=== PATIENT | male | born 1935 | race Caucasian/White ===

== ENCOUNTER 2016-10-29 11:23 | Inpatient (IN) | payer MEDICARE ==
[~2016-10-29] VITALS: Ht 180.3 cm; Wt 116.3 kg
[~2016-10-29 11:23] MED LIST: AMIO200T2 PO; AMLO5TAB4 PO; ASPI-482 PO; ASPI325T4 PO; ASPI81TA50 PO; ATOR20TA PO; BENZ100C PO; BUTA1CAP31 PO; CALC-507 PO; CALC-98 PO; CALC600T4 PO; CHOL100013 PO; CHOL10002 PO; Cefpodoxime Proxetil PO; FERR-26 PO; FERR325C PO; FINA5TAB PO; FLUO40CA2 PO; FLUO40CA9 PO; FLUT16SP2 NS; FLUT1DIS3 IH; FURO-69 PO; FURO20TA3 PO; GLUC1CAP41 PO; GLUC1CAP48 PO; INSU100C SQ; INSU100I11 SQ; INSU100I13 SQ; INSU100V8 SQ; IPRA14.7 IH; IPRA4AER IH; LISI10TA2 PO; METF10002 PO; METF500T4 PO; METO25TA2 PO; METO25TA9 PO; MULT-404 PO; MULT1TAB52 PO; NITR0.4T SL; NYST1000 SWSW; OLME1TAB5 PO; OMEP40CA2 PO; OMEP40CA5 PO; OXYC1TAB7 PO; PIOG30TA20 PO; POTA20TA12 PO; POTA99TA PO; POTA99TA10 PO; PRED10TA PO; RIVA10TA PO; RIVA20TA2 PO; SUCR1TAB29 PO; TAMS0.4C2 PO; TAMS0.4C97 PO; TIZA2CAP3 PO; TIZA2TAB PO
--- NOTE | 2016-10-29 12:57 | EKG ---
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
[2016-10-29 13:03] LABS: BASO # 0.1 x10^3/uL (0.0-0.2); BASO % 1 % (0-3); EOS % 15 % (0-3); HEMATOCRIT 30.8 % (39.0-53.0); HEMOGLOBIN 10.4 g/dL (13.0-17.5); LYMPH # 0.6 x10^3/uL (1.0-4.8); LYMPH % 8 % (24-48); MEAN CORPUSCULAR HEMOGLOBIN 31 pg (25-35); MEAN CORPUSCULAR HGB CONC 34 g/dL (31-37); MEAN CORPUSCULAR VOLUME 93 fL (79-100); MONO % 11 % (0-9); NEUT % 65 % (31-73); PLATELET COUNT 121 x10^3/uL (140-400); RED BLOOD COUNT 3.33 x10^6/uL (4.30-5.70); RED CELL DISTRIBUTION WIDTH 13.5 % (11.5-14.5); WHITE BLOOD COUNT 7.7 x10^3/uL (4.0-11.0)
[2016-10-29 13:11] LABS: CALCIUM 9.5 mg/dL (8.5-10.1); CREATININE 1.7 mg/dL (0.7-1.3); GFR 38.7; MAGNESIUM 1.9 mg/dL (1.8-2.4)
[2016-10-29 13:13] LABS: INR 1.5 (0.8-1.1); PROTHROMBIN TIME PATIENT 16.9 SEC (11.7-14.0)
--- NOTE | 2016-10-29 13:20 | PHYS DOC ---
Past Medical History Past Medical History: A-Fib, Arthritis, Asthma, Diabetes-Type II, High Cholesterol, Other Additional Past Medical Histor: HIATAL HERNIA, SLEEP APNEA, OSTEOPOROSIS, RENTOPATHY, CCL Past Surgical History: Cholecystectomy Additional Past Surgical Histo: T&A, CATARRACT REMOVAL, LASER EYE SURGERY, AORTIC VALVE REPLACEMENT Alcohol Use: Rarely Drug Use: None Adult General Chief Complaint Chief Complaint: CHEST PAIN HPI HPI Patient is a 81 year old male who presents with for evaluation of episode of lightheadedness, dyspnea, and clamminess that was followed by mid chest discomfort that radiated to his neck. He states he has been having a few of these episodes over the past month. takes his blood pressure during these episodes and it is noted to be in the 80s systolic. She states it sometimes takes an hour for the blood pressure to recover back over 90 systolic. He is supposed to get evaluated for a pacemaker by his resident care manager rn at . He denies current chest pain, but states he has mild bilateral posterior neck pain currently. This is not an acute neck pain and it is different than what he experienced at home. He denies dyspnea, cough, orthopnea, fever or chills, leg pain or swelling, abdominal pain, nausea or vomiting, headache, dizziness. Review of Systems Review of Systems Constitutional: Denies fever or chills [] Eyes: Denies change in visual acuity, redness, or eye pain [] HENT: Denies nasal congestion or sore throat [] Respiratory: Denies cough or shortness of breath [] Cardiovascular: No additional information not addressed in HPI [] GI: Denies abdominal pain, nausea, vomiting, bloody stools or diarrhea [] : Denies dysuria or hematuria [] Musculoskeletal: Denies back pain or joint pain [] Integument: Denies rash or skin lesions [] Neurologic: Denies headache, focal weakness or sensory changes [] Endocrine: Denies polyuria or polydipsia [] Allergies Allergies Allergies Coded Allergies Type Severity Reaction Last Updated Verified venom-honey bee Allergy Severe Anaphylaxis 12/11/13 Yes Penicillins Allergy Intermediate see comments 06/25/15 Yes adhesive Allergy Intermediate Rash 12/11/13 Yes Physical Exam Physical Exam Constitutional: Well developed, well nourished, no acute distress, non-toxic appearance. [] HENT: Normocephalic, atraumatic, bilateral external ears normal, oropharynx moist, no oral exudates, nose normal. [] Eyes: PERRLA, EOMI. [] Neck: Normal range of motion, no tenderness, supple. [] Cardiovascular:Heart rate regular rhythm [] Lungs & Thorax: Bilateral breath sounds clear to auscultation [] Abdomen: Bowel sounds normal, soft, no tenderness. [] Skin: Warm, dry, no erythema, no rash. [] Back: No tenderness, no CVA tenderness. [] Extremities: ROM intact, chronic darkening of skin and shallow ulcerations of bilateral legs below knees. [] Neurologic: Alert and oriented X 3, normal motor function, normal sensory function, no focal deficits noted. [] Psychologic: Affect normal, judgement normal, mood normal. [] Current Patient Data Vital Signs Vital Signs Date Time Temp Pulse Resp B/P Pulse Ox O2 Delivery O2 Flow Rate FiO2 10/29/16 13:24 60 16 144/77 99 Room Air 10/29/16 11:23 97.8 97.8 Lab Values Laboratory Tests Test 10/29/16 11:54 White Blood Count 7.7x10^3/uL (4.0-11.0) Red Blood Count 3.33x10^6/uL (4.30-5.70) L Hemoglobin 10.4g/dL (13.0-17.5) L Hematocrit 30.8% (39.0-53.0) L Mean Corpuscular Volume 93fL (79-100) Mean Corpuscular Hemoglobin 31pg (25-35) Mean Corpuscular Hemoglobin Concent 34g/dL (31-37) Red Cell Distribution Width 13.5% (11.5-14.5) Platelet Count 121x10^3/uL (140-400) L Neutrophils (%) (Auto) 65% (31-73) Lymphocytes (%) (Auto) 8% (24-48) L Monocytes (%) (Auto) 11% (0-9) H Eosinophils (%) (Auto) 15% (0-3) H Basophils (%) (Auto) 1% (0-3) Neutrophils # (Auto) 5.0x10^3uL (1.8-7.7) Lymphocytes # (Auto) 0.6x10^3/uL (1.0-4.8) L Monocytes # (Auto) 0.9x10^3/uL (0.0-1.1) Eosinophils # (Auto) 1.2x10^3/uL (0.0-0.7) H Basophils # (Auto) 0.1x10^3/uL (0.0-0.2) Prothrombin Time 16.9SEC (11.7-14.0) H Prothrombin Time INR 1.5 (0.8-1.1) H Sodium Level 144mmol/L (136-145) Potassium Level 4.0mmol/L (3.5-5.1) Chloride Level 106mmol/L (98-107) Carbon Dioxide Level 30mmol/L (21-32) Anion Gap 8 (6-14) Blood Urea Nitrogen 36mg/dL (8-26) H Creatinine 1.7mg/dL (0.7-1.3) H Estimated GFR (Cockcroft-Gault) 38.7 Glucose Level 226mg/dL (70-99) H Calcium Level 9.5mg/dL (8.5-10.1) Magnesium Level 1.9mg/dL (1.8-2.4) Troponin I Quantitative 0.117ng/mL (0.000-0.055) FL-Kgk-U-Type Natriuretic Peptide 1657pg/mL (0-449) H Thyroid Stimulating Hormone (TSH) 2.392uIU/mL (0.358-3.74) Laboratory Tests 10/29/16 11:54 Laboratory Tests 10/29/16 11:54 EKG EKG EKG as interpreted by me with sinus rhythm with interventricular block, rate 63 Radiology/Procedures Radiology/Procedures Chest xray as interpreted by me with no acute cardiopulmonary disease process Course & Med Decision Making Course & Med Decision Making Pertinent Labs and Imaging studies reviewed. (See chart for details) History concerning for presyncopal event followed by chest pain. He has mild troponin elevation in the setting of chronic kidney disease. He continues to be without chest pain. His INR is 1.5, but he is taking xarelto. Discussed case with Linda ESPINOZA, cardiology, who will see her. Discussed case with Dr. Luke, who will admit. Steven Disclaimer Dragon Disclaimer This electronic medical record was generated, in whole or in part, using a voice recognition dictation system. Departure Departure Impression: Primary Impression: Pre-syncope Additional Impressions: Chest pain Elevated troponin CKD (chronic kidney disease) stage 3, GFR 30-59 ml/min Disposition: ADMITTED INPATIENT Condition: STABLE Referrals: KIMBERLY DIAZ DO (PCP) Problem Qualifiers Additional Impressions: Chest pain Chest pain type: unspecified Qualified Code: R07.9 - Chest pain, unspecified Rene WISE MD Oct 29, 2016 13:20
--- NOTE | 2016-10-29 13:28 | RAD ---
Portable chest, 10/29/2016: History: Chest pain Comparison is made to a study from 01/21/2016. The right hemidiaphragm is mildly elevated. The heart is mildly enlarged. A vascular stent is projected over the region of the ascending aorta. The pulmonary vascularity is normal. No pulmonary infiltrates are seen. There is no evidence of pleural fluid. IMPRESSION: 1. Mild cardiomegaly. 2. No acute abnormality is detected.
[2016-10-29] MEDS ORDERED: ONDANSETRON PF 4 MG/2 ML VIAL. IV PRN ×2 (13:45→15:23)
[2016-10-29] MEDS ORDERED: NITROGLYCERIN SUBLINGUAL 0.4 MG BOTTLE OF 25. SL PRN (13:45)
[2016-10-29] MEDS ORDERED: ACETAMINOPHEN 325 MG TABLET. PO PRN (13:45)
[2016-10-29] MEDS ORDERED: hydrALAZINE 20 MG/ML VIAL. IVP PRN (15:30)
[2016-10-29 15:45] VITALS: BP 160/73
--- NOTE | 2016-10-29 15:53 | PDOC1 ---
History and Physical Date of Admission Date of Admission DATE: 10/29/16 TIME: 15:47 Identification/Chief Complaint Chief Complaint chest pain Source Source: Caregiver, Chart review, Patient History of Present Illness History of Present Illness 81 y.o male who is a known pt of Dr. Nowak, follows with outside telecom engineer, sounds like they are planning on an ICD/defib/pacer? for severe cardiomyopathy with low EF. He came here bec of non specific CP at rest, Acute on chronci SOA, no other sxs. ( was on diversion hence admitted here). CXR, nothing impressive, trops 0.117, first set, Cards consulted Pt remains stable, VS ok, PE UR except for morbid obesity with post inflammatory hyperpigmentation on both legs from cellulitis and chronic PAD. Followed at one point with a cloth sponger [place] 1[place], metformin has been dcd by his silk screen printer helper bec of this and his insulin increased Pt seen at Er appears comfortable hands me a long list of his meds Past Medical History Cardiovascular: AFIB, CAD, HTN, Hyperlipidemia, Aortic stenosis Pulmonary: Asthma, COPD, Other CENTRAL NERVOUS SYSTEM: Migraine GI: GERD Heme/Onc: Cancer Hepatobiliary: No pertinent hx Psych: No pertinent hx Musculoskeletal: Osteoarthritis Rheumatologic: No pertinent hx Renal/: No pertinent hx Endocrine: Diabetes, Osteoporosis Past Surgical History Past Surgical History: Cholecystectomy, Cataract Removal, Hernia Repair, Hysterectomy, Other Family History Family History: Diabetes, Hypertension Social History Smoke: No ALCOHOL: none Drugs: None Current Problem List Problem List Problems Medical Problems: (1) Chest pain Status: Acute (2) CKD (chronic kidney disease) stage 3, GFR 30-59 ml/min Status: Acute (3) Elevated troponin Status: Acute (4) Pre-syncope Status: Acute Problems: Current Medications Current Medications Current Medications Ondansetron HCl (Zofran) 4 mg PRN Q8HRS PRN IV NAUSEA/VOMITING; Start 10/29/16 at 13:45; Stop 10/29/16 at 15:26; Status DC Acetaminophen (Tylenol) 650 mg PRN Q4HRS PRN PO FEVER; Start 10/29/16 at 13:45 ; Stop 10/30/16 at 13:44 Nitroglycerin (Nitrostat) 0.4 mg PRN Q5MIN PRN SL CHEST PAIN; Start 10/29/16 at 13:45; Stop 10/30/16 at 13:44 Ondansetron HCl (Zofran) 4 mg PRN Q6HRS PRN IV NAUSEA/VOMITING; Start 10/29/16 at 15:23; Status UNV Amiodarone HCl (Cordarone) 200 mg BID PO ; Start 10/29/16 at 21:00; Status UNV Aspirin (Ecotrin) 81 mg DAILY PO ; Start 10/30/16 at 09:00; Status UNV Atorvastatin Calcium (Lipitor) 20 mg QHS PO ; Start 10/29/16 at 21:00; Status UNV Vitamin D (Vitamin D3) 1,000 unit BID PO ; Start 10/29/16 at 21:00; Status UNV Finasteride (Proscar) 5 mg DAILY PO ; Start 10/30/16 at 09:00; Status UNV Fluticasone Propionate (Flonase) 1 spray TID PRN NS CG; Start 10/29/16 at 15:30 ; Status UNV Furosemide (Lasix) 20 mg DAILY PO ; Start 10/30/16 at 09:00; Status UNV Lisinopril (Prinivil) 10 mg DAILY PO ; Start 10/30/16 at 09:00; Status UNV Metoprolol Succinate (Toprol Xl) 25 mg DAILY PO ; Start 10/30/16 at 09:00; Status UNV Nystatin 5 ml [id number] [id number] ; Start 10/29/16 at 17:00; Status UNV Prednisone (Prednisone) 10 mg DAILY PO ; Start 10/30/16 at 09:00; Status UNV Rivaroxaban (Xarelto) 20 mg QHS PO ; Start 10/29/16 at 21:00; Stop 10/29/16 at 21:00; Status DC Sucralfate (Carafate) 1 gm QID PO ; Start 10/29/16 at 17:00; Status UNV Tamsulosin HCl (Flomax) 0.4 mg DAILY PO ; Start 10/30/16 at 09:00; Status UNV Non-Formulary Medication 1 each BID PO ; Start 10/29/16 at 21:00; Status UNV Non-Formulary Medication 40 mg DAILY PO ; Start 10/30/16 at 09:00; Status UNV Non-Formulary Medication 17 unit HS SQ ; Start 10/29/16 at 21:00; Status UNV Non-Formulary Medication 6 unit DAILYWLUN SQ ; Start 10/30/16 at 12:00; Status UNV Non-Formulary Medication 6 unit DAILYWSUP SQ ; Start 10/29/16 at 17:00; Status UNV Non-Formulary Medication 8 unit DAILYWBKFT SQ ; Start 10/30/16 at 08:00; Status UNV Non-Formulary Medication 2 inh QID IH ; Start 10/29/16 at 17:00; Status UNV Non-Formulary Medication 4 gm BID IH ; Start 10/29/16 at 21:00; Status UNV Non-Formulary Medication 1 cap DAILY PO ; Start 10/30/16 at 09:00; Status UNV Non-Formulary Medication 2 mg HS PO ; Start 10/29/16 at 21:00; Status UNV Hydralazine HCl (Apresoline) 10 mg PRN Q4HRS PRN IVP ELEVATED BP, SEE COMMENTS ; Start 10/29/16 at 15:30; Status UNV Rivaroxaban (Xarelto) 20 mg DAILYWSUP PO ; Start 10/30/16 at 17:00; Status UNV Active Scripts Active Prednisone 10 Mg Tablet 10 Mg PO DAILY Nystatin 5 Ml Oral.susp 5 Ml SWSW [id number] [Cefpodoxime Proxetil] 200 MG Tablet 200 Mg PO BID Reported Proscar (Finasteride) 5 Mg Tablet 1 Tab PO DAILY Humalog (Insulin Lispro) 100 Unit/1 Ml Insuln.pen 6 Unit SQ DAILYWSUP Amiodarone Hcl 200 Mg Tablet 2 Tab PO BID Xarelto (Rivaroxaban) 10 Mg Tablet 20 Mg PO QHS Carafate (Sucralfate) 1 Gm Tablet 1 Tab PO QID Omeprazole 40 Mg Capsule.dr 1 Cap PO DAILY Combivent Respimat Inhal (Ipratropium/Albuterol Sulfate) 4 Gm Aer.w.adap 2 Inh IH QID Lisinopril 10 Mg Tablet 1 Tab PO DAILY Flonase (Fluticasone Propionate) 16 Gm [place].susp 16 Gm NS PRN PRN Metformin Hcl 500 Mg Tablet 500 Mg PO BID Lantus (Insulin Glargine,Hum.rec.anlog) 100 Unit/1 Ml Vial 17 Unit SQ HS Humalog (Insulin Lispro) 100 Unit/1 Ml Insuln.pen 6 Unit SQ DAILYWLUN Humalog (Insulin Lispro) 100 Unit/1 Ml Insuln.pen 8 Unit SQ DAILYWBKFT Calcium + Vitamin D Tablet (Calcium Carbonate/Vitamin D3) 1 Each Tablet 1 Each PO BID Vitamin D (Cholecalciferol (Vitamin D3)) 1,000 Unit Tablet 1,000 Unit PO BID Multivitamins (Multivitamin) 1 Each Tablet 1 Each PO DAILY Aspir 81 (Aspirin) 81 Mg Tablet.dr 81 Mg PO DAILY Combivent Respimat Inhal (Ipratropium/Albuterol Sulfate) 4 Gm Aer.w.adap 4 Gm IH BID Zanaflex (Tizanidine Hcl) 2 Mg Capsule 2 Mg PO HS Lipitor (Atorvastatin Calcium) 20 Mg Tablet 20 Mg PO QHS Flomax (Tamsulosin Hcl) 0.4 Mg Cap.er.24h 0.4 Mg PO DAILY Toprol Xl (Metoprolol Succinate) 25 Mg Tab.er.24h 25 Mg PO DAILY Prozac (Fluoxetine Hcl) 40 Mg Capsule 40 Mg PO DAILY Lasix (Furosemide) 20 Mg Tablet 20 Mg PO DAILY Allergies Allergies: Coded Allergies: venom-honey bee (Verified Allergy, Severe, Anaphylaxis, 12/11/13) Penicillins (Verified Allergy, Intermediate, see comments, 06/25/15) Rash Cefepime 06/22-06/25/15 tolerated, ID switching to cefpodoxime 06/25/15 adhesive (Verified Allergy, Intermediate, Rash, 12/11/13) ROS General: No: Appetite, Chills, Fatigue, Malaise, Night Sweats, Other PSYCHOLOGICAL ROS: No: Anxiety, Behavioral Disorder, Concentration difficultie , Decreased libido, Depression, Disorientation, Hallucinations, Hostility, Irritablity, Memory difficulties, Mood Swings, Obsessive thoughts, Other, Physical abuse, Sexual abuse, Sleep disturbances, Suicidal ideation Eyes: No Blurry vision, No Decreased vision, No Double vision, No Dry eyes, No Excessive tearing, No Eye Pain, No Itchy Eyes, No Loss of vision, No Other, No Photophobia, No Scotomata, No Uses contacts, No Uses glasses HEENT: No: Epistaxis, Heacaches, Hearing change, Nasal congestion, Nasal discharge, Oral lesions, Other, Sinus pain, Sneezing, Snoring, Sore Throat, Tinnitus, Vertigo, Visual Changes, Vocal changes ALLERGY AND IMMUNOLOGY: No: Hives, Insect Bite Sensitivity, Itchy/Watery Eyes, Nasal Congestion, Other, Post Nasal Drip, Seasonal Allergies Hematological and Lymphatic: No: Bleeding Problems, Blood Clots, Blood Transfusions, Brusing, Night Sweats, Other, Pallor, Swollen Lymph Nodes ENDOCRINE: No: Breast Changes, Galactorrhea, Hair Pattern Changes, Hot Flashes , Malaise/lethargy, Mood Swings, Other, Palpitations, Polydipsia/polyuria, Skin Changes, Temperature Intolerance, Unexpected Weight Changes Breast: No New/Changing Breast Lumps, No Nipple changes, No Nipple discharge, No Other Respiratory: YES: SOB with excertion, Shortness of breath Cardiovascular: yes Chest Pain Gastrointestinal: No Abdominal Pain, No Constipation, No Diarrhea, No Hematochezia, No Melena, No Nausea, No Other, No Vomiting Genitourinary: No , No , No , No , No , No , No , No Discharge, No Dysuria, No Flank Pain, No Frequency, No Hematuria, No Incontinence, No Other, No Pain, No Retention, No Urgency Neurological: No Behavorial Changes, No Bowel/Bladder ControlChng, No Confusion , No Dizziness, No Gait Disturbance, No Headaches, No Impaired Coord/balance, No Memory Loss, No Numbness/Tingling, No Other, No Seizures, No Speech Problems , No Tremors, No Visual Changes, No Weakness Skin: Yes Other (post inflammtaory hyperpigmentation) Physical Exam General: Alert, Oriented X3, Cooperative, No acute distress HEENT: PERRLA Lungs: Normal air movement Heart: S1S2, RRR, no thrills, no rubs Breasts: Normal, Rt breast nml w/o mass, Lt breast nml w/o mass, Nipples normal Abdomen: Normal bowel sounds, Soft, No tenderness, No hepatosplenomegaly, No masses Male Genitals Exam: normal genitalia, normal prostate Extremities: Other (post inflammatory hyperpigmentation both shins) Skin: No rashes, No breakdown, No significant lesion Neuro: Normal gait, Normal speech, Strength at 5/5 X4 ext, Normal tone, Sensation intact, Cranial nerves 3-12 NL, Reflexes 2+ Psych/Mental Status: Mental status NL, Mood NL Vitals Vitals Vital Signs Date Time Temp Pulse Resp B/P Pulse Ox O2 Delivery O2 Flow Rate FiO2 10/29/16 14:54 66 21 161/79 98 Room Air 10/29/16 11:23 97.8 97.8 Labs Labs Laboratory Tests Test 10/29/16 11:54 White Blood Count 7.7x10^3/uL (4.0-11.0) Red Blood Count 3.33x10^6/uL (4.30-5.70) Hemoglobin 10.4g/dL (13.0-17.5) Hematocrit 30.8% (39.0-53.0) Mean Corpuscular Volume 93fL (79-100) Mean Corpuscular Hemoglobin 31pg (25-35) Mean Corpuscular Hemoglobin Concent 34g/dL (31-37) Red Cell Distribution Width 13.5% (11.5-14.5) Platelet Count 121x10^3/uL (140-400) Neutrophils (%) (Auto) 65% (31-73) Lymphocytes (%) (Auto) 8% (24-48) Monocytes (%) (Auto) 11% (0-9) Eosinophils (%) (Auto) 15% (0-3) Basophils (%) (Auto) 1% (0-3) Neutrophils # (Auto) 5.0x10^3uL (1.8-7.7) Lymphocytes # (Auto) 0.6x10^3/uL (1.0-4.8) Monocytes # (Auto) 0.9x10^3/uL (0.0-1.1) Eosinophils # (Auto) 1.2x10^3/uL (0.0-0.7) Basophils # (Auto) 0.1x10^3/uL (0.0-0.2) Prothrombin Time 16.9SEC (11.7-14.0) Prothromb Time International Ratio 1.5 (0.8-1.1) Sodium Level 144mmol/L (136-145) Potassium Level 4.0mmol/L (3.5-5.1) Chloride Level 106mmol/L (98-107) Carbon Dioxide Level 30mmol/L (21-32) Anion Gap 8 (6-14) Blood Urea Nitrogen 36mg/dL (8-26) Creatinine 1.7mg/dL (0.7-1.3) Estimated GFR (Cockcroft-Gault) 38.7 Glucose Level 226mg/dL (70-99) Calcium Level 9.5mg/dL (8.5-10.1) Magnesium Level 1.9mg/dL (1.8-2.4) Troponin I Quantitative 0.117ng/mL (0.000-0.055) DB-Vnx-Q-Type Natriuretic Peptide 1657pg/mL (0-449) Laboratory Tests Test 10/29/16 11:54 White Blood Count 7.7x10^3/uL (4.0-11.0) Red Blood Count 3.33x10^6/uL (4.30-5.70) Hemoglobin 10.4g/dL (13.0-17.5) Hematocrit 30.8% (39.0-53.0) Mean Corpuscular Volume 93fL (79-100) Mean Corpuscular Hemoglobin 31pg (25-35) Mean Corpuscular Hemoglobin Concent 34g/dL (31-37) Red Cell Distribution Width 13.5% (11.5-14.5) Platelet Count 121x10^3/uL (140-400) Neutrophils (%) (Auto) 65% (31-73) Lymphocytes (%) (Auto) 8% (24-48) Monocytes (%) (Auto) 11% (0-9) Eosinophils (%) (Auto) 15% (0-3) Basophils (%) (Auto) 1% (0-3) Neutrophils # (Auto) 5.0x10^3uL (1.8-7.7) Lymphocytes # (Auto) 0.6x10^3/uL (1.0-4.8) Monocytes # (Auto) 0.9x10^3/uL (0.0-1.1) Eosinophils # (Auto) 1.2x10^3/uL (0.0-0.7) Basophils # (Auto) 0.1x10^3/uL (0.0-0.2) Prothrombin Time 16.9SEC (11.7-14.0) Prothromb Time International Ratio 1.5 (0.8-1.1) Sodium Level 144mmol/L (136-145) Potassium Level 4.0mmol/L (3.5-5.1) Chloride Level 106mmol/L (98-107) Carbon Dioxide Level 30mmol/L (21-32) Anion Gap 8 (6-14) Blood Urea Nitrogen 36mg/dL (8-26) Creatinine 1.7mg/dL (0.7-1.3) Estimated GFR (Cockcroft-Gault) 38.7 Glucose Level 226mg/dL (70-99) Calcium Level 9.5mg/dL (8.5-10.1) Magnesium Level 1.9mg/dL (1.8-2.4) Troponin I Quantitative 0.117ng/mL (0.000-0.055) UY-Plh-U-Type Natriuretic Peptide 1657pg/mL (0-449) VTE Prophylaxis Ordered VTE Prophylaxis Devices: Yes VTE Pharmacological Prophylaxi: Yes Assessment/Plan Assessment/Plan 1. Chest pain, hx severe cardiomyopathy planned for aicd? defib/ 2. Morbid Obesity 3. PAD with post inflammatory hyperpigmentation both shins 4. DM 2 on insulin 5. Asthma 6. Dyslipidemia 7. MIld PCM PLAn Trend CE GEt records from Dr Nowak Add SSI Resume home meds PT/OT Seen at ER Dw [place] BURCH MD Oct 29, 2016 15:53
--- NOTE | 2016-10-29 16:14 | PDOC2 ---
RUPAL JACKSON COLLECTION SYSTEMS FOREMAN 10/29/16 1614: CARDIAC CONSULT DATE OF CONSULT Date of Consult DATE: 10/29/16 TIME: 15:34 REASON FOR CONSULT Reason for Consult: syncope and elevated troponin REFERRING PHYSICIAN Referring Physician: Dr. Alonzo Luciano SOURCE Source: Caregiver (), Chart review, Patient HISTORY OF PRESENT ILLNESS HISTORY OF PRESENT ILLNESS 81 year old male who developed dizziness while seated about 0945 this a.m. checked BP with a wrist cuff and obtained a SBP of 85. Also developed chest pain which he initially located in the LUQ of the abdomen and then moved up in to the left mammary region without further radiation. No associated dyspnea or nausea. Pain described as elephant on the chest. denies that patient "passed out." Initial troponin was 0.117 and EKG without acute changes; ? atrial fib with IVCD; poor baseline. NT-proBNP of 1657 with Cr of 1.7. Was scheduled to see EP @ tomorrow for possible PPM implantation. reports recent echo @ with depressed LV function but does not recall EF number. Has undergone DCCV of atrial fib in the last year but unclear regarding date. Also recently had CT scan of chest done @ [facility] for oncology for "spot on lungs." Reason for Visit: syncope and elevated troponin PAST MEDICAL HISTORY Cardiovascular: AFIB (with DCCV in past year; Xarelto for stroke prevention ), HTN, Hyperlipidemia, Aortic stenosis (s/p TAVR @ in 2013), Other (? cardiomyopathy) Pulmonary: COPD, Other (GODWIN with CPAP) CENTRAL NERVOUS SYSTEM: Migraine GI: Irritable bowel disease Heme/Onc: Other (chronic lymphocytic leukemia) Hepatobiliary: No pertinent hx Psych: Depression Musculoskeletal: Osteoarthritis, Other ("toe infection") Rheumatologic: No pertinent hx Infectious disease: Other (strep in toes) ENT: No pertinent hx Renal/: Chronic renal insuff (improved after discontinuation of metformin), Benign prostatic enlarg. Endocrine: Diabetes (type II, insulin requiring) Dermatology: Other (stasis dermatitis bilateral lower extremities) PAST SURGICAL HISTORY Past Surgical History: Cholecystectomy, Cataract Removal (bilateral; no lens implants), Tonsillectomy, Other (TAVR - 2013; RLE surgery) FAMILY HISTORY Family History non-contributory SOCIAL HISTORY Smoke: Quit (1972) ALCOHOL: none Drugs: None Lives: with Family ALLERGIES ALLERGIES: Coded Allergies: venom-honey bee (Verified Allergy, Severe, Anaphylaxis, 12/11/13) Penicillins (Verified Allergy, Intermediate, see comments, 06/25/15) Rash Cefepime 06/22-06/25/15 tolerated, ID switching to cefpodoxime 06/25/15 adhesive (Verified Allergy, Intermediate, Rash, 12/11/13) ROS General: YES: Fatigue, Malaise PSYCHOLOGICAL ROS: YES: Depression Eyes: No Blurry vision, No Decreased vision, No Double vision, No Dry eyes, No Excessive tearing, No Eye Pain, No Itchy Eyes, No Loss of vision, No Other, No Photophobia, No Scotomata, No Uses contacts, No Uses glasses HEENT: No: Epistaxis, Heacaches, Hearing change, Nasal congestion, Nasal discharge, Oral lesions, Other, Sinus pain, Sneezing, Snoring, Sore Throat, Tinnitus, Vertigo, Visual Changes, Vocal changes ALLERGY AND IMMUNOLOGY: No: Hives, Insect Bite Sensitivity, Itchy/Watery Eyes, Nasal Congestion, Other, Post Nasal Drip, Seasonal Allergies Hematological and Lymphatic: No: Bleeding Problems, Blood Clots, Blood Transfusions, Brusing, Night Sweats, Other, Pallor, Swollen Lymph Nodes ENDOCRINE: YES: Malaise/lethargy Respiratory: YES: SOB with excertion, Shortness of breath Cardiovascular: yes Chest Pain, yes Edema Gastrointestinal: No Abdominal Pain, No Constipation, No Diarrhea, No Hematochezia, No Melena, No Nausea, No Other, No Vomiting Genitourinary: No Discharge, No Dysuria, No Flank Pain, No Frequency, No Hematuria, No Incontinence, No Other, No Pain, No Retention, No Urgency Musculoskeletal: Yes Joint Pain Neurological: Yes Dizziness Skin: Yes Dry Skin PHYSICAL EXAM General: Alert, Oriented X3, Cooperative, No acute distress HEENT: Atraumatic, PERRLA Lungs: Other (posterior basilar crackles) Heart: Normal S1, Normal S2, Other (1/6 systolic murmur; aortic position; tele : atrial fib) Abdomen: Normal bowel sounds, Soft, No tenderness, Other (truncal obesity) Extremities: Other (stasis changes bilaterally LE; evidence of previous venous stasis wounds - healed; can not palpate DP pulses; PT palpable) Skin: No significant lesion Neuro: Normal speech Psych/Mental Status: Mental status NL, Mood NL MUSCULOSKELETAL: Osteoarthritic changes both hands VITALS VITALS Vital Signs Date Time Temp Pulse Resp B/P Pulse Ox O2 Delivery O2 Flow Rate FiO2 10/29/16 14:54 66 21 161/79 98 Room Air 10/29/16 11:23 97.8 97.8 LABS Lab: Laboratory Tests Test 10/29/16 11:54 White Blood Count 7.7x10^3/uL (4.0-11.0) Red Blood Count 3.33x10^6/uL (4.30-5.70) Hemoglobin 10.4g/dL (13.0-17.5) Hematocrit 30.8% (39.0-53.0) Mean Corpuscular Volume 93fL (79-100) Mean Corpuscular Hemoglobin 31pg (25-35) Mean Corpuscular Hemoglobin Concent 34g/dL (31-37) Red Cell Distribution Width 13.5% (11.5-14.5) Platelet Count 121x10^3/uL (140-400) Neutrophils (%) (Auto) 65% (31-73) Lymphocytes (%) (Auto) 8% (24-48) Monocytes (%) (Auto) 11% (0-9) Eosinophils (%) (Auto) 15% (0-3) Basophils (%) (Auto) 1% (0-3) Neutrophils # (Auto) 5.0x10^3uL (1.8-7.7) Lymphocytes # (Auto) 0.6x10^3/uL (1.0-4.8) Monocytes # (Auto) 0.9x10^3/uL (0.0-1.1) Eosinophils # (Auto) 1.2x10^3/uL (0.0-0.7) Basophils # (Auto) 0.1x10^3/uL (0.0-0.2) Prothrombin Time 16.9SEC (11.7-14.0) Prothromb Time International Ratio 1.5 (0.8-1.1) Sodium Level 144mmol/L (136-145) Potassium Level 4.0mmol/L (3.5-5.1) Chloride Level 106mmol/L (98-107) Carbon Dioxide Level 30mmol/L (21-32) Anion Gap 8 (6-14) Blood Urea Nitrogen 36mg/dL (8-26) Creatinine 1.7mg/dL (0.7-1.3) Estimated GFR (Cockcroft-Gault) 38.7 Glucose Level 226mg/dL (70-99) Calcium Level 9.5mg/dL (8.5-10.1) Magnesium Level 1.9mg/dL (1.8-2.4) Troponin I Quantitative 0.117ng/mL (0.000-0.055) FL-Bsn-A-Type Natriuretic Peptide 1657pg/mL (0-449) IMAGES IMAGES CXR: Comparison is made to a study from 01/21/2016. The right hemidiaphragm is mildly elevated. The heart is mildly enlarged. A vascular stent is projected over the region of the ascending aorta. The pulmonary vascularity is normal. No pulmonary infiltrates are seen. There is no evidence of pleural fluid. IMPRESSION: 1. Mild cardiomegaly. 2. No acute abnormality is detected. EKG EKG no acute changes; possible atrial fib; IVCD ECHOCARDIOGRAM ECHOCARDIOGRAM 03/11/2015: DAJA: The left ventricle is normal size. The left ventricular systolic function is normal and the ejection fraction is within normal range. Ventricular ejection fraction was estimated at 55%. The patient is status post a TAVR. The bioprosthetic aortic valve prosthesis is well positioned and functioning normally. No vegetations were identified. Doppler and Color Flow revealed mild to moderate mitral regurgitation. Doppler and Color Flow revealed mild to moderate tricuspid regurgitation. The pulmonary valve is normal in structure and function. No vegetations were identified on this study. ASSESSMENT/PLAN ASSESSMENT/PLAN 1. elevated troponin continue serial markers will obtain echo to evaluate LVEF and assess for WMA request records from 2. ? hypotension wrist cuffs not usually accurate ? etiology of dizziness - will check orthostatic BP continue monitor 3. ? of cardiomyopathy echo done in the last 3 months @ - reportedly depressed records from repeat echo to check LVEF 4. atrial fib rate controlled with BB OAC with Xarelto ? was to have PPM implanted @ 5. aortic stenosis with previous TAVR done 2014 echo pending to evaluate 6. mild chronic systolic (presumed) CHF continue daily dosing of oral diuretic 7. DM, II per primary service 8. 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 Agree with BIOLOGY RESEARCH ASSISTANT's assessment and plan. Dizziness most probably secondary to hypotension. Check orthostatics. Troponin level slightly elevated but clinical picture not consistent with ACS. Atrial fibrillation rate controlled. Patient was apparently scheduled for permanent pacemaker implantation at [facility]. We will obtain records. Check 2- D echo to assess LV systolic function. Continue current medications including Xarelto. Thank you for your consultation. Problems: RUPAL JACKSON APRN Oct 29, 2016 16:14 MELINDA DAMIAN MD Oct 29, 2016 16:56
[2016-10-29] MEDS ORDERED: ANTI-COAG MONITOR BY PHARMACY. MC PRN (16:30)
[2016-10-29] MEDS: SUCRALFATE 1 GM TABLET. PO SCH ×2 (16:30→21:16)
--- NOTE | 2016-10-29 16:33 | ACF ---
Admission Forms Criteria CHEST PAIN Clinical Indications for Admission to Inpatient Care (Place 'X' for any and all applicable criteria): Admission is indicated for chest pain and ANY ONE of the following(1)(2)(3)(4)(5 ): [ ]I. Angina with acute coronary syndrome (Also use Myocardial Infarction or Angina guideline) [ ]II. Hemodynamic instability [ ]III. Angina needing acute intervention as indicated by ALL of the following( 11)(12): [ ]a) Unstable angina is present as indicated by angina that is ANY ONE of the following: [ ]i) New onset [ ]ii) Nocturnal [ ]iii) Prolonged at rest [ ]iv) Progressive [ ]b) Angina warrants acute intervention as indicated by ANY ONE of the following: [ ]i) Recurrent angina (e.g, not responding as previously to treatment) [ ]ii) Angina at rest or with low-level activities despite initial medical therapy [ ]iii) New or presumably new ST-segment depression on ECG [ ]iv) Signs or symptoms of heart failure (eg, dyspnea, pulmonary edema) [ ]v) New or worsening mitral regurgitation [ ]vi) Hemodynamic instability [ ]vii) Dangerous arrhythmia (eg, sustained ventricular tachycardia) [ ]viii) History of percutaneous coronary intervention within 6 months [ ]ix) History of coronary artery bypass graft surgery [ ]x) KARELY risk score of 2 or greater[A] [ ]xi) History of Diabetes(14) [ ]xii) High-risk cardiac ischemia findings on noninvasive testing (e.g, echocardiogram, treadmill testing, nuclear scan) [ ]xiii) Chronic renal insufficiency (ie, estimated GFR less than 60 mL/min/1.732m) [ ]xiv) Left ventricular ejection fraction less than 40% [X]IV. Evidence of WA (eg, cardiac biomarkers positive, ST-segment elevation on ECG) also use Myocardial Infarction Criteria Form. [ ]V. Pulmonary edema [ ]. Respiratory distress [ ]VII. Chest pain indicative of serious diagnosis other than coronary artery disease (eg, aortic dissection) [ ]VIII. Contraindications and/or Inappropriate clinical situations for Observational Care in patients with Chest Pain, when ANY ONE of the following is required: [ ]a) Patient with risk factor for pulmonary embolism, acute coronary syndrome and myocardial infarction (18) [ ]b) Patient with Pulmonary embolism require an average LOS of 4.3 days, therefore emergency department observation management is inappropriate 18,23 [ ]c) Painful condition/s in the elderly, have the highest rate of recidivism after emergency department observation management (10.8%) 20,21,22 [ ]d) Elevated cardiac biomarker requires intensive and exhaustive care (19) [ ]IX. General contraindications and/or Inappropriate clinical situations for Observational Care in patients with Chest Pain, when ANY ONE of the following is required: [ ]a) Prediction of prolongation of LOS based on ANY ONE of the following may be considered as a contraindication for observational care 2, 3, 4, 5, 6, 7, 8, 9, 10, 11 [ ]i) Age > 65 yrs. [ ]ii) Patient arriving by ambulance [ ]iii) Patient with high acuity [ ]iv) Patient requiring vital sign monitoring [ ]v) Patient on IV medication [ ]b) Systolic blood pressures 180mmHg 3,12 [ ]c) Patient with altered mental status including delirium and other alteration of consciousness, (3) [ ]d) Patient whose discharge disposition will be to a half-way home or rehabilitation home should not be managed in Emergency Department Observation Unit. CMS rule requires 3 days hospital stay before such placement. 3,13 [ ]e) Patient with failure to thrive due to broad array of etiologies 3,16,17 [ ]f) Inability to ambulate 3,14 Extended stay beyond goal length of stay may be needed for (1)(28): [ ]a) Specific condition diagnosed after evaluation (eg, pulmonary embolism, aortic dissection) [ ]b) Unstable angina [ ]c) Continued suspicion of acute coronary syndrome with inability to complete needed cardiac evaluation (eg, patient clinically unable to undergo stress testing) [ ]d) Myocardial infarction (Contents from ANGINA and CHEST PAIN clinical indications for admission to inpatient care have been integrated in this form) The original [facility] content created by [employer] has been revised. The portions of the content which have been revised are identified through the use of italic text or in bold, and [facility] has neither reviewed nor approved the modified material. All other unmodified content is copyright [employer]. Please see references footnoted in the original [facility] edition 2016 Admission Criteria Met?: Yes KIM CARLIN Oct 29, 2016 16:33
[2016-10-29] MEDS: CALCIUM CARB/VIT D3 500/200 TABLET PO SCH (17:00)
[2016-10-29] MEDS ORDERED: INSULIN LISPRO 6 UNIT SQ SCH (17:00)
[2016-10-29] MEDS ORDERED: NON FORMULARY ITEM (Ipratropium/Albuterol Sulfate (Combivent Respimat Inhal) 2 INH) IH SCH (17:00)
--- NOTE | 2016-10-29 17:08 | CARD ---
APPROVED REPORT EXAM: Two-dimensional and M-mode echocardiogram with Doppler and color Doppler. Other Information Quality : Technically Limited Technically limited study due to body habitus. INDICATION Cardiomyopathy elevated troponin level 2D DIMENSIONS Left Atrium(2D)3.9 (1.6-4.0cm)IVSd1.4 (0.7-1.1cm) Aortic Root(2D)2.9 (2.0-3.7cm)LVDd4.6 (3.9-5.9cm) LVOT Diameter2.1 (1.8-2.4cm)PWd1.5 (0.7-1.1cm) LVDs3.7 (2.5-4.0cm)FS (%) 19.3 % SV38.5 mlLVEF(%)39.9 (>50%) Aortic Valve AoV Peak Gamal.186.4cm/sAoV VTI38.4cm AO Peak GR.13.9mmHgLVOT VTI 17.68cm AO Mean GR.9mmHgAVA (VTI)1.60cm2 Mitral Valve MV E Anlrnqpz42.9cm/sMV E Peak Gr.8mmHg MV DECEL [id number] A Lehvphbw680.0cm/s MV E Mean Gr.3mmHgMV [id number] E/A Ratio0.5MV A [id number] MVA (PHT)3.93cm2 TDI Lateral E' P. V4.84cm/sMedial E' P. V3.85cm/s E/Lateral E'15.3E/Medial E'19.2 LEFT VENTRICLE The left ventricle is normal size. There is mild concentric left ventricular hypertrophy. Left ventri ace systolic function is mildly impaired. The Ejection Fraction is 45%. There is global hypokinesis o f the left ventricle with septal motion suggestive of conduction defect. Tissue Doppler imaging revea ls mild left ventricular diastolic dysfunction. RIGHT VENTRICLE The right ventricle is normal size. The right ventricular systolic function is normal. ATRIA The left atrium size is normal. The right atrium is not well visualized. The interatrial septum is in tact with no evidence for an atrial septal defect or patent foramen ovale as noted on 2-D or Doppler imaging. AORTIC VALVE TAVR appears well positioned and is functioning normally. Doppler and Color Flow revealed no signific ant aortic regurgitation. Mean gradient of 9mmHG with a peak of 14mmHG across the TAVR. MITRAL VALVE Mitral annular calcification is moderate. There is no mitral valve stenosis. Doppler and Color Flow r evealed mild mitral regurgitation. TRICUSPID VALVE The tricuspid valve is not well visualized. Doppler and Color Flow revealed no tricuspid valve regurg itation noted. Unable to estimate PA pressure. There is no tricuspid valve stenosis. PULMONIC VALVE The pulmonic valve is not well visualized. Doppler and Color Flow revealed no pulmonic valvular regur gitation. There is no pulmonic valvular stenosis. GREAT VESSELS The aortic root is normal in size. The IVC was not visualized. PERICARDIAL EFFUSION There is no evidence of significant pericardial effusion. Critical Notification Critical Value: No <Conclusion> There is global hypokinesis of the left ventricle with septal motion suggestive of conduction defect. TAVR (Medtronic Corevalve) appears well positioned and is functioning normally. Mean gradient of 9mmHG with a peak of 14mmHG across the TAVR.
[2016-10-29] MEDS: NYSTATIN 100,000 UNITS/ML 5 ML ORAL.SUSP. SWSW SCH ×2 (18:48→21:15)
[2016-10-29] MEDS ORDERED: CHOL100013 PO (19:53)
[2016-10-29] MEDS ORDERED: ESCI20TA PO (19:53)
[2016-10-29] MEDS ORDERED: CEPH500C PO (19:53)
[2016-10-29] MEDS ORDERED: LACT1CAP6 PO (19:53)
[2016-10-29] MEDS ORDERED: CODE1CAP8 PO (19:53)
[2016-10-29] MEDS ORDERED: RIVA20TA2 PO (19:53)
[2016-10-29] MEDS ORDERED: SACU1TAB PO (19:53)
[2016-10-29] MEDS ORDERED: TORS20TA2 PO (19:53)
[2016-10-29] MEDS ORDERED: SIMV10TA3 PO (19:53)
[2016-10-29 19:55] VITALS: BP 146/74
[2016-10-29] MEDS: IPRATRPIUM/ALBUTEROL 0.5/2.5MG 3 ML NEBU. NEB SCH (19:57)
[2016-10-29 20:56] VITALS: BP 166/77
[2016-10-29 20:57] VITALS: BP 143/68
[2016-10-29] MEDS ORDERED: FLUTICASONE 50MCG/NASAL SPRAY 16GM BOTTLE. NS SCH (21:00)
[2016-10-29] MEDS ORDERED: INSULIN DETEMIR 300 UNITS/3 ML INSULN.PEN. SQ SCH (21:00)
[2016-10-29] MEDS ORDERED: NON FORMULARY ITEM (Ipratropium/Albuterol Sulfate (Combivent Respimat Inhal) 4 GM) IH SCH (21:00)
[2016-10-29] MEDS ORDERED: tiZANidine 4 MG TABLET. PO SCH (21:00)
[2016-10-29] MEDS ORDERED: ATORVASTATIN CALCIUM 20 MG TABLET PO SCH (21:00)
[2016-10-29] MEDS ORDERED: RIVAROXABAN 10 MG TABLET. PO SCH (21:00)
[2016-10-29] MEDS: AMIODARONE HCL 200 MG TABLET PO SCH (21:16)
[2016-10-29] MEDS: CHOLECALCIFEROL (VITAMIN D3) 1,000 UNIT TABLET PO SCH (21:17)
[2016-10-29 23:00] VITALS: BP 145/66
[2016-10-30 03:40] VITALS: BP 137/69
[2016-10-30 05:45] LABS: CHOLESTEROL/HDL RATIO 2.8
[2016-10-30] MEDS: IPRATRPIUM/ALBUTEROL 0.5/2.5MG 3 ML NEBU. NEB SCH ×3 (07:08→15:28)
[2016-10-30 07:23] VITALS: BP 124/61
[2016-10-30] MEDS ORDERED: PANTOPRAZOLE 40 MG TABLET. PO SCH (07:30)
[2016-10-30] MEDS: CALCIUM CARB/VIT D3 500/200 TABLET PO SCH (08:00)
[2016-10-30] MEDS: INSULIN ASPART 300 UNITS/3 ML INSULN.PEN SQ SCH ×2 (08:00→08:55)
--- NOTE | 2016-10-30 08:11 | EKG ---
[facility] [address] [place] [address] Test Date: 2016-10-30 Test Time: 07:49:39 Pat Name: ANGEL JACOME Department: Room: 200 1 Gender: M Public Relations Director: DIOMEDES : 1935 Requested By: Rene WISE Order Number: [id number] Reading MD: Karlos Lee Measurements Intervals [place] Rate: 70 P: 30 VA: 290 QRS: 13 QRSD: 122 T: 26 QT: 448 QTc: 487 Interpretive Statements SINUS RHYTHM PROLONGED VA INTERVAL NONSPECIFIC ST-T WAVE CHANGES. LOW LIMB LEAD VOLTAGE ABNORMAL ECG RI6.01 Compared to ECG 01/21/2016 15:21:43 First degree AV block now present Atrial fibrillation no longer present ST (T wave) deviation no longer present Electronically Signed On 11-15-2016 9:49:36 PROGRAM THERAPIST by Karlos Lee
[2016-10-30] MEDS: CHOLECALCIFEROL (VITAMIN D3) 1,000 UNIT TABLET PO SCH (08:39)
[2016-10-30] MEDS: SUCRALFATE 1 GM TABLET. PO SCH ×2 (08:41→12:35)
[2016-10-30] MEDS ORDERED: ASPIRIN ENTERIC COATED 81 MG TABLET.DR. PO SCH (09:00)
[2016-10-30] MEDS ORDERED: FLUOXETINE HCL 20 MG CAPSULE PO SCH (09:00)
[2016-10-30] MEDS: NYSTATIN 100,000 UNITS/ML 5 ML ORAL.SUSP. SWSW SCH (09:00)
[2016-10-30] MEDS: AMIODARONE HCL 200 MG TABLET PO SCH (09:00)
[2016-10-30] MEDS ORDERED: TAMSULOSIN 0.4 MG CAP.ER.24H. PO SCH (09:00)
[2016-10-30] MEDS ORDERED: LISINOPRIL 10 MG TABLET PO SCH (09:00)
[2016-10-30] MEDS ORDERED: PREDNISONE 10 MG TABLET PO SCH (09:00)
[2016-10-30] MEDS ORDERED: FUROSEMIDE 20 MG TABLET PO SCH (09:00)
[2016-10-30] MEDS ORDERED: METOPROLOL SUCC 24HR ER 25 MG TAB.ER.24H. PO SCH (09:00)
[2016-10-30] MEDS ORDERED: FINASTERIDE 5 MG TABLET PO SCH (09:00)
--- NOTE | 2016-10-30 09:06 | PDOC ---
CARDIO Progress Notes Date and Time Date of Service 10/30/2016 Time of Evaluation 0905 Subjective Subjective: No Chest Pain, No shortness of breath, No Palpitations, No Dizziness Vitals Vitals Vital Signs Date Time Temp Pulse Resp B/P Pulse Ox O2 Delivery O2 Flow Rate FiO2 10/30/16 08:34 69 124/61 10/30/16 07:23 97.6 20 96 Room Air 97.6 Weight Weight [ ] Input and Output Intake and Output Intake and Output 10/30/16 07:00 Intake Total 572 ml Balance 572 ml Intake Oral 572 ml # Voids 2 # Bowel Movements 1 Laboratory Labs Laboratory Tests Test 10/29/16 11:54 10/29/16 17:21 10/29/16 18:25 10/29/16 21:13 White Blood Count 7.7x10^3/uL (4.0-11.0) Red Blood Count 3.33x10^6/uL (4.30-5.70) Hemoglobin 10.4g/dL (13.0-17.5) Hematocrit 30.8% (39.0-53.0) Mean Corpuscular Volume 93fL (79-100) Mean Corpuscular Hemoglobin 31pg (25-35) Mean Corpuscular Hemoglobin Concent 34g/dL (31-37) Red Cell Distribution Width 13.5% (11.5-14.5) Platelet Count 121x10^3/uL (140-400) Neutrophils (%) (Auto) 65% (31-73) Lymphocytes (%) (Auto) 8% (24-48) Monocytes (%) (Auto) 11% (0-9) Eosinophils (%) (Auto) 15% (0-3) Basophils (%) (Auto) 1% (0-3) Neutrophils # (Auto) 5.0x10^3uL (1.8-7.7) Lymphocytes # (Auto) 0.6x10^3/uL (1.0-4.8) Monocytes # (Auto) 0.9x10^3/uL (0.0-1.1) Eosinophils # (Auto) 1.2x10^3/uL (0.0-0.7) Basophils # (Auto) 0.1x10^3/uL (0.0-0.2) Prothrombin Time 16.9SEC (11.7-14.0) Prothromb Time International Ratio 1.5 (0.8-1.1) Sodium Level 144mmol/L (136-145) Potassium Level 4.0mmol/L (3.5-5.1) Chloride Level 106mmol/L (98-107) Carbon Dioxide Level 30mmol/L (21-32) Anion Gap 8 (6-14) Blood Urea Nitrogen 36mg/dL (8-26) Creatinine 1.7mg/dL (0.7-1.3) Estimated GFR (Cockcroft-Gault) 38.7 Glucose Level 226mg/dL (70-99) Calcium Level 9.5mg/dL (8.5-10.1) Magnesium Level 1.9mg/dL (1.8-2.4) Troponin I Quantitative 0.117ng/mL (0.000-0.055) 0.124ng/mL (0.000-0.055) UH-Qlu-N-Type Natriuretic Peptide 1657pg/mL (0-449) Thyroid Stimulating Hormone (TSH) 2.392uIU/mL (0.358-3.74) Glucose (Fingerstick) 109mg/dL (70-99) 179mg/dL (70-99) Test 10/30/16 00:55 Troponin I Quantitative 0.119ng/mL (0.000-0.055) Triglycerides Level 78mg/dL (0-150) Cholesterol Level 150mg/dL (0-200) LDL Cholesterol, Calculated 80mg/dL (0-100) VLDL Cholesterol, Calculated 16mg/dL (0-40) HDL Cholesterol 54mg/dL (40-60) Cholesterol/HDL Ratio 2.8 Physical Exam HEENT: Neck Supple W Full Motion Chest: Symmetric LUNGS: Other (crackes left base posteriorly; otherwise clear) Heart: S1S2, RRR, no thrills, no rubs Abdomen: Soft N/T (obese abdomen) Extremities: Other (2+ bilateral LE edema with chronic stasis changes; no open wounds) Neurology: alert, oriented Diagnostic Tests Echocardiogram: Other (LVEF 45% with global hypokinesis suggestive of conduction defect; TAVR well seated and functioning; MG = 9; PK = 14) Assessment Assessment 1. elevated troponin troponin peaked @ 0.124 no further symptoms echo with mildly depressed LVEF of 45%; global hypokinesis suggestive of conduction defect overall, no suggestive of ACS continue to await records from 2. ? hypotension no evidence of hypotension overnight, in fact, intermittently hypertensive orthostatic readings have not been completed 3. ? of cardiomyopathy mildly depressed LV function @ 45% awaiting records continue medical management 4. atrial fib rate controlled with BB OAC with Xarelto ? was to have PPM implanted @ 5. aortic stenosis with previous TAVR done 2013 echo demonstrates well seated and functioning valve MG = 9 and PG = 14 6. mild chronic systolic CHF compensated continue daily dosing of oral diuretic No cardiac dysrhythmias, BP stable; may discharge home and f/u with Dr. Nowak next week Have requested echo from 10/29/2016 done here @ [facility] be clouded over to for Dr. Nowak Continue home meds as was previously taking; have advised to be cautious with position changes & has been advised not to move pt if he is dizzy but to elevate legs Other Comments ADDENDUM @ 1450: RECORDS REVIEWED FROM 01/07/2016: LVEF 35-40% BY ECHO 02/2016: LVEF = 55% BY ECHO 04/22/2016: DCCV ATRIAL FIB TO SR 04/27/2016: REGADENOSON MPI - NON-ISCHEMIC 10/06/2016: LVEF 35% BY ECHO PENDING APPT @ TO DISCUSS ICD VS EQUIPMENT ASSOCIATE RUPAL JACKSON APRN Oct 30, 2016 09:06
[2016-10-30 09:54] LABS: HEMATOCRIT 32.3 % (39.0-53.0); HEMOGLOBIN 10.8 g/dL (13.0-17.5); RED BLOOD COUNT 3.5 x10^6/uL (4.30-5.70); RED CELL DISTRIBUTION WIDTH 13.2 % (11.5-14.5); WHITE BLOOD COUNT 6.7 x10^3/uL (4.0-11.0)
[2016-10-30 10:08] LABS: CALCIUM 9.3 mg/dL (8.5-10.1); CREATININE 1.4 mg/dL (0.7-1.3); GFR 48.4; MAGNESIUM 1.9 mg/dL (1.8-2.4); POTASSIUM 4.1 mmol/L (3.5-5.1)
[2016-10-30 10:45] VITALS: BP 127/68
[2016-10-30] MEDS ORDERED: DEXTROSE 50% 25 GM / 50ML DISP.SYRIN. IV PRN (10:45)
[2016-10-30] MEDS ORDERED: MULTIVITAMIN with MINERAL TABLET. PO SCH (11:00)
[2016-10-30] MEDS ORDERED: SACUBITRIL/VALSARTAN 24/26MG TABLET. PO SCH (11:00)
[2016-10-30] MEDS ORDERED: ESCITALOPRAM 10 MG TABLET. PO SCH (11:00)
[2016-10-30] MEDS ORDERED: INSULIN ASPART 300 UNITS/3 ML INSULN.PEN SQ SCH ×3 (12:00→16:30)
[2016-10-30] MEDS ORDERED: CEPHALEXIN 250 MG CAPSULE PO SCH (13:00)
--- NOTE | 2016-10-30 13:45 | PDOC ---
PROGRESS NOTES Chief Complaint Chief Complaint 1. Chest pain, hx severe cardiomyopathy WITH chf, likely diastolic 2. Morbid Obesity 3. PAD with post inflammatory hyperpigmentation both shins 4. DM 2 on insulin 5. Asthma 6. Dyslipidemia 7. MIld PCM 8. s/o TAVR 9. PAFIB, sinus now 10 . LYNDSEY on CKD 3, vasomotor 11. GODWIN on CPAP PLAn Troponin slightly high GEt records from Dr Nowak Add SSI, cont home insulin regimen Resume home meds PT/OT Seen at ER Dw home TOrsomide, on lasix 20mg daily now History of Present Illness History of Present Illness no chest pain, or sob now \ very concern about his meds Vitals Vitals Vital Signs Date Time Temp Pulse Resp B/P Pulse Ox O2 Delivery O2 Flow Rate FiO2 10/30/16 12:36 80 127/68 10/30/16 11:40 Room Air 10/30/16 10:45 97.9 20 95 97.9 Physical Exam General: Alert, Oriented X3, Cooperative, No acute distress Heart: Normal S1, Normal S2, Other (1/6 systolic murmur; aortic position; tele : atrial fib) Lungs: Clear Abdomen: Normal bowel sounds, Soft, No tenderness, Other (truncal obesity) Extremities: Other (stasis changes bilaterally LE; evidence of previous venous stasis wounds - healed; can not palpate DP pulses; PT palpable) Skin: No significant lesion Labs LABS Laboratory Tests Test 10/29/16 17:21 10/29/16 18:25 10/29/16 21:13 10/30/16 00:55 Glucose (Fingerstick) 109mg/dL (70-99) 179mg/dL (70-99) Troponin I Quantitative 0.124ng/mL (0.000-0.055) 0.119ng/mL (0.000-0.055) Triglycerides Level 78mg/dL (0-150) Cholesterol Level 150mg/dL (0-200) LDL Cholesterol, Calculated 80mg/dL (0-100) VLDL Cholesterol, Calculated 16mg/dL (0-40) HDL Cholesterol 54mg/dL (40-60) Cholesterol/HDL Ratio 2.8 Test 10/30/16 09:24 10/30/16 11:03 White Blood Count 6.7x10^3/uL (4.0-11.0) Red Blood Count 3.50x10^6/uL (4.30-5.70) Hemoglobin 10.8g/dL (13.0-17.5) Hematocrit 32.3% (39.0-53.0) Mean Corpuscular Volume 92fL (79-100) Mean Corpuscular Hemoglobin 31pg (25-35) Mean Corpuscular Hemoglobin Concent 34g/dL (31-37) Red Cell Distribution Width 13.2% (11.5-14.5) Platelet Count 115x10^3/uL (140-400) Sodium Level 145mmol/L (136-145) Potassium Level 4.1mmol/L (3.5-5.1) Chloride Level 107mmol/L (98-107) Carbon Dioxide Level 33mmol/L (21-32) Anion Gap 5 (6-14) Blood Urea Nitrogen 32mg/dL (8-26) Creatinine 1.4mg/dL (0.7-1.3) Estimated GFR (Cockcroft-Gault) 48.4 Glucose Level 144mg/dL (70-99) Calcium Level 9.3mg/dL (8.5-10.1) Magnesium Level 1.9mg/dL (1.8-2.4) Glucose (Fingerstick) 171mg/dL (70-99) Review of Systems Review of Systems no fever, chills, sob or chest pain Assessment and Plan Assessmemt and Plan Problems Medical Problems: (1) Chest pain Status: Acute (2) CKD (chronic kidney disease) stage 3, GFR 30-59 ml/min Status: Acute (3) Elevated troponin Status: Acute (4) Pre-syncope Status: Acute Problems: Comment Review of Relevant I have reviewed the following items earnest (where applicable) has been applied. Labs Laboratory Tests Test 10/29/16 11:54 10/29/16 17:21 10/29/16 18:25 10/29/16 21:13 White Blood Count 7.7x10^3/uL (4.0-11.0) Red Blood Count 3.33x10^6/uL (4.30-5.70) Hemoglobin 10.4g/dL (13.0-17.5) Hematocrit 30.8% (39.0-53.0) Mean Corpuscular Volume 93fL (79-100) Mean Corpuscular Hemoglobin 31pg (25-35) Mean Corpuscular Hemoglobin Concent 34g/dL (31-37) Red Cell Distribution Width 13.5% (11.5-14.5) Platelet Count 121x10^3/uL (140-400) Neutrophils (%) (Auto) 65% (31-73) Lymphocytes (%) (Auto) 8% (24-48) Monocytes (%) (Auto) 11% (0-9) Eosinophils (%) (Auto) 15% (0-3) Basophils (%) (Auto) 1% (0-3) Neutrophils # (Auto) 5.0x10^3uL (1.8-7.7) Lymphocytes # (Auto) 0.6x10^3/uL (1.0-4.8) Monocytes # (Auto) 0.9x10^3/uL (0.0-1.1) Eosinophils # (Auto) 1.2x10^3/uL (0.0-0.7) Basophils # (Auto) 0.1x10^3/uL (0.0-0.2) Prothrombin Time 16.9SEC (11.7-14.0) Prothromb Time International Ratio 1.5 (0.8-1.1) Sodium Level 144mmol/L (136-145) Potassium Level 4.0mmol/L (3.5-5.1) Chloride Level 106mmol/L (98-107) Carbon Dioxide Level 30mmol/L (21-32) Anion Gap 8 (6-14) Blood Urea Nitrogen 36mg/dL (8-26) Creatinine 1.7mg/dL (0.7-1.3) Estimated GFR (Cockcroft-Gault) 38.7 Glucose Level 226mg/dL (70-99) Calcium Level 9.5mg/dL (8.5-10.1) Magnesium Level 1.9mg/dL (1.8-2.4) Troponin I Quantitative 0.117ng/mL (0.000-0.055) 0.124ng/mL (0.000-0.055) VB-Kcw-M-Type Natriuretic Peptide 1657pg/mL (0-449) Thyroid Stimulating Hormone (TSH) 2.392uIU/mL (0.358-3.74) Glucose (Fingerstick) 109mg/dL (70-99) 179mg/dL (70-99) Test 10/30/16 00:55 10/30/16 09:24 10/30/16 11:03 Troponin I Quantitative 0.119ng/mL (0.000-0.055) Triglycerides Level 78mg/dL (0-150) Cholesterol Level 150mg/dL (0-200) LDL Cholesterol, Calculated 80mg/dL (0-100) VLDL Cholesterol, Calculated 16mg/dL (0-40) HDL Cholesterol 54mg/dL (40-60) Cholesterol/HDL Ratio 2.8 White Blood Count 6.7x10^3/uL (4.0-11.0) Red Blood Count 3.50x10^6/uL (4.30-5.70) Hemoglobin 10.8g/dL (13.0-17.5) Hematocrit 32.3% (39.0-53.0) Mean Corpuscular Volume 92fL (79-100) Mean Corpuscular Hemoglobin 31pg (25-35) Mean Corpuscular Hemoglobin Concent 34g/dL (31-37) Red Cell Distribution Width 13.2% (11.5-14.5) Platelet Count 115x10^3/uL (140-400) Sodium Level 145mmol/L (136-145) Potassium Level 4.1mmol/L (3.5-5.1) Chloride Level 107mmol/L (98-107) Carbon Dioxide Level 33mmol/L (21-32) Anion Gap 5 (6-14) Blood Urea Nitrogen 32mg/dL (8-26) Creatinine 1.4mg/dL (0.7-1.3) Estimated GFR (Cockcroft-Gault) 48.4 Glucose Level 144mg/dL (70-99) Calcium Level 9.3mg/dL (8.5-10.1) Magnesium Level 1.9mg/dL (1.8-2.4) Glucose (Fingerstick) 171mg/dL (70-99) Laboratory Tests Test 10/29/16 17:21 10/29/16 18:25 10/29/16 21:13 10/30/16 00:55 Glucose (Fingerstick) 109mg/dL (70-99) 179mg/dL (70-99) Troponin I Quantitative 0.124ng/mL (0.000-0.055) 0.119ng/mL (0.000-0.055) Triglycerides Level 78mg/dL (0-150) Cholesterol Level 150mg/dL (0-200) LDL Cholesterol, Calculated 80mg/dL (0-100) VLDL Cholesterol, Calculated 16mg/dL (0-40) HDL Cholesterol 54mg/dL (40-60) Cholesterol/HDL Ratio 2.8 Test 10/30/16 09:24 10/30/16 11:03 White Blood Count 6.7x10^3/uL (4.0-11.0) Red Blood Count 3.50x10^6/uL (4.30-5.70) Hemoglobin 10.8g/dL (13.0-17.5) Hematocrit 32.3% (39.0-53.0) Mean Corpuscular Volume 92fL (79-100) Mean Corpuscular Hemoglobin 31pg (25-35) Mean Corpuscular Hemoglobin Concent 34g/dL (31-37) Red Cell Distribution Width 13.2% (11.5-14.5) Platelet Count 115x10^3/uL (140-400) Sodium Level 145mmol/L (136-145) Potassium Level 4.1mmol/L (3.5-5.1) Chloride Level 107mmol/L (98-107) Carbon Dioxide Level 33mmol/L (21-32) Anion Gap 5 (6-14) Blood Urea Nitrogen 32mg/dL (8-26) Creatinine 1.4mg/dL (0.7-1.3) Estimated GFR (Cockcroft-Gault) 48.4 Glucose Level 144mg/dL (70-99) Calcium Level 9.3mg/dL (8.5-10.1) Magnesium Level 1.9mg/dL (1.8-2.4) Glucose (Fingerstick) 171mg/dL (70-99) Medications Current Medications Ondansetron HCl (Zofran) 4 mg PRN Q8HRS PRN IV NAUSEA/VOMITING; Start 10/29/16 at 13:45; Stop 10/29/16 at 15:26; Status DC Acetaminophen (Tylenol) 650 mg PRN Q4HRS PRN PO FEVER Last administered on 10/30 10:49; Start 10/29/16 at 13:45; Stop 10/30/16 at 13:44 Nitroglycerin (Nitrostat) 0.4 mg PRN Q5MIN PRN SL CHEST PAIN; Start 10/29/16 at 13:45; Stop 10/30/16 at 13:44 Ondansetron HCl (Zofran) 4 mg PRN Q6HRS PRN IV NAUSEA/VOMITING; Start 10/29/16 at 15:23 Amiodarone HCl (Cordarone) 200 mg BID PO Last administered on 10/29/16 21:16; Start 10/29/16 at 21:00; Stop 10/30/16 at 10:39; Status DC Aspirin (Ecotrin) 81 mg DAILY PO Last administered on 10/30/16 08:39; Start at 09:00 Atorvastatin Calcium (Lipitor) 20 mg QHS PO Last administered on 10/29/16 21: 15; Start 10/29/16 at 21:00 Vitamin D (Vitamin D3) 1,000 unit BID PO Last administered on 10/30/16 08:39; Start 10/29/16 at 21:00 Finasteride (Proscar) 5 mg DAILY PO Last administered on 10/30/16 08:40; Start 10/30/16 at 09:00 Fluticasone Propionate (Flonase) 1 spray BID NS ; Start 10/29/16 at 21:00; Stop 10/29/16 at 21:00; Status DC Furosemide (Lasix) 20 mg DAILY PO Last administered on 10/30/16 08:39; Start 10/30/16 at 09:00 Lisinopril (Prinivil) 10 mg DAILY PO Last administered on 10/30/16 08:34; Start 10/30/16 at 09:00 Metoprolol Succinate (Toprol Xl) 25 mg DAILY PO ; Start 10/30/16 at 09:00; Stop 10/30/16 at 10:39; Status DC Nystatin 5 ml [id number] [id number] Last administered on 10/29/16 21:15; Start at 17:00; Stop 10/30/16 at 10:39; Status DC Prednisone (Prednisone) 10 mg DAILY PO ; Start 10/30/16 at 09:00; Stop 10/30/16 at 10:39; Status DC Rivaroxaban (Xarelto) 20 mg QHS PO ; Start 10/29/16 at 21:00; Stop 10/29/16 at 21:00; Status DC Sucralfate (Carafate) 1 gm QIDACHS PO Last administered on 10/30/16 12:35; Start 10/29/16 at 16:30 Tamsulosin HCl (Flomax) 0.4 mg DAILY PO Last administered on 10/30/16 09:00; Start 10/30/16 at 09:00 Calcium/Vitamin D (Oscal D 500mg/ 200uts) 1 tab BIDWMEALS PO ; Start 10/29/16 at 17:00 Fluoxetine HCl (Prozac) 40 mg DAILY PO ; Start 10/30/16 at 09:00; Stop 10/30/16 at 10:39; Status DC Insulin Detemir (Levemir) 17 units QHS SQ Last administered on 10/29/16 21:26 ; Start 10/29/16 at 21:00 Insulin Aspart (Novolog) 6 units BIDACLD SQ ; Start 10/30/16 at 16:30; Stop at 16:30; Status DC Non-Formulary Medication 6 unit DAILYWSUP SQ ; Start 10/29/16 at 17:00; Stop at 17:00; Status DC Insulin Aspart (Novolog) 8 units DAILYWBKFT SQ Last administered on 10/30/16 08:00; Start 10/30/16 at 07:30; Stop 10/30/16 at 12:29; Status DC Non-Formulary Medication 2 inh QID IH ; Start 10/29/16 at 17:00; Stop 10/29/16 at 17:00; Status DC Non-Formulary Medication 4 gm BID IH ; Start 10/29/16 at 21:00; Stop 10/29/16 at 21:00; Status DC Pantoprazole Sodium (Protonix) 40 mg DAILYAC PO Last administered on 10/30/16 08:39; Start 10/30/16 at 07:30 Tizanidine HCl (Zanaflex) 2 mg QHS PO Last administered on 10/29/16 21:17; Start 10/29/16 at 21:00 Hydralazine HCl (Apresoline) 10 mg PRN Q4HRS PRN IVP ELEVATED BP, SEE COMMENTS ; Start 10/29/16 at 15:30 Rivaroxaban (Xarelto) 20 mg DAILYWSUP PO ; Start 10/30/16 at 17:00 Info (Anti-Coagulation Monitoring By Pharmacy) 1 each PRN DAILY PRN MC SEE COMMENTS Last administered on 10/30/16 10:27; Start 10/29/16 at 16:30 Albuterol/ Ipratropium (Duoneb) 3 ml RTQID NEB Last administered on 10/30/16 11:39; Start 10/29/16 at 20:00 Insulin Aspart (Novolog) 0-9 UNITS TIDWMEALS SQ Last administered on 10/30/16 12:39; Start 10/30/16 at 12:00 Dextrose 12.5 gm PRN Q15MIN PRN IV SEE COMMENTS; Start 10/30/16 at 10:45 Sacubitril/ Valsartan (Entresto 24 Mg-26 Mg) 1 tab BID PO Last administered on 10/30/16 12:36; Start 10/30/16 at 11:00 Cephalexin HCl (Keflex) 500 mg BID PO Last administered on 10/30/16 12:41; Start 10/30/16 at 13:00 Escitalopram Oxalate (Lexapro) 20 mg DAILY PO Last administered on 10/30/16 12 :36; Start 10/30/16 at 11:00 Multivitamins/ Calcium (Thera M Plus) 1 tab DAILY PO Last administered on 12:35; Start 10/30/16 at 11:00 Insulin Aspart (Novolog) 9 units DAILYWBKFT SQ ; Start 10/31/16 at 08:00 Insulin Aspart (Novolog) 7 units BIDACLD SQ ; Start 10/30/16 at 16:30 Active Scripts Active Nystatin 5 Ml Oral.susp 5 Ml SWSW [id number] [Cefpodoxime Proxetil] 200 MG Tablet 200 Mg PO BID Reported Probiotic (Lactobacillus Acidophilus) 1 Each Capsule 1 Each PO DAILY Vitamin D (Cholecalciferol (Vitamin D3)) 1,000 Unit Capsule 1 Cap PO BID Fiorinal-Cod 31-83-105-40 Cap (Codeine/Butalbital/Asa/Caffein) 1 Each Capsule 1 Each PO PRN Q4-6HRS PRN Entresto 24 mg-26 mg Tablet (Sacubitril/Valsartan) 1 Each Tablet 1 Each PO BID Simvastatin 10 Mg Tablet 1 Tab PO DAILY Xarelto (Rivaroxaban) 20 Mg Tablet 20 Mg PO DAILY Torsemide 20 Mg Tablet 10 Mg PO DAILY Cephalexin 500 Mg Capsule 1 Cap PO BID Escitalopram Oxalate 20 Mg Tablet 1 Tab PO DAILY Proscar (Finasteride) 5 Mg Tablet 1 Tab PO DAILY Xarelto (Rivaroxaban) 10 Mg Tablet 20 Mg PO QHS Lantus (Insulin Glargine,Hum.rec.anlog) 100 Unit/1 Ml Vial 17 Unit SQ HS Humalog (Insulin Lispro) 100 Unit/1 Ml Insuln.pen 8 Unit SQ DAILYWBKFT Vitamin D (Cholecalciferol (Vitamin D3)) 1,000 Unit Tablet 1,000 Unit PO BID Multivitamins (Multivitamin) 1 Each Tablet 1 Each PO DAILY Aspir 81 (Aspirin) 81 Mg Tablet.dr 81 Mg PO DAILY Combivent Respimat Inhal (Ipratropium/Albuterol Sulfate) 4 Gm Aer.w.adap 4 Gm IH BID Zanaflex (Tizanidine Hcl) 2 Mg Capsule 2 Mg PO HS Flomax (Tamsulosin Hcl) 0.4 Mg Cap.er.24h 0.4 Mg PO DAILY Vitals/I & O Vital Sign - Last 24 Hours 10/29/16 10/29/16 10/29/16 10/29/16 13:54 14:24 14:54 15:24 Pulse 62 66 66 66 Resp 24 17 B/P 168/88 116/66 161/79 140/69 Pulse Ox 97 96 98 99 O2 Delivery Room Air Room Air Room Air Room Air 10/29/16 10/29/16 10/29/16 10/29/16 15:45 19:54 19:55 20:40 Temp 97.4 97.5 97.4 97.5 Pulse 74 86 Resp 22 20 B/P 160/73 146/74 Pulse Ox 95 97 95 O2 Delivery Room Air Room Air Room Air Room Air 10/29/16 10/29/16 10/29/16 10/29/16 20:56 20:57 21:16 23:00 Pulse 90 88 86 66 Resp 20 B/P 166/77 143/68 146/74 145/66 Pulse Ox 97 O2 Delivery Room Air 10/30/16 10/30/16 10/30/16 10/30/16 02:04 03:40 03:41 07:09 Temp 97.4 97.4 Pulse 62 Resp 20 B/P 137/69 Pulse Ox 100 100 100 94 O2 Delivery BiPAP/CPAP BiPAP/CPAP BiPAP/CPAP Room Air 10/30/16 10/30/16 10/30/16 10/30/16 07:23 08:00 08:34 10:45 Temp 97.6 97.9 97.6 97.9 Pulse 69 69 80 Resp 20 20 B/P 124/61 124/61 127/68 Pulse Ox 96 95 O2 Delivery Room Air Room Air Room Air 10/30/16 10/30/16 11:40 12:36 Pulse 80 B/P 127/68 O2 Delivery Room Air Intake and Output 10/29/16 10/29/16 10/30/16 15:00 23:00 07:00 Intake Total 472 ml 100 ml Balance 472 ml 100 ml OMAR WILKS MD Oct 30, 2016 13:45
[2016-10-30 14:12] VITALS: BP 140/69
--- NOTE | 2016-10-30 14:58 | PDOC3 ---
Discharge Summary [facility] Date of Admission: Oct 29, 2016 Discharge Date: Oct 30, 2016 Admitting Diagnosis 1. Chest pain, hx severe cardiomyopathy WITH chf, likely diastolic 2. Morbid Obesity 3. PAD with post inflammatory hyperpigmentation both shins 4. DM 2 on insulin 5. Asthma 6. Dyslipidemia 7. MIld PCM 8. s/o TAVR 9. PAFIB, sinus now 10 . LYNDSEY on CKD 3, vasomotor 11. GODWIN on CPAP 12. elevated troponin could be 2/2 LYNDSEY Problems: Final Diagnosis Problems Medical Problems: (1) Chest pain Status: Acute (2) CKD (chronic kidney disease) stage 3, GFR 30-59 ml/min Status: Acute (3) Elevated troponin Status: Acute (4) Pre-syncope Status: Acute CONSULTS card Brief Hospital Course Mr. Swann is a 81 old M, with multiple commobidities, waiting to get PPM with [facility], comes for chest pain, now gone. with mild LYNDSEY, better now, and mild elevated troponin. ECHO SHOWED TVAR IS in good place. card consulted, no intervention done, ok to dc home today dc tiem 35min Patient History: Family history: Cardiovascular disease (situation) Family history: Diabetes mellitus (situation) G8 BROTHER Family history: Hypertension (situation) G8 BROTHER GI bleeding 33 FATHER Unknown Problems: Disposition home CONDITION AT DISCHARGE: Improved Diet cardiac Scheduled Aspirin (Aspir 81) 81 MG PO DAILY (Reported) Cephalexin (Cephalexin) 1 CAP PO BID (Reported) Cholecalciferol (Vitamin D3) (Vitamin D) 1,000 UNIT PO BID (Reported) Cholecalciferol (Vitamin D3) (Vitamin D) 1 CAP PO BID (Reported) Escitalopram Oxalate (Escitalopram Oxalate) 1 TAB PO DAILY (Reported) Finasteride (Proscar) 1 TAB PO DAILY (Reported) Insulin Glargine,Hum.rec.anlog (Lantus) 17 UNIT SQ HS (Reported) Insulin Lispro (Humalog) 8 UNIT SQ DAILYWBKFT (Reported) Ipratropium/Albuterol Sulfate (Combivent Respimat Inhal) 4 GM IH BID (Reported) Lactobacillus Acidophilus (Probiotic) 1 EACH PO DAILY (Reported) Multivitamin (Multivitamins) 1 EACH PO DAILY (Reported) Rivaroxaban (Xarelto) 20 MG PO QHS (Reported) Rivaroxaban (Xarelto) 20 MG PO DAILY (Reported) Sacubitril/Valsartan (Entresto 24 mg-26 mg Tablet) 1 EACH PO BID (Reported) Simvastatin (Simvastatin) 1 TAB PO DAILY (Reported) Tamsulosin Hcl (Flomax) 0.4 MG PO DAILY (Reported) Tizanidine Hcl (Zanaflex) 2 MG PO HS (Reported) Torsemide (Torsemide) 10 MG PO DAILY (Reported) Scheduled PRN Codeine/Butalbital/Asa/Caffein (Fiorinal-Cod 15-66-025-40 Cap) 1 EACH PO PRN Q4- 6HRS PRN PRN PAIN (Reported) Discontinued Medications ([Cefpodoxime Proxetil]) 200 MG PO BID Nystatin (Nystatin) 5 ML SWSW [id number] Follow Up pcp and card in 2 weeks OMAR WILKS MD Oct 30, 2016 14:58
[2016-10-30] MEDS ORDERED: RIVAROXABAN 10 MG TABLET. PO SCH (17:00)
[2016-10-31] MEDS ORDERED: INSULIN ASPART 300 UNITS/3 ML INSULN.PEN SQ SCH (08:00)
== END 2016-10-30 16:15 | disposition home or self-care (01) | DRG 683 ==
LOC: ER 11:23 → ED HOLD 13:30 → 2 NORTH 16:01
PROVIDERS: ADMIT Internal Medicine; ATTEND Internal Medicine
DX: N17.0 Acute kidney failure with tubular necrosis (principal); I13.0 Hypertensive heart and chronic kidney disease with heart failure and stage 1 through stage 4 chronic kidney disease, or unspecified chronic kidney disease; C91.10 Chronic lymphocytic leukemia of B-cell type not having achieved remission; E44.1 Mild protein-calorie malnutrition; I50.42 Chronic combined systolic (congestive) and diastolic (congestive) heart failure; I42.9 Cardiomyopathy, unspecified; E11.22 Type 2 diabetes mellitus with diabetic chronic kidney disease; E66.01 Morbid (severe) obesity due to excess calories; E78.00 Pure hypercholesterolemia, unspecified; E78.5 Hyperlipidemia, unspecified; G47.33 Obstructive sleep apnea (adult) (pediatric); I34.0 Nonrheumatic mitral (valve) insufficiency; I35.0 Nonrheumatic aortic (valve) stenosis; I48.91 Unspecified atrial fibrillation; I87.2 Venous insufficiency (chronic) (peripheral); J44.9 Chronic obstructive pulmonary disease, unspecified; J45.909 Unspecified asthma, uncomplicated; E11.51 Type 2 diabetes mellitus with diabetic peripheral angiopathy without gangrene; K21.9 Gastro-esophageal reflux disease without esophagitis; K58.9 Irritable bowel syndrome, unspecified; L81.0 Postinflammatory hyperpigmentation; I25.10 Atherosclerotic heart disease of native coronary artery without angina pectoris; M81.0 Age-related osteoporosis without current pathological fracture; N18.3 Chronic kidney disease, stage 3 (moderate); Z79.4 Long term (current) use of insulin; Z82.49 Family history of ischemic heart disease and other diseases of the circulatory system; Z88.0 Allergy status to penicillin; Z83.3 Family history of diabetes mellitus; Z95.2 Presence of prosthetic heart valve; Z87.891 Personal history of nicotine dependence; Z68.35 Body mass index [BMI] 35.0-35.9, adult; Z90.49 Acquired absence of other specified parts of digestive tract
CPT/HCPCS: 36415; 71010; 80048; 80061; 82947; 83735; 83880; 84443; 84484; 85027; 85610; 93005; 93306; 94250; 94640; 94660; 95811; J1815; J7620; 99285-25

== ENCOUNTER → 2016-12-18 | Outpatient (CLI) | payer MEDICARE ==
[~2016-12-18] MED LIST changes: +CEPH500C PO; +CODE1CAP8 PO; +ESCI20TA PO; +LACT1CAP6 PO; +SACU1TAB PO; +SIMV10TA3 PO; +TORS20TA2 PO
--- NOTE | 2016-12-18 12:53 | RAD ---
Exam: PA and lateral chest radiograph History: Congestive heart failure. Comparison: 10/29/2016. Findings: Cardiomediastinal silhouette is within normal limits for size. Bilateral lung huggins are free of focal infiltrate. No pleural effusion is seen. Aortic atherosclerosis is seen. TAVR does not appear appreciably changed. Impression: No acute cardiopulmonary process.
== END | disposition home or self-care (01) ==
LOC: RAD 12:06
PROVIDERS: ATTEND Internal Medicine Critical Care Medicine
DX: I50.9 Heart failure, unspecified (principal)
CPT/HCPCS: 71020

== ENCOUNTER → 2016-12-18 | Outpatient (CLI) | payer MEDICARE ==
[2016-12-18 12:39] LABS: CALCIUM 9.9 mg/dL (8.5-10.1); CREATININE 1.6 mg/dL (0.7-1.3); GFR 41.5; POTASSIUM 4.9 mmol/L (3.5-5.1)
== END | disposition home or self-care (01) ==
LOC: RAD 11:54
PROVIDERS: ATTEND Internal Medicine Cardiovascular Disease
DX: I10 Essential (primary) hypertension (principal); I25.10 Atherosclerotic heart disease of native coronary artery without angina pectoris; I48.0 Paroxysmal atrial fibrillation
CPT/HCPCS: 36415; 80048

== ENCOUNTER 2016-12-23 18:58 | Inpatient (IN) | payer MEDICARE ==
[~2016-12-23] VITALS: Ht 175.3 cm; Wt 118.1 kg
[2016-12-23 20:21] LABS: BASO # 0.1 x10^3/uL (0.0-0.2); BASO % 1 % (0-3); EOS % 17 % (0-3); HEMOGLOBIN 10.4 g/dL (13.0-17.5); LYMPH # 0.9 x10^3/uL (1.0-4.8); LYMPH % 11 % (24-48); MEAN CORPUSCULAR HEMOGLOBIN 31 pg (25-35); MEAN CORPUSCULAR HGB CONC 34 g/dL (31-37); MEAN CORPUSCULAR VOLUME 92 fL (79-100); MONO % 11 % (0-9); NEUT % 60 % (31-73); PLATELET COUNT 131 x10^3/uL (140-400); RED BLOOD COUNT 3.36 x10^6/uL (4.30-5.70); RED CELL DISTRIBUTION WIDTH 14.8 % (11.5-14.5); WHITE BLOOD COUNT 7.7 x10^3/uL (4.0-11.0)
[2016-12-23 20:30] LABS: INR 1.4 (0.8-1.1)
[2016-12-23 20:40] LABS: % EOS 21 % (0-5); HYPOCHROMIA SLIGHT; PLT ESTIMATE DECREASED (ADEQUATE)
[2016-12-23 20:44] LABS: CKMB MASS 0.9 ng/mL (0.0-3.6)
[2016-12-23 20:54] LABS: CALCIUM 8.8 mg/dL (8.5-10.1); CREATININE 1.4 mg/dL (0.7-1.3); GFR 48.4; POTASSIUM 4.2 mmol/L (3.5-5.1)
--- NOTE | 2016-12-23 21:12 | EKG ---
[facility] [address] [place] [address] Test Date: 2016-12-23 Test Time: 19:08:26 Pat Name: ANGEL JACOME Department: Room: Gender: M [employer]: : 1935 Requested By: DEBBIE WARE Order Number: [id number] Reading MD: Measurements Intervals [place] Rate: 63 P: -90 CT: 204 QRS: 14 QRSD: 122 T: 20 QT: 442 QTc: 456 Interpretive Statements SINUS RHYTHM LOW LIMB LEAD VOLTAGE QRS(T) CONTOUR ABNORMALITY CONSIDER ANTEROSEPTAL MYOCARDIAL DAMAGE POSSIBLY ABNORMAL ECG RI6.01 No previous ECG available for comparison
[2016-12-23] MEDS ORDERED: MORPHINE SULFATE 4 MG/ML DISP.SYRIN. IV PRN (21:45)
[2016-12-23] MEDS ORDERED: ONDANSETRON PF 4 MG/2 ML VIAL. IV PRN (21:45)
[2016-12-23] MEDS ORDERED: ACETAMINOPHEN 325 MG TABLET. PO PRN (21:45)
[2016-12-23] MEDS ORDERED: ASPIRIN CHEWABLE 81 MG TABLET. PO ONE (22:00)
--- NOTE | 2016-12-23 22:58 | ACF ---
Admission Forms Criteria MYOCARDIAL INFARCTION Clinical Indications for Admission to Inpatient Care (Place 'X' for any and all applicable criteria): Admission is indicated for 1 or more of the following (1)(2)(3)(4): [X]I. Acute AK [ ]II. Contraindications and/or Inappropriate clinical situations for Observational Care in patients with Myocardial Infarction, when ANY ONE of the following is required: [ ]a) Patient with High risk of cardiac embolism (e.g, patients with previous cardiac embolism, LVEF < 40%, age >75 and patients with prosthetic valve) 18 [ ]b) Patient with Moderate risk including DM patient, CAD and patient aged 65-75 18 [ ]c) Patient with any change in cardiac biomarker especially troponin should be managed as high risk in an inpatient setting 19 [ ]d) Physician judgement irrespective of ECG and other diagnostic findings 20 [ ]III.General contraindications and/or Inappropriate clinical situations for Observational Care in patients with Myocardial Infarction, when ANY ONE of the following is required: [ ]a) Prediction of prolongation of LOS based on ANY ONE of the following may be considered as a contraindication for observational care 2, 3, 4, 5, 6, 7, 8, 9, 10, 11 [ ]i) Age > 65 yrs. [ ]ii) Patient arriving by ambulance [ ]iii) Patient with high acuity [ ]iv) Patient requiring vital sign monitoring [ ]v) Patient on IV medication [ ]b) Systolic blood pressures greater than or equal to 180mmHg 3,12 [ ]c) Patient with altered mental status including delirium and other alteration of consciousness, (3) [ ]d) Patient whose discharge disposition will be to a long term home or rehabilitation home should not be managed in Emergency Department Observation Unit. CMS rule requires 3 days hospital stay before such placement. 3,13 [ ]e) Patient with failure to thrive due to broad array of etiologies 3 ,16,17 [ ]f) Inability to ambulate 3,14 Extended stay beyond goal length of stay may be needed for (1)(18)(20)(24)(25): [ ]a) Hemodynamic instability, persisting symptoms after intensive medical management, or recurring severe, prolonged symptoms [ ]b) Intravascular procedural complications such as acute vessel closure, stent thrombosis, stent malposition, or vessel dissection (26)(27)(28) [ ]c) Extravascular procedural complications such as retroperitoneal hematoma , pericardial effusion, or cardiac tamponade [ ]d) Entry site complications causing bleeding, hematoma or distal ischemia and requiring ongoing monitoring, surgical repair or surgical thrombectomy. Dangerous arrhythmia [ ]e) Complicated percutaneous coronary intervention (e.g., unsuccessful percutaneous coronary intervention or percutaneous coronary intervention of non- [place] vessel) [ ]f) Urgent or emergent surgery for complications of AK (e.g., ventricular rupture, valvular insufficiency) [ ]g) Surgical revascularization via coronary artery bypass graft [ ]h) Heart failure (e.g., pulmonary edema) [ ]i) Unstable pulmonary comorbidities, including COPD or pneumonia (31) [ ]j) Acute renal failure The original [employer] content created by [employer] has been revised. The portions of the content which have been revised are identified through the use of italic text or in bold, and [facility] [employer] has neither reviewed nor approved the modified material. All other unmodified content is copyright [facility] Please see references footnoted in the original [employer] edition 2016 Admission Criteria Met?: Yes KIM CARLIN Dec 23, 2016 22:58
--- NOTE | 2016-12-23 23:43 | PHYS DOC ---
Past Medical History Past Medical History: A-Fib, Arthritis, Asthma, Diabetes-Type II, High Cholesterol, Other Additional Past Medical Histor: HIATAL HERNIA, SLEEP APNEA, OSTEOPOROSIS, RENTOPATHY, CCL Past Surgical History: Cholecystectomy Additional Past Surgical Histo: T&A, CATARRACT REMOVAL, LASER EYE SURGERY, AORTIC VALVE REPLACEMENT Alcohol Use: None Drug Use: None Adult General Chief Complaint Chief Complaint: CHEST PAIN HPI HPI Patient is a 81 year old gentleman who presents here today complaining of left- sided chest pain that started roughly 4:45 PM. Patient does have a history of coronary artery disease has had stents 2 in the past. Patient is status post aortic valve replacement. Patient has a history of hypertension diabetes COPD, status post cholecystectomy, he does not smoke drink or do any drugs. She reports today he started having left-sided chest discomfort. Patient has any fevers shakes chills nausea vomiting or diarrhea. Patient reports to have some shortness of breath with the pain. Patient currently is pain-free and is not complaining of any discomfort. Patient's reports that they were NKU approximately 3 weeks ago and they were discharged home and told that he had muscle pains. Patient reports that her generally has elevated troponins however she thinks that the troponin level 0.189 is much higher than normal for him. Patient's ER workup was significant for an elevated troponin of 0.189. Patient' s EKG revealed normal sinus rhythm at a heart rate of [address]-T wave abnormalities. No evidence of ST elevation FL noted on the EKG. Patient's chest x-ray revealed normal heart size no infiltrates or effusions. Remainder the patient's labs were all within normal limits. Patient's physical exam was essentially unremarkable. He is alert awake and oriented 3. Heart was regular rate and rhythm. Lungs are clear. Abdomen was benign. His extremities revealed no clubbing cyanosis A/P #1 chest pain: Etiology is unclear discomfort however with the patient's elevated troponin patient will need to be admitted to the hospital for further observation. Patient was given aspirin here in the ED. Case was discussed with Dr. Juan Daniel Weems who agrees with the current plan. Patient be admitted to telemetry and will have cardiology evaluate the patient and the a.m. [place] care time 35 minutes reutilized and the treatment and management of this patient's elevated troponin level as well as possible non-STEMI FL. Review of Systems Review of Systems Constitutional: Denies fever or chills [] Eyes: Denies change in visual acuity, redness, or eye pain [] All other review systems are negative except as documented in the history of present illness portion Allergies Allergies Allergies Coded Allergies Type Severity Reaction Last Updated Verified venom-honey bee Allergy Severe Anaphylaxis 12/11/13 Yes Penicillins Allergy Intermediate see comments 06/25/15 Yes adhesive Allergy Intermediate Rash 12/11/13 Yes Physical Exam Physical Exam Constitutional: Well developed, well nourished, no acute distress, non-toxic appearance. [] HENT: Normocephalic, atraumatic, bilateral external ears normal, oropharynx moist, no oral exudates, nose normal. [] Eyes: PERRLA, EOMI, conjunctiva normal, no discharge. [] Neck: Normal range of motion, no tenderness, supple, no stridor. [] Cardiovascular:Heart rate regular rhythm, Lungs & Thorax: Bilateral breath sounds clear to auscultation [] Abdomen: Bowel sounds normal, soft, no tenderness, no masses, Skin: Warm, dry, no erythema, no rash. [] Back: No tenderness, no CVA tenderness. [] Extremities: No tenderness, no cyanosis, Neurologic: Alert and oriented X 3, normal motor function, normal sensory function, no focal deficits noted. [] Psychologic: Affect normal, judgement normal, mood normal. [] Current Patient Data Vital Signs Vital Signs Date Time Temp Pulse Resp B/P Pulse Ox O2 Delivery O2 Flow Rate FiO2 12/23/16 21:00 61 170/69 96 Room Air 12/23/16 19:02 98.2 18 98.2 Lab Values Laboratory Tests Test 12/23/16 20:15 White Blood Count 7.7x10^3/uL (4.0-11.0) Red Blood Count 3.36x10^6/uL (4.30-5.70) L Hemoglobin 10.4g/dL (13.0-17.5) L Hematocrit 31.0% (39.0-53.0) L Mean Corpuscular Volume 92fL (79-100) Mean Corpuscular Hemoglobin 31pg (25-35) Mean Corpuscular Hemoglobin Concent 34g/dL (31-37) Red Cell Distribution Width 14.8% (11.5-14.5) H Platelet Count 131x10^3/uL (140-400) L Neutrophils (%) (Auto) 60% (31-73) Lymphocytes (%) (Auto) 11% (24-48) L Monocytes (%) (Auto) 11% (0-9) H Eosinophils (%) (Auto) 17% (0-3) H Basophils (%) (Auto) 1% (0-3) Neutrophils # (Auto) 4.7x10^3uL (1.8-7.7) Lymphocytes # (Auto) 0.9x10^3/uL (1.0-4.8) L Monocytes # (Auto) 0.8x10^3/uL (0.0-1.1) Eosinophils # (Auto) 1.3x10^3/uL (0.0-0.7) H Basophils # (Auto) 0.1x10^3/uL (0.0-0.2) Segmented Neutrophils % 59% (35-66) Band Neutrophils % 1% (0-9) Lymphocytes % 12% (24-48) L Monocytes % 7% (0-10) Eosinophils % 21% (0-5) H Platelet Estimate Decreased (ADEQUATE) Hypochromasia Slight Prothrombin Time 16.0SEC (11.7-14.0) H Prothrombin Time INR 1.4 (0.8-1.1) H Sodium Level 143mmol/L (136-145) Potassium Level 4.2mmol/L (3.5-5.1) Chloride Level 106mmol/L (98-107) Carbon Dioxide Level 29mmol/L (21-32) Anion Gap 8 (6-14) Blood Urea Nitrogen 37mg/dL (8-26) H Creatinine 1.4mg/dL (0.7-1.3) H Estimated GFR (Cockcroft-Gault) 48.4 Glucose Level 86mg/dL (70-99) Calcium Level 8.8mg/dL (8.5-10.1) Creatine Kinase 46U/L (39-308) Creatine Kinase MB (Mass) 0.9ng/mL (0.0-3.6) Creatine Kinase MB Relative Index 2.0% (0-4) Troponin I Quantitative 0.189ng/mL (0.000-0.055) Laboratory Tests 4/12/17 20:15 Laboratory Tests 12/23/16 20:15 EKG EKG [] Radiology/Procedures Radiology/Procedures [] Course & Med Decision Making Course & Med Decision Making Pertinent Labs and Imaging studies reviewed. (See chart for details) [] Dragon Disclaimer Dragon Disclaimer This electronic medical record was generated, in whole or in part, using a voice recognition dictation system. Departure Departure Impression: Primary Impression: Chest pain Additional Impressions: Non-ST elevation FL (NSTEMI) Elevated troponin Disposition: ADMITTED INPATIENT Admitting Physician: Tejinder Santo Condition: GUARDED Referrals: KIMBERLY DIAZ DO (PCP) Problem Qualifiers ZOË CABRALES MD Dec 23, 2016 23:43
[2016-12-24 00:11] VITALS: BP 162/70
[2016-12-24 03:00] VITALS: BP 123/47
[2016-12-24 07:00] VITALS: BP 143/55
--- NOTE | 2016-12-24 08:31 | RAD ---
AP portable chest radiograph 12/23/2016 Clinical History: Chest pain since earlier today. An AP portable erect digital radiograph of the chest was obtained. Comparison study is dated 12/18/2016. The cardiac silhouette is mildly enlarged. The thoracic aorta is tortuous. Atherosclerotic calcification of the thoracic aorta is seen. A TAVR device overlies the aortic valve, unchanged. No acute pulmonary infiltrate is seen. No pleural effusion or pneumothorax is noted. The osseous structures are unchanged. Impression: No acute abnormality is seen.
--- NOTE | 2016-12-24 10:19 | PDOC2 ---
RUPAL JACKSON DIRECT MARKETING SPECIALIST 12/24/16 1019: CARDIAC CONSULT DATE OF CONSULT Date of Consult DATE: 12/24/16 TIME: 10:13 REASON FOR CONSULT Reason for Consult: chest pain REFERRING PHYSICIAN Referring Physician: Dr. Cristine Valverde SOURCE Source: Caregiver, Chart review, Patient HISTORY OF PRESENT ILLNESS HISTORY OF PRESENT ILLNESS 81 year old male admitted through the ER with left supramammary chest pain. Admitted @ in November for similar symptoms and was diagnosed with musculoskeletal CP and discharged. Developed sharp pain yesterday while seated in a chair checking CBG levels prior to eating. Not clearly exacerbated by deep inspiration and intermittent in nature. No associated symptoms, other than chronic dyspnea. No attempt at symptom relief prior to contacting EMS. Recent non-productive cough. Was evaluated here 10/2016 and was to have discussed ICD/SENIOR OPERATIONS ANALYST implantation with Dr. Nowak @ but made no decision. Malignant HTN POA with SBP > 195. Troponin level of 0.189 and 0.21 in the setting of CKD. CXR without acute findings. EKG without acute findings. Reason for Visit: chest pain PAST MEDICAL HISTORY Past Medical History Cardiovascular: AFIB (with DCCV in past year; Xarelto for stroke prevention ), HTN, Hyperlipidemia, Aortic stenosis (s/p TAVR @ in 2013), Other ( cardiomyopathy), chronic systolic heart failure Pulmonary: COPD, Other (GODWIN with CPAP) CENTRAL NERVOUS SYSTEM: Migraine GI: Irritable bowel disease, hiatal hernia Heme/Onc: Other (chronic lymphocytic leukemia) Hepatobiliary: No pertinent hx Psych: Depression Musculoskeletal: Osteoarthritis, Other ("toe infection") Rheumatologic: No pertinent hx Infectious disease: Other (strep in toes) ENT: No pertinent hx Renal/: Chronic renal insuff (improved after discontinuation of metformin), Benign prostatic enlarg. Endocrine: Diabetes (type II, insulin requiring) Dermatology: Other (stasis dermatitis bilateral lower extremities) PAST SURGICAL HISTORY Past Surgical History Cholecystectomy, Cataract Removal (bilateral; no lens implants), Tonsillectomy, Other (TAVR - 2013; RLE surgery) FAMILY HISTORY Family History: Family History Unknown SOCIAL HISTORY Social History Smoke: Quit (1972) ALCOHOL: none Drugs: None Lives: with Family CURRENT MEDICATIONS CURRENT MEDICATIONS Current Medications Medications (Trade) Dose Ordered Sig/Robert Route PRN Reason Start Time Stop Time Status Last Admin Dose Admin Aspirin (Children'S Aspirin) 324 mg 1X ONCE PO 12/23/16 22:00 12/23/16 22:01 DC 12/23/16 22:07 ALLERGIES ALLERGIES: Coded Allergies: venom-honey bee (Verified Allergy, Severe, Anaphylaxis, 12/11/13) Penicillins (Verified Allergy, Intermediate, see comments, 06/25/15) Rash Cefepime 06/22-06/25/15 tolerated, ID switching to cefpodoxime 06/25/15 adhesive (Verified Allergy, Intermediate, Rash, 12/11/13) ROS Review of System 14 point review with pertinent positives in HPI PHYSICAL EXAM General: Alert, Cooperative HEENT: Atraumatic, PERRLA Lungs: Other (diminished anteriorly) Heart: Regular rate, Normal S1, Normal S2, Other (chest pain is reproducible with minimal pressure in left supramammary region; 1-2/6 murmur LSB) Abdomen: Normal bowel sounds, Soft, Other (truncal obesity) Extremities: Other (1+ bilateral LE edema with venous stasis changes covering about 2/3 the calf bilaterally) Skin: No rashes Neuro: Normal speech Psych/Mental Status: Mental status NL, Mood NL MUSCULOSKELETAL: Osteoarthritic changes both hands VITALS VITALS Vital Signs Date Time Temp Pulse Resp B/P Pulse Ox O2 Delivery O2 Flow Rate FiO2 12/24/16 08:00 Nasal Cannula 1.0 12/24/16 07:00 97.9 61 20 143/55 97 97.9 LABS Lab: Laboratory Tests Test 12/23/16 20:15 12/23/16 22:04 12/24/16 03:43 12/24/16 08:26 White Blood Count 7.7x10^3/uL (4.0-11.0) Red Blood Count 3.36x10^6/uL (4.30-5.70) Hemoglobin 10.4g/dL (13.0-17.5) Hematocrit 31.0% (39.0-53.0) Mean Corpuscular Volume 92fL (79-100) Mean Corpuscular Hemoglobin 31pg (25-35) Mean Corpuscular Hemoglobin Concent 34g/dL (31-37) Red Cell Distribution Width 14.8% (11.5-14.5) Platelet Count 131x10^3/uL (140-400) Neutrophils (%) (Auto) 60% (31-73) Lymphocytes (%) (Auto) 11% (24-48) Monocytes (%) (Auto) 11% (0-9) Eosinophils (%) (Auto) 17% (0-3) Basophils (%) (Auto) 1% (0-3) Neutrophils # (Auto) 4.7x10^3uL (1.8-7.7) Lymphocytes # (Auto) 0.9x10^3/uL (1.0-4.8) Monocytes # (Auto) 0.8x10^3/uL (0.0-1.1) Eosinophils # (Auto) 1.3x10^3/uL (0.0-0.7) Basophils # (Auto) 0.1x10^3/uL (0.0-0.2) Segmented Neutrophils % 59% (35-66) Band Neutrophils % 1% (0-9) Lymphocytes % 12% (24-48) Monocytes % 7% (0-10) Eosinophils % 21% (0-5) Platelet Estimate Decreased (ADEQUATE) Hypochromasia Slight Prothrombin Time 16.0SEC (11.7-14.0) Prothromb Time International Ratio 1.4 (0.8-1.1) Sodium Level 143mmol/L (136-145) Potassium Level 4.2mmol/L (3.5-5.1) Chloride Level 106mmol/L (98-107) Carbon Dioxide Level 29mmol/L (21-32) Anion Gap 8 (6-14) Blood Urea Nitrogen 37mg/dL (8-26) Creatinine 1.4mg/dL (0.7-1.3) Estimated GFR (Cockcroft-Gault) 48.4 Glucose Level 86mg/dL (70-99) Calcium Level 8.8mg/dL (8.5-10.1) Creatine Kinase 46U/L (39-308) Creatine Kinase MB (Mass) 0.9ng/mL (0.0-3.6) Creatine Kinase MB Relative Index 2.0% (0-4) Troponin I Quantitative 0.189ng/mL (0.000-0.055) 0.215ng/mL (0.000-0.055) Glucose (Fingerstick) 82mg/dL (70-99) 91mg/dL (70-99) IMAGES IMAGES CXR: An AP portable erect digital radiograph of the chest was obtained. Comparison study is dated 12/18/2016. The cardiac silhouette is mildly enlarged. The thoracic aorta is tortuous. Atherosclerotic calcification of the thoracic aorta is seen. A TAVR device overlies the aortic valve, unchanged. No acute pulmonary infiltrate is seen. No pleural effusion or pneumothorax is noted. The osseous structures are unchanged. Impression: No acute abnormality is seen. ECHOCARDIOGRAM ECHOCARDIOGRAM 10/29/2016: TTE: There is global hypokinesis of the left ventricle with septal motion suggestive of conduction defect. TAVR (Medtronic Corevalve) appears well positioned and is functioning normally. Mean gradient of 9mmHG with a peak of 14mmHG across the TAVR. ASSESSMENT/PLAN ASSESSMENT/PLAN 1. left chest pain troponin to 0.215 associated with Cr of 1.4 and malignant HTN; hx of elevated troponin levels no acute changes in EKG and unchanged from 10/2016 clinical findings not consistent with AMI pain is reproducible - likely musculoskeletal hospitalized @ in mid-November with similar symptoms and similar diagnosis - discharged home from no further cardiac evaluation at this time - patient should follow up with usual child and adolescent therapist - Dr. Nowak @ 2. cardiomyopathy, presumed ischemic LVEF 35% 09/2016 @ ; 45% by echo here 10/2016 continue medical management 3. chronic systolic and diastolic HF reasonably compensated continue medical management 4. atrial fib rate controlled OAC with Xarelto for stroke prevention 5. with previous TAVR good position on echo 10/2016 recommend f/u @ 6. DM, II per primary consider discharge and follow up at with usual child and adolescent therapist, Dr. Nowak, in the next 5-7 days Problems: MELINDA DAMIAN MD 12/25/16 1300: CARDIAC CONSULT ALLERGIES ALLERGIES: Coded Allergies: venom-honey bee (Verified Allergy, Severe, Anaphylaxis, 12/11/13) Penicillins (Verified Allergy, Intermediate, see comments, 06/25/15) Rash Cefepime 06/22-06/25/15 tolerated, ID switching to cefpodoxime 06/25/15 adhesive (Verified Allergy, Intermediate, Rash, 12/11/13) ASSESSMENT/PLAN ASSESSMENT/PLAN Patient seen and examined 12/24/16. Agree with SYSTEMS OPERATOR's assessment and plan. Chest pain with atypical features, reproducible and most probably musculoskeletal. Chronic systolic heart failure well compensated. Permanent atrial fibrillation rate controlled. No further cardiac workup is indicated at this time. Follow-up with primary child and adolescent therapist. Thank you for your consultation. Problems: RUPAL JACKSON APRN Dec 24, 2016 10:19 MELINDA DAMIAN MD Dec 25, 2016 13:00
[2016-12-24 11:13] VITALS: BP 142/57
[2016-12-24] MEDS ORDERED: ASPIRIN ENTERIC COATED 81 MG TABLET.DR. PO SCH (13:00)
[2016-12-24] MEDS ORDERED: FINASTERIDE 5 MG TABLET. PO SCH (13:00)
[2016-12-24] MEDS ORDERED: CEPHALEXIN 250 MG CAPSULE. PO SCH (13:00)
[2016-12-24] MEDS ORDERED: BUTALB/APAP/CAFEIN 50/325/40MG TABLET. PO PRN (13:45)
[2016-12-24] MEDS ORDERED: ESCITALOPRAM 10 MG TABLET. PO SCH (14:00)
[2016-12-24] MEDS ORDERED: LACTOBACILLUS ACIDOPH & BULGAR 1 TABLET. PO SCH (14:00)
[2016-12-24] MEDS ORDERED: TAMSULOSIN 0.4 MG CAP.ER.24H. PO SCH (14:00)
[2016-12-24] MEDS ORDERED: MULTIVITAMIN with MINERAL TABLET. PO SCH (14:00)
[2016-12-24] MEDS ORDERED: ALBUTEROL SULFATE 2.5 MG/3 ML NEBU. NEB SCH (14:00)
[2016-12-24] MEDS ORDERED: TORSEMIDE 20 MG TABLET. PO SCH (14:00)
[2016-12-24 15:00] VITALS: BP 130/52
[2016-12-24] MEDS ORDERED: IPRATRPIUM/ALBUTEROL 0.5/2.5MG 3 ML NEBU. NEB SCH (16:00)
[2016-12-24] MEDS ORDERED: RIVAROXABAN 10 MG TABLET. PO SCH (17:00)
--- NOTE | 2016-12-24 20:23 | SSS ---
ADMIT DATE: 12/24/2016 CHIEF COMPLAINT: Chest pain. HISTORY OF PRESENT ILLNESS: The patient is an 81-year-old gentleman with hiatal hernia, sleep apnea, osteoporosis, diabetes as well as AFib who presented to the Emergency Room with a sharp stabbing chest pain. He actually had same issues not too long ago for which he had presented to , had been diagnosed with chest wall pain and discharged. He relates that pain is essentially the same now. As he does have a significant history of coronary artery disease with stents in the past as well as AFib, he was admitted for rule out. Cardiology was consulted. PAST MEDICAL HISTORY: CAD, status post stents; AFib, on Xarelto; diabetes mellitus, hypercholesterolemia, GERD, hiatal hernia, sleep apnea, osteoporosis, asthma and aortic valve replacement. FAMILY HISTORY: CAD. SOCIAL HISTORY: , living with his . No toxic habits. ALLERGIES: PENICILLIN, ADHESIVE. MEDICATIONS: MAR reconciled with home medications. REVIEW OF SYSTEMS: The patient relates the pain apparently is resolved. He has no other issues presently in rest of organ system review. PHYSICAL EXAMINATION: VITAL SIGNS: Show the blood pressure of 143/55, heart rate of 61, respiratory rate at 20. He is afebrile. GENERAL: This is a morbidly obese gentleman, alert and oriented, in no acute distress. HEENT: Shows no scleral icterus. NECK: Supple without any lymphadenopathy. LUNGS: Clear to auscultation bilaterally. HEART: Has regular rate and rhythm, metallic click from aortic valve replacement ABDOMEN: Has positive bowel sounds, soft, nontender. EXTREMITIES: Show no edema, no clubbing, no cyanosis. SKIN: Warm, soft and dry. LABORATORY DATA: CBC with a WBC of 7.7, hemoglobin 10.4, platelets of 131. Chemistries with a BUN and creatinine of 37 and 1.4. Normal electrolytes. Troponin from 0.189 to 0.215 over 18 hours. ASSESSMENT AND PLAN: The patient is an 81-year-old gentleman with multiple medical issues who presented with chest wall pain. Cardiology has seen and evaluated him. He clearly ruled out for acute coronary syndrome. He was deemed stable for discharge to home on previous home medications. DISCHARGE DATE: 12/24/2016. DISCHARGE DISPOSITION: To home. DISCHARGE CONDITION: Improved. DISCHARGE DIAGNOSIS: Chest wall pain. DISCHARGE MEDICATIONS: Resume previous home medications. DISCHARGE INSTRUCTIONS: The patient will follow up with his primary care physician as well as specialist as previously arranged. GRAHAM DONIS MD DR: TRI/nts JOB#: [id number] / [id number] KIMBERLY Sun
[2016-12-24] MEDS ORDERED: NON FORMULARY ITEM (Ipratropium/Albuterol Sulfate (Combivent Respimat Inhal) 4 GM) IH SCH (21:00)
[2016-12-24] MEDS ORDERED: CHOLECALCIFEROL (VITAMIN D3) 1,000 UNIT TABLET PO SCH (21:00)
[2016-12-24] MEDS ORDERED: SACUBITRIL/VALSARTAN 24/26MG TABLET. PO SCH (21:00)
[2016-12-24] MEDS ORDERED: SIMVASTATIN 10 MG TABLET PO SCH (21:00)
[2016-12-24] MEDS ORDERED: INSULIN DETEMIR 300 UNITS/3 ML INSULN.PEN. SQ SCH (21:00)
[2016-12-24] MEDS ORDERED: tiZANidine 4 MG TABLET. PO SCH (21:00)
[2016-12-25] MEDS ORDERED: INSULIN ASPART 300 UNITS/3 ML INSULN.PEN SQ SCH (08:00)
== END 2016-12-24 19:00 | disposition home or self-care (01) | DRG 313 ==
LOC: ER 18:58 → 2 SOUTH 21:29
PROVIDERS: ADMIT Internal Medicine; ATTEND Internal Medicine
DX: R07.89 Other chest pain (principal); I13.0 Hypertensive heart and chronic kidney disease with heart failure and stage 1 through stage 4 chronic kidney disease, or unspecified chronic kidney disease; I42.9 Cardiomyopathy, unspecified; I50.42 Chronic combined systolic (congestive) and diastolic (congestive) heart failure; E78.00 Pure hypercholesterolemia, unspecified; E78.5 Hyperlipidemia, unspecified; I25.10 Atherosclerotic heart disease of native coronary artery without angina pectoris; I48.2 Chronic atrial fibrillation; J44.9 Chronic obstructive pulmonary disease, unspecified; J45.909 Unspecified asthma, uncomplicated; K21.9 Gastro-esophageal reflux disease without esophagitis; E11.22 Type 2 diabetes mellitus with diabetic chronic kidney disease; M81.0 Age-related osteoporosis without current pathological fracture; N18.9 Chronic kidney disease, unspecified; Z79.01 Long term (current) use of anticoagulants; Z79.4 Long term (current) use of insulin; Z82.49 Family history of ischemic heart disease and other diseases of the circulatory system; Z85.6 Personal history of leukemia; Z90.49 Acquired absence of other specified parts of digestive tract; Z95.2 Presence of prosthetic heart valve; Z95.5 Presence of coronary angioplasty implant and graft; F32.9 Major depressive disorder, single episode, unspecified; G43.909 Migraine, unspecified, not intractable, without status migrainosus; M19.90 Unspecified osteoarthritis, unspecified site
CPT/HCPCS: 36415; 71010; 80048; 82550; 82553; 82947; 84484; 85007; 85027; 85610; 93005; 94640; J1815; J7620; 99285-25

== ENCOUNTER → 2017-11-10 | Outpatient (CLI) | payer MEDICARE | END | disposition home or self-care (01) | LOC: CT 13:01 | DX: J32.9 Chronic sinusitis, unspecified (principal) | CPT/HCPCS: 70486 ==

== ENCOUNTER → 2018-03-17 | Outpatient (CLI) | payer MEDICARE ==
[2018-03-17] MEDS: BARIUM SULFATE 40% (APPLE) 148 GM PWD. PO (13:17)
== END | disposition home or self-care (01) ==
LOC: RAD 12:48
DX: R05 Cough (principal); I13.0 Hypertensive heart and chronic kidney disease with heart failure and stage 1 through stage 4 chronic kidney disease, or unspecified chronic kidney disease; E11.22 Type 2 diabetes mellitus with diabetic chronic kidney disease; I50.9 Heart failure, unspecified; N18.3 Chronic kidney disease, stage 3 (moderate); K21.9 Gastro-esophageal reflux disease without esophagitis; E78.5 Hyperlipidemia, unspecified
CPT/HCPCS: 74230; 92526-GN; 92611-GN; G8996-CH-GN; G8997-CH-GN; G8998-CH-GN

== ENCOUNTER → 2018-11-01 | Outpatient (CLI) | payer MEDICARE ==
[~2018-11-01] MED LIST changes: -AMIO200T2 PO; +AMIO200T4 PO; -ASPI325T4 PO; +ASPI325T8 PO; -ESCI20TA PO; +ESCITALOPRAM OX20 MG PO; -FERR-26 PO; +FERR325T14 PO; -METF10002 PO; +METF10007 PO; +METF500T16 PO; -METF500T4 PO; +METO-239 PO; -METO25TA9 PO; -NYST1000 SWSW; +NYST100054 SWSW; +OLME1TAB25 PO; -OLME1TAB5 PO; -PIOG30TA20 PO; +PIOG30TA41 PO; -SUCR1TAB29 PO; +SUCR1TAB35 PO
[2018-11-01 13:52] LABS: BASO # 0.1 x10^3/uL (0.0-0.2); BASO % 1 % (0-3); EOS # 1.2 x10^3/uL (0.0-0.7); EOS % 15 % (0-3); HEMATOCRIT 32.7 % (39.0-53.0); HEMOGLOBIN 10.7 g/dL (13.0-17.5); LYMPH % 13 % (24-48); MEAN CORPUSCULAR HEMOGLOBIN 29 pg (25-35); MEAN CORPUSCULAR HGB CONC 33 g/dL (31-37); MEAN CORPUSCULAR VOLUME 90 fL (79-100); MONO # 0.9 x10^3/uL (0.0-1.1); MONO % 12 % (0-9); NEUT # 4.5 x10^3uL (1.8-7.7); NEUT % 59 % (31-73); PLATELET COUNT 217 x10^3/uL (140-400); RED BLOOD COUNT 3.63 x10^6/uL (4.30-5.70); RED CELL DISTRIBUTION WIDTH 16.3 % (11.5-14.5); WHITE BLOOD COUNT 7.7 x10^3/uL (4.0-11.0)
[2018-11-01 14:22] LABS: ALBUMIN 3.4 g/dL (3.4-5.0); ALBUMIN/GLOBULIN RATIO 0.9 (1.0-1.7); CALCIUM 9.7 mg/dL (8.5-10.1); CREATININE 2.4 mg/dL (0.7-1.3); GFR 25.9; POTASSIUM 5.4 mmol/L (3.5-5.1); TOTAL BILIRUBIN 0.3 mg/dL (0.2-1.0); TOTAL PROTEIN 7.3 g/dL (6.4-8.2)
[2018-11-01 17:40] LABS: % BASOS 2 % (0-3); % EOS 13 % (0-5); % LYMPHS 20 % (24-48); % MONOS 11 % (0-10); % SEGS 54 % (35-66); OVALOCYTES OCC; PLATELET CLUMP PRESENT; PLT ESTIMATE ADEQUATE (ADEQUATE); POLYCHROMASIA SLIGHT; SCHISTOCYTES OCC
== END | disposition home or self-care (01) ==
LOC: LAB 13:11
PROVIDERS: ATTEND Surgery Vascular Surgery
DX: I70.212 Atherosclerosis of native arteries of extremities with intermittent claudication, left leg (principal)
CPT/HCPCS: 36415; 80053; 85007; 85025

== ENCOUNTER → 2018-11-01 | Outpatient (CLI) | payer MEDICARE ==
[~2018-11-01] MED LIST changes: +ACET325S PO; +ASPI-630 PO; +BUDE10.2 IH; +CETI10TA16 PO; +CLOP75TA PO; +DOXY100C PO; +ESOM40CA PO; +FINA5TAB4 PO; +LACT1CAP8 PO; +LEXAPRO20 MG PO; +LINZESS145 MCG PO; +LOSA25TA54 PO; +SPIR25TA5 PO
== END | disposition home or self-care (01) ==
LOC: LAB 13:22 → UNMERGE 13:22 → MERGE 13:22
PROVIDERS: ATTEND Internal Medicine Infectious Disease
DX: M86.172 Other acute osteomyelitis, left ankle and foot (principal)
CPT/HCPCS: 36415; 85651; 86140

== ENCOUNTER 2018-11-09 06:34 | Inpatient (IN) | payer MEDICARE ==
[2018-11-09] VITALS (17 sets, daily range): BP systolic 98–136; BP diastolic 43–67
[~2018-11-09] VITALS: Ht 180.3 cm; Wt 103.1 kg
[~2018-11-09 06:34] MED LIST changes: -ACET325S PO; -ASPI-630 PO; -BUDE10.2 IH; -CETI10TA16 PO; -CLOP75TA PO; -DOXY100C PO; -ESOM40CA PO; -FINA5TAB4 PO; -LACT1CAP8 PO; -LEXAPRO20 MG PO; -LINZESS145 MCG PO; -LOSA25TA54 PO; -SPIR25TA5 PO
[2018-11-09] MEDS ORDERED: IODIXANOL 320 MG/ML 100 ML VIAL. ONE (07:16)
[2018-11-09] MEDS ORDERED: HEPARIN for ARTERIAL LINE 0 ML ONE (07:16)
[2018-11-09] MEDS ORDERED: LIDOCAINE 1% Multi-Dose 20 ML VIAL. ONE (07:16)
[2018-11-09] MEDS ORDERED: LOSA25TA54 PO (07:26)
[2018-11-09] MEDS ORDERED: METO-239 PO (07:26)
[2018-11-09] MEDS ORDERED: SPIR25TA5 PO (07:26)
[2018-11-09] MEDS ORDERED: HEPARIN for IV BOLUS 10,000 UNIT/10 ML VIAL. ONE (07:31)
[2018-11-09] MEDS ORDERED: MIDAZOLAM HCL/PF 5 MG/5 ML VIAL. ONE (07:31)
[2018-11-09] MEDS ORDERED: fentaNYL PF VIAL 100 MCG/2 ML VIAL ONE (07:31)
[2018-11-09 07:33] LABS: HEMOGLOBIN 10.5 g/dL (13.0-17.5); RED BLOOD COUNT 3.58 x10^6/uL (4.30-5.70); RED CELL DISTRIBUTION WIDTH 16.2 % (11.5-14.5); WHITE BLOOD COUNT 10.4 x10^3/uL (4.0-11.0)
[2018-11-09 07:38] LABS: CALCIUM 9.5 mg/dL (8.5-10.1); CREATININE 2.5 mg/dL (0.7-1.3); GFR 24.7; POTASSIUM 4.8 mmol/L (3.5-5.1)
[2018-11-09 07:44] LABS: PROTHROMBIN TIME PATIENT 53.2 SEC (11.7-14.0)
[2018-11-09] MEDS ORDERED: TAMSULOSIN 0.4 MG CAP.ER.24H. PO SCH ×2 (09:00→18:00)
[2018-11-09 10:15] LABS: ALBUMIN 3.6 g/dL (3.4-5.0); DIRECT BILIRUBIN 0.1 mg/dL (0.0-0.2); TOTAL BILIRUBIN 0.4 mg/dL (0.2-1.0); TOTAL PROTEIN 6.8 g/dL (6.4-8.2)
[2018-11-09] MEDS ORDERED: DEXTROSE 50% 25 GM / 50ML DISP.SYRIN. IV PRN (10:30)
[2018-11-09] MEDS ORDERED: BUTALB/APAP/CAFEIN 50/325/40MG TABLET. PO PRN (10:45)
[2018-11-09] MEDS ORDERED: CODEINE SULFATE 30 MG TABLET. PO PRN (11:00)
[2018-11-09] MEDS ORDERED: SIMVASTATIN 10 MG TABLET PO SCH ×2 (11:00→21:00)
[2018-11-09] MEDS: LACTOBACILLUS RHAMNOSUS GG 1 CAPSULE. PO SCH (12:15)
[2018-11-09] MEDS: SPIRONOLACTONE 25 MG TABLET PO SCH (12:15)
[2018-11-09] MEDS: CITALOPRAM 20 MG TABLET. PO SCH (12:15)
[2018-11-09] MEDS: MULTIVITAMIN with MINERAL TABLET. PO SCH (12:16)
[2018-11-09] MEDS: TORSEMIDE 20 MG TABLET. PO SCH (12:16)
[2018-11-09] MEDS: METOPROLOL SUCC 24HR ER 25 MG TAB.ER.24H. PO SCH (12:17)
[2018-11-09] MEDS: INSULIN LISPRO 300 UNITS/3 ML INSULN.PEN. SQ SCH ×2 (12:17→17:00)
[2018-11-09] MEDS: CHOLECALCIFEROL (VITAMIN D3) 1,000 UNIT TABLET PO SCH ×2 (12:17→20:14)
[2018-11-09 12:25] LABS: BASO % 1 % (0-3); EOS # 0.8 x10^3/uL (0.0-0.7); EOS % 10 % (0-3); HEMATOCRIT 29.1 % (39.0-53.0); HEMOGLOBIN 9.7 g/dL (13.0-17.5); LYMPH % 12 % (24-48); MEAN CORPUSCULAR HEMOGLOBIN 30 pg (25-35); MEAN CORPUSCULAR HGB CONC 33 g/dL (31-37); MEAN CORPUSCULAR VOLUME 89 fL (79-100); MONO # 1.1 x10^3/uL (0.0-1.1); MONO % 13 % (0-9); NEUT # 5.5 x10^3uL (1.8-7.7); NEUT % 65 % (31-73); PLATELET COUNT 182 x10^3/uL (140-400); RED BLOOD COUNT 3.26 x10^6/uL (4.30-5.70); RED CELL DISTRIBUTION WIDTH 15.9 % (11.5-14.5); WHITE BLOOD COUNT 8.5 x10^3/uL (4.0-11.0)
[2018-11-09 12:49] LABS: ALBUMIN/GLOBULIN RATIO 0.9 (1.0-1.7); CALCIUM 9.2 mg/dL (8.5-10.1); CREATININE 2.3 mg/dL (0.7-1.3); GFR 27.2; POTASSIUM 4.6 mmol/L (3.5-5.1); TOTAL BILIRUBIN 0.4 mg/dL (0.2-1.0); TOTAL PROTEIN 6.2 g/dL (6.4-8.2)
[2018-11-09] MEDS ORDERED: C.DIFF MED SCREEN BY RX. MC ONE (14:15)
--- NOTE | 2018-11-09 14:36 | NUR ---
The patient, ANGEL JACOME, 83 y/o, M admitted by MI BURCH MD, was given written information regarding hospital policies, unit procedures and contact persons. Valuables were checked.
--- NOTE | 2018-11-09 15:10 | HP ---
ADMIT DATE: 11/09/2018 CHIEF COMPLAINT: Sent by IR as they could not do leg runoff because of high INR of 5.9. HISTORY OF PRESENT ILLNESS: The patient is an elderly male who lives at home with the , he is a bad vasculopath with history of CAD, 2 stents, bad circulation, possibly on Xarelto and many other cardiac meds. His INR is 5.9. He is not complaining of anything. IR was uncomfortable doing the runoff, hence admitted to me to reverse the INR and then possibly do it tomorrow once the INR is less than 1.8. Again, the patient is nontoxic appearing. I have resumed home medications, of course except aspirin and Xarelto. He does complain of some foot pain when walking. He has decreased sensation and some dusky toes and foot, on the left foot and fritz, bilateral actually, but more so on the left than the right. PAST MEDICAL HISTORY: He has history of osteomyelitis, left big toe, has one more week of IV antibiotic, follows with ___, wound care clinic. PAST SURGICAL HISTORY: CAD stents x 2. ALLERGIES: None. SOCIAL HISTORY: Unsure about smoking history, but at least not currently, maybe possibly in the past. No alcohol drinking. No recreational drugs, lives at home with . No domestic violence. FAMILY HISTORY: Hypertension, possibly CAD. REVIEW OF SYSTEMS: Negative 14-point systems reviewed, otherwise negative. PHYSICAL EXAMINATION: GENERAL: Awake, alert, oriented x 3, senile skin turgor. Not in acute distress. Symmetrical chest expansion. No crackles, rhonchi, or wheezing. CARDIOVASCULAR: Normal rate and rhythm. No murmurs, rubs or gallops. ABDOMEN: Soft, nontender. GENITALIA: Appropriate for age. EXTREMITIES: Duskiness, decreased pulses on the bilateral, more so on the left than the right, no open wounds. ASSESSMENT: 1. Supratherapeutic INR on Eliquis. 2. Possible PAD, decreased arterial sonogram hence was advised the runoff, hence here ER. 3. History of coronary artery disease, 2 stents. 4. History of being on Xarelto and aspirin. 5. Hypertension, controlled. 6. History of osteomyelitis, left big toe -- would continue the antibiotic that he is supposed to take for one more week. 7. Anemia of chronic disease. 8. Fall risk. 9. Generalized weakness. 10. Geriatric elderly. 11. DNR. PLAN: 1. Start with 2 FFPs. I have resumed home meds except aspirin, Xarelto. 2. Recheck INR after 2 hours after FFP, goal INR is less than 1.8 and I have discussed with RN. 3. DNR. 4. Supportive meds. 5. High fall risk. MI BURCH MD DR: /nts JOB#: [id number] / [id number]
[2018-11-09] MEDS ORDERED: DOXY100C PO (15:18)
[2018-11-09] MEDS ORDERED: INSU100C SQ (15:19)
[2018-11-09] MEDS: IPRATRPIUM/ALBUTEROL 0.5/2.5MG 3 ML NEBU. NEB SCH ×2 (15:35→20:24)
[2018-11-09] MEDS ORDERED: PHYTONADIONE 10 MG/ML ORAL SOLUTION. PO ONE (18:00)
[2018-11-09] MEDS ORDERED: FINASTERIDE 5 MG TABLET. PO SCH (18:00)
[2018-11-09] MEDS ORDERED: NON FORMULARY ITEM (Ipratropium/Albuterol Sulfate (Combivent Respimat Inhal) 4 GM) IH SCH (21:00)
[2018-11-09] MEDS ORDERED: tiZANidine 4 MG TABLET. PO SCH (21:00)
[2018-11-09] MEDS ORDERED: INSULIN GLARGINE 300 UNITS/3 ML INSULN.PEN. SQ SCH (21:00)
[2018-11-09 23:34] LABS: PROTHROMBIN TIME PATIENT 14.4 SEC (11.7-14.0)
[2018-11-10 02:49] VITALS: BP 153/49
[2018-11-10 04:51] LABS: PROTHROMBIN TIME PATIENT 14.3 SEC (11.7-14.0)
[2018-11-10 07:00] VITALS: BP 141/63
--- NOTE | 2018-11-10 07:25 | NUR ---
Pharmacy Medication Review S: Consulted for medication review re: C.diff Risk Assessment score of 4 O: ANGEL JACOME is a 83 year old with: Previous C.diff infection: No Previous hospitalization: Within 60 days Recent antibiotics: Within 30 days Use of gastric acid suppressor: No Transfer from [place]/LTAC: No Current antibiotic regimen: None Current acid suppression regimen: None A: Patient has been identified as having risk factors for C.diff infection as noted above. P: Antibiotic Regimen recommendation made: n/a - not on antibiotics Probiotic ordered: Yes (continued from home medications) PPI changed to [id number]: n/a - not on PPI Iliana Chiu RPH, 11/10/18 0740
[2018-11-10] MEDS: IPRATRPIUM/ALBUTEROL 0.5/2.5MG 3 ML NEBU. NEB SCH ×2 (07:39→11:57)
[2018-11-10] MEDS: INSULIN LISPRO 300 UNITS/3 ML INSULN.PEN. SQ SCH ×3 (08:00→12:36)
[2018-11-10] MEDS ORDERED: INSULIN LISPRO 300 UNITS/3 ML INSULN.PEN. SQ SCH (08:00)
[2018-11-10] MEDS: CHOLECALCIFEROL (VITAMIN D3) 1,000 UNIT TABLET PO SCH ×2 (09:00→12:32)
[2018-11-10] MEDS ORDERED: FINASTERIDE 5 MG TABLET. PO SCH (09:00)
[2018-11-10] MEDS ORDERED: LOSARTAN POTASSIUM 25 MG TABLET. PO SCH (09:00)
[2018-11-10 09:33] LABS: CALCIUM 9.2 mg/dL (8.5-10.1); CREATININE 2.2 mg/dL (0.7-1.3); GFR 28.6; POTASSIUM 4.6 mmol/L (3.5-5.1)
[2018-11-10 11:00] VITALS: BP 130/58
--- NOTE | 2018-11-10 11:01 | PDOC ---
Provider Note Provider Note Pt seen and examined today He is well known to me -- he came in yesterday for outpatient angiogram for limb salvage he was found to have an INR of 5.9 despite off Xarelto he was admitted for reversal (Not safe to do angiogram and at risk for spontaneous bleeding) Today INR normal He has no new c/o Has CKD Will see if we can do Dx angiogram today If not he can go home and will perform next week. I spoke at length to him and his and sorry for the inconvenience KENIA ROLLINS MD Nov 10, 2018 11:01
[2018-11-10] MEDS: LACTOBACILLUS RHAMNOSUS GG 1 CAPSULE. PO SCH (12:30)
[2018-11-10] MEDS: SPIRONOLACTONE 25 MG TABLET PO SCH (12:31)
[2018-11-10] MEDS: METOPROLOL SUCC 24HR ER 25 MG TAB.ER.24H. PO SCH (12:31)
[2018-11-10] MEDS: TORSEMIDE 20 MG TABLET. PO SCH (12:32)
[2018-11-10] MEDS: CITALOPRAM 20 MG TABLET. PO SCH (12:32)
[2018-11-10 12:33] VITALS: BP 130/58
[2018-11-10] MEDS: MULTIVITAMIN with MINERAL TABLET. PO SCH (12:33)
[2018-11-10] MEDS ORDERED: RIVA20TA2 PO (12:45)
--- NOTE | 2018-11-10 12:53 | PDOC3 ---
Discharge Summary Visit Information Date of Admission: Nov 09, 2018 Date of Discharge: Nov 10, 2018 Admitting Diagnosis Comment: HIgh INR Final Diagnosis 1. Supratherapeutic INR on Eliquis.Corrected after FFp transfusionn 2. Possible PAD, decreased arterial sonogram hence was advised the runoff proc edure will be done next week 3. History of coronary artery disease, 2 stents. 4. History of being on Xarelto and aspirin. 5. Hypertension, controlled. 6. History of osteomyelitis, left big toe -- would continue the antibiotic that he is supposed to take for one more week. 7. Anemia of chronic disease. 8. Fall risk. 9. Generalized weakness. 10. Geriatric elderly. 11. DNR. Brief Hospital Course Allergies Allergies Coded Allergies Type Severity Reaction Last Updated Verified venom-honey bee Allergy Severe Anaphylaxis 12/11/13 Yes Penicillins Allergy Intermediate see comments 06/25/15 Yes adhesive Allergy Intermediate Rash 12/11/13 Yes Vital Signs Vital Signs Date Time Temp Pulse Resp B/P (MAP) Pulse Ox O2 Delivery O2 Flow Rate FiO2 11/10/18 12:33 64 130/58 11/10/18 11:57 98 Nasal Cannula 2.0 11/10/18 11:00 98.0 18 98.0 Lab Results Laboratory Tests Test 11/09/18 07:20 11/09/18 11:31 11/09/18 12:05 11/09/18 16:29 White Blood Count 10.4 x10^3/uL (4.0-11.0) 8.5 x10^3/uL (4.0-11.0) Red Blood Count 3.58 x10^6/uL (4.30-5.70) 3.26 x10^6/uL (4.30-5.70) Hemoglobin 10.5 g/dL (13.0-17.5) 9.7 g/dL (13.0-17.5) Hematocrit 32.0 % (39.0-53.0) 29.1 % (39.0-53.0) Mean Corpuscular Volume 90 fL (79-100) 89 fL (79-100) Mean Corpuscular Hemoglobin 29 pg (25-35) 30 pg (25-35) Mean Corpuscular Hemoglobin Concent 33 g/dL (31-37) 33 g/dL (31-37) Red Cell Distribution Width 16.2 % (11.5-14.5) 15.9 % (11.5-14.5) Platelet Count 217 x10^3/uL (140-400) 182 x10^3/uL (140-400) Prothrombin Time 53.2 SEC (11.7-14.0) Prothromb Time International Ratio 5.9 (0.8-1.1) Sodium Level 142 mmol/L (136-145) 142 mmol/L (136-145) Potassium Level 4.8 mmol/L (3.5-5.1) 4.6 mmol/L (3.5-5.1) Chloride Level 101 mmol/L (98-107) 101 mmol/L (98-107) Carbon Dioxide Level 31 mmol/L (21-32) 32 mmol/L (21-32) Anion Gap 10 (6-14) 9 (6-14) Blood Urea Nitrogen 53 mg/dL (8-26) 52 mg/dL (8-26) Creatinine 2.5 mg/dL (0.7-1.3) 2.3 mg/dL (0.7-1.3) Estimated GFR (Cockcroft-Gault) 24.7 27.2 Glucose Level 140 mg/dL (70-99) 156 mg/dL (70-99) Calcium Level 9.5 mg/dL (8.5-10.1) 9.2 mg/dL (8.5-10.1) Total Bilirubin 0.4 mg/dL (0.2-1.0) 0.4 mg/dL (0.2-1.0) Direct Bilirubin 0.1 mg/dL (0.0-0.2) Aspartate Amino Transf (AST/SGOT) 24 U/L (15-37) 24 U/L (15-37) Alanine Aminotransferase (ALT/SGPT) 18 U/L (16-63) 14 U/L (16-63) Alkaline Phosphatase 73 U/L (46-116) 67 U/L (46-116) Total Protein 6.8 g/dL (6.4-8.2) 6.2 g/dL (6.4-8.2) Albumin 3.6 g/dL (3.4-5.0) 3.0 g/dL (3.4-5.0) Glucose (Fingerstick) 171 mg/dL (70-99) 149 mg/dL (70-99) Neutrophils (%) (Auto) 65 % (31-73) Lymphocytes (%) (Auto) 12 % (24-48) Monocytes (%) (Auto) 13 % (0-9) Eosinophils (%) (Auto) 10 % (0-3) Basophils (%) (Auto) 1 % (0-3) Neutrophils # (Auto) 5.5 x10^3uL (1.8-7.7) Lymphocytes # (Auto) 1.0 x10^3/uL (1.0-4.8) Monocytes # (Auto) 1.1 x10^3/uL (0.0-1.1) Eosinophils # (Auto) 0.8 x10^3/uL (0.0-0.7) Basophils # (Auto) 0.0 x10^3/uL (0.0-0.2) BUN/Creatinine Ratio 23 (6-20) Albumin/Globulin Ratio 0.9 (1.0-1.7) Test 11/09/18 20:39 11/09/18 23:05 11/10/18 04:35 11/10/18 07:49 Glucose (Fingerstick) 178 mg/dL (70-99) 109 mg/dL (70-99) Prothrombin Time 14.4 SEC (11.7-14.0) 14.3 SEC (11.7-14.0) Prothromb Time International Ratio 1.2 (0.8-1.1) 1.1 (0.8-1.1) Sodium Level 146 mmol/L (136-145) Potassium Level 4.6 mmol/L (3.5-5.1) Chloride Level 102 mmol/L (98-107) Carbon Dioxide Level 34 mmol/L (21-32) Anion Gap 10 (6-14) Blood Urea Nitrogen 50 mg/dL (8-26) Creatinine 2.2 mg/dL (0.7-1.3) Estimated GFR (Cockcroft-Gault) 28.6 Glucose Level 101 mg/dL (70-99) Calcium Level 9.2 mg/dL (8.5-10.1) Test 11/10/18 11:58 Glucose (Fingerstick) 139 mg/dL (70-99) Laboratory Tests Test 11/09/18 16:29 11/09/18 20:39 11/09/18 23:05 11/10/18 04:35 Glucose (Fingerstick) 149 mg/dL (70-99) 178 mg/dL (70-99) Prothrombin Time 14.4 SEC (11.7-14.0) 14.3 SEC (11.7-14.0) Prothromb Time International Ratio 1.2 (0.8-1.1) 1.1 (0.8-1.1) Sodium Level 146 mmol/L (136-145) Potassium Level 4.6 mmol/L (3.5-5.1) Chloride Level 102 mmol/L (98-107) Carbon Dioxide Level 34 mmol/L (21-32) Anion Gap 10 (6-14) Blood Urea Nitrogen 50 mg/dL (8-26) Creatinine 2.2 mg/dL (0.7-1.3) Estimated GFR (Cockcroft-Gault) 28.6 Glucose Level 101 mg/dL (70-99) Calcium Level 9.2 mg/dL (8.5-10.1) Test 11/10/18 07:49 11/10/18 11:58 Glucose (Fingerstick) 109 mg/dL (70-99) 139 mg/dL (70-99) Brief Hospital Course Mr. Swann is a 83 old male who was scheduled to have a venous runoff for assessment of peripheral vascular disease was found to have an INR greater than 5 and was sent to our services noted to reverse and noted to have his runoff this morning if his INR was therapeutic. Patient INR is 1 today unfortunately there is4 residential sales consultant to perform procedure today. He was hemodynamically stable throughout his hospital stay and the procedure can take place weeks patient can be safely discharged with instructions to hold his around over the weekend. He will be seen next week by Dr. Schumacher. GENERAL: Awake, alert, oriented x 3, senile skin turgor. Not in acute distress. Symmetrical chest expansion. No crackles, rhonchi, or wheezing. CARDIOVASCULAR: Normal rate and rhythm. No murmurs, rubs or gallops. ABDOMEN: Soft, nontender. GENITALIA: Appropriate for age. EXTREMITIES: Duskiness, decreased pulses on the bilateral, more so on the left than the right, no open wounds. Discharge Information Condition at Discharge: Improved Follow Up: Weeks Disposition/Orders: D/C to Home Scheduled Aspirin (Aspir 81) 81 Mg Tablet.dr, 81 MG PO DAILY, (Reported) Entered as Reported by: KATHRYN GONZALEZ on 01/04/141317 Last Taken: Unknown Dose on 11/05/18 Last Action: HELD on 11/09/18 102 by MI BURCH Cholecalciferol (Vitamin D3) (Vitamin D) 1,000 Unit Tablet, 1,000 UNIT PO BID, ( Reported) Entered as Reported by: KATHRYN GONZALEZ on 01/04/141317 Last Taken: Unknown Dose on 11/08/18 Last Action: Continued on 11/09/181020 by MI BURCH Doxycycline Hyclate (Vibramycin) 100 Mg Capsule, 1 CAP PO BID for osteomylitis, #14 (Reported) Entered as Reported by: OLGA TAM on 11/09/181517 Last Taken: Unknown Dose on 11/09/18 Last Action: New Order on 11/09/181517 by OLGA TAM Escitalopram Oxalate (Escitalopram Oxalate) 20 Mg Tablet, 1 TAB PO DAILY, #30 Ref 5 (Reported) Entered as Reported by: RHODA WOLFE on 10/29/161952 Last Taken: Unknown Dose on 11/08/18 Last Action: Converted on 11/09/18 102 by MI BURCH Finasteride (Proscar) 5 Mg Tablet, 1 TAB PO DAILYWSUP for BPH, #90 Ref 1 ( Reported) Entered as Reported by: RONDA BRAUN on 01/22/16 0021 Last Taken: Unknown Dose on 11/08/18 Last Action: Edited on 11/09/181524 by OLGA TAM Insulin Glargine,Hum.rec.anlog (Lantus) 100 Unit/1 Ml Vial, 14 UNIT SQ HS for DM , (Reported) Entered as Reported by: KATHRYN GONZALEZ on 01/04/141317 Last Taken: 7 units on 11/08/18 Last Action: Edited on 11/09/181524 by OLGA TAM Insulin Lispro (Humalog) 100 Unit/1 Ml Insuln.pen, 8 UNIT SQ DAILYWBKFT, ( Reported) Entered as Reported by: KATHRYN GONZALEZ on 01/04/141317 Last Taken: Unknown Dose on 11/08/18 Last Action: Continued on 11/09/18 102 by MI BURCH Insulin Lispro (Humalog) 100 Unit/1 Ml Cartridge, 6 UNIT SQ BIDACLD for DM, ( Reported) Entered as Reported by: OLGA TAM on 11/09/181518 Last Action: New Order on 11/09/181518 by OLGA TAM Ipratropium/Albuterol Sulfate (Combivent Respimat Inhal) 4 Gm Aer.w.adap, 4 GM IH BID, (Reported) Entered as Reported by: KATHRYN GONZALEZ on 01/04/141317 Last Taken: Unknown Dose on 11/08/18 Last Action: Converted on 11/09/18 102 by MI BURCH Lactobacillus Acidophilus (Probiotic) 1 Each Capsule, 1 EACH PO DAILY, (Reported ) Entered as Reported by: RHODA WOLFE on 10/29/161952 Last Taken: Unknown Dose on 11/08/18 Last Action: Converted on 11/09/18 102 by MI BURCH Losartan Potassium (Losartan Potassium ) 25 Mg Tablet, 25 MG PO DAILY for HYPERTENSION, (Reported) Entered as Reported by: RICHMOND BURR on 11/09/18725 Last Taken: Unknown Dose on 11/09/18 Last Action: Continued on 11/09/18 1021 by MI BURCH Metoprolol Succinate (Metoprolol Succinate ( Xl )) 25 Mg Tab.er.24h, 1 TAB PO DAILY for heart med, #30 Ref 5 (Reported) Entered as Reported by: RICHMOND BURR on 11/09/18725 Last Taken: Unknown Dose on 11/09/18 Last Action: Continued on 11/09/18 1021 by MI BURCH Multivitamin (Multivitamins) 1 Each Tablet, 1 EACH PO DAILY, (Reported) Entered as Reported by: KATHRYN GONZALEZ on 01/04/141317 Last Taken: Unknown Dose on 11/08/18 Last Action: Converted on 11/09/18 102 by MI BURCH Rivaroxaban (Xarelto) 20 Mg Tablet, 20 MG PO DAILYWSUP for AFIB for 30 Days, #30 please hold on Wednesday and WednesdayNovember 12 and . Prescribed by: GWEN KERR MD on 11/10/18 1245 Simvastatin (Simvastatin) 10 Mg Tablet, 1 TAB PO HS for HLD, #90 Ref 3 (Reported ) Entered as Reported by: RHODA WOLFE on 10/29/161952 Last Taken: Unknown Dose on 11/08/18 Last Action: Edited on 11/09/18 152 by OLGA TAM Spironolactone (Spironolactone) 25 Mg Tablet, 1 TAB PO DAILY for diuretic, #90 Ref 1 (Reported) Entered as Reported by: RICHMOND BURR on 11/09/18 07 Last Taken: Unknown Dose on 11/09/18 Last Action: Converted on 11/09/18 1021 by MI BURCH Tamsulosin Hcl (Flomax) 0.4 Mg Cap.er.24h, 0.4 MG PO DAILYWSUP for BPH, ( Reported) Entered as Reported by: KATHRYN GONZALEZ on 01/04/14 131 Last Taken: Unknown Dose on 11/08/18 Last Action: Edited on 11/09/181524 by OLGA TAM Tizanidine Hcl (Zanaflex) 2 Mg Capsule, 2 MG PO HS, (Reported) Entered as Reported by: KATHRYN GONZALEZ on 01/04/14 1318 Last Taken: Unknown Dose on 11/08/18 Last Action: Converted on 11/09/18 1021 by MI BURCH Torsemide (Torsemide) 20 Mg Tablet, 10 MG PO DAILY, (Reported) Entered as Reported by: RHODA WOLFE on 10/29/161952 Last Taken: Unknown Dose on 11/08/18 Last Action: Converted on 11/09/18 1021 by MI BURCH Scheduled PRN Codeine/Butalbital/Asa/Caffein (Fiorinal-Cod [id number] Cap) 1 Each Capsule, 1 EACH PO PRN Q4-6HRS PRN for PAIN, (Reported) Entered as Reported by: RHODA WOLFE on 10/29/161952 Last Taken: Unknown Dose on 11/08/18 Last Action: Converted on 11/09/18 1021 by GWEN MACHADO MD Nov 10, 2018 12:53
--- NOTE | 2018-11-10 13:44 | NUR ---
SS following for discharge planning. SS reviewed pt chart. Pt is from home with spouse and currently requiring oxygen. PT/OT evaluated pt and recommended [facility] unit at discharge. SS met with pt and pt's spouse in room to discuss discharge planning and fci unit. Pt's spouse reported that pt has no skilled days left and could not return to fci unit until his days reset. Pt's spouse reported that pt will discharge to home. SS discussed home healthcare options. Pt and pt's spouse declined home healthcare. Pt's RN notified.
--- NOTE | 2018-11-10 14:27 | NUR ---
Discharge Note: ANGEL JACOME 2 [facility] Discharge instructions and discharge home medications reviewed with Patient and a copy given. All questions have been answered and understanding verbalized. The following instructions and handouts were given: PVD Discontinued IV Patient discharged to home with self care via wheelchair
== END 2018-11-10 14:29 | disposition home or self-care (01) | DRG 815 ==
LOC: CCL 06:34 → 2 SOUTH 09:26 → MERGE 09:26 → UNMERGE 09:26
PROVIDERS: ADMIT Internal Medicine; ATTEND Internal Medicine
PROC: 30233K1 Transfusion of Nonautologous Frozen Plasma into Peripheral Vein, Percutaneous Approach (ICD-10-PCS; principal; 2018-11-09)
DX: D68.69 Other thrombophilia (principal); M86.8X7 Other osteomyelitis, ankle and foot; I73.9 Peripheral vascular disease, unspecified; I25.10 Atherosclerotic heart disease of native coronary artery without angina pectoris; Z66 Do not resuscitate; I10 Essential (primary) hypertension; D63.8 Anemia in other chronic diseases classified elsewhere; Z91.81 History of falling; Z88.0 Allergy status to penicillin; Z79.01 Long term (current) use of anticoagulants; Z82.49 Family history of ischemic heart disease and other diseases of the circulatory system; Z87.891 Personal history of nicotine dependence; Z88.8 Allergy status to other drugs, medicaments and biological substances; Z91.041 Radiographic dye allergy status; I48.91 Unspecified atrial fibrillation
CPT/HCPCS: 36415; 80048; 80053; 80076; 82962; 85025; 85027; 85610; 86850; 86900; 86901; 86927; 94640; 94760; J1815; J7620; P9017

== ENCOUNTER 2018-11-14 08:40 | Outpatient (CLI) | payer MEDICARE ==
[~2018-11-14] VITALS: Ht 177.8 cm; Wt 103.0 kg
[2018-11-14] VITALS (10 sets, daily range): BP systolic 103–147; BP diastolic 52–91
[~2018-11-14 08:40] MED LIST changes: +DOXY100C PO; +LOSA25TA54 PO; +SPIR25TA5 PO
[2018-11-14 09:15] LABS: HEMATOCRIT 31.3 % (39.0-53.0); HEMOGLOBIN 10.3 g/dL (13.0-17.5); RED BLOOD COUNT 3.49 x10^6/uL (4.30-5.70); RED CELL DISTRIBUTION WIDTH 15.6 % (11.5-14.5); WHITE BLOOD COUNT 9.3 x10^3/uL (4.0-11.0)
[2018-11-14 09:28] LABS: PROTHROMBIN TIME PATIENT 14.2 SEC (11.7-14.0)
[2018-11-14 09:30] LABS: CALCIUM 9.5 mg/dL (8.5-10.1); CREATININE 2.4 mg/dL (0.7-1.3); GFR 25.9
[2018-11-14 09:32] LABS: POTASSIUM 5.3 mmol/L (3.5-5.1)
[2018-11-14] MEDS ORDERED: IODIXANOL 320 MG/ML 100 ML VIAL. ONE (10:32)
[2018-11-14] MEDS ORDERED: LIDOCAINE 1% Multi-Dose 20 ML VIAL. ONE (10:32)
[2018-11-14] MEDS ORDERED: HEPARIN for IV BOLUS 10,000 UNIT/10 ML VIAL. ONE (11:08)
[2018-11-14] MEDS ORDERED: MIDAZOLAM HCL/PF 5 MG/5 ML VIAL. ONE (11:08)
[2018-11-14] MEDS ORDERED: fentaNYL PF VIAL 100 MCG/2 ML VIAL ONE (11:08)
[2018-11-14] MEDS ORDERED: HEPARIN for IV BOLUS 10,000 UNIT/10 ML VIAL. IV ONE (11:40)
[2018-11-14] MEDS ORDERED: IODIXANOL 320 MG/ML 100 ML VIAL. IART ONE (11:45)
[2018-11-14] MEDS ORDERED: fentaNYL PF VIAL 100 MCG/2 ML VIAL IV ONE (11:45)
[2018-11-14] MEDS ORDERED: MIDAZOLAM HCL/PF 5 MG/5 ML VIAL. IV ONE (11:45)
[2018-11-14] MEDS ORDERED: LIDOCAINE 1% Multi-Dose 20 ML VIAL. INJ ONE (11:45)
--- NOTE | 2018-11-14 12:49 | PDOC4 ---
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 Post-Op Diagnosis: Same as above with tibial PAD Procedure Performed: #1 ultrasound-guided access right common femoral artery #2 radiology S and I aortogram #3 radiology S and I left lower extremity runoff #4 3rd order selective catheter placement below the diaphragm (access right common femoral catheter tip left popliteal) 6 Surgeon: Carlyle Rollins MD Anesthesia Type: Conscious sedation 30 minutes Fentanyl 75 g Versed 0.5 mg Blood Loss: 0 Specimans Obtained: None Findings: #1 abdominal aortogram obtained with CO2 shows no AAA, no significant aortic cross carotid disease, patent renal arteries #2 bilateral common and external iliac arteries widely patent #3 left common femoral profunda femoral, SFA and popliteal widely patent #4 left PETER is completely occluded and does not appear to reconstitute the foot #5 left peroneal is patent and gives flow to the ankle with collateralization out to a posterior tibial artery which reconstitutes at the medial malleolus via collateral and retrograde fills a few centimeters above with good flow to the foot. The left posterior tibial is occluded at its origin proximally Complications: None Operative Note: The patient was escorted to the [facility] and placed supine on the table. The groins were prepped and draped in usual sterile fashion and a timeout was performed. Sedation was induced under nurse and physician supervision after placement of appropriate lines and monitoring devices. Attention was directed to the right common femoral artery was fluoroscopically marked over the femoral head and examined with ultrasound. Was found to be widely patent with good flow and an image of the vessel taken and saved for the medical record. Under real-time ultrasound guidance local anesthetic was injected in the right groin and again under real-time ultrasound guidance the right common femoral artery was accessed in retrograde fashion using a micropuncture needle. Seldinger technique was used to place a earnest puncture wire into the iliac artery and exchange the needle for micropuncture sheath which backbled easily. This was used to introduce a J-wire into the abdominal aorta under fluoroscopic guidance and exchanged the micropuncture sheath for a 5 Israeli sheath was aspirated and flushed without difficulty. These were used to introduce a flush catheter into the abdominal aorta and aortogram was obtained. The catheter was pulled back to the aortic bifurcation and oblique pelvic angiograms were obtained. These were both done with carbon dioxide angiography to limit contrast exposure. I used the catheter, a Glidewire, and a J-wire to cross the bifurcation and passed the wire into the left popliteal artery without any resistance. The catheter was exchanged for a long angled glide catheter and this passed up and over the bifurcation over the wire through the SFA at the distal tip in the left popliteal artery. Less than 10 mL of her used to perform popliteal and tibial angiograms showing the above findings. Catheter was removed. The right femoral access site was closed using Angio-Seal device with good hemostasis. The patient was escorted to recovery in stable condition. There were no complications. CARLYLE ROLLINS MD Nov 14, 2018 12:49
--- NOTE | 2018-11-14 13:16 | PDOC ---
PROGRESS NOTES Subjective Subjective Pt seen in recovery s/p dx angiogram He has no c/o he denies any right groin access site pain / paresthesias / etc he denies any LE pain / paresthesias / weakness Objective Objective Vital Signs Date Time Temp Pulse Resp B/P (MAP) Pulse Ox O2 Delivery O2 Flow Rate FiO2 11/14/18 12:57 62 18 98 Nasal Cannula 3.0 11/14/18 10:35 98.4 103/52 (69) 98.4 Physical Exam Physical Exam right femoral access site is soft, non-tender, no mass, no hematoma strong signals both ankles Diagnosis DIAGNOSIS atherosclerosis of agdaagux arteries of left leg with ulcer of the left great toe (other part of foot) Plan Plan of Care no complications from the procedure No intervention today due to elevated Cr and patient discomfort He has an open ulcer and ? osteo left great toe I recommended return with anesthesia for left PT access and tibial recanalization he and his want to consider will call and check on him in 1 to 2 weeks. Comment Review of Relevant I have reviewed the following items earnest (where applicable) has been applied. Labs Laboratory Tests Test 11/14/18 09:10 White Blood Count 9.3 x10^3/uL (4.0-11.0) Red Blood Count 3.49 x10^6/uL (4.30-5.70) Hemoglobin 10.3 g/dL (13.0-17.5) Hematocrit 31.3 % (39.0-53.0) Mean Corpuscular Volume 90 fL (79-100) Mean Corpuscular Hemoglobin 30 pg (25-35) Mean Corpuscular Hemoglobin Concent 33 g/dL (31-37) Red Cell Distribution Width 15.6 % (11.5-14.5) Platelet Count 191 x10^3/uL (140-400) Prothrombin Time 14.2 SEC (11.7-14.0) Prothromb Time International Ratio 1.1 (0.8-1.1) Activated Partial Thromboplast Time 29 SEC (24-38) Sodium Level 141 mmol/L (136-145) Potassium Level 5.3 mmol/L (3.5-5.1) Chloride Level 99 mmol/L (98-107) Carbon Dioxide Level 31 mmol/L (21-32) Anion Gap 11 (6-14) Blood Urea Nitrogen 53 mg/dL (8-26) Creatinine 2.4 mg/dL (0.7-1.3) Estimated GFR (Cockcroft-Gault) 25.9 Glucose Level 179 mg/dL (70-99) Calcium Level 9.5 mg/dL (8.5-10.1) Laboratory Tests Test 11/14/18 09:10 White Blood Count 9.3 x10^3/uL (4.0-11.0) Red Blood Count 3.49 x10^6/uL (4.30-5.70) Hemoglobin 10.3 g/dL (13.0-17.5) Hematocrit 31.3 % (39.0-53.0) Mean Corpuscular Volume 90 fL (79-100) Mean Corpuscular Hemoglobin 30 pg (25-35) Mean Corpuscular Hemoglobin Concent 33 g/dL (31-37) Red Cell Distribution Width 15.6 % (11.5-14.5) Platelet Count 191 x10^3/uL (140-400) Prothrombin Time 14.2 SEC (11.7-14.0) Prothromb Time International Ratio 1.1 (0.8-1.1) Activated Partial Thromboplast Time 29 SEC (24-38) Sodium Level 141 mmol/L (136-145) Potassium Level 5.3 mmol/L (3.5-5.1) Chloride Level 99 mmol/L (98-107) Carbon Dioxide Level 31 mmol/L (21-32) Anion Gap 11 (6-14) Blood Urea Nitrogen 53 mg/dL (8-26) Creatinine 2.4 mg/dL (0.7-1.3) Estimated GFR (Cockcroft-Gault) 25.9 Glucose Level 179 mg/dL (70-99) Calcium Level 9.5 mg/dL (8.5-10.1) Medications Current Medications Iodixanol (Visipaque 320) 100 ml STK-MED ONCE .ROUTE ; Start 11/14/18 at 10:32; Stop 11/14/18 at 10:33; Status DC Lidocaine HCl (Lidocaine 1% 20ml Vial) 20 ml STK-MED ONCE .ROUTE ; Start at 10:32; Stop 11/14/18 at 10:34; Status DC Heparin Sodium/ Sodium Chloride 1,000 ml @ As Directed STK-MED ONCE .ROUTE ; Start 11/14/18 at 10:33; Stop 11/14/18 at 10:34; Status DC Midazolam HCl (Versed) 5 mg STK-MED ONCE .ROUTE ; Start 11/14/18 at 11:08; Stop 11/14/18 at 11:09; Status DC Fentanyl Citrate (Fentanyl 2ml Vial) 100 mcg STK-MED ONCE .ROUTE ; Start at 11:08; Stop 11/14/18 at 11:09; Status DC Heparin Sodium (Porcine) (Heparin Sodium) 10,000 unit STK-MED ONCE .ROUTE ; Start 11/14/18 at 11:08; Stop 11/14/18 at 11:10; Status DC Heparin Sodium/ Sodium Chloride (HEPARIN for ARTERIAL LINE FLUSH) 1,000 unit 1X ONCE IART Last administered on 11/14/18 12:01; Start 11/14/18 at 11:45; Stop 11/14/18 at 11:50; Status DC Midazolam HCl (Versed) 5 mg 1X ONCE IV Last administered on 11/14/18 12:03; Start 11/14/18 at 11:45; Stop 11/14/18 at 11:50; Status DC Fentanyl Citrate (Fentanyl 2ml Vial) 100 mcg 1X ONCE IV Last administered on 12:03; Start 11/14/18 at 11:45; Stop 11/14/18 at 11:50; Status DC Iodixanol (Visipaque 320) 100 ml 1X ONCE IART Last administered on 11/14/18 12 :02; Start 11/14/18 at 11:45; Stop 11/14/18 at 11:50; Status DC Heparin Sodium (Porcine) (Heparin Sodium) 5,000 unit 1X ONCE IV Last administered on 11/14/18 12:04; Start 11/14/18 at 11:40; Stop 11/14/18 at 11:50; Status DC Lidocaine HCl (Lidocaine 1% 20ml Vial) 20 ml 1X ONCE INJ Last administered on 11/14/18 12:02; Start 11/14/18 at 11:45; Stop 11/14/18 at 11:50; Status DC Active Scripts Active Xarelto (Rivaroxaban) 20 Mg Tablet 20 Mg PO DAILYWSUP 30 Days please hold on Wednesday and WednesdayNovember 12 and . Reported Humalog (Insulin Lispro) 100 Unit/1 Ml Cartridge 6 Unit SQ BIDACLD Vibramycin (Doxycycline Hyclate) 100 Mg Capsule 1 Cap PO BID Losartan Potassium (Losartan Potassium) 25 Mg Tablet 25 Mg PO DAILY Metoprolol Succinate ( Xl ) (Metoprolol Succinate) 25 Mg Tab.er.24h 1 Tab PO DAILY Spironolactone 25 Mg Tablet 1 Tab PO DAILY Probiotic (Lactobacillus Acidophilus) 1 Each Capsule 1 Each PO DAILY Fiorinal-Cod 17-06-824-40 Cap (Codeine/Butalbital/Asa/Caffein) 1 Each Capsule 1 Each PO PRN Q4-6HRS PRN Simvastatin 10 Mg Tablet 1 Tab PO HS Torsemide 20 Mg Tablet 10 Mg PO DAILY Escitalopram Oxalate 20 Mg Tablet 1 Tab PO DAILY Proscar (Finasteride) 5 Mg Tablet 1 Tab PO DAILYWSUP Lantus (Insulin Glargine,Hum.rec.anlog) 100 Unit/1 Ml Vial 14 Unit SQ HS Humalog (Insulin Lispro) 100 Unit/1 Ml Insuln.pen 8 Unit SQ DAILYWBKFT Vitamin D (Cholecalciferol (Vitamin D3)) 1,000 Unit Tablet 1,000 Unit PO BID Multivitamins (Multivitamin) 1 Each Tablet 1 Each PO DAILY Aspir 81 (Aspirin) 81 Mg Tablet.dr 81 Mg PO DAILY Combivent Respimat Inhal (Ipratropium/Albuterol Sulfate) 4 Gm Aer.w.adap 4 Gm IH BID Zanaflex (Tizanidine Hcl) 2 Mg Capsule 2 Mg PO HS Flomax (Tamsulosin Hcl) 0.4 Mg Cap.er.24h 0.4 Mg PO DAILYWSUP Vitals/I & O Vital Sign - Last 24 Hours 11/14/18 11/14/18 11/14/18 11/14/18 10:35 10:36 11:59 12:03 Temp 98.4 98.4 Pulse 69 64 Resp 24 18 20 B/P (MAP) 103/52 (69) Pulse Ox 97 97 97 O2 Delivery Nasal Cannula Nasal Cannula Nasal Cannula Nasal Cannula O2 Flow Rate 3.0 3.0 3.0 3.0 11/14/18 11/14/18 11/14/18 11/14/18 12:05 12:20 12:42 12:57 Pulse 59 59 59 62 Resp 18 18 18 18 Pulse Ox 99 98 98 98 O2 Delivery Nasal Cannula Nasal Cannula Nasal Cannula Nasal Cannula O2 Flow Rate 3.0 3.0 3.0 3.0 KEINA ROLLINS MD Nov 14, 2018 13:16
--- NOTE | 2018-11-14 14:58 | NUR ---
Pt right groin site soft, no bruising, track ooz noted and new dressing placed at site. Dressing c/d/i. Pt denies any pain or SOB. VSS. Bilateral Posterior Tibial and Pedal pulses dopplered. Pt and given discharge instructions. Pt taken out per wheelchair to outpatient entrance.
== END 2018-11-14 14:55 | disposition home or self-care (01) ==
LOC: UNMERGE 08:40 → CCL 08:40 → MERGE 08:40 → CCL 14:55
PROVIDERS: ATTEND Surgery Vascular Surgery
DX: I70.245 Atherosclerosis of native arteries of left leg with ulceration of other part of foot (principal); Z88.0 Allergy status to penicillin; Z91.030 Bee allergy status; Z91.048 Other nonmedicinal substance allergy status; L97.528 Non-pressure chronic ulcer of other part of left foot with other specified severity; Z79.899 Other long term (current) drug therapy; Z79.82 Long term (current) use of aspirin; Z79.01 Long term (current) use of anticoagulants
CPT/HCPCS: 36247; 36415; 75710; 76937; 80048; 85027; 85610; 85730; 99152; 99153; C1769; C1771; C1892; G0269; J1644; J2250; J3010; Q9967; C1760

== ENCOUNTER 2019-01-23 16:19 | Inpatient (IN) | payer MEDICARE ==
[~2019-01-23] VITALS: Ht 180.3 cm; Wt 102.7 kg
--- NOTE | 2019-01-23 17:58 | PHYS DOC ---
Adult General Chief Complaint Chief Complaint: FOOT INJURY PAIN HPI HPI 83-year-old male presents to ER via POV for complaints of left foot infection. Patient was sent by his accuracy expert's office for concerns of osteomyelitis. Per patient's patient had a wound on his left great toe in August which required IV antibiotics and he was in a senior living for treatment until the wounds improved. She reports patient had been doing good and then a few weeks ago he stubbed his left great toe and since has had increased redness and swelling along with worsening wound on his great toe. Patient also has 2 small scabbed wounds on his third and fourth toe on his left foot. Patient is diabetic but is uncertain what his blood sugars have been running home. (PHILLIP STEEN APRN) Review of Systems Review of Systems Constitutional: Denies fever or chills. Reports generalized fatigue Eyes: Denies change in visual acuity, redness, or eye pain [] HENT: Denies nasal congestion or sore throat [] Respiratory: Denies cough or shortness of breath [] Cardiovascular: Denies chest pain or palpitations GI: Denies abdominal pain, nausea, vomiting, bloody stools or diarrhea [] : Denies dysuria or hematuria [] Musculoskeletal: Denies back pain or joint pain. Reports left great toe redness and swelling. Reports bilateral lower leg discoloration due to PVD Integument: Reports opened wound on left great toe and 2 small scabbed wounds left third and fourth toe Neurologic: Denies headache, focal weakness or sensory changes [] Endocrine: Denies polyuria or polydipsia [] All other systems were reviewed and found to be within normal limits, except as documented in this note. (PHILLIP STEEN APRN) Current Medications Current Medications Current Medications Medications (Trade) Dose Ordered Sig/Robert Start Time Stop Time Status Last Admin Dose Admin Piperacillin Sod/ Tazobactam Sod 3.375 gm/Sodium Chloride 50 ml @ 100 mls/hr 1X ONCE 01/23/19 19:15 01/23/19 19:44 Cancel Vancomycin HCl (Vanco Per Pharmacy) 1 each 1X ONCE 01/23/19 18:00 01/23/19 18:23 DC 01/23/19 23:33 1 EACH Vancomycin HCl 2 gm/Sodium Chloride 500 ml @ 250 mls/hr 1X ONCE 01/23/19 19:00 01/23/19 20:59 DC 01/23/19 18:59 250 MLS/HR (BENJA JOHNSTON MD) Physical Exam Physical Exam Constitutional: Well developed, well nourished, no acute distress, non-toxic appearance. Fatigued appearance- required assistance with getting onto ER cart HENT: Normocephalic, atraumatic, bilateral external ears normal, oropharynx moist, no oral exudates, nose normal. [] Eyes: Pupils equal, conjunctiva normal, no discharge. [] Neck: Normal range of motion, no tenderness, supple, no stridor. [] Cardiovascular: Heart rate regular rhythm, no murmur [] Lungs & Thorax: Bilateral breath sounds clear to auscultation- resp. equal/nonlabored Abdomen: Bowel sounds normal, soft/obese, no tenderness, no masses, no pulsatile masses. [] Skin: Warm, dry, no erythema, no rash. [] Back: No tenderness, no CVA tenderness. [] Extremities: No tenderness, no cyanosis, ROM intact bilat. upper extremities 2+ radial bilat. Bilat. discoloration to anterior shins- reports chronic d/t circulation issues. Lt great toe deformity- erythema into proximal great toe/dorsal surface of foot. Opened wound distal tip of great toe- sm. amt of purulent drainage at site. Small scabs on sole surface of lt 3-4th toes. Pt denies tenderness on palp. of lt foot. 1+ bilat. dorsalis pedis. Left hallux valgus deformity. Neurologic: Alert and oriented X 3, normal motor function, normal sensory function, no focal deficits noted. [] Psychologic: Affect normal, judgement normal, mood normal. [] (REFFITT,PHILLIP Slater APRN) Current Patient Data Vital Signs Vital Signs Date Time Temp Pulse Resp B/P (MAP) Pulse Ox O2 Delivery O2 Flow Rate FiO2 01/23/19 18:30 62 130/56 (80) 99 01/23/19 18:00 20 01/23/19 17:25 98.3 Room Air 98.3 (BENJA JOHNSTON MD) Lab Values Laboratory Tests Test 01/23/19 18:40 White Blood Count 7.6 x10^3/uL (4.0-11.0) Red Blood Count 2.97 x10^6/uL (4.30-5.70) L Hemoglobin 9.2 g/dL (13.0-17.5) L Hematocrit 27.5 % (39.0-53.0) L Mean Corpuscular Volume 93 fL (79-100) Mean Corpuscular Hemoglobin 31 pg (25-35) Mean Corpuscular Hemoglobin Concent 33 g/dL (31-37) Red Cell Distribution Width 15.3 % (11.5-14.5) H Platelet Count 225 x10^3/uL (140-400) Neutrophils (%) (Auto) 72 % (31-73) Lymphocytes (%) (Auto) 10 % (24-48) L Monocytes (%) (Auto) 10 % (0-9) H Eosinophils (%) (Auto) 8 % (0-3) H Basophils (%) (Auto) 1 % (0-3) Neutrophils # (Auto) 5.5 x10^3uL (1.8-7.7) Lymphocytes # (Auto) 0.8 x10^3/uL (1.0-4.8) L Monocytes # (Auto) 0.8 x10^3/uL (0.0-1.1) Eosinophils # (Auto) 0.6 x10^3/uL (0.0-0.7) Basophils # (Auto) 0.0 x10^3/uL (0.0-0.2) Sodium Level 139 mmol/L (136-145) Potassium Level 5.0 mmol/L (3.5-5.1) Chloride Level 100 mmol/L (98-107) Carbon Dioxide Level 28 mmol/L (21-32) Anion Gap 11 (6-14) Blood Urea Nitrogen 61 mg/dL (8-26) H Creatinine 2.4 mg/dL (0.7-1.3) H Estimated GFR (Cockcroft-Gault) 25.9 BUN/Creatinine Ratio 25 (6-20) H Glucose Level 146 mg/dL (70-99) H Lactic Acid Level 1.3 mmol/L (0.4-2.0) Calcium Level 9.8 mg/dL (8.5-10.1) Total Bilirubin 0.4 mg/dL (0.2-1.0) Aspartate Amino Transferase (AST) 20 U/L (15-37) Alanine Aminotransferase (ALT) 22 U/L (16-63) Alkaline Phosphatase 79 U/L (46-116) Total Protein 6.9 g/dL (6.4-8.2) Albumin 3.2 g/dL (3.4-5.0) L Albumin/Globulin Ratio 0.9 (1.0-1.7) L Laboratory Tests 01/23/19 18:40 Laboratory Tests 01/23/19 18:40 Microbiology 01/23/19 Blood Culture - Final, Complete NO GROWTH AFTER 5 DAYS (BENJA JOHNSTON MD) Lab Values Laboratory Tests Test 01/23/19 18:40 White Blood Count 7.6 x10^3/uL (4.0-11.0) Red Blood Count 2.97 x10^6/uL (4.30-5.70) L Hemoglobin 9.2 g/dL (13.0-17.5) L Hematocrit 27.5 % (39.0-53.0) L Mean Corpuscular Volume 93 fL (79-100) Mean Corpuscular Hemoglobin 31 pg (25-35) Mean Corpuscular Hemoglobin Concent 33 g/dL (31-37) Red Cell Distribution Width 15.3 % (11.5-14.5) H Platelet Count 225 x10^3/uL (140-400) Neutrophils (%) (Auto) 72 % (31-73) Lymphocytes (%) (Auto) 10 % (24-48) L Monocytes (%) (Auto) 10 % (0-9) H Eosinophils (%) (Auto) 8 % (0-3) H Basophils (%) (Auto) 1 % (0-3) Neutrophils # (Auto) 5.5 x10^3uL (1.8-7.7) Lymphocytes # (Auto) 0.8 x10^3/uL (1.0-4.8) L Monocytes # (Auto) 0.8 x10^3/uL (0.0-1.1) Eosinophils # (Auto) 0.6 x10^3/uL (0.0-0.7) Basophils # (Auto) 0.0 x10^3/uL (0.0-0.2) Sodium Level 139 mmol/L (136-145) Potassium Level 5.0 mmol/L (3.5-5.1) Chloride Level 100 mmol/L (98-107) Carbon Dioxide Level 28 mmol/L (21-32) Anion Gap 11 (6-14) Blood Urea Nitrogen 61 mg/dL (8-26) H Creatinine 2.4 mg/dL (0.7-1.3) H Estimated GFR (Cockcroft-Gault) 25.9 BUN/Creatinine Ratio 25 (6-20) H Glucose Level 146 mg/dL (70-99) H Lactic Acid Level 1.3 mmol/L (0.4-2.0) Calcium Level 9.8 mg/dL (8.5-10.1) Total Bilirubin 0.4 mg/dL (0.2-1.0) Aspartate Amino Transferase (AST) 20 U/L (15-37) Alanine Aminotransferase (ALT) 22 U/L (16-63) Alkaline Phosphatase 79 U/L (46-116) Total Protein 6.9 g/dL (6.4-8.2) Albumin 3.2 g/dL (3.4-5.0) L Albumin/Globulin Ratio 0.9 (1.0-1.7) L Laboratory Tests 01/23/19 18:40 Laboratory Tests 01/23/19 18:40 (PHILLIP STEEN APRN) EKG EKG [] (PHILLIP STEEN APRN) Radiology/Procedures Radiology/Procedures PROCEDURE: FOOT LEFT 3V Three-view left foot radiographs 01/23/2019 CLINICAL HISTORY: Left first toe infection. AP, lateral and oblique digital radiographs of the left foot were obtained. There is diffuse osteopenia of the visualized bony structures. Moderate hallux valgus deformity is seen. Mild to moderate degenerative changes are seen throughout the interphalangeal joints of the left foot. Mild to moderate degenerative changes are seen involving the first MTP joint. No fracture or dislocation is seen. There is no radiographic evidence of osteomyelitis. Moderate enthesophyte formation is seen involving the plantar aspect of the posterior left calcaneus. Atherosclerotic calcification of the left anterior tibial/dorsalis pedis artery is seen. IMPRESSION: Degenerative changes are seen involving the left foot as discussed above. No acute osseous abnormality is seen. Electronically signed by: Marquez Winchester MD (01/23/2019 11:06 PM) [facility] DICTATED and SIGNED BY: MARQUEZ WINCHESTER MD DATE: 01/23/19 2306 (PHILLIP STEEN APRN) Course & Med Decision Making Course & Med Decision Making Pertinent Labs and Imaging studies reviewed. (See chart for details) Patient was sent to the ER by his accuracy expert for concerns of osteomyelitis and left foot due to erythema, open wound, and increased swelling at patient's left great toe. Patient denied any pain on arrival. Labs were obtained. X-ray was obtained of left foot no obvious findings for osteomyelitis on report. Patient was nontoxic in appearance was fatigued and required assistance on repositioning and ambulation. Discussed test results with patient and his as well as plans for admission for IV antibiotics and further care. Both are agreeable with admission plan as discussed. 1820: Spoke with Dr. Smalls, hospitalist and discussed pt's case and admit plan. Patient will be admitted to [facility] for further monitoring. Will consult orthopedics and wound nurse with admit orders. Pt had blood cultures obtained while in the ER was started on IV vancomycin. (PHILLIP STEEN APRN) Course & Med Decision Making Staff Physician Addendum: I was working in the ER during the course of this patient's visit. I was available for consultation as needed, but I was not directly involved in the care of this patient. (BENJA JOHNSTON MD) Dragon Disclaimer Dragon Disclaimer This electronic medical record was generated, in whole or in part, using a voice recognition dictation system. (PHILLIP STEEN APRN) Departure Departure Impression: Primary Impression: Left foot infection Disposition: ADMITTED INPATIENT Admitting Physician: Other (Dr. Smalls) (PHILLIP STEEN APRN) Condition: STABLE Referrals: UNKNOWN PCP NAME (PCP) PHILLIP STEEN APRN January 23, 2019 17:58 BENJA JOHNSTON MD January 30, 2019 06:46
[2019-01-23] MEDS ORDERED: VANCOMYCIN PER PHARMACY MC ONE (18:00)
[2019-01-23 18:51] LABS: BASO % 1 % (0-3); EOS # 0.6 x10^3/uL (0.0-0.7); EOS % 8 % (0-3); HEMATOCRIT 27.5 % (39.0-53.0); HEMOGLOBIN 9.2 g/dL (13.0-17.5); LYMPH # 0.8 x10^3/uL (1.0-4.8); LYMPH % 10 % (24-48); MEAN CORPUSCULAR HEMOGLOBIN 31 pg (25-35); MEAN CORPUSCULAR HGB CONC 33 g/dL (31-37); MEAN CORPUSCULAR VOLUME 93 fL (79-100); MONO # 0.8 x10^3/uL (0.0-1.1); MONO % 10 % (0-9); NEUT # 5.5 x10^3uL (1.8-7.7); NEUT % 72 % (31-73); PLATELET COUNT 225 x10^3/uL (140-400); RED BLOOD COUNT 2.97 x10^6/uL (4.30-5.70); RED CELL DISTRIBUTION WIDTH 15.3 % (11.5-14.5); WHITE BLOOD COUNT 7.6 x10^3/uL (4.0-11.0)
[2019-01-23 19:00] LABS: CALCIUM 9.8 mg/dL (8.5-10.1); CREATININE 2.4 mg/dL (0.7-1.3); GFR 25.9
[2019-01-23] MEDS ORDERED: VANCOMYCIN 2 GM in IV NORMAL SALINE 500ML BAG 500 ML IV ONE (19:00)
[2019-01-23 19:06] LABS: ALBUMIN 3.2 g/dL (3.4-5.0); ALBUMIN/GLOBULIN RATIO 0.9 (1.0-1.7); TOTAL BILIRUBIN 0.4 mg/dL (0.2-1.0); TOTAL PROTEIN 6.9 g/dL (6.4-8.2)
[2019-01-23] MEDS ORDERED: PIPERACILLIN/TAZOBACTAM 3.375 GM in IV NORMAL SALINE 50ML 50 ML IV ONE (19:15)
[2019-01-23 20:25] VITALS: BP 139/59
--- NOTE | 2019-01-23 20:28 | NUR ---
The patient, ANGEL JACOME, 83 y/o, M admitted by KARLA CERRATO MD arrived on unit at 2027 by bed from ED. at bedside. Pt. is pleasant, VSS with 3L NC on pt. Pt. does not complain of pain. Any valuables were taken by . was able to provide all information about pt. Call light within reach, bed low with bed alarm on. Will continue to monitor.
[2019-01-23] MEDS ORDERED: fentaNYL PF VIAL 100 MCG/2 ML VIAL IV PRN (20:30)
[2019-01-23] MEDS ORDERED: ACETAMINOPHEN 325 MG TABLET. PO PRN (20:30)
[2019-01-23] MEDS ORDERED: ONDANSETRON PF 4 MG/2 ML VIAL. IV PRN (20:30)
[2019-01-23 21:17] LABS: BILIRUBIN,URINE NEGATIVE (NEG); CLARITY,URINE CLEAR; COLOR,URINE YELLOW; NITRITE,URINE NEGATIVE (NEG); PROTEIN,URINE NEGATIVE (NEG-TRACE); UROBILINOGEN,URINE 0.2 mg/dL (0.2 mg/dL)
[2019-01-23 21:22] LABS: BACTERIA,URINE 0 /HPF (0-FEW); HYALINE CASTS, URINE MODERATE /HPF; RBC,URINE 0 /HPF (0-2); SQUAMOUS EPITHELIAL CELL,UR FEW /LPF; WBC,URINE 0 /HPF (0-4)
[2019-01-23 23:00] VITALS: BP 130/60
--- NOTE | 2019-01-23 23:08 | RAD ---
Three-view left foot radiographs 01/23/2019 CLINICAL HISTORY: Left first toe infection. AP, lateral and oblique digital radiographs of the left foot were obtained. There is diffuse osteopenia of the visualized bony structures. Moderate hallux valgus deformity is seen. Mild to moderate degenerative changes are seen throughout the interphalangeal joints of the left foot. Mild to moderate degenerative changes are seen involving the first MTP joint. No fracture or dislocation is seen. There is no radiographic evidence of osteomyelitis. Moderate enthesophyte formation is seen involving the plantar aspect of the posterior left calcaneus. Atherosclerotic calcification of the left anterior tibial/dorsalis pedis artery is seen. IMPRESSION: Degenerative changes are seen involving the left foot as discussed above. No acute osseous abnormality is seen. Electronically signed by: Marquez Winchester MD (01/23/2019 11:06 PM) [facility]
[2019-01-24 03:00] VITALS: BP 117/54
[2019-01-24] MEDS ORDERED: BUTA1CAP31 PO (04:24)
[2019-01-24] MEDS ORDERED: CHOL10002 PO (04:24)
[2019-01-24] MEDS ORDERED: CETI10TA16 PO (04:24)
[2019-01-24] MEDS ORDERED: SPIR25TA5 PO (04:24)
[2019-01-24] MEDS ORDERED: METO-239 PO (04:24)
[2019-01-24] MEDS ORDERED: INSU100I13 SQ (04:24)
[2019-01-24] MEDS ORDERED: LINZESS145 MCG PO (04:24)
[2019-01-24] MEDS ORDERED: ASPI-630 PO (04:24)
[2019-01-24] MEDS ORDERED: INSU100I11 SQ (04:24)
[2019-01-24] MEDS ORDERED: FINA5TAB4 PO (04:24)
[2019-01-24] MEDS ORDERED: SIMV10TA3 PO (04:24)
[2019-01-24] MEDS ORDERED: ESOM40CA PO (04:24)
[2019-01-24] MEDS ORDERED: LEXAPRO20 MG PO (04:24)
[2019-01-24] MEDS ORDERED: LACT1CAP8 PO (04:24)
[2019-01-24] MEDS ORDERED: BUDE10.2 IH (04:24)
[2019-01-24] MEDS ORDERED: RIVA20TA2 PO (04:24)
[2019-01-24] MEDS ORDERED: ACET325S PO (04:24)
[2019-01-24] MEDS ORDERED: TAMS0.4C97 PO (04:24)
[2019-01-24] MEDS ORDERED: IPRA4AER IH (04:24)
[2019-01-24 05:24] LABS: BASO % 1 % (0-3); EOS % 14 % (0-3); HEMATOCRIT 26.6 % (39.0-53.0); HEMOGLOBIN 8.8 g/dL (13.0-17.5); LYMPH # 0.6 x10^3/uL (1.0-4.8); LYMPH % 8 % (24-48); MEAN CORPUSCULAR HEMOGLOBIN 31 pg (25-35); MEAN CORPUSCULAR HGB CONC 33 g/dL (31-37); MEAN CORPUSCULAR VOLUME 93 fL (79-100); MONO # 0.9 x10^3/uL (0.0-1.1); MONO % 12 % (0-9); NEUT # 4.8 x10^3uL (1.8-7.7); NEUT % 66 % (31-73); PLATELET COUNT 212 x10^3/uL (140-400); RED BLOOD COUNT 2.88 x10^6/uL (4.30-5.70); RED CELL DISTRIBUTION WIDTH 15.1 % (11.5-14.5); WHITE BLOOD COUNT 7.3 x10^3/uL (4.0-11.0)
[2019-01-24 05:37] LABS: CALCIUM 9.9 mg/dL (8.5-10.1); GFR 31.9; POTASSIUM 4.8 mmol/L (3.5-5.1)
[2019-01-24 07:00] VITALS: BP 103/46
--- NOTE | 2019-01-24 08:20 | PDOC1 ---
History and Physical Date of Admission Date of Admission DATE: 01/24/19 TIME: 08:20 Identification/Chief Complaint Chief Complaint Left foot pain Source Source: Caregiver, Chart review, Patient History of Present Illness History of Present Illness Mr Price is an 83yo M w/ PMHx CLL, PAD, DM2, chronic systolic CHF, peripheral neuropathy, AFIB (with DCCV prior, on NOAC), HTN, Hyperlipidemia, Aortic stenosis (s/p TAVR @ [facility] in 2013), Other (cardiomyopathy), COPD, GODWIN with CPAP, migraines, Depression, Chronic renal insufficiency, Benign prostatic hyperplasia, chronic stasis dermatitis bilateral lower extremities who presents from his precast [facility]older for concerns of osteomyelitis of left great toe. Seen in [place] in August on 6 weeks IV antibiotics in SNF, then home where his has been caring for him. She reports patient had been doing good and then a few weeks ago he stubbed his left great toe and since has had increased redness and swelling along with worsening wound on his great toe. Patient also has 2 small scabbed wounds on his third and fourth toe on his left foot. He was seen previously by vascular surgery by Dr. Schumacher for arterial insufficiency, was planning further treatment outpatient for LLE PAD. In ED was given empiric vancomycin and admitted for further care Past Medical History Cardiovascular: AFIB, CAD, CHF, HTN, Aortic stenosis Pulmonary: COPD GI: No pertinent hx Heme/Onc: Cancer (Chronic lymphocytic leukemia) Hepatobiliary: No pertinent hx Psych: No pertinent hx Rheumatologic: No pertinent hx Infectious disease: No pertinent hx ENT: No pertinent hx Renal/: Chronic renal insuff Endocrine: Diabetes Dermatology: Rash Past Surgical History Past Surgical History: Other (TAVR) Family History Family History: Hypertension Social History Smoke: No ALCOHOL: none Drugs: None Current Problem List Problem List Problems Medical Problems: (1) Left foot infection Status: Acute (2) Wound cellulitis Status: Acute Current Medications Current Medications Current Medications Vancomycin HCl (Vanco Per Pharmacy) 1 each 1X ONCE MC Last administered on 01/23/19at 23:33; Start 01/23/19 at 18:00; Stop 01/23/19 at 18:23; Status DC Vancomycin HCl 2 gm/Sodium Chloride 500 ml @ 250 mls/hr 1X ONCE IV Last administered on 01/23/19at 18:59; Start 01/23/19 at 19:00; Stop 01/23/19 at 20:59; Status DC Piperacillin Sod/ Tazobactam Sod 3.375 gm/Sodium Chloride 50 ml @ 100 mls/hr 1X ONCE IV ; Start 01/23/19 at 19:15; Stop 01/23/19 at 19:44; Status Cancel Ondansetron HCl (Zofran) 4 mg PRN Q8HRS PRN IV NAUSEA/VOMITING; Start 01/23/19 at 20:30; Stop 01/24/19 at 20:29 Fentanyl Citrate (Fentanyl 2ml Vial) 25 mcg PRN Q2HR PRN IV PAIN; Start 01/23/19 at 20:30; Stop 01/24/19 at 20:29 Acetaminophen (Tylenol) 650 mg PRN Q4HRS PRN PO FEVER; Start 01/23/19 at 20:30; Stop 01/24/19 at 20:29 Active Scripts Active Reported Fiorinal 50-325-40 Mg Capsule (Butalbital/Aspirin/Caffeine) 1 Each Capsule 1 Each PO Q4HRS Combivent Respimat Inhal (Ipratropium/Albuterol Sulfate) 4 Gm Aer.w.adap 2 Inh IH QID Metoprolol Succinate ( Xl ) (Metoprolol Succinate) 25 Mg Tab.er.24h 0.5 Tab PO DAILY Cetirizine Hcl 10 Mg Tablet 1 Tab PO HS Aspirin 81 Mg Tab.chew 1 Tab PO DAILY Linzess (Linaclotide) 145 Mcg Capsule 145 Mcg PO DAILY07 Acetaminophen 325 Mg/10.15 Ml Solution 325 Mg PO Q4HRS Lantus Solostar (Insulin Glargine,Hum.rec.anlog) 100 Unit/1 Ml Insuln.pen 14 Unit SQ QHS Humalog (Insulin Lispro) 100 Unit/1 Ml Insuln.pen 5 Unit SQ AT LUNCH/DINNER Symbicort 160-4.5 Mcg Inhaler (Budesonide/Formoterol Fumarate) 10.2 Gm Hfa.aer. ad 2 Puff IH BID Flomax (Tamsulosin Hcl) 0.4 Mg Cap.er.24h 1 Cap PO DAILY Spironolactone 25 Mg Tablet 0.5 Tab PO DAILY Simvastatin 10 Mg Tablet 1 Tab PO QHS Xarelto (Rivaroxaban) 20 Mg Tablet 20 Mg PO DAILY Nexium Capsule (Esomeprazole Magnesium) 40 Mg Capsule.dr 1 Cap PO DAILY Finasteride 5 Mg Tablet 1 Tab PO DAILY Lexapro (Escitalopram Oxalate) 20 Mg Tablet 1 Tab PO DAILY Vitamin D (Cholecalciferol (Vitamin D3)) 1,000 Unit Tablet 1,000 Unit PO DAILY Probiotic (Lactobacillus Combo No.11) 1 Each Cap.sprink 1 Each PO DAILY Allergies Allergies: Coded Allergies: venom-honey bee (Verified Allergy, Severe, Anaphylaxis, 01/24/19) Penicillins (Verified Allergy, Intermediate, RASH, 01/24/19) adhesive (Verified Allergy, Intermediate, Rash, 01/24/19) ROS General: YES: Fatigue, Malaise; No: Chills, Night Sweats, Appetite, Other PSYCHOLOGICAL ROS: YES: Anxiety; No: Behavioral Disorder, Concentration difficultie, Decreased libido, Depression, Disorientation, Hallucinations, Hostility, Irritablity, Memory difficulties, Mood Swings, Obsessive thoughts, Physical abuse, Sexual abuse, Sleep disturbances, Suicidal ideation, Other Eyes: No Blurry vision, No Decreased vision, No Double vision, No Dry eyes, No Excessive tearing, No Eye Pain, No Itchy Eyes, No Loss of vision, No Photophobia, No Scotomata, No Uses contacts, No Uses glasses, No Other HEENT: No: Heacaches, Visual Changes, Hearing change, Nasal congestion, Nasal discharge, Oral lesions, Sinus pain, Sore Throat, Epistaxis, Sneezing, Snoring, Tinnitus, Vertigo, Vocal changes, Other ALLERGY AND IMMUNOLOGY: No: Hives, Insect Bite Sensitivity, Itchy/Watery Eyes, Nasal Congestion, Post Nasal Drip, Seasonal Allergies, Other Hematological and Lymphatic: No: Bleeding Problems, Blood Clots, Blood Transfusions, Brusing, Night Sweats, Pallor, Swollen Lymph Nodes, Other ENDOCRINE: No: Breast Changes, Galactorrhea, Hair Pattern Changes, Hot Flashes, Malaise/lethargy, Mood Swings, Palpitations, Polydipsia/polyuria, Skin Changes, Temperature Intolerance, Unexpected Weight Changes, Other Breast: No New/Changing Breast Lumps, No Nipple changes, No Nipple discharge, No Other Respiratory: YES: Shortness of breath, SOB with excertion; No: Cough, Hemoptysis, Orthopnea, Pleuritic Pain, Sputum Changes, Stridor, Tachypnea, Wheezing, Other Cardiovascular: yes Orthopnea; No Chest Pain, No Palpitations, No Paroxysmal Noc. Dyspnea, No Edema, No Lt Headedness, No Other Gastrointestinal: No Nausea, No Vomiting, No Abdominal Pain, No Diarrhea, No Constipation, No Melena, No Hematochezia, No Other Genitourinary: No Dysuria, No Frequency, No Incontinence, No Hematuria, No Retention, No Discharge, No Urgency, No Pain, No Flank Pain, No Other, No , No , No , No , No , No , No Musculoskeletal: Yes Gait Disturbance; No Joint Pain, No Joint Stiffness, No Joint Swelling, No Muscle Pain, No Muscular Weakness, No Pain In:, No Swelling In:, No Other Neurological: No Behavorial Changes, No Bowel/Bladder ControlChng, No Confusion, No Dizziness, No Gait Disturbance, No Headaches, No Impaired Coord/balance, No Memory Loss, No Numbness/Tingling, No Seizures, No Speech Problems, No Tremors, No Visual Changes, No Weakness, No Other Skin: Yes Dry Skin, Yes Skin Lesion Changes; No Eczema, No Hair Changes, No Lumps, No Mole Changes, No Mottling, No Nail Changes, No Pruritus, No Rash, No Other, No Acne Physical Exam General: Alert, Oriented X3, Cooperative, No acute distress HEENT: Atraumatic, PERRLA, EOMI, Mucous membr. moist/pink Lungs: Other (Scattered wheezes bilaterally) Heart: S1S2, RRR, murmurs (ABDIAS 2/6) Abdomen: Normal bowel sounds, Soft, No tenderness, No hepatosplenomegaly, No masses Extremities: Other (venous stasis dermatitis) Skin: Other (Great toe red with 2 ulcer on tip and DIP, and 3rd and 4th toe ulcers) Neuro: Normal gait, Normal speech, Strength at 5/5 X4 ext, Normal tone, Cranial nerves 3-12 NL, Reflexes 2+ Psych/Mental Status: Mental status NL, Mood NL Vitals Vitals Vital Signs Date Time Temp Pulse Resp B/P (MAP) Pulse Ox O2 Delivery O2 Flow Rate FiO2 01/24/19 03:00 98.6 71 117/54 (75) 99 Nasal Cannula 2.0 98.6 01/23/19 23:00 18 Labs Labs Laboratory Tests Test 01/23/19 18:40 01/23/19 20:38 01/23/19 21:00 01/24/19 05:00 White Blood Count 7.6 x10^3/uL (4.0-11.0) 7.3 x10^3/uL (4.0-11.0) Red Blood Count 2.97 x10^6/uL (4.30-5.70) 2.88 x10^6/uL (4.30-5.70) Hemoglobin 9.2 g/dL (13.0-17.5) 8.8 g/dL (13.0-17.5) Hematocrit 27.5 % (39.0-53.0) 26.6 % (39.0-53.0) Mean Corpuscular Volume 93 fL (79-100) 93 fL (79-100) Mean Corpuscular Hemoglobin 31 pg (25-35) 31 pg (25-35) Mean Corpuscular Hemoglobin Concent 33 g/dL (31-37) 33 g/dL (31-37) Red Cell Distribution Width 15.3 % (11.5-14.5) 15.1 % (11.5-14.5) Platelet Count 225 x10^3/uL (140-400) 212 x10^3/uL (140-400) Neutrophils (%) (Auto) 72 % (31-73) 66 % (31-73) Lymphocytes (%) (Auto) 10 % (24-48) 8 % (24-48) Monocytes (%) (Auto) 10 % (0-9) 12 % (0-9) Eosinophils (%) (Auto) 8 % (0-3) 14 % (0-3) Basophils (%) (Auto) 1 % (0-3) 1 % (0-3) Neutrophils # (Auto) 5.5 x10^3uL (1.8-7.7) 4.8 x10^3uL (1.8-7.7) Lymphocytes # (Auto) 0.8 x10^3/uL (1.0-4.8) 0.6 x10^3/uL (1.0-4.8) Monocytes # (Auto) 0.8 x10^3/uL (0.0-1.1) 0.9 x10^3/uL (0.0-1.1) Eosinophils # (Auto) 0.6 x10^3/uL (0.0-0.7) 1.0 x10^3/uL (0.0-0.7) Basophils # (Auto) 0.0 x10^3/uL (0.0-0.2) 0.0 x10^3/uL (0.0-0.2) Sodium Level 139 mmol/L (136-145) 142 mmol/L (136-145) Potassium Level 5.0 mmol/L (3.5-5.1) 4.8 mmol/L (3.5-5.1) Chloride Level 100 mmol/L (98-107) 104 mmol/L (98-107) Carbon Dioxide Level 28 mmol/L (21-32) 29 mmol/L (21-32) Anion Gap 11 (6-14) 9 (6-14) Blood Urea Nitrogen 61 mg/dL (8-26) 55 mg/dL (8-26) Creatinine 2.4 mg/dL (0.7-1.3) 2.0 mg/dL (0.7-1.3) Estimated GFR (Cockcroft-Gault) 25.9 31.9 BUN/Creatinine Ratio 25 (6-20) Glucose Level 146 mg/dL (70-99) 138 mg/dL (70-99) Lactic Acid Level 1.3 mmol/L (0.4-2.0) Calcium Level 9.8 mg/dL (8.5-10.1) 9.9 mg/dL (8.5-10.1) Total Bilirubin 0.4 mg/dL (0.2-1.0) Aspartate Amino Transf (AST/SGOT) 20 U/L (15-37) Alanine Aminotransferase (ALT/SGPT) 22 U/L (16-63) Alkaline Phosphatase 79 U/L (46-116) Total Protein 6.9 g/dL (6.4-8.2) Albumin 3.2 g/dL (3.4-5.0) Albumin/Globulin Ratio 0.9 (1.0-1.7) Glucose (Fingerstick) 144 mg/dL (70-99) Urine Collection Type Unknown Urine Color Yellow Urine Clarity Clear Urine pH 5.0 Urine Specific [place] 1.015 Urine Protein Negative mg/dL (NEG-TRACE) Urine Glucose (UA) Negative mg/dL (NEG) Urine Ketones (Stick) Negative mg/dL (NEG) Urine Blood Negative (NEG) Urine Nitrite Negative (NEG) Urine Bilirubin Negative (NEG) Urine Urobilinogen Dipstick 0.2 mg/dL (0.2 mg/dL) Urine Leukocyte Esterase Negative (NEG) Urine RBC 0 /HPF (0-2) Urine WBC 0 /HPF (0-4) Urine Squamous Epithelial Cells Few /LPF Urine Bacteria 0 /HPF (0-FEW) Urine Hyaline Casts Moderate /HPF Urine Mucus Mod /LPF Test 01/24/19 07:35 Glucose (Fingerstick) 123 mg/dL (70-99) Laboratory Tests Test 01/23/19 18:40 01/23/19 20:38 01/23/19 21:00 01/24/19 05:00 White Blood Count 7.6 x10^3/uL (4.0-11.0) 7.3 x10^3/uL (4.0-11.0) Red Blood Count 2.97 x10^6/uL (4.30-5.70) 2.88 x10^6/uL (4.30-5.70) Hemoglobin 9.2 g/dL (13.0-17.5) 8.8 g/dL (13.0-17.5) Hematocrit 27.5 % (39.0-53.0) 26.6 % (39.0-53.0) Mean Corpuscular Volume 93 fL (79-100) 93 fL (79-100) Mean Corpuscular Hemoglobin 31 pg (25-35) 31 pg (25-35) Mean Corpuscular Hemoglobin Concent 33 g/dL (31-37) 33 g/dL (31-37) Red Cell Distribution Width 15.3 % (11.5-14.5) 15.1 % (11.5-14.5) Platelet Count 225 x10^3/uL (140-400) 212 x10^3/uL (140-400) Neutrophils (%) (Auto) 72 % (31-73) 66 % (31-73) Lymphocytes (%) (Auto) 10 % (24-48) 8 % (24-48) Monocytes (%) (Auto) 10 % (0-9) 12 % (0-9) Eosinophils (%) (Auto) 8 % (0-3) 14 % (0-3) Basophils (%) (Auto) 1 % (0-3) 1 % (0-3) Neutrophils # (Auto) 5.5 x10^3uL (1.8-7.7) 4.8 x10^3uL (1.8-7.7) Lymphocytes # (Auto) 0.8 x10^3/uL (1.0-4.8) 0.6 x10^3/uL (1.0-4.8) Monocytes # (Auto) 0.8 x10^3/uL (0.0-1.1) 0.9 x10^3/uL (0.0-1.1) Eosinophils # (Auto) 0.6 x10^3/uL (0.0-0.7) 1.0 x10^3/uL (0.0-0.7) Basophils # (Auto) 0.0 x10^3/uL (0.0-0.2) 0.0 x10^3/uL (0.0-0.2) Sodium Level 139 mmol/L (136-145) 142 mmol/L (136-145) Potassium Level 5.0 mmol/L (3.5-5.1) 4.8 mmol/L (3.5-5.1) Chloride Level 100 mmol/L (98-107) 104 mmol/L (98-107) Carbon Dioxide Level 28 mmol/L (21-32) 29 mmol/L (21-32) Anion Gap 11 (6-14) 9 (6-14) Blood Urea Nitrogen 61 mg/dL (8-26) 55 mg/dL (8-26) Creatinine 2.4 mg/dL (0.7-1.3) 2.0 mg/dL (0.7-1.3) Estimated GFR (Cockcroft-Gault) 25.9 31.9 BUN/Creatinine Ratio 25 (6-20) Glucose Level 146 mg/dL (70-99) 138 mg/dL (70-99) Lactic Acid Level 1.3 mmol/L (0.4-2.0) Calcium Level 9.8 mg/dL (8.5-10.1) 9.9 mg/dL (8.5-10.1) Total Bilirubin 0.4 mg/dL (0.2-1.0) Aspartate Amino Transf (AST/SGOT) 20 U/L (15-37) Alanine Aminotransferase (ALT/SGPT) 22 U/L (16-63) Alkaline Phosphatase 79 U/L (46-116) Total Protein 6.9 g/dL (6.4-8.2) Albumin 3.2 g/dL (3.4-5.0) Albumin/Globulin Ratio 0.9 (1.0-1.7) Glucose (Fingerstick) 144 mg/dL (70-99) Urine Collection Type Unknown Urine Color Yellow Urine Clarity Clear Urine pH 5.0 Urine Specific [place] 1.015 Urine Protein Negative mg/dL (NEG-TRACE) Urine Glucose (UA) Negative mg/dL (NEG) Urine Ketones (Stick) Negative mg/dL (NEG) Urine Blood Negative (NEG) Urine Nitrite Negative (NEG) Urine Bilirubin Negative (NEG) Urine Urobilinogen Dipstick 0.2 mg/dL (0.2 mg/dL) Urine Leukocyte Esterase Negative (NEG) Urine RBC 0 /HPF (0-2) Urine WBC 0 /HPF (0-4) Urine Squamous Epithelial Cells Few /LPF Urine Bacteria 0 /HPF (0-FEW) Urine Hyaline Casts Moderate /HPF Urine Mucus Mod /LPF Test 01/24/19 07:35 Glucose (Fingerstick) 123 mg/dL (70-99) Images Images Left foot XR - AP, lateral and oblique digital radiographs of the left foot were obtained. There is diffuse osteopenia of the visualized bony structures. Moderate hallux valgus deformity is seen. Mild to moderate degenerative changes are seen throughout the interphalangeal joints of the left foot. Mild to moderate degenerative changes are seen involving the first MTP joint. No fracture or dislocation is seen. There is no radiographic evidence of osteomyelitis. Moderate enthesophyte formation is seen involving the plantar aspect of the posterior left calcaneus. Atherosclerotic calcification of the left anterior tibial/dorsalis pedis artery is seen. VTE Prophylaxis Ordered VTE Prophylaxis Devices: No VTE Pharmacological Prophylaxi: Yes Assessment/Plan Assessment/Plan A/P: Left great toe cellulitis - will consult ID, given vancomycin, however has CKD Multiple toe ulcers - likely vascular, will ask Dr. Schumacher to consult PAD LLE - Dr. Schumacher noted he may undergo angiography under general anesthesia. decreased arterial sonogram hence was advised the runoff procedure Coronary artery disease, 2 stents prior - cont meds Afib - s/p DCCV on NOAC, changed from eliquis to xarelto recently Hypertension, controlled. History of osteomyelitis, left big toe - Xray does not confirm currently, however, not the best modality CLL - no meds for this Anemia of chronic disease - likely from CLL DM2 - basal bolus plus regimen in house Chronic systolic CHF - stable currently on meds Peripheral neuropathy - 2/2 DM, will monitor Aortic stenosis (s/p TAVR @ [facility] in 2013) COPD - will treat with nebs. Sees Dr. Ramírez outpatient GODWIN with CPAP - cont in house Migraines - prn tylenol Depression - cont meds Chronic renal insufficiency - will consult nephrology, likely he will need contrast dye in the next few days Benign prostatic hyperplasia - cont meds Chronic stasis dermatitis - bilateral, stable FEN - ADA diet PPX - Heparin DNR/DNI Inpatient for left great toe cellulitis in a complicated patient, likely at least 2 midnights inpatient KARLA CERRATO MD January 24, 2019 08:20
--- NOTE | 2019-01-24 10:25 | PDOC2 ---
CONSULT Date of Consult Date of Consult DATE: 01/24/19 TIME: 10:22 Reason for Consult Reason for Consult: left foot infection History of Present Illness Reason for Visit: 83-year-old male presented toER via POV for complaints of left foot infection. 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 Per patient's patient had a wound on his left great toe in August which required IV antibiotics and he was in a longterm for treatment until the wounds improved. She reports patient had been doing good and then a few weeks ago he stubbed his left great toe and since has had increased redness and swelling along with worsening wound on his great toe. Patient also has 2 small scabbed wounds on his third and fourth toe on his left foot. Patient is diabetic but is uncertain what his blood sugars have been running home. He was seen previously by vascular surgery by Dr. Schumacher, and was also seen recently by Dr. Eldridge. He has arterial insufficiency. Also based on the discussion with him he has diabetic neuropathy and poor sensation in the toes. He has had IV antibiotics and couple of months ago for similar toe infection possible osteomyelitis but has not had any vascular intervention Past Medical History Endocrine: Diabetes Current Problem List Problem List Problems Medical Problems: (1) Left foot infection Status: Acute (2) Wound cellulitis Status: Acute Current Medications Current Medications Current Medications Vancomycin HCl (Vanco Per Pharmacy) 1 each 1X ONCE MC Last administered on 01/23/19at 23:33; Start 01/23/19 at 18:00; Stop 01/23/19 at 18:23; Status DC Vancomycin HCl 2 gm/Sodium Chloride 500 ml @ 250 mls/hr 1X ONCE IV Last administered on 01/23/19at 18:59; Start 01/23/19 at 19:00; Stop 01/23/19 at 20:59; Status DC Piperacillin Sod/ Tazobactam Sod 3.375 gm/Sodium Chloride 50 ml @ 100 mls/hr 1X ONCE IV ; Start 01/23/19 at 19:15; Stop 01/23/19 at 19:44; Status Cancel Ondansetron HCl (Zofran) 4 mg PRN Q8HRS PRN IV NAUSEA/VOMITING; Start 01/23/19 at 20:30; Stop 01/24/19 at 20:29 Fentanyl Citrate (Fentanyl 2ml Vial) 25 mcg PRN Q2HR PRN IV PAIN Last administered on 01/24/19at 09:15; Start 01/23/19 at 20:30; Stop 01/24/19 at 20:29 Acetaminophen (Tylenol) 650 mg PRN Q4HRS PRN PO FEVER; Start 01/23/19 at 20:30; Stop 01/24/19 at 20:29 Active Scripts Active Xarelto (Rivaroxaban) 20 Mg Tablet 20 Mg PO DAILYWSUP 30 Days please hold on Wednesday and WednesdayNovember 12 and . Reported Fiorinal 50-325-40 Mg Capsule (Butalbital/Aspirin/Caffeine) 1 Each Capsule 1 Each PO Q4HRS Combivent Respimat Inhal (Ipratropium/Albuterol Sulfate) 4 Gm Aer.w.adap 2 Inh IH QID Metoprolol Succinate ( Xl ) (Metoprolol Succinate) 25 Mg Tab.er.24h 0.5 Tab PO DAILY Cetirizine Hcl 10 Mg Tablet 1 Tab PO HS Aspirin 81 Mg Tab.chew 1 Tab PO DAILY Linzess (Linaclotide) 145 Mcg Capsule 145 Mcg PO DAILY07 Acetaminophen 325 Mg/10.15 Ml Solution 325 Mg PO Q4HRS Lantus Solostar (Insulin Glargine,Hum.rec.anlog) 100 Unit/1 Ml Insuln.pen 14 Unit SQ QHS Humalog (Insulin Lispro) 100 Unit/1 Ml Insuln.pen 5 Unit SQ AT LUNCH/DINNER Symbicort 160-4.5 Mcg Inhaler (Budesonide/Formoterol Fumarate) 10.2 Gm Hfa.aer.ad 2 Puff IH BID Flomax (Tamsulosin Hcl) 0.4 Mg Cap.er.24h 1 Cap PO DAILY Spironolactone 25 Mg Tablet 0.5 Tab PO DAILY Simvastatin 10 Mg Tablet 1 Tab PO QHS Xarelto (Rivaroxaban) 20 Mg Tablet 20 Mg PO DAILY Nexium Capsule (Esomeprazole Magnesium) 40 Mg Capsule.dr 1 Cap PO DAILY Finasteride 5 Mg Tablet 1 Tab PO DAILY Lexapro (Escitalopram Oxalate) 20 Mg Tablet 1 Tab PO DAILY Vitamin D (Cholecalciferol (Vitamin D3)) 1,000 Unit Tablet 1,000 Unit PO DAILY Probiotic (Lactobacillus Combo No.11) 1 Each Cap.sprink 1 Each PO DAILY Humalog (Insulin Lispro) 100 Unit/1 Ml Cartridge 6 Unit SQ BIDACLD Vibramycin (Doxycycline Hyclate) 100 Mg Capsule 1 Cap PO BID Losartan Potassium (Losartan Potassium) 25 Mg Tablet 25 Mg PO DAILY Metoprolol Succinate ( Xl ) (Metoprolol Succinate) 25 Mg Tab.er.24h 1 Tab PO DAILY Spironolactone 25 Mg Tablet 1 Tab PO DAILY Probiotic (Lactobacillus Acidophilus) 1 Each Capsule 1 Each PO DAILY Fiorinal-Cod 20-52-286-40 Cap (Codeine/Butalbital/Asa/Caffein) 1 Each Capsule 1 Each PO PRN Q4-6HRS PRN Simvastatin 10 Mg Tablet 1 Tab PO HS Torsemide 20 Mg Tablet 10 Mg PO DAILY Escitalopram Oxalate 20 Mg Tablet 1 Tab PO DAILY Proscar (Finasteride) 5 Mg Tablet 1 Tab PO DAILYWSUP Lantus (Insulin Glargine,Hum.rec.anlog) 100 Unit/1 Ml Vial 14 Unit SQ HS Humalog (Insulin Lispro) 100 Unit/1 Ml Insuln.pen 8 Unit SQ DAILYWBKFT Vitamin D (Cholecalciferol (Vitamin D3)) 1,000 Unit Tablet 1,000 Unit PO BID Multivitamins (Multivitamin) 1 Each Tablet 1 Each PO DAILY Aspir 81 (Aspirin) 81 Mg Tablet.dr 81 Mg PO DAILY Combivent Respimat Inhal (Ipratropium/Albuterol Sulfate) 4 Gm Aer.w.adap 4 Gm IH BID Zanaflex (Tizanidine Hcl) 2 Mg Capsule 2 Mg PO HS Flomax (Tamsulosin Hcl) 0.4 Mg Cap.er.24h 0.4 Mg PO DAILYWSUP Allergies Allergies: Coded Allergies: venom-honey bee (Verified Allergy, Severe, Anaphylaxis, 01/24/19) Penicillins (Verified Allergy, Intermediate, RASH, 01/24/19) adhesive (Verified Allergy, Intermediate, Rash, 01/24/19) Physical Exam General: Alert, Cooperative, Other (hard of hearing) Extremities: Other (the left foot shows a toe abnormalities consistent with osteoarthritis and a possible bunion deformity. There is eschar and possible ischemic ulcer at the tip of the great toe, mild discoloration of the second toe, and ischemic-type discoloration of the tip of the fourth toe. Both of these areas of ischemia are less than 1 cm in diameter and appears superficial without any deep bone exposed and without active drainage. He has poor sensation, and no palpable pulse) Skin: Other (lesions left first and fourth toe as above. Mild discoloration second toe distal left) Neuro: Normal speech Psych/Mental Status: Mood NL Vitals VITALS Vital Signs Date Time Temp Pulse Resp B/P (MAP) Pulse Ox O2 Delivery O2 Flow Rate FiO2 01/24/19 09:45 16 Nasal Cannula 3.0 01/24/19 07:00 98.6 68 103/46 (65) 96 98.6 Labs Labs Laboratory Tests Test 01/23/19 18:40 01/23/19 20:38 01/23/19 21:00 01/24/19 05:00 White Blood Count 7.6 x10^3/uL (4.0-11.0) 7.3 x10^3/uL (4.0-11.0) Red Blood Count 2.97 x10^6/uL (4.30-5.70) 2.88 x10^6/uL (4.30-5.70) Hemoglobin 9.2 g/dL (13.0-17.5) 8.8 g/dL (13.0-17.5) Hematocrit 27.5 % (39.0-53.0) 26.6 % (39.0-53.0) Mean Corpuscular Volume 93 fL (79-100) 93 fL (79-100) Mean Corpuscular Hemoglobin 31 pg (25-35) 31 pg (25-35) Mean Corpuscular Hemoglobin Concent 33 g/dL (31-37) 33 g/dL (31-37) Red Cell Distribution Width 15.3 % (11.5-14.5) 15.1 % (11.5-14.5) Platelet Count 225 x10^3/uL (140-400) 212 x10^3/uL (140-400) Neutrophils (%) (Auto) 72 % (31-73) 66 % (31-73) Lymphocytes (%) (Auto) 10 % (24-48) 8 % (24-48) Monocytes (%) (Auto) 10 % (0-9) 12 % (0-9) Eosinophils (%) (Auto) 8 % (0-3) 14 % (0-3) Basophils (%) (Auto) 1 % (0-3) 1 % (0-3) Neutrophils # (Auto) 5.5 x10^3uL (1.8-7.7) 4.8 x10^3uL (1.8-7.7) Lymphocytes # (Auto) 0.8 x10^3/uL (1.0-4.8) 0.6 x10^3/uL (1.0-4.8) Monocytes # (Auto) 0.8 x10^3/uL (0.0-1.1) 0.9 x10^3/uL (0.0-1.1) Eosinophils # (Auto) 0.6 x10^3/uL (0.0-0.7) 1.0 x10^3/uL (0.0-0.7) Basophils # (Auto) 0.0 x10^3/uL (0.0-0.2) 0.0 x10^3/uL (0.0-0.2) Sodium Level 139 mmol/L (136-145) 142 mmol/L (136-145) Potassium Level 5.0 mmol/L (3.5-5.1) 4.8 mmol/L (3.5-5.1) Chloride Level 100 mmol/L (98-107) 104 mmol/L (98-107) Carbon Dioxide Level 28 mmol/L (21-32) 29 mmol/L (21-32) Anion Gap 11 (6-14) 9 (6-14) Blood Urea Nitrogen 61 mg/dL (8-26) 55 mg/dL (8-26) Creatinine 2.4 mg/dL (0.7-1.3) 2.0 mg/dL (0.7-1.3) Estimated GFR (Cockcroft-Gault) 25.9 31.9 BUN/Creatinine Ratio 25 (6-20) Glucose Level 146 mg/dL (70-99) 138 mg/dL (70-99) Lactic Acid Level 1.3 mmol/L (0.4-2.0) Calcium Level 9.8 mg/dL (8.5-10.1) 9.9 mg/dL (8.5-10.1) Total Bilirubin 0.4 mg/dL (0.2-1.0) Aspartate Amino Transf (AST/SGOT) 20 U/L (15-37) Alanine Aminotransferase (ALT/SGPT) 22 U/L (16-63) Alkaline Phosphatase 79 U/L (46-116) Total Protein 6.9 g/dL (6.4-8.2) Albumin 3.2 g/dL (3.4-5.0) Albumin/Globulin Ratio 0.9 (1.0-1.7) Glucose (Fingerstick) 144 mg/dL (70-99) Urine Collection Type Unknown Urine Color Yellow Urine Clarity Clear Urine pH 5.0 Urine Specific [place] 1.015 Urine Protein Negative mg/dL (NEG-TRACE) Urine Glucose (UA) Negative mg/dL (NEG) Urine Ketones (Stick) Negative mg/dL (NEG) Urine Blood Negative (NEG) Urine Nitrite Negative (NEG) Urine Bilirubin Negative (NEG) Urine Urobilinogen Dipstick 0.2 mg/dL (0.2 mg/dL) Urine Leukocyte Esterase Negative (NEG) Urine RBC 0 /HPF (0-2) Urine WBC 0 /HPF (0-4) Urine Squamous Epithelial Cells Few /LPF Urine Bacteria 0 /HPF (0-FEW) Urine Hyaline Casts Moderate /HPF Urine Mucus Mod /LPF Test 01/24/19 07:35 Glucose (Fingerstick) 123 mg/dL (70-99) Laboratory Tests Test 01/23/19 18:40 01/23/19 20:38 01/23/19 21:00 01/24/19 05:00 White Blood Count 7.6 x10^3/uL (4.0-11.0) 7.3 x10^3/uL (4.0-11.0) Red Blood Count 2.97 x10^6/uL (4.30-5.70) 2.88 x10^6/uL (4.30-5.70) Hemoglobin 9.2 g/dL (13.0-17.5) 8.8 g/dL (13.0-17.5) Hematocrit 27.5 % (39.0-53.0) 26.6 % (39.0-53.0) Mean Corpuscular Volume 93 fL (79-100) 93 fL (79-100) Mean Corpuscular Hemoglobin 31 pg (25-35) 31 pg (25-35) Mean Corpuscular Hemoglobin Concent 33 g/dL (31-37) 33 g/dL (31-37) Red Cell Distribution Width 15.3 % (11.5-14.5) 15.1 % (11.5-14.5) Platelet Count 225 x10^3/uL (140-400) 212 x10^3/uL (140-400) Neutrophils (%) (Auto) 72 % (31-73) 66 % (31-73) Lymphocytes (%) (Auto) 10 % (24-48) 8 % (24-48) Monocytes (%) (Auto) 10 % (0-9) 12 % (0-9) Eosinophils (%) (Auto) 8 % (0-3) 14 % (0-3) Basophils (%) (Auto) 1 % (0-3) 1 % (0-3) Neutrophils # (Auto) 5.5 x10^3uL (1.8-7.7) 4.8 x10^3uL (1.8-7.7) Lymphocytes # (Auto) 0.8 x10^3/uL (1.0-4.8) 0.6 x10^3/uL (1.0-4.8) Monocytes # (Auto) 0.8 x10^3/uL (0.0-1.1) 0.9 x10^3/uL (0.0-1.1) Eosinophils # (Auto) 0.6 x10^3/uL (0.0-0.7) 1.0 x10^3/uL (0.0-0.7) Basophils # (Auto) 0.0 x10^3/uL (0.0-0.2) 0.0 x10^3/uL (0.0-0.2) Sodium Level 139 mmol/L (136-145) 142 mmol/L (136-145) Potassium Level 5.0 mmol/L (3.5-5.1) 4.8 mmol/L (3.5-5.1) Chloride Level 100 mmol/L (98-107) 104 mmol/L (98-107) Carbon Dioxide Level 28 mmol/L (21-32) 29 mmol/L (21-32) Anion Gap 11 (6-14) 9 (6-14) Blood Urea Nitrogen 61 mg/dL (8-26) 55 mg/dL (8-26) Creatinine 2.4 mg/dL (0.7-1.3) 2.0 mg/dL (0.7-1.3) Estimated GFR (Cockcroft-Gault) 25.9 31.9 BUN/Creatinine Ratio 25 (6-20) Glucose Level 146 mg/dL (70-99) 138 mg/dL (70-99) Lactic Acid Level 1.3 mmol/L (0.4-2.0) Calcium Level 9.8 mg/dL (8.5-10.1) 9.9 mg/dL (8.5-10.1) Total Bilirubin 0.4 mg/dL (0.2-1.0) Aspartate Amino Transf (AST/SGOT) 20 U/L (15-37) Alanine Aminotransferase (ALT/SGPT) 22 U/L (16-63) Alkaline Phosphatase 79 U/L (46-116) Total Protein 6.9 g/dL (6.4-8.2) Albumin 3.2 g/dL (3.4-5.0) Albumin/Globulin Ratio 0.9 (1.0-1.7) Glucose (Fingerstick) 144 mg/dL (70-99) Urine Collection Type Unknown Urine Color Yellow Urine Clarity Clear Urine pH 5.0 Urine Specific [place] 1.015 Urine Protein Negative mg/dL (NEG-TRACE) Urine Glucose (UA) Negative mg/dL (NEG) Urine Ketones (Stick) Negative mg/dL (NEG) Urine Blood Negative (NEG) Urine Nitrite Negative (NEG) Urine Bilirubin Negative (NEG) Urine Urobilinogen Dipstick 0.2 mg/dL (0.2 mg/dL) Urine Leukocyte Esterase Negative (NEG) Urine RBC 0 /HPF (0-2) Urine WBC 0 /HPF (0-4) Urine Squamous Epithelial Cells Few /LPF Urine Bacteria 0 /HPF (0-FEW) Urine Hyaline Casts Moderate /HPF Urine Mucus Mod /LPF Test 01/24/19 07:35 Glucose (Fingerstick) 123 mg/dL (70-99) Images Images Report reviewed, images independently reviewed. [facility] [address] [place] [address] IMAGING REPORT Signed PATIENT: ANGEL JACOME ACCOUNT: [id number] : 1935 LOCATION: [address] [place] [address] AGE: 83 SEX: M EXAM STATUS: ADM IN ORD. PHYSICIAN: PHILLIP STEEN APRN REASON: infection lt great toe- r/o osteomyelitis PROCEDURE: FOOT LEFT 3V Three-view left foot radiographs 01/23/2019 CLINICAL HISTORY: Left first toe infection. AP, lateral and oblique digital radiographs of the left foot were obtained. There is diffuse osteopenia of the visualized bony structures. Moderate hallux valgus deformity is seen. Mild to moderate degenerative changes are seen throughout the interphalangeal joints of the left foot. Mild to moderate degenerative changes are seen involving the first MTP joint. No fracture or dislocation is seen. There is no radiographic evidence of osteomyelitis. Moderate enthesophyte formation is seen involving the plantar aspect of the posterior left calcaneus. Atherosclerotic calcification of the left anterior tibial/dorsalis pedis artery is seen. IMPRESSION: Degenerative changes are seen involving the left foot as discussed above. No acute osseous abnormality is seen. 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 No obvious osteomyelitis. Agree with a vascular workup. If he has a correctable vascular lesion which gets treatment, he could probably heal these without amputation or major debridement. Will follow, but I am not planning any intervention currently. NILAM VELASQUEZ MD January 24, 2019 10:25
[2019-01-24 11:00] VITALS: BP 106/43
[2019-01-24] MEDS: MULTIVITAMIN with MINERAL TABLET. PO SCH (11:04)
[2019-01-24] MEDS ORDERED: DEXTROSE 50% 25 GM / 50ML DISP.SYRIN. IV PRN (13:30)
--- NOTE | 2019-01-24 13:32 | NUR ---
SW following for discharge planning. Discussed with RN, pt is from home with family, RN awaiting plan of care, probable IV abx. SW will continue to follow for any discharge planning needs.
--- NOTE | 2019-01-24 14:18 | PDOC ---
Provider Note Provider Note Vascular Surgery Consult - dictated 83 year old male with left leg severe peripheral artery disease by angiogram and non healing ulcer on the left 1st and 4th toes. The left 1st toe has cellulitis and possible osteomyelitis. Need to obtain imaging tests results or reimage regarding possible osteomyelitis. Will consult ID. Plan an angiogram with left leg tibial intervention on with Dr. Graham under general anesthesia. Will consult nephrology for chronic renal insufficiency. Hold anticoagulation for angio. FERNANDO RENNER MD January 24, 2019 14:18
[2019-01-24] MEDS ORDERED: VANCOMYCIN PER PHARMACY MC PRN (14:30)
[2019-01-24] MEDS: LINEZOLID 600 MG TABLET PO SCH ×2 (14:54→22:53)
[2019-01-24] MEDS: TAMSULOSIN 0.4 MG CAP.ER.24H. PO SCH (14:54)
[2019-01-24] MEDS: CITALOPRAM 20 MG TABLET. PO SCH (14:54)
[2019-01-24] MEDS: PANTOPRAZOLE 40 MG TABLET.DR. PO SCH (14:54)
[2019-01-24] MEDS: FINASTERIDE 5 MG TABLET. PO SCH (14:54)
[2019-01-24] MEDS: SPIRONOLACTONE 25 MG TABLET PO SCH (14:54)
[2019-01-24] MEDS: CHOLECALCIFEROL (VITAMIN D3) 1,000 UNIT TABLET PO SCH (14:54)
[2019-01-24] MEDS: METOPROLOL SUCC 24HR ER 25 MG TAB.ER.24H. PO SCH (14:55)
[2019-01-24] MEDS: ASPIRIN CHEWABLE 81 MG TABLET. PO SCH (14:56)
[2019-01-24 15:00] VITALS: BP 126/45
--- NOTE | 2019-01-24 15:45 | NUR ---
Wound Care: Wound care consult for L great toe, 2nd toe and 4th toe DFUs. See wound intervention. All wounds cleansed with wound wash and painted with Betadine. Pt has reddened but not open on groin area, wound care recommends nystatin powder, per he has used that in the past. FIORELLA Canales informed of POC. at bedside. Pt helped repositioned in bed. Side rails up x2, call light within reach. Wound care to follow up 01/31.
[2019-01-24] MEDS: IPRATRPIUM/ALBUTEROL 0.5/2.5MG 3 ML NEBU. NEB SCH ×2 (15:57→20:08)
[2019-01-24] MEDS: CEFEPIME HCL IV Push 2 GM VIAL. IVP SCH ×2 (16:28→22:53)
[2019-01-24] MEDS: INSULIN LISPRO 300 UNITS/3 ML INSULN.PEN. SQ SCH ×2 (16:39→16:40)
[2019-01-24] MEDS ORDERED: NON FORMULARY ITEM (Ipratropium/Albuterol Sulfate (Combivent Respimat Inhal) 2 INH) IH SCH (17:00)
[2019-01-24 19:00] VITALS: BP 110/45
[2019-01-24] MEDS: BUDESONIDE 0.5 MG/2 ML NEBU. NEB SCH (20:08)
[2019-01-24] MEDS: NYSTATIN TOPICAL POWDER 15GM BOTTLE. TP SCH (21:00)
[2019-01-24] MEDS ORDERED: NON FORMULARY ITEM (Budesonide/Formoterol Fumarate (Symbicort 160-4.5 Mcg Inhaler) 2 PUFF) IH SCH (21:00)
[2019-01-24] MEDS: CETIRIZINE HCL 10 MG TABLET. PO SCH (21:28)
[2019-01-24] MEDS: SIMVASTATIN 10 MG TABLET PO SCH (21:29)
[2019-01-24] MEDS: INSULIN GLARGINE 300 UNITS/3 ML INSULN.PEN. SQ SCH (21:42)
[2019-01-24 23:00] VITALS: BP 106/38
--- NOTE | 2019-01-25 00:58 | CONS ---
DATE OF CONSULTATION: 01/24/2019 CHIEF COMPLAINT: Peripheral arterial disease and left foot infection. HISTORY OF PRESENT ILLNESS: The patient is an 83-year-old male with a long history of peripheral arterial disease, who has a chronic ulcer on his left first toe and left fourth toe. He reports and his family reports that he has been treated with wound care and antibiotics for several months for this problem. He reports that testing in the past had showed osteomyelitis within his left first toe. However, we have not found report showing that at this point. He was admitted at [facility] for some time with antibiotics for this problem. He has a known history of left leg peripheral arterial disease. Dr. Schumacher attempted to perform an angiogram of his left leg with intervention. The angiogram showed extensive tibial disease, but the patient would not lie still for intervention. Therefore, he was being rescheduled with anesthesia. He has not yet had the tibial intervention. He has been admitted to the hospital because of worsening infection in his left first toe and started on IV antibiotics. He does take chronic anticoagulation with Xarelto for a heart valve, which is a pig valve. He did not take his Xarelto yesterday or today. He reports no tissue breakdown in his right foot. He reports no significant pain in his feet. REVIEW OF SYSTEMS: A 10-point review of systems was performed, which was otherwise negative besides what is mentioned in history of present illness. PAST MEDICAL HISTORY: Includes: 1. Peripheral arterial disease. 2. 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 3. Chronic renal insufficiency. 4. Chronic wounds on his left foot. 5. Hypertension. 6. Diabetes mellitus. 7. Hyperlipidemia. 8. Gastroesophageal reflux disease. PAST SURGICAL HISTORY: Includes: 1. Heart valve replacement. 2. Angiogram of the left lower extremity. 3. Coronary artery bypass graft. ALLERGIES: INCLUDE PENICILLIN, ADHESIVE AND HONEY BEES. MEDICATIONS: Please see his full MAR. SOCIAL HISTORY: The patient has a history of tobacco abuse, but does not currently smoke and does not drink alcohol. FAMILY HISTORY: Significant for hypertension and coronary artery disease. PHYSICAL EXAMINATION: GENERAL: The patient is awake and alert, currently in no apparent distress. He is afebrile. VITAL SIGNS: Stable. He is 97% on 3 liters nasal cannula. NECK: Supple with no carotid bruits. HEART: Regular rate and rhythm, he does have a heart valve with murmur. LUNGS: Clear to auscultation bilaterally. ABDOMEN: Obese, but is soft, nondistended and nontender. EXTREMITIES: His left lower extremity has a palpable femoral pulse, there are no palpable pedal pulses in the left foot. He has brownish hyperpigmentation of the skin throughout the calf and ankle from chronic stasis changes. His left foot has an ulcer on the dorsal aspect of the first toe with erythema and mild swelling of the first toe. The fourth toe has a dry ulcer on the tip of the toe with no erythema. There is no swelling of the foot and there is no tissue breakdown in the foot itself. His right lower extremity is warm. There is no tissue breakdown in his right foot. He has a palpable right femoral pulse. He does not have palpable pedal pulses in his right foot. He has brownish hyperpigmentation of the skin throughout the calf and ankle consistent with chronic stasis changes. NEUROLOGIC: He is awake and alert, oriented x 3, moving all extremities with normal strength, normal speech, no gross neurologic deficits. IMPRESSION: 1. Left lower extremity peripheral arterial disease with nonhealing ulcer on the left first toe and fourth toe. 2. Diabetes mellitus. 3. Chronic renal insufficiency. PLAN: The patient has known peripheral arterial disease in the left lower extremity, mainly severe occlusive tibial disease. He had a recent angiogram with Dr. Schumacher; however, intervention could not be performed because the patient would not lie still on the table. He will need an angiogram with left leg tibial intervention by Dr. Schumacher under general anesthesia. This will be scheduled while he is here in the hospital. We will consult Infectious Disease to evaluate the foot. It is unclear whether he truly has osteomyelitis in the first toe or not. He may need further imaging studies to confirm this. If he does have osteomyelitis and is not improving with antibiotics, he may need a first toe amputation. He also has a sizable ulcer on the fourth toe, but it is dry with no signs of significant infection. We will consult Infectious Disease. We will also consult Nephrology for his known history of chronic renal insufficiency. His creatinine is at baseline and intervention will be performed with low volume of contrast and CO2. FERNANDO RENNER MD DR: LILY/ferny JOB#: [id number] / [id number]
[2019-01-25 03:00] VITALS: BP 122/47
[2019-01-25 07:00] VITALS: BP 117/45
[2019-01-25] MEDS: NON FORMULARY ITEM (Linaclotide (Linzess) 145 MCG) PO SCH (07:00)
[2019-01-25] MEDS: PANTOPRAZOLE 40 MG TABLET.DR. PO SCH (07:06)
[2019-01-25 07:50] LABS: BASO # 0.1 x10^3/uL (0.0-0.2); BASO % 1 % (0-3); EOS # 0.8 x10^3/uL (0.0-0.7); EOS % 14 % (0-3); HEMATOCRIT 24.7 % (39.0-53.0); HEMOGLOBIN 8.1 g/dL (13.0-17.5); LYMPH # 0.5 x10^3/uL (1.0-4.8); LYMPH % 9 % (24-48); MEAN CORPUSCULAR HEMOGLOBIN 31 pg (25-35); MEAN CORPUSCULAR HGB CONC 33 g/dL (31-37); MEAN CORPUSCULAR VOLUME 93 fL (79-100); MONO # 0.7 x10^3/uL (0.0-1.1); MONO % 12 % (0-9); NEUT # 3.8 x10^3uL (1.8-7.7); NEUT % 64 % (31-73); PLATELET COUNT 217 x10^3/uL (140-400); RED BLOOD COUNT 2.66 x10^6/uL (4.30-5.70); RED CELL DISTRIBUTION WIDTH 14.5 % (11.5-14.5); WHITE BLOOD COUNT 5.9 x10^3/uL (4.0-11.0)
[2019-01-25] MEDS: BUDESONIDE 0.5 MG/2 ML NEBU. NEB SCH ×2 (07:55→19:49)
[2019-01-25] MEDS: IPRATRPIUM/ALBUTEROL 0.5/2.5MG 3 ML NEBU. NEB SCH ×4 (07:55→19:49)
[2019-01-25 07:58] LABS: PROTHROMBIN TIME PATIENT 14.7 SEC (11.7-14.0)
[2019-01-25] MEDS: INSULIN LISPRO 300 UNITS/3 ML INSULN.PEN. SQ SCH ×6 (08:00→16:53)
[2019-01-25 08:19] LABS: CALCIUM 9.7 mg/dL (8.5-10.1); CREATININE 2.1 mg/dL (0.7-1.3); GFR 30.2; POTASSIUM 4.6 mmol/L (3.5-5.1)
[2019-01-25] MEDS: FINASTERIDE 5 MG TABLET. PO SCH (08:32)
[2019-01-25] MEDS: NYSTATIN TOPICAL POWDER 15GM BOTTLE. TP SCH ×2 (08:32→21:32)
[2019-01-25] MEDS: CEFEPIME HCL IV Push 2 GM VIAL. IVP SCH ×2 (08:32→21:31)
[2019-01-25] MEDS: ASPIRIN CHEWABLE 81 MG TABLET. PO SCH (08:32)
[2019-01-25] MEDS: METOPROLOL SUCC 24HR ER 25 MG TAB.ER.24H. PO SCH (08:33)
[2019-01-25] MEDS: CHOLECALCIFEROL (VITAMIN D3) 1,000 UNIT TABLET PO SCH (08:34)
[2019-01-25] MEDS: CITALOPRAM 20 MG TABLET. PO SCH (08:34)
[2019-01-25] MEDS: TAMSULOSIN 0.4 MG CAP.ER.24H. PO SCH (08:35)
[2019-01-25] MEDS: LINEZOLID 600 MG TABLET PO SCH ×2 (08:35→21:30)
[2019-01-25] MEDS: SPIRONOLACTONE 25 MG TABLET PO SCH (08:35)
[2019-01-25] MEDS: MULTIVITAMIN with MINERAL TABLET. PO SCH (08:35)
--- NOTE | 2019-01-25 08:43 | PDOC ---
PROGRESS NOTES Chief Complaint Chief Complaint A/P: Left great toe cellulitis - will consult ID, given vancomycin, however has CKD Multiple toe ulcers - likely vascular, will ask Dr. Schumacher to consult PAD LLE - Dr. Schumacher noted he may undergo angiography under general anesthesia. decreased arterial sonogram hence was advised the runoff procedure Coronary artery disease, 2 stents prior - cont meds Afib - s/p DCCV on NOAC, changed from eliquis to xarelto recently Hypertension, controlled. History of osteomyelitis, left big toe - Xray does not confirm currently, however, not the best modality CLL - no meds for this Anemia of chronic disease - likely from CLL DM2 - basal bolus plus regimen in house Chronic systolic CHF - stable currently on meds Peripheral neuropathy - 2/2 DM, will monitor Aortic stenosis (s/p TAVR @ [facility] in 2013) COPD - will treat with nebs. Sees Dr. Ramírez outpatient [facility] with CPAP - cont in house Migraines - prn tylenol Depression - cont meds LYNDSEY on CKD - likely vasomotor from his infection, improved over the past 24 hours - will consult nephrology, likely he will need contrast dye in the next few days Benign prostatic hyperplasia - cont meds Chronic stasis dermatitis - bilateral, stable FEN - ADA diet PPX - Heparin DNR/DNI Inpatient for left great toe cellulitis in a complicated patient, likely at least 2 midnights inpatient History of Present Illness History of Present Illness Mr Price is an 83yo M w/ PMHx CLL, PAD, DM2, chronic systolic CHF, peripheral neuropathy, AFIB (with DCCV prior, on NOAC), HTN, Hyperlipidemia, Aortic stenosis (s/p TAVR @ [facility] in 2013), Other (cardiomyopathy), COPD, [facility] with CPAP, migraines, Depression, Chronic renal insufficiency, Benign prostatic hyperplasia, chronic stasis dermatitis bilateral lower extremities who presents from his lace stri[facility] for concerns of osteomyelitis of left great toe. Seen in [place] in August on 6 weeks IV antibiotics in SNF, then home where his has been caring for him. She reports patient had been doing good and then a few weeks ago he stubbed his left great toe and since has had increased redness and swelling along with worsening wound on his great toe. Patient also has 2 small scabbed wounds on his third and fourth toe on his left foot. He was seen previously by vascular surgery by Dr. Schumacher for arterial insufficiency, was planning further treatment outpatient for LLE PAD. In ED was given empiric vancomycin and admitted for further care He is feeling slightly improved since last night. Good UOP. Pain in foot Vitals Vitals Vital Signs Date Time Temp Pulse Resp B/P (MAP) Pulse Ox O2 Delivery O2 Flow Rate FiO2 01/25/19 08:33 62 117/45 01/25/19 07:55 99 Nasal Cannula 3.0 01/25/19 07:00 98.0 18 98.0 Physical Exam General: Alert, Oriented X3, Cooperative, No acute distress Heart: Regular rate, Normal S1, Normal S2 Lungs: Wheezing Abdomen: Normal bowel sounds, Soft, No tenderness, No hepatosplenomegaly, No masses Extremities: Other (venous stasis dermatitis) Skin: Other (Great toe red with 2 ulcer on tip and DIP, and 3rd and 4th toe ulcers) Labs LABS Laboratory Tests Test 01/24/19 11:19 01/24/19 16:32 01/24/19 20:29 01/25/19 07:10 Glucose (Fingerstick) 202 mg/dL (70-99) 181 mg/dL (70-99) 156 mg/dL (70-99) White Blood Count 5.9 x10^3/uL (4.0-11.0) Red Blood Count 2.66 x10^6/uL (4.30-5.70) Hemoglobin 8.1 g/dL (13.0-17.5) Hematocrit 24.7 % (39.0-53.0) Mean Corpuscular Volume 93 fL (79-100) Mean Corpuscular Hemoglobin 31 pg (25-35) Mean Corpuscular Hemoglobin Concent 33 g/dL (31-37) Red Cell Distribution Width 14.5 % (11.5-14.5) Platelet Count 217 x10^3/uL (140-400) Neutrophils (%) (Auto) 64 % (31-73) Lymphocytes (%) (Auto) 9 % (24-48) Monocytes (%) (Auto) 12 % (0-9) Eosinophils (%) (Auto) 14 % (0-3) Basophils (%) (Auto) 1 % (0-3) Neutrophils # (Auto) 3.8 x10^3uL (1.8-7.7) Lymphocytes # (Auto) 0.5 x10^3/uL (1.0-4.8) Monocytes # (Auto) 0.7 x10^3/uL (0.0-1.1) Eosinophils # (Auto) 0.8 x10^3/uL (0.0-0.7) Basophils # (Auto) 0.1 x10^3/uL (0.0-0.2) Prothrombin Time 14.7 SEC (11.7-14.0) Prothromb Time International Ratio 1.2 (0.8-1.1) Sodium Level 142 mmol/L (136-145) Potassium Level 4.6 mmol/L (3.5-5.1) Chloride Level 105 mmol/L (98-107) Carbon Dioxide Level 29 mmol/L (21-32) Anion Gap 8 (6-14) Blood Urea Nitrogen 54 mg/dL (8-26) Creatinine 2.1 mg/dL (0.7-1.3) Estimated GFR (Cockcroft-Gault) 30.2 Glucose Level 136 mg/dL (70-99) Calcium Level 9.7 mg/dL (8.5-10.1) Test 01/25/19 07:32 Glucose (Fingerstick) 120 mg/dL (70-99) Assessment and Plan Assessmemt and Plan Problems Medical Problems: (1) Left foot infection Status: Acute (2) Wound cellulitis Status: Acute Comment Review of Relevant I have reviewed the following items earnest (where applicable) has been applied. Labs Laboratory Tests Test 01/23/19 18:40 01/23/19 20:38 01/23/19 21:00 01/24/19 05:00 White Blood Count 7.6 x10^3/uL (4.0-11.0) 7.3 x10^3/uL (4.0-11.0) Red Blood Count 2.97 x10^6/uL (4.30-5.70) 2.88 x10^6/uL (4.30-5.70) Hemoglobin 9.2 g/dL (13.0-17.5) 8.8 g/dL (13.0-17.5) Hematocrit 27.5 % (39.0-53.0) 26.6 % (39.0-53.0) Mean Corpuscular Volume 93 fL (79-100) 93 fL (79-100) Mean Corpuscular Hemoglobin 31 pg (25-35) 31 pg (25-35) Mean Corpuscular Hemoglobin Concent 33 g/dL (31-37) 33 g/dL (31-37) Red Cell Distribution Width 15.3 % (11.5-14.5) 15.1 % (11.5-14.5) Platelet Count 225 x10^3/uL (140-400) 212 x10^3/uL (140-400) Neutrophils (%) (Auto) 72 % (31-73) 66 % (31-73) Lymphocytes (%) (Auto) 10 % (24-48) 8 % (24-48) Monocytes (%) (Auto) 10 % (0-9) 12 % (0-9) Eosinophils (%) (Auto) 8 % (0-3) 14 % (0-3) Basophils (%) (Auto) 1 % (0-3) 1 % (0-3) Neutrophils # (Auto) 5.5 x10^3uL (1.8-7.7) 4.8 x10^3uL (1.8-7.7) Lymphocytes # (Auto) 0.8 x10^3/uL (1.0-4.8) 0.6 x10^3/uL (1.0-4.8) Monocytes # (Auto) 0.8 x10^3/uL (0.0-1.1) 0.9 x10^3/uL (0.0-1.1) Eosinophils # (Auto) 0.6 x10^3/uL (0.0-0.7) 1.0 x10^3/uL (0.0-0.7) Basophils # (Auto) 0.0 x10^3/uL (0.0-0.2) 0.0 x10^3/uL (0.0-0.2) Sodium Level 139 mmol/L (136-145) 142 mmol/L (136-145) Potassium Level 5.0 mmol/L (3.5-5.1) 4.8 mmol/L (3.5-5.1) Chloride Level 100 mmol/L (98-107) 104 mmol/L (98-107) Carbon Dioxide Level 28 mmol/L (21-32) 29 mmol/L (21-32) Anion Gap 11 (6-14) 9 (6-14) Blood Urea Nitrogen 61 mg/dL (8-26) 55 mg/dL (8-26) Creatinine 2.4 mg/dL (0.7-1.3) 2.0 mg/dL (0.7-1.3) Estimated GFR (Cockcroft-Gault) 25.9 31.9 BUN/Creatinine Ratio 25 (6-20) Glucose Level 146 mg/dL (70-99) 138 mg/dL (70-99) Lactic Acid Level 1.3 mmol/L (0.4-2.0) Calcium Level 9.8 mg/dL (8.5-10.1) 9.9 mg/dL (8.5-10.1) Total Bilirubin 0.4 mg/dL (0.2-1.0) Aspartate Amino Transf (AST/SGOT) 20 U/L (15-37) Alanine Aminotransferase (ALT/SGPT) 22 U/L (16-63) Alkaline Phosphatase 79 U/L (46-116) Total Protein 6.9 g/dL (6.4-8.2) Albumin 3.2 g/dL (3.4-5.0) Albumin/Globulin Ratio 0.9 (1.0-1.7) Glucose (Fingerstick) 144 mg/dL (70-99) Urine Collection Type Unknown Urine Color Yellow Urine Clarity Clear Urine pH 5.0 Urine Specific [place] 1.015 Urine Protein Negative mg/dL (NEG-TRACE) Urine Glucose (UA) Negative mg/dL (NEG) Urine Ketones (Stick) Negative mg/dL (NEG) Urine Blood Negative (NEG) Urine Nitrite Negative (NEG) Urine Bilirubin Negative (NEG) Urine Urobilinogen Dipstick 0.2 mg/dL (0.2 mg/dL) Urine Leukocyte Esterase Negative (NEG) Urine RBC 0 /HPF (0-2) Urine WBC 0 /HPF (0-4) Urine Squamous Epithelial Cells Few /LPF Urine Bacteria 0 /HPF (0-FEW) Urine Hyaline Casts Moderate /HPF Urine Mucus Mod /LPF Test 01/24/19 07:35 01/24/19 11:19 01/24/19 16:32 01/24/19 20:29 Glucose (Fingerstick) 123 mg/dL (70-99) 202 mg/dL (70-99) 181 mg/dL (70-99) 156 mg/dL (70-99) Test 01/25/19 07:10 01/25/19 07:32 White Blood Count 5.9 x10^3/uL (4.0-11.0) Red Blood Count 2.66 x10^6/uL (4.30-5.70) Hemoglobin 8.1 g/dL (13.0-17.5) Hematocrit 24.7 % (39.0-53.0) Mean Corpuscular Volume 93 fL (79-100) Mean Corpuscular Hemoglobin 31 pg (25-35) Mean Corpuscular Hemoglobin Concent 33 g/dL (31-37) Red Cell Distribution Width 14.5 % (11.5-14.5) Platelet Count 217 x10^3/uL (140-400) Neutrophils (%) (Auto) 64 % (31-73) Lymphocytes (%) (Auto) 9 % (24-48) Monocytes (%) (Auto) 12 % (0-9) Eosinophils (%) (Auto) 14 % (0-3) Basophils (%) (Auto) 1 % (0-3) Neutrophils # (Auto) 3.8 x10^3uL (1.8-7.7) Lymphocytes # (Auto) 0.5 x10^3/uL (1.0-4.8) Monocytes # (Auto) 0.7 x10^3/uL (0.0-1.1) Eosinophils # (Auto) 0.8 x10^3/uL (0.0-0.7) Basophils # (Auto) 0.1 x10^3/uL (0.0-0.2) Prothrombin Time 14.7 SEC (11.7-14.0) Prothromb Time International Ratio 1.2 (0.8-1.1) Sodium Level 142 mmol/L (136-145) Potassium Level 4.6 mmol/L (3.5-5.1) Chloride Level 105 mmol/L (98-107) Carbon Dioxide Level 29 mmol/L (21-32) Anion Gap 8 (6-14) Blood Urea Nitrogen 54 mg/dL (8-26) Creatinine 2.1 mg/dL (0.7-1.3) Estimated GFR (Cockcroft-Gault) 30.2 Glucose Level 136 mg/dL (70-99) Calcium Level 9.7 mg/dL (8.5-10.1) Glucose (Fingerstick) 120 mg/dL (70-99) Laboratory Tests Test 01/24/19 11:19 01/24/19 16:32 01/24/19 20:29 01/25/19 07:10 Glucose (Fingerstick) 202 mg/dL (70-99) 181 mg/dL (70-99) 156 mg/dL (70-99) White Blood Count 5.9 x10^3/uL (4.0-11.0) Red Blood Count 2.66 x10^6/uL (4.30-5.70) Hemoglobin 8.1 g/dL (13.0-17.5) Hematocrit 24.7 % (39.0-53.0) Mean Corpuscular Volume 93 fL (79-100) Mean Corpuscular Hemoglobin 31 pg (25-35) Mean Corpuscular Hemoglobin Concent 33 g/dL (31-37) Red Cell Distribution Width 14.5 % (11.5-14.5) Platelet Count 217 x10^3/uL (140-400) Neutrophils (%) (Auto) 64 % (31-73) Lymphocytes (%) (Auto) 9 % (24-48) Monocytes (%) (Auto) 12 % (0-9) Eosinophils (%) (Auto) 14 % (0-3) Basophils (%) (Auto) 1 % (0-3) Neutrophils # (Auto) 3.8 x10^3uL (1.8-7.7) Lymphocytes # (Auto) 0.5 x10^3/uL (1.0-4.8) Monocytes # (Auto) 0.7 x10^3/uL (0.0-1.1) Eosinophils # (Auto) 0.8 x10^3/uL (0.0-0.7) Basophils # (Auto) 0.1 x10^3/uL (0.0-0.2) Prothrombin Time 14.7 SEC (11.7-14.0) Prothromb Time International Ratio 1.2 (0.8-1.1) Sodium Level 142 mmol/L (136-145) Potassium Level 4.6 mmol/L (3.5-5.1) Chloride Level 105 mmol/L (98-107) Carbon Dioxide Level 29 mmol/L (21-32) Anion Gap 8 (6-14) Blood Urea Nitrogen 54 mg/dL (8-26) Creatinine 2.1 mg/dL (0.7-1.3) Estimated GFR (Cockcroft-Gault) 30.2 Glucose Level 136 mg/dL (70-99) Calcium Level 9.7 mg/dL (8.5-10.1) Test 01/25/19 07:32 Glucose (Fingerstick) 120 mg/dL (70-99) Microbiology 01/23/19 Blood Culture - Preliminary, Resulted NO GROWTH AFTER 1 DAY Medications Current Medications Vancomycin HCl (Vanco Per Pharmacy) 1 each 1X ONCE MC Last administered on 01/23/19at 23:33; Start 01/23/19 at 18:00; Stop 01/23/19 at 18:23; Status DC Vancomycin HCl 2 gm/Sodium Chloride 500 ml @ 250 mls/hr 1X ONCE IV Last administered on 01/23/19at 18:59; Start 01/23/19 at 19:00; Stop 01/23/19 at 20:59; Status DC Piperacillin Sod/ Tazobactam Sod 3.375 gm/Sodium Chloride 50 ml @ 100 mls/hr 1X ONCE IV ; Start 01/23/19 at 19:15; Stop 01/23/19 at 19:44; Status Cancel Ondansetron HCl (Zofran) 4 mg PRN Q8HRS PRN IV NAUSEA/VOMITING; Start 01/23/19 at 20:30; Stop 01/24/19 at 20:29; Status DC Fentanyl Citrate (Fentanyl 2ml Vial) 25 mcg PRN Q2HR PRN IV PAIN Last admi nistered on 01/24/19at 09:15; Start 01/23/19 at 20:30; Stop 01/24/19 at 20:29; Status DC Acetaminophen (Tylenol) 650 mg PRN Q4HRS PRN PO FEVER; Start 01/23/19 at 20:30; Stop 01/24/19 at 20:29; Status DC Multivitamins (Thera M Plus) 1 tab DAILY PO Last administered on 01/25/19at 08:35; Start 01/24/19 at 11:00 Aspirin (Children'S Aspirin) 81 mg DAILY PO Last administered on 01/25/19 08:32; Start 01/24/19 at 14:30 Cetirizine HCl (ZyrTEC) 10 mg HS PO Last administered on 01/24/19 21:28; Start 01/24/19 at 21:00 Vitamin D (Vitamin D3) 1,000 unit DAILY PO Last administered on 01/25/19 08:34; Start 01/24/19 at 14:30 Finasteride (Proscar) 5 mg DAILY PO Last administered on 01/25/19 08:32; Start 01/24/19 at 14:30 Insulin Glargine (Lantus) 14 units QHS SQ Last administered on 01/24/19 21:42; Start 01/24/19 at 21:00 Insulin Human Lispro (HumaLOG) 5 units TIDWMEALS SQ Last administered on 01/24/19 16:39; Start 01/24/19 at 17:00 Metoprolol Succinate (Toprol Xl) 12.5 mg DAILY PO Last administered on 01/25/19 08:33; Start 01/24/19 at 14:30 Simvastatin (Zocor) 10 mg QHS PO Last administered on 01/24/19 21:29; Start 01/24/19 at 21:00 Tamsulosin HCl (Flomax) 0.4 mg DAILY PO Last administered on 01/25/19 08:35; Start 01/24/19 at 14:30 Non-Formulary Medication (Budesonide/ Formoterol Fumarate (Symbicort 160-4.5 Mcg Inhaler)) 2 puff BID IH ; Start 01/24/19 at 21:00; Status UNV Citalopram Hydrobromide (CeleXA) 40 mg DAILY PO Last administered on 01/25/19 08:34; Start 01/24/19 at 14:30 Pantoprazole Sodium (Protonix) 40 mg DAILYAC PO Last administered on 01/25/19 07:06; Start 01/24/19 at 14:30 Non-Formulary Medication (Ipratropium/ Albuterol Sulfate (Combivent Respimat Inhal)) 2 inh QID IH ; Start 01/24/19 at 17:00; Status UNV Non-Formulary Medication (Linaclotide (Linzess)) 145 mcg DAILY07 PO ; Start 01/25/19 at 07:00; Status UNV Non-Formulary Medication (Rivaroxaban (Xarelto)) 20 mg DAILY PO ; Start 01/25/19 at 09:00; Stop 01/25/19 at 09:00; Status DC Spironolactone (Aldactone) 12.5 mg DAILY PO Last administered on 01/25/19at 08:35; Start 01/24/19 at 14:30 Insulin Human Lispro (HumaLOG) 0-5 UNITS TIDWMEALS SQ Last administered on at 16:40; Start 01/24/19 at 17:00 Dextrose (Dextrose 50%-Water Syringe) 12.5 gm PRN Q15MIN PRN IV SEE COMMENTS; Start 01/24/19 at 13:30 Budesonide (Pulmicort) 0.5 mg RTBID NEB Last administered on 01/25/19at 07:55; Start 01/24/19 at 20:00 Albuterol/ Ipratropium (Duoneb) 3 ml RTQID NEB Last administered on 01/25/19at 07:55; Start 01/24/19 at 16:00 Vancomycin HCl (Vanco Per Pharmacy) 1 each PRN DAILY PRN MC SEE COMMENTS; Start 01/24/19 at 14:30; Stop 01/24/19 at 14:47; Status DC Linezolid (Zyvox) 600 mg Q12HR PO Last administered on 01/25/19 08:35; Start 01/24/19 at 15:00 Cefepime HCl (Maxipime) 2 gm Q12HR IVP Last administered on 01/25/19 08:32; Start 01/24/19 at 15:00 Metronidazole 100 ml @ 100 mls/hr Q8HRS IV Last administered on 01/25/19 05: 58; Start 01/24/19 at 15:00 Nystatin (Nystop) 1 nawaf BID TP Last administered on 01/25/19at 08:32; Start 01/24/19 at 21:00 Active Scripts Active Xarelto (Rivaroxaban) 20 Mg Tablet 20 Mg PO DAILYWSUP 30 Days please hold on Wednesday and WednesdayNovember 12 and . Reported Fiorinal 50-325-40 Mg Capsule (Butalbital/Aspirin/Caffeine) 1 Each Capsule 1 Each PO Q4HRS Combivent Respimat Inhal (Ipratropium/Albuterol Sulfate) 4 Gm Aer.w.adap 2 Inh IH QID Metoprolol Succinate ( Xl ) (Metoprolol Succinate) 25 Mg Tab.er.24h 0.5 Tab PO DAILY Cetirizine Hcl 10 Mg Tablet 1 Tab PO HS Aspirin 81 Mg Tab.chew 1 Tab PO DAILY Linzess (Linaclotide) 145 Mcg Capsule 145 Mcg PO DAILY07 Acetaminophen 325 Mg/10.15 Ml Solution 325 Mg PO Q4HRS Lantus Solostar (Insulin Glargine,Hum.rec.anlog) 100 Unit/1 Ml Insuln.pen 14 Unit SQ QHS Humalog (Insulin Lispro) 100 Unit/1 Ml Insuln.pen 5 Unit SQ AT LUNCH/DINNER Symbicort 160-4.5 Mcg Inhaler (Budesonide/Formoterol Fumarate) 10.2 Gm Hfa.ae r.ad 2 Puff IH BID Flomax (Tamsulosin Hcl) 0.4 Mg Cap.er.24h 1 Cap PO DAILY Spironolactone 25 Mg Tablet 0.5 Tab PO DAILY Simvastatin 10 Mg Tablet 1 Tab PO QHS Xarelto (Rivaroxaban) 20 Mg Tablet 20 Mg PO DAILY Nexium Capsule (Esomeprazole Magnesium) 40 Mg Capsule.dr 1 Cap PO DAILY Finasteride 5 Mg Tablet 1 Tab PO DAILY Lexapro (Escitalopram Oxalate) 20 Mg Tablet 1 Tab PO DAILY Vitamin D (Cholecalciferol (Vitamin D3)) 1,000 Unit Tablet 1,000 Unit PO DAILY Probiotic (Lactobacillus Combo No.11) 1 Each Cap.sprink 1 Each PO DAILY Humalog (Insulin Lispro) 100 Unit/1 Ml Cartridge 6 Unit SQ BIDACLD Vibramycin (Doxycycline Hyclate) 100 Mg Capsule 1 Cap PO BID Losartan Potassium (Losartan Potassium) 25 Mg Tablet 25 Mg PO DAILY Metoprolol Succinate ( Xl ) (Metoprolol Succinate) 25 Mg Tab.er.24h 1 Tab PO DAILY Spironolactone 25 Mg Tablet 1 Tab PO DAILY Probiotic (Lactobacillus Acidophilus) 1 Each Capsule 1 Each PO DAILY Fiorinal-Cod [id number] Cap (Codeine/Butalbital/Asa/Caffein) 1 Each Capsule 1 Each PO PRN Q4-6HRS PRN Simvastatin 10 Mg Tablet 1 Tab PO HS Torsemide 20 Mg Tablet 10 Mg PO DAILY Escitalopram Oxalate 20 Mg Tablet 1 Tab PO DAILY Proscar (Finasteride) 5 Mg Tablet 1 Tab PO DAILYWSUP Lantus (Insulin Glargine,Hum.rec.anlog) 100 Unit/1 Ml Vial 14 Unit SQ HS Humalog (Insulin Lispro) 100 Unit/1 Ml Insuln.pen 8 Unit SQ DAILYWBKFT Vitamin D (Cholecalciferol (Vitamin D3)) 1,000 Unit Tablet 1,000 Unit PO BID Multivitamins (Multivitamin) 1 Each Tablet 1 Each PO DAILY Aspir 81 (Aspirin) 81 Mg Tablet.dr 81 Mg PO DAILY Combivent Respimat Inhal (Ipratropium/Albuterol Sulfate) 4 Gm Aer.w.adap 4 Gm IH BID Zanaflex (Tizanidine Hcl) 2 Mg Capsule 2 Mg PO HS Flomax (Tamsulosin Hcl) 0.4 Mg Cap.er.24h 0.4 Mg PO DAILYWSUP Vitals/I & O Vital Sign - Last 24 Hours 01/24/19 01/24/19 01/24/19 01/24/19 09:15 09:45 11:00 14:55 Temp 97.7 97.7 Pulse 71 71 Resp 16 16 17 B/P (MAP) 106/43 (64) 106/43 Pulse Ox 97 O2 Delivery Nasal Cannula Nasal Cannula Nasal Cannula O2 Flow Rate 3.0 3.0 3.0 01/24/19 01/24/19 01/24/19 01/24/19 15:00 15:57 19:00 20:00 Temp 98.7 97.7 98.7 97.7 Pulse 67 67 Resp 17 16 B/P (MAP) 126/45 (72) 110/45 (66) Pulse Ox 99 96 98 O2 Delivery Nasal Cannula Nasal Cannula Nasal Cannula Nasal Cannula O2 Flow Rate 3.0 3.0 3.0 3.0 01/24/19 01/24/19 01/24/19 01/25/19 20:10 21:26 23:00 03:00 Temp 97.9 98.4 97.9 98.4 Pulse 72 67 Resp 18 18 B/P (MAP) 106/38 (60) 122/47 (72) Pulse Ox 98 96 98 97 O2 Delivery Nasal Cannula BiPAP/CPAP Nasal Cannula Nasal Cannula O2 Flow Rate 3.0 3.0 3.0 01/25/19 01/25/19 01/25/19 07:00 07:55 08:33 Temp 98.0 98.0 Pulse 62 62 Resp 18 B/P (MAP) 117/45 (69) 117/45 Pulse Ox 98 99 O2 Delivery Nasal Cannula Nasal Cannula O2 Flow Rate 3.0 3.0 Intake and Output 01/24/19 01/24/19 01/25/19 14:59 22:59 06:59 Intake Total 420 ml 300 ml Output Total 1500 ml Balance 420 ml 300 ml -1500 ml KARLA CERRATO MD January 25, 2019 08:43
[2019-01-25] MEDS ORDERED: NON FORMULARY ITEM (Rivaroxaban (Xarelto) 20 MG) PO SCH (09:00)
--- NOTE | 2019-01-25 10:03 | NUR ---
SW following for discharge planning. Discussed with RN, pt is from home with . Pt having an angiogram tomorrow (01/26/19). SW will continue to follow for any discharge planning needs.
--- NOTE | 2019-01-25 10:27 | PDOC2 ---
CONSULT Date of Consult Date of Consult DATE: 01/25/19 TIME: 10:13 Reason for Consult Reason for Consult: Elevated Cr, will need angio Identification/Chief Complaint Chief Complaint Currently denies any complaints Source Source: Chart review History of Present Illness Reason for Visit: Pt is a 83yo CM w/ PMHx CLL, PAD, DM2, chronic systolic CHF, peripheral neuropathy, AFIB (with DCCV prior, on NOAC), HTN,, Aortic stenosis (s/p TAVR @ [facility] in 2013), Other (cardiomyopathy), COPD, GODWIN with CPAP, migraines, , Chronic renal insufficiency, Benign prostatic hyperplasia, chronic stasis dermatitis bilateral lower extremities who 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 Seen in [place] in August on 6 weeks IV antibiotics in SNF, then home where his has been caring for him. She reports patient had been doing good and then a few weeks ago he stubbed his left great toe and since has had increased redness and swelling along with worsening wound on his great toe. Patient also has 2 small scabbed wounds on his third and fourth toe on his left foot. He was seen previously by vascular surgery by Dr. Schumacher for arterial insufficiency, was planning further treatment outpatient for LLE PAD. In ED was given empiric vancomycin and admitted for further care Denies any N/V. No urinary complaints, reports Good UOP. States he is not aware of any Kidney problems and has not seen nephrology as OP . Denies NSAID use Past Medical History Cardiovascular: AFIB, CAD, CHF, HTN, Aortic stenosis Pulmonary: COPD GI: No pertinent hx Heme/Onc: Cancer (Chronic lymphocytic leukemia) Hepatobiliary: No pertinent hx Psych: No pertinent hx Rheumatologic: No pertinent hx Infectious disease: No pertinent hx ENT: No pertinent hx Renal/: Chronic renal insuff Endocrine: Diabetes Dermatology: Rash Past Surgical History Past Surgical History: Other (TAVR) Family History Family History: Hypertension Social History No ALCOHOL: none Drugs: None Current Problem List Problem List Problems Medical Problems: (1) Left foot infection Status: Acute (2) Wound cellulitis Status: Acute Current Medications Current Medications Current Medications Vancomycin HCl (Vanco Per Pharmacy) 1 each 1X ONCE MC Last administered on 01/23/19at 23:33; Start 01/23/19 at 18:00; Stop 01/23/19 at 18:23; Status DC Vancomycin HCl 2 gm/Sodium Chloride 500 ml @ 250 mls/hr 1X ONCE IV Last administered on 01/23/19 18:59; Start 01/23/19 at 19:00; Stop 01/23/19 at 20:59; Status DC Piperacillin Sod/ Tazobactam Sod 3.375 gm/Sodium Chloride 50 ml @ 100 mls/hr 1X ONCE IV ; Start 01/23/19 at 19:15; Stop 01/23/19 at 19:44; Status Cancel Ondansetron HCl (Zofran) 4 mg PRN Q8HRS PRN IV NAUSEA/VOMITING; Start 01/23/19 at 20:30; Stop 01/24/19 at 20:29; Status DC Fentanyl Citrate (Fentanyl 2ml Vial) 25 mcg PRN Q2HR PRN IV PAIN Last administered on 01/24/19 09:15; Start 01/23/19 at 20:30; Stop 01/24/19 at 20:2 9; Status DC Acetaminophen (Tylenol) 650 mg PRN Q4HRS PRN PO FEVER; Start 01/23/19 at 20:30; Stop 01/24/19 at 20:29; Status DC Multivitamins (Thera M Plus) 1 tab DAILY PO Last administered on 01/25/19 08:35; Start 01/24/19 at 11:00 Aspirin (Children'S Aspirin) 81 mg DAILY PO Last administered on 01/25/19 08:32; Start 01/24/19 at 14:30 Cetirizine HCl (ZyrTEC) 10 mg HS PO Last administered on 01/24/19 21:28; Start 01/24/19 at 21:00 Vitamin D (Vitamin D3) 1,000 unit DAILY PO Last administered on 01/25/19 08:34; Start 01/24/19 at 14:30 Finasteride (Proscar) 5 mg DAILY PO Last administered on 01/25/19 08:32; Start 01/24/19 at 14:30 Insulin Glargine (Lantus) 14 units QHS SQ Last administered on 01/24/19 21:42; Start 01/24/19 at 21:00 Insulin Human Lispro (HumaLOG) 5 units TIDWMEALS SQ Last administered on 01/25/19 08:43; Start 01/24/19 at 17:00 Metoprolol Succinate (Toprol Xl) 12.5 mg DAILY PO Last administered on 01/25/19 08:33; Start 01/24/19 at 14:30 Simvastatin (Zocor) 10 mg QHS PO Last administered on 01/24/19at 21:29; Start 01/24/19 at 21:00 Tamsulosin HCl (Flomax) 0.4 mg DAILY PO Last administered on 01/25/19at 08:35; Start 01/24/19 at 14:30 Non-Formulary Medication (Budesonide/ Formoterol Fumarate (Symbicort 160-4.5 Mcg Inhaler)) 2 puff BID IH ; Start 01/24/19 at 21:00; Status UNV Citalopram Hydrobromide (CeleXA) 40 mg DAILY PO Last administered on 01/25/19at 08:34; Start 01/24/19 at 14:30 Pantoprazole Sodium (Protonix) 40 mg DAILYAC PO Last administered on 01/25/19at 07:06; Start 01/24/19 at 14:30 Non-Formulary Medication (Ipratropium/ Albuterol Sulfate (Combivent Respimat Inhal)) 2 inh QID IH ; Start 01/24/19 at 17:00; Status UNV Non-Formulary Medication (Linaclotide (Linzess)) 145 mcg DAILY07 PO ; Start 01/25/19 at 07:00; Status UNV Non-Formulary Medication (Rivaroxaban (Xarelto)) 20 mg DAILY PO ; Start 01/25/19 at 09:00; Stop 01/25/19 at 09:00; Status DC Spironolactone (Aldactone) 12.5 mg DAILY PO Last administered on 01/25/19at 08:35; Start 01/24/19 at 14:30 Insulin Human Lispro (HumaLOG) 0-5 UNITS TIDWMEALS SQ Last administered on 01/24/19at 16:40; Start 01/24/19 at 17:00 Dextrose (Dextrose 50%-Water Syringe) 12.5 gm PRN Q15MIN PRN IV SEE COMMENTS; Start 01/24/19 at 13:30 Budesonide (Pulmicort) 0.5 mg RTBID NEB Last administered on 5/15/19at 07:55; Start 01/24/19 at 20:00 Albuterol/ Ipratropium (Duoneb) 3 ml RTQID NEB Last administered on 01/25/19at 07:55; Start 01/24/19 at 16:00 Vancomycin HCl (Vanco Per Pharmacy) 1 each PRN DAILY PRN MC SEE COMMENTS; Start 01/24/19 at 14:30; Stop 01/24/19 at 14:47; Status DC Linezolid (Zyvox) 600 mg Q12HR PO Last administered on 01/25/19at 08:35; Start 01/24/19 at 15:00 Cefepime HCl (Maxipime) 2 gm Q12HR IVP Last administered on 01/25/19 08:32; Start 01/24/19 at 15:00 Metronidazole 100 ml @ 100 mls/hr Q8HRS IV Last administered on 01/25/19 05:58; Start 01/24/19 at 15:00 Nystatin (Nystop) 1 nawaf BID TP Last administered on 01/25/19at 08:32; Start 01/24/19 at 21:00 Active Scripts Active Xarelto (Rivaroxaban) 20 Mg Tablet 20 Mg PO DAILYWSUP 30 Days please hold on Wednesday and WednesdayNovember 12 and . Reported Fiorinal 50-325-40 Mg Capsule (Butalbital/Aspirin/Caffeine) 1 Each Capsule 1 Each PO Q4HRS Combivent Respimat Inhal (Ipratropium/Albuterol Sulfate) 4 Gm Aer.w.adap 2 Inh IH QID Metoprolol Succinate ( Xl ) (Metoprolol Succinate) 25 Mg Tab.er.24h 0.5 Tab PO D AILY Cetirizine Hcl 10 Mg Tablet 1 Tab PO HS Aspirin 81 Mg Tab.chew 1 Tab PO DAILY Linzess (Linaclotide) 145 Mcg Capsule 145 Mcg PO DAILY07 Acetaminophen 325 Mg/10.15 Ml Solution 325 Mg PO Q4HRS Lantus Solostar (Insulin Glargine,Hum.rec.anlog) 100 Unit/1 Ml Insuln.pen 14 Unit SQ QHS Humalog (Insulin Lispro) 100 Unit/1 Ml Insuln.pen 5 Unit SQ AT LUNCH/DINNER Symbicort 160-4.5 Mcg Inhaler (Budesonide/Formoterol Fumarate) 10.2 Gm Hfa.aer.ad 2 Puff IH BID Flomax (Tamsulosin Hcl) 0.4 Mg Cap.er.24h 1 Cap PO DAILY Spironolactone 25 Mg Tablet 0.5 Tab PO DAILY Simvastatin 10 Mg Tablet 1 Tab PO QHS Xarelto (Rivaroxaban) 20 Mg Tablet 20 Mg PO DAILY Nexium Capsule (Esomeprazole Magnesium) 40 Mg Capsule.dr 1 Cap PO DAILY Finasteride 5 Mg Tablet 1 Tab PO DAILY Lexapro (Escitalopram Oxalate) 20 Mg Tablet 1 Tab PO DAILY Vitamin D (Cholecalciferol (Vitamin D3)) 1,000 Unit Tablet 1,000 Unit PO DAILY Probiotic (Lactobacillus Combo No.11) 1 Each Cap.sprink 1 Each PO DAILY Humalog (Insulin Lispro) 100 Unit/1 Ml Cartridge 6 Unit SQ BIDACLD Vibramycin (Doxycycline Hyclate) 100 Mg Capsule 1 Cap PO BID Losartan Potassium (Losartan Potassium) 25 Mg Tablet 25 Mg PO DAILY Metoprolol Succinate ( Xl ) (Metoprolol Succinate) 25 Mg Tab.er.24h 1 Tab PO DAILY Spironolactone 25 Mg Tablet 1 Tab PO DAILY Probiotic (Lactobacillus Acidophilus) 1 Each Capsule 1 Each PO DAILY Fiorinal-Cod 58-57-080-40 Cap (Codeine/Butalbital/Asa/Caffein) 1 Each Capsule 1 Each PO PRN Q4-6HRS PRN Simvastatin 10 Mg Tablet 1 Tab PO HS Torsemide 20 Mg Tablet 10 Mg PO DAILY Escitalopram Oxalate 20 Mg Tablet 1 Tab PO DAILY Proscar (Finasteride) 5 Mg Tablet 1 Tab PO DAILYWSUP Lantus (Insulin Glargine,Hum.rec.anlog) 100 Unit/1 Ml Vial 14 Unit SQ HS Humalog (Insulin Lispro) 100 Unit/1 Ml Insuln.pen 8 Unit SQ DAILYWBKFT Vitamin D (Cholecalciferol (Vitamin D3)) 1,000 Unit Tablet 1,000 Unit PO BID Multivitamins (Multivitamin) 1 Each Tablet 1 Each PO DAILY Aspir 81 (Aspirin) 81 Mg Tablet.dr 81 Mg PO DAILY Combivent Respimat Inhal (Ipratropium/Albuterol Sulfate) 4 Gm Aer.w.adap 4 Gm IH BID Zanaflex (Tizanidine Hcl) 2 Mg Capsule 2 Mg PO HS Flomax (Tamsulosin Hcl) 0.4 Mg Cap.er.24h 0.4 Mg PO DAILYWSUP Allergies Allergies: Coded Allergies: venom-honey bee (Verified Allergy, Severe, Anaphylaxis, 01/24/19) Penicillins (Verified Allergy, Intermediate, RASH, 01/24/19) adhesive (Verified Allergy, Intermediate, Rash, 01/24/19) ROS Review of System As per HPI Physical Exam Physical Exam General: No acute distress HEENT: Atraumatic, PERRLA, EOMI, Mucous membr. moist/pink Neck Supple Lungs: CTA, Non labored Heart: S1S2, RRR, ABDIAS 2/6 Abdomen: Normal bowel sounds, Soft, No tenderness Extremities: venous stasis dermatitis Skin: Great toe red with 2 ulcer on tip and DIP, and 3rd and 4th toe ulcers Neuro: Alert, Oriented X3,grossly normal : No [place] Psych/Mental Status: Mental status NL, Mood NL Vital Signs Vital Signs Date Time Temp Pulse Resp B/P (MAP) Pulse Ox O2 Delivery O2 Flow Rate FiO2 01/25/19 08:33 62 117/45 01/25/19 08:00 Nasal Cannula 3.0 01/25/19 07:55 99 01/25/19 07:00 98.0 18 98.0 Assessment & Plan LYNDSEY- Cr peaked to 2.4, down to 2.1 UA unremarkable Monitor strict I/O CKD stage 3- Baseline Creat was 1.4-1.7 in 2018 Since Oct 2018- Creat 2.2 as per [facility] records Left lower extremity peripheral arterial disease with nonhealing ulcer on the left first toe and fourth toe-severe occlusive tibial disease. Vascular planning angiogram with left leg tibial intervention with low volume of contrast and CO2 I V hydration with NS 1ml/kg /hr 12 hrs pre and continue for 12 hrs post procedure, if stable cardiac status Hold Aldactone ,Increased risk of SHELBIE Diabetes mellitus Hypertension, controlled. CLL - no meds for this Anemia of chronic disease - likely from CLL Chronic systolic CHF - stable currently on meds Aortic stenosis (s/p TAVR @ [facility] in 2013) COPD - will treat with nebs. Sees Dr. Ramírez outpatient GODWIN with CPAP - cont in house Benign prostatic hyperplasia - cont meds Discussed Renal Function, Risk of SHELBIE with patient Discussed with RN Labs Labs Laboratory Tests Test 01/23/19 18:40 01/23/19 20:38 01/23/19 21:00 01/24/19 05:00 White Blood Count 7.6 x10^3/uL (4.0-11.0) 7.3 x10^3/uL (4.0-11.0) Red Blood Count 2.97 x10^6/uL (4.30-5.70) 2.88 x10^6/uL (4.30-5.70) Hemoglobin 9.2 g/dL (13.0-17.5) 8.8 g/dL (13.0-17.5) Hematocrit 27.5 % (39.0-53.0) 26.6 % (39.0-53.0) Mean Corpuscular Volume 93 fL (79-100) 93 fL (79-100) Mean Corpuscular Hemoglobin 31 pg (25-35) 31 pg (25-35) Mean Corpuscular Hemoglobin Concent 33 g/dL (31-37) 33 g/dL (31-37) Red Cell Distribution Width 15.3 % (11.5-14.5) 15.1 % (11.5-14.5) Platelet Count 225 x10^3/uL (140-400) 212 x10^3/uL (140-400) Neutrophils (%) (Auto) 72 % (31-73) 66 % (31-73) Lymphocytes (%) (Auto) 10 % (24-48) 8 % (24-48) Monocytes (%) (Auto) 10 % (0-9) 12 % (0-9) Eosinophils (%) (Auto) 8 % (0-3) 14 % (0-3) Basophils (%) (Auto) 1 % (0-3) 1 % (0-3) Neutrophils # (Auto) 5.5 x10^3uL (1.8-7.7) 4.8 x10^3uL (1.8-7.7) Lymphocytes # (Auto) 0.8 x10^3/uL (1.0-4.8) 0.6 x10^3/uL (1.0-4.8) Monocytes # (Auto) 0.8 x10^3/uL (0.0-1.1) 0.9 x10^3/uL (0.0-1.1) Eosinophils # (Auto) 0.6 x10^3/uL (0.0-0.7) 1.0 x10^3/uL (0.0-0.7) Basophils # (Auto) 0.0 x10^3/uL (0.0-0.2) 0.0 x10^3/uL (0.0-0.2) Sodium Level 139 mmol/L (136-145) 142 mmol/L (136-145) Potassium Level 5.0 mmol/L (3.5-5.1) 4.8 mmol/L (3.5-5.1) Chloride Level 100 mmol/L (98-107) 104 mmol/L (98-107) Carbon Dioxide Level 28 mmol/L (21-32) 29 mmol/L (21-32) Anion Gap 11 (6-14) 9 (6-14) Blood Urea Nitrogen 61 mg/dL (8-26) 55 mg/dL (8-26) Creatinine 2.4 mg/dL (0.7-1.3) 2.0 mg/dL (0.7-1.3) Estimated GFR (Cockcroft-Gault) 25.9 31.9 BUN/Creatinine Ratio 25 (6-20) Glucose Level 146 mg/dL (70-99) 138 mg/dL (70-99) Lactic Acid Level 1.3 mmol/L (0.4-2.0) Calcium Level 9.8 mg/dL (8.5-10.1) 9.9 mg/dL (8.5-10.1) Total Bilirubin 0.4 mg/dL (0.2-1.0) Aspartate Amino Transf (AST/SGOT) 20 U/L (15-37) Alanine Aminotransferase (ALT/SGPT) 22 U/L (16-63) Alkaline Phosphatase 79 U/L (46-116) Total Protein 6.9 g/dL (6.4-8.2) Albumin 3.2 g/dL (3.4-5.0) Albumin/Globulin Ratio 0.9 (1.0-1.7) Glucose (Fingerstick) 144 mg/dL (70-99) Urine Collection Type Unknown Urine Color Yellow Urine Clarity Clear Urine pH 5.0 Urine Specific [place] 1.015 Urine Protein Negative mg/dL (NEG-TRACE) Urine Glucose (UA) Negative mg/dL (NEG) Urine Ketones (Stick) Negative mg/dL (NEG) Urine Blood Negative (NEG) Urine Nitrite Negative (NEG) Urine Bilirubin Negative (NEG) Urine Urobilinogen Dipstick 0.2 mg/dL (0.2 mg/dL) Urine Leukocyte Esterase Negative (NEG) Urine RBC 0 /HPF (0-2) Urine WBC 0 /HPF (0-4) Urine Squamous Epithelial Cells Few /LPF Urine Bacteria 0 /HPF (0-FEW) Urine Hyaline Casts Moderate /HPF Urine Mucus Mod /LPF Test 01/24/19 07:35 01/24/19 11:19 01/24/19 16:32 01/24/19 20:29 Glucose (Fingerstick) 123 mg/dL (70-99) 202 mg/dL (70-99) 181 mg/dL (70-99) 156 mg/dL (70-99) Test 01/25/19 07:10 01/25/19 07:32 White Blood Count 5.9 x10^3/uL (4.0-11.0) Red Blood Count 2.66 x10^6/uL (4.30-5.70) Hemoglobin 8.1 g/dL (13.0-17.5) Hematocrit 24.7 % (39.0-53.0) Mean Corpuscular Volume 93 fL (79-100) Mean Corpuscular Hemoglobin 31 pg (25-35) Mean Corpuscular Hemoglobin Concent 33 g/dL (31-37) Red Cell Distribution Width 14.5 % (11.5-14.5) Platelet Count 217 x10^3/uL (140-400) Neutrophils (%) (Auto) 64 % (31-73) Lymphocytes (%) (Auto) 9 % (24-48) Monocytes (%) (Auto) 12 % (0-9) Eosinophils (%) (Auto) 14 % (0-3) Basophils (%) (Auto) 1 % (0-3) Neutrophils # (Auto) 3.8 x10^3uL (1.8-7.7) Lymphocytes # (Auto) 0.5 x10^3/uL (1.0-4.8) Monocytes # (Auto) 0.7 x10^3/uL (0.0-1.1) Eosinophils # (Auto) 0.8 x10^3/uL (0.0-0.7) Basophils # (Auto) 0.1 x10^3/uL (0.0-0.2) Prothrombin Time 14.7 SEC (11.7-14.0) Prothromb Time International Ratio 1.2 (0.8-1.1) Sodium Level 142 mmol/L (136-145) Potassium Level 4.6 mmol/L (3.5-5.1) Chloride Level 105 mmol/L (98-107) Carbon Dioxide Level 29 mmol/L (21-32) Anion Gap 8 (6-14) Blood Urea Nitrogen 54 mg/dL (8-26) Creatinine 2.1 mg/dL (0.7-1.3) Estimated GFR (Cockcroft-Gault) 30.2 Glucose Level 136 mg/dL (70-99) Calcium Level 9.7 mg/dL (8.5-10.1) Glucose (Fingerstick) 120 mg/dL (70-99) Laboratory Tests Test 01/24/19 11:19 01/24/19 16:32 01/24/19 20:29 01/25/19 07:10 Glucose (Fingerstick) 202 mg/dL (70-99) 181 mg/dL (70-99) 156 mg/dL (70-99) White Blood Count 5.9 x10^3/uL (4.0-11.0) Red Blood Count 2.66 x10^6/uL (4.30-5.70) Hemoglobin 8.1 g/dL (13.0-17.5) Hematocrit 24.7 % (39.0-53.0) Mean Corpuscular Volume 93 fL (79-100) Mean Corpuscular Hemoglobin 31 pg (25-35) Mean Corpuscular Hemoglobin Concent 33 g/dL (31-37) Red Cell Distribution Width 14.5 % (11.5-14.5) Platelet Count 217 x10^3/uL (140-400) Neutrophils (%) (Auto) 64 % (31-73) Lymphocytes (%) (Auto) 9 % (24-48) Monocytes (%) (Auto) 12 % (0-9) Eosinophils (%) (Auto) 14 % (0-3) Basophils (%) (Auto) 1 % (0-3) Neutrophils # (Auto) 3.8 x10^3uL (1.8-7.7) Lymphocytes # (Auto) 0.5 x10^3/uL (1.0-4.8) Monocytes # (Auto) 0.7 x10^3/uL (0.0-1.1) Eosinophils # (Auto) 0.8 x10^3/uL (0.0-0.7) Basophils # (Auto) 0.1 x10^3/uL (0.0-0.2) Prothrombin Time 14.7 SEC (11.7-14.0) Prothromb Time International Ratio 1.2 (0.8-1.1) Sodium Level 142 mmol/L (136-145) Potassium Level 4.6 mmol/L (3.5-5.1) Chloride Level 105 mmol/L (98-107) Carbon Dioxide Level 29 mmol/L (21-32) Anion Gap 8 (6-14) Blood Urea Nitrogen 54 mg/dL (8-26) Creatinine 2.1 mg/dL (0.7-1.3) Estimated GFR (Cockcroft-Gault) 30.2 Glucose Level 136 mg/dL (70-99) Calcium Level 9.7 mg/dL (8.5-10.1) Test 01/25/19 07:32 Glucose (Fingerstick) 120 mg/dL (70-99) Review All relevant outside records, renal labs, imaging studies, telemetry/EKG's were reviewed. ELLA DOLAN MD January 25, 2019 10:27
[2019-01-25 11:00] VITALS: BP 102/49
--- NOTE | 2019-01-25 11:04 | PDOC ---
PROGRESS NOTES Subjective Subjective Patient seen and examined in room. No complaints. Objective Objective Vital Signs Date Time Temp Pulse Resp B/P (MAP) Pulse Ox O2 Delivery O2 Flow Rate FiO2 01/25/19 08:33 62 117/45 01/25/19 08:00 Nasal Cannula 3.0 01/25/19 07:55 99 01/25/19 07:00 98.0 18 98.0 Intake and Output 01/25/19 07:00 Intake Total 720 ml Output Total 1500 ml Balance -780 ml Intake Oral 720 ml Output Urine Total 1500 ml # Voids 8 Physical Exam Physical Exam Awake and alert VSS, afebrile HRR Non-labored respirations, O2 per NC Left first toe with toe tip ulcer Assessment Assessment Problems Medical Problems: (1) Left foot infection Status: Acute (2) Wound cellulitis Status: Acute Plan Plan of Care Assessment: 1. Left lower extremity peripheral arterial disease with nonhealing ulcer on the left first toe and fourth toe. 2. Diabetes mellitus. 3. Chronic renal insufficiency. PLAN: The patient has known peripheral arterial disease in the left lower extremity, mainly severe occlusive tibial disease. He had a recent angiogram with Dr. Schumacher; however, intervention could not be performed because the patient would not lie still on the table. Angiogram with left leg tibial intervention by Dr. Schumacher under general anesthesia.Tomorrow 10:30 ID has been consulted, history osteomyelitis Nephrology consulted, they recommend IV hydration, discussed with RN Continue local wound care Comment Review of Relevant I have reviewed the following items earnest (where applicable) has been applied. Labs Laboratory Tests Test 01/23/19 18:40 01/23/19 20:38 01/23/19 21:00 01/24/19 05:00 White Blood Count 7.6 x10^3/uL (4.0-11.0) 7.3 x10^3/uL (4.0-11.0) Red Blood Count 2.97 x10^6/uL (4.30-5.70) 2.88 x10^6/uL (4.30-5.70) Hemoglobin 9.2 g/dL (13.0-17.5) 8.8 g/dL (13.0-17.5) Hematocrit 27.5 % (39.0-53.0) 26.6 % (39.0-53.0) Mean Corpuscular Volume 93 fL (79-100) 93 fL (79-100) Mean Corpuscular Hemoglobin 31 pg (25-35) 31 pg (25-35) Mean Corpuscular Hemoglobin Concent 33 g/dL (31-37) 33 g/dL (31-37) Red Cell Distribution Width 15.3 % (11.5-14.5) 15.1 % (11.5-14.5) Platelet Count 225 x10^3/uL (140-400) 212 x10^3/uL (140-400) Neutrophils (%) (Auto) 72 % (31-73) 66 % (31-73) Lymphocytes (%) (Auto) 10 % (24-48) 8 % (24-48) Monocytes (%) (Auto) 10 % (0-9) 12 % (0-9) Eosinophils (%) (Auto) 8 % (0-3) 14 % (0-3) Basophils (%) (Auto) 1 % (0-3) 1 % (0-3) Neutrophils # (Auto) 5.5 x10^3uL (1.8-7.7) 4.8 x10^3uL (1.8-7.7) Lymphocytes # (Auto) 0.8 x10^3/uL (1.0-4.8) 0.6 x10^3/uL (1.0-4.8) Monocytes # (Auto) 0.8 x10^3/uL (0.0-1.1) 0.9 x10^3/uL (0.0-1.1) Eosinophils # (Auto) 0.6 x10^3/uL (0.0-0.7) 1.0 x10^3/uL (0.0-0.7) Basophils # (Auto) 0.0 x10^3/uL (0.0-0.2) 0.0 x10^3/uL (0.0-0.2) Sodium Level 139 mmol/L (136-145) 142 mmol/L (136-145) Potassium Level 5.0 mmol/L (3.5-5.1) 4.8 mmol/L (3.5-5.1) Chloride Level 100 mmol/L (98-107) 104 mmol/L (98-107) Carbon Dioxide Level 28 mmol/L (21-32) 29 mmol/L (21-32) Anion Gap 11 (6-14) 9 (6-14) Blood Urea Nitrogen 61 mg/dL (8-26) 55 mg/dL (8-26) Creatinine 2.4 mg/dL (0.7-1.3) 2.0 mg/dL (0.7-1.3) Estimated GFR (Cockcroft-Gault) 25.9 31.9 BUN/Creatinine Ratio 25 (6-20) Glucose Level 146 mg/dL (70-99) 138 mg/dL (70-99) Lactic Acid Level 1.3 mmol/L (0.4-2.0) Calcium Level 9.8 mg/dL (8.5-10.1) 9.9 mg/dL (8.5-10.1) Total Bilirubin 0.4 mg/dL (0.2-1.0) Aspartate Amino Transf (AST/SGOT) 20 U/L (15-37) Alanine Aminotransferase (ALT/SGPT) 22 U/L (16-63) Alkaline Phosphatase 79 U/L (46-116) Total Protein 6.9 g/dL (6.4-8.2) Albumin 3.2 g/dL (3.4-5.0) Albumin/Globulin Ratio 0.9 (1.0-1.7) Glucose (Fingerstick) 144 mg/dL (70-99) Urine Collection Type Unknown Urine Color Yellow Urine Clarity Clear Urine pH 5.0 Urine Specific Formoso 1.015 Urine Protein Negative mg/dL (NEG-TRACE) Urine Glucose (UA) Negative mg/dL (NEG) Urine Ketones (Stick) Negative mg/dL (NEG) Urine Blood Negative (NEG) Urine Nitrite Negative (NEG) Urine Bilirubin Negative (NEG) Urine Urobilinogen Dipstick 0.2 mg/dL (0.2 mg/dL) Urine Leukocyte Esterase Negative (NEG) Urine RBC 0 /HPF (0-2) Urine WBC 0 /HPF (0-4) Urine Squamous Epithelial Cells Few /LPF Urine Bacteria 0 /HPF (0-FEW) Urine Hyaline Casts Moderate /HPF Urine Mucus Mod /LPF Test 01/24/19 07:35 01/24/19 11:19 01/24/19 16:32 01/24/19 20:29 Glucose (Fingerstick) 123 mg/dL (70-99) 202 mg/dL (70-99) 181 mg/dL (70-99) 156 mg/dL (70-99) Test 01/25/19 07:10 01/25/19 07:32 White Blood Count 5.9 x10^3/uL (4.0-11.0) Red Blood Count 2.66 x10^6/uL (4.30-5.70) Hemoglobin 8.1 g/dL (13.0-17.5) Hematocrit 24.7 % (39.0-53.0) Mean Corpuscular Volume 93 fL (79-100) Mean Corpuscular Hemoglobin 31 pg (25-35) Mean Corpuscular Hemoglobin Concent 33 g/dL (31-37) Red Cell Distribution Width 14.5 % (11.5-14.5) Platelet Count 217 x10^3/uL (140-400) Neutrophils (%) (Auto) 64 % (31-73) Lymphocytes (%) (Auto) 9 % (24-48) Monocytes (%) (Auto) 12 % (0-9) Eosinophils (%) (Auto) 14 % (0-3) Basophils (%) (Auto) 1 % (0-3) Neutrophils # (Auto) 3.8 x10^3uL (1.8-7.7) Lymphocytes # (Auto) 0.5 x10^3/uL (1.0-4.8) Monocytes # (Auto) 0.7 x10^3/uL (0.0-1.1) Eosinophils # (Auto) 0.8 x10^3/uL (0.0-0.7) Basophils # (Auto) 0.1 x10^3/uL (0.0-0.2) Prothrombin Time 14.7 SEC (11.7-14.0) Prothromb Time International Ratio 1.2 (0.8-1.1) Sodium Level 142 mmol/L (136-145) Potassium Level 4.6 mmol/L (3.5-5.1) Chloride Level 105 mmol/L (98-107) Carbon Dioxide Level 29 mmol/L (21-32) Anion Gap 8 (6-14) Blood Urea Nitrogen 54 mg/dL (8-26) Creatinine 2.1 mg/dL (0.7-1.3) Estimated GFR (Cockcroft-Gault) 30.2 Glucose Level 136 mg/dL (70-99) Calcium Level 9.7 mg/dL (8.5-10.1) Glucose (Fingerstick) 120 mg/dL (70-99) Laboratory Tests Test 01/24/19 11:19 01/24/19 16:32 01/24/19 20:29 01/25/19 07:10 Glucose (Fingerstick) 202 mg/dL (70-99) 181 mg/dL (70-99) 156 mg/dL (70-99) White Blood Count 5.9 x10^3/uL (4.0-11.0) Red Blood Count 2.66 x10^6/uL (4.30-5.70) Hemoglobin 8.1 g/dL (13.0-17.5) Hematocrit 24.7 % (39.0-53.0) Mean Corpuscular Volume 93 fL (79-100) Mean Corpuscular Hemoglobin 31 pg (25-35) Mean Corpuscular Hemoglobin Concent 33 g/dL (31-37) Red Cell Distribution Width 14.5 % (11.5-14.5) Platelet Count 217 x10^3/uL (140-400) Neutrophils (%) (Auto) 64 % (31-73) Lymphocytes (%) (Auto) 9 % (24-48) Monocytes (%) (Auto) 12 % (0-9) Eosinophils (%) (Auto) 14 % (0-3) Basophils (%) (Auto) 1 % (0-3) Neutrophils # (Auto) 3.8 x10^3uL (1.8-7.7) Lymphocytes # (Auto) 0.5 x10^3/uL (1.0-4.8) Monocytes # (Auto) 0.7 x10^3/uL (0.0-1.1) Eosinophils # (Auto) 0.8 x10^3/uL (0.0-0.7) Basophils # (Auto) 0.1 x10^3/uL (0.0-0.2) Prothrombin Time 14.7 SEC (11.7-14.0) Prothromb Time International Ratio 1.2 (0.8-1.1) Sodium Level 142 mmol/L (136-145) Potassium Level 4.6 mmol/L (3.5-5.1) Chloride Level 105 mmol/L (98-107) Carbon Dioxide Level 29 mmol/L (21-32) Anion Gap 8 (6-14) Blood Urea Nitrogen 54 mg/dL (8-26) Creatinine 2.1 mg/dL (0.7-1.3) Estimated GFR (Cockcroft-Gault) 30.2 Glucose Level 136 mg/dL (70-99) Calcium Level 9.7 mg/dL (8.5-10.1) Test 01/25/19 07:32 Glucose (Fingerstick) 120 mg/dL (70-99) Microbiology 01/23/19 Blood Culture - Preliminary, Resulted NO GROWTH AFTER 1 DAY Medications Current Medications Vancomycin HCl (Vanco Per Pharmacy) 1 each 1X ONCE MC Last administered on 01/23/19at 23:33; Start 01/23/19 at 18:00; Stop 01/23/19 at 18:23; Status DC Vancomycin HCl 2 gm/Sodium Chloride 500 ml @ 250 mls/hr 1X ONCE IV Last administered on 01/23/19at 18:59; Start 01/23/19 at 19:00; Stop 01/23/19 at 20:59; Status DC Piperacillin Sod/ Tazobactam Sod 3.375 gm/Sodium Chloride 50 ml @ 100 mls/hr 1X ONCE IV ; Start 01/23/19 at 19:15; Stop 01/23/19 at 19:44; Status Cancel Ondansetron HCl (Zofran) 4 mg PRN Q8HRS PRN IV NAUSEA/VOMITING; Start 01/23/19 at 20:30; Stop 01/24/19 at 20:29; Status DC Fentanyl Citrate (Fentanyl 2ml Vial) 25 mcg PRN Q2HR PRN IV PAIN Last administered on 01/24/19at 09:15; Start 01/23/19 at 20:30; Stop 01/24/19 at 20:29; Status DC Acetaminophen (Tylenol) 650 mg PRN Q4HRS PRN PO FEVER; Start 01/23/19 at 20:30; Stop 01/24/19 at 20:29; Status DC Multivitamins (Thera M Plus) 1 tab DAILY PO Last administered on 01/25/19at 08:35; Start 01/24/19 at 11:00 Aspirin (Children'S Aspirin) 81 mg DAILY PO Last administered on 01/25/19 08:32; Start 01/24/19 at 14:30 Cetirizine HCl (ZyrTEC) 10 mg HS PO Last administered on 01/24/19 21:28; Start 01/24/19 at 21:00 Vitamin D (Vitamin D3) 1,000 unit DAILY PO Last administered on 01/25/19 08:34; Start 01/24/19 at 14:30 Finasteride (Proscar) 5 mg DAILY PO Last administered on 01/25/19 08:32; Start 01/24/19 at 14:30 Insulin Glargine (Lantus) 14 units QHS SQ Last administered on 01/24/19 21:42; Start 01/24/19 at 21:00 Insulin Human Lispro (HumaLOG) 5 units TIDWMEALS SQ Last administered on 01/25/19 08:43; Start 01/24/19 at 17:00 Metoprolol Succinate (Toprol Xl) 12.5 mg DAILY PO Last administered on 01/25/19 08:33; Start 01/24/19 at 14:30 Simvastatin (Zocor) 10 mg QHS PO Last administered on 01/24/19 21:29; Start 01/24/19 at 21:00 Tamsulosin HCl (Flomax) 0.4 mg DAILY PO Last administered on 01/25/19 08:35; Start 01/24/19 at 14:30 Non-Formulary Medication (Budesonide/ Formoterol Fumarate (Symbicort 160-4.5 Mcg Inhaler)) 2 puff BID IH ; Start 01/24/19 at 21:00; Status UNV Citalopram Hydrobromide (CeleXA) 40 mg DAILY PO Last administered on 01/25/19 08:34; Start 01/24/19 at 14:30 Pantoprazole Sodium (Protonix) 40 mg DAILYAC PO Last administered on 01/25/19 07:06; Start 01/24/19 at 14:30 Non-Formulary Medication (Ipratropium/ Albuterol Sulfate (Combivent Respimat Inhal)) 2 inh QID IH ; Start 01/24/19 at 17:00; Status UNV Non-Formulary Medication (Linaclotide (Linzess)) 145 mcg DAILY07 PO ; Start 01/25/19 at 07:00; Status UNV Non-Formulary Medication (Rivaroxaban (Xarelto)) 20 mg DAILY PO ; Start 01/25/19 at 09:00; Stop 01/25/19 at 09:00; Status DC Spironolactone (Aldactone) 12.5 mg DAILY PO Last administered on 01/25/19at 08:35; Start 01/24/19 at 14:30 Insulin Human Lispro (HumaLOG) 0-5 UNITS TIDWMEALS SQ Last administered on 01/24/19at 16:40; Start 01/24/19 at 17:00 Dextrose (Dextrose 50%-Water Syringe) 12.5 gm PRN Q15MIN PRN IV SEE COMMENTS; Start 01/24/19 at 13:30 Budesonide (Pulmicort) 0.5 mg RTBID NEB Last administered on 01/25/19at 07:55; Start 01/24/19 at 20:00 Albuterol/ Ipratropium (Duoneb) 3 ml RTQID NEB Last administered on 01/25/19at 07:55; Start 01/24/19 at 16:00 Vancomycin HCl (Vanco Per Pharmacy) 1 each PRN DAILY PRN MC SEE COMMENTS; Start 01/24/19 at 14:30; Stop 01/24/19 at 14:47; Status DC Linezolid (Zyvox) 600 mg Q12HR PO Last administered on 01/25/19at 08:35; Start 01/24/19 at 15:00 Cefepime HCl (Maxipime) 2 gm Q12HR IVP Last administered on 01/25/19 08:32; Start 01/24/19 at 15:00 Metronidazole 100 ml @ 100 mls/hr Q8HRS IV Last administered on 01/25/19 05:58; Start 01/24/19 at 15:00 Nystatin (Nystop) 1 nawaf BID TP Last administered on 01/25/19 08:32; Start 01/24/19 at 21:00 Active Scripts Active Xarelto (Rivaroxaban) 20 Mg Tablet 20 Mg PO DAILYWSUP 30 Days please hold on Wednesday and WednesdayNovember 12 and . Reported Fiorinal 50-325-40 Mg Capsule (Butalbital/Aspirin/Caffeine) 1 Each Capsule 1 Each PO Q4HRS Combivent Respimat Inhal (Ipratropium/Albuterol Sulfate) 4 Gm Aer.w.adap 2 Inh IH QID Metoprolol Succinate ( Xl ) (Metoprolol Succinate) 25 Mg Tab.er.24h 0.5 Tab PO DAILY Cetirizine Hcl 10 Mg Tablet 1 Tab PO HS Aspirin 81 Mg Tab.chew 1 Tab PO DAILY Linzess (Linaclotide) 145 Mcg Capsule 145 Mcg PO DAILY07 Acetaminophen 325 Mg/10.15 Ml Solution 325 Mg PO Q4HRS Lantus Solostar (Insulin Glargine,Hum.rec.anlog) 100 Unit/1 Ml Insuln.pen 14 Unit SQ QHS Humalog (Insulin Lispro) 100 Unit/1 Ml Insuln.pen 5 Unit SQ AT LUNCH/DINNER Symbicort 160-4.5 Mcg Inhaler (Budesonide/Formoterol Fumarate) 10.2 Gm Hfa.aer.ad 2 Puff IH BID Flomax (Tamsulosin Hcl) 0.4 Mg Cap.er.24h 1 Cap PO DAILY Spironolactone 25 Mg Tablet 0.5 Tab PO DAILY Simvastatin 10 Mg Tablet 1 Tab PO QHS Xarelto (Rivaroxaban) 20 Mg Tablet 20 Mg PO DAILY Nexium Capsule (Esomeprazole Magnesium) 40 Mg Capsule.dr 1 Cap PO DAILY Finasteride 5 Mg Tablet 1 Tab PO DAILY Lexapro (Escitalopram Oxalate) 20 Mg Tablet 1 Tab PO DAILY Vitamin D (Cholecalciferol (Vitamin D3)) 1,000 Unit Tablet 1,000 Unit PO DAILY Probiotic (Lactobacillus Combo No.11) 1 Each Cap.sprink 1 Each PO DAILY Humalog (Insulin Lispro) 100 Unit/1 Ml Cartridge 6 Unit SQ BIDACLD Vibramycin (Doxycycline Hyclate) 100 Mg Capsule 1 Cap PO BID Losartan Potassium (Losartan Potassium) 25 Mg Tablet 25 Mg PO DAILY Metoprolol Succinate ( Xl ) (Metoprolol Succinate) 25 Mg Tab.er.24h 1 Tab PO DAILY Spironolactone 25 Mg Tablet 1 Tab PO DAILY Probiotic (Lactobacillus Acidophilus) 1 Each Capsule 1 Each PO DAILY Fiorinal-Cod 53-98-429-40 Cap (Codeine/Butalbital/Asa/Caffein) 1 Each Capsule 1 Each PO PRN Q4-6HRS PRN Simvastatin 10 Mg Tablet 1 Tab PO HS Torsemide 20 Mg Tablet 10 Mg PO DAILY Escitalopram Oxalate 20 Mg Tablet 1 Tab PO DAILY Proscar (Finasteride) 5 Mg Tablet 1 Tab PO DAILYWSUP Lantus (Insulin Glargine,Hum.rec.anlog) 100 Unit/1 Ml Vial 14 Unit SQ HS Humalog (Insulin Lispro) 100 Unit/1 Ml Insuln.pen 8 Unit SQ DAILYWBKFT Vitamin D (Cholecalciferol (Vitamin D3)) 1,000 Unit Tablet 1,000 Unit PO BID Multivitamins (Multivitamin) 1 Each Tablet 1 Each PO DAILY Aspir 81 (Aspirin) 81 Mg Tablet.dr 81 Mg PO DAILY Combivent Respimat Inhal (Ipratropium/Albuterol Sulfate) 4 Gm Aer.w.adap 4 Gm IH BID Zanaflex (Tizanidine Hcl) 2 Mg Capsule 2 Mg PO HS Flomax (Tamsulosin Hcl) 0.4 Mg Cap.er.24h 0.4 Mg PO DAILYWSUP Vitals/I & O Vital Sign - Last 24 Hours 01/24/19 01/24/19 01/24/19 01/24/19 11:00 14:55 15:00 15:57 Temp 97.7 98.7 97.7 98.7 Pulse 71 71 67 Resp 17 17 B/P (MAP) 106/43 (64) 106/43 126/45 (72) Pulse Ox 97 99 96 O2 Delivery Nasal Cannula Nasal Cannula Nasal Cannula O2 Flow Rate 3.0 3.0 3.0 01/24/19 01/24/19 01/24/19 01/24/19 19:00 20:00 20:10 21:26 Temp 97.7 97.7 Pulse 67 Resp 16 B/P (MAP) 110/45 (66) Pulse Ox 98 98 96 O2 Delivery Nasal Cannula Nasal Cannula Nasal Cannula BiPAP/CPAP O2 Flow Rate 3.0 3.0 3.0 01/24/19 01/25/19 01/25/19 01/25/19 23:00 03:00 07:00 07:55 Temp 97.9 98.4 98.0 97.9 98.4 98.0 Pulse 72 67 62 Resp 18 18 18 B/P (MAP) 106/38 (60) 122/47 (72) 117/45 (69) Pulse Ox 98 97 98 99 O2 Delivery Nasal Cannula Nasal Cannula Nasal Cannula Nasal Cannula O2 Flow Rate 3.0 3.0 3.0 3.0 01/25/19 01/25/19 08:00 08:33 Pulse 62 B/P (MAP) 117/45 O2 Delivery Nasal Cannula O2 Flow Rate 3.0 Intake and Output 01/24/19 01/24/19 01/25/19 15:00 23:00 07:00 Intake Total 420 ml 300 ml Output Total 1500 ml Balance 420 ml 300 ml -1500 ml ALEKSANDAR PEREZ APRN January 25, 2019 11:04
--- NOTE | 2019-01-25 12:33 | PDOC ---
Infectious Disease Note Vital Sign Vital Signs Vital Signs Date Time Temp Pulse Resp B/P (MAP) Pulse Ox O2 Delivery O2 Flow Rate FiO2 01/25/19 08:33 62 117/45 01/25/19 08:00 Nasal Cannula 3.0 01/25/19 07:55 99 01/25/19 07:00 98.0 18 98.0 Labs Lab Laboratory Tests Test 01/24/19 16:32 01/24/19 20:29 01/25/19 07:10 01/25/19 07:32 Glucose (Fingerstick) 181 mg/dL (70-99) 156 mg/dL (70-99) 120 mg/dL (70-99) White Blood Count 5.9 x10^3/uL (4.0-11.0) Red Blood Count 2.66 x10^6/uL (4.30-5.70) Hemoglobin 8.1 g/dL (13.0-17.5) Hematocrit 24.7 % (39.0-53.0) Mean Corpuscular Volume 93 fL (79-100) Mean Corpuscular Hemoglobin 31 pg (25-35) Mean Corpuscular Hemoglobin Concent 33 g/dL (31-37) Red Cell Distribution Width 14.5 % (11.5-14.5) Platelet Count 217 x10^3/uL (140-400) Neutrophils (%) (Auto) 64 % (31-73) Lymphocytes (%) (Auto) 9 % (24-48) Monocytes (%) (Auto) 12 % (0-9) Eosinophils (%) (Auto) 14 % (0-3) Basophils (%) (Auto) 1 % (0-3) Neutrophils # (Auto) 3.8 x10^3uL (1.8-7.7) Lymphocytes # (Auto) 0.5 x10^3/uL (1.0-4.8) Monocytes # (Auto) 0.7 x10^3/uL (0.0-1.1) Eosinophils # (Auto) 0.8 x10^3/uL (0.0-0.7) Basophils # (Auto) 0.1 x10^3/uL (0.0-0.2) Prothrombin Time 14.7 SEC (11.7-14.0) Prothromb Time International Ratio 1.2 (0.8-1.1) Sodium Level 142 mmol/L (136-145) Potassium Level 4.6 mmol/L (3.5-5.1) Chloride Level 105 mmol/L (98-107) Carbon Dioxide Level 29 mmol/L (21-32) Anion Gap 8 (6-14) Blood Urea Nitrogen 54 mg/dL (8-26) Creatinine 2.1 mg/dL (0.7-1.3) Estimated GFR (Cockcroft-Gault) 30.2 Glucose Level 136 mg/dL (70-99) Calcium Level 9.7 mg/dL (8.5-10.1) Test 01/25/19 11:13 Glucose (Fingerstick) 188 mg/dL (70-99) Micro IMPRESSION: Degenerative changes are seen involving the left foot as discussed above. No acute osseous abnormality is seen. Microbiology 01/23/19 Blood Culture - Preliminary, Resulted NO GROWTH AFTER 1 DAY Objective Assessment L Great toe ? Osteomyelitis - treated with 6 weeks from [facility] of IV and finished in Oct L great toe wound with purulence PCN allergy - tolerated Cephalosporins PAD LYNDSEY L 4 th toe dry ulcer Eosinophilia Plan Plan of Care Given LYNDSEY added Zyvox With PCN allergy - Cefepime and Flagyl will cult wound pus F/u labs Await Aortogram D/w Dr. Eldridge 01/24 and d/w Dr. Hoyos D/w nursing. D/w Thank you # [id number] TRACY MACHUCA MD January 25, 2019 12:33
[2019-01-25 15:00] VITALS: BP 128/53
[2019-01-25 19:00] VITALS: BP 136/49
[2019-01-25] MEDS: CETIRIZINE HCL 10 MG TABLET. PO SCH (21:30)
[2019-01-25] MEDS: SIMVASTATIN 10 MG TABLET PO SCH (21:30)
[2019-01-25] MEDS: LACTOBACILLUS RHAMNOSUS GG 1 CAPSULE. PO SCH (21:30)
[2019-01-25] MEDS: INSULIN GLARGINE 300 UNITS/3 ML INSULN.PEN. SQ SCH (21:42)
[2019-01-25] MEDS: IV NORMAL SALINE 1000ML BAG 1,000 ML IV SCH (22:13)
[2019-01-25 23:00] VITALS: BP 131/40
[2019-01-26 03:00] VITALS: BP 128/41
--- NOTE | 2019-01-26 03:41 | CONS ---
DATE OF CONSULTATION: 01/25/2019 LOCATION: The patient is in room 338. REQUESTING PHYSICIAN: Douglas Smalls M.D. REASON FOR CONSULTATION: Osteomyelitis. HISTORY OF PRESENT ILLNESS: The patient is an 83-year-old gentleman with history of MSSA sepsis, has been on chronic Keflex and recently states he was treated at [facility] for osteomyelitis of his left great toe and was [place] [facility] where he received 6 weeks of IV antibiotics, which he feels one of which was vancomycin but he could not remember the other one, which was twice a day. He finished this in early October. He followed up last week with the director of food and beverage services noticed that his left toe was red and he was referred over to [facility]. He underwent x-ray, did not show any acute osteomyelitis. He has been evaluated by Vascular and is to undergo an aortogram evaluation. I was consulted yesterday given his acute renal failure on top of chronic kidney disease. I recommended Zyvox, cefepime and metronidazole. He does have a history of PENICILLIN allergy. I did initially order vancomycin but this was discontinued prior to administration as I reviewed his renal failure. He has not been on any recent antibiotics since being discharged home. Denies any fevers or chills or sweats. No nausea, vomiting or shortness of air and currently, he is eating lunch. PAST MEDICAL HISTORY: Positive for atrial fibrillation, hypertension, hyperlipidemia, aortic stenosis, COPD, migraines, irritable bowel disease, previous osteomyelitis, diabetes, stasis dermatitis, methicillin-sensitive Staph aureus bacteremia, aortic stenosis, congestive heart failure, peripheral vascular disease, asthma and chronic anticoagulation. PAST SURGICAL HISTORY: Positive for cholecystectomy, tonsillectomy, adenoidectomy, cataract surgery and a TAVR in 2012. REVIEW OF SYSTEMS: Otherwise negative. ALLERGIES: Include PENICILLIN. He has never had any AMOXICILLIN but tolerates. CEPHALOSPORINS, ADHESIVE and HONEYBEES are listed. SOCIAL HISTORY: He is . No current tobacco or alcohol. FAMILY HISTORY: Positive for hypertension or coronary artery disease. CURRENT MEDICATIONS: Include metronidazole, cefepime, linezolid, insulin, lactobacillus, metoprolol, Proscar, Zocor, Aldactone and Flomax. Other meds are available and reviewed in the chart. PHYSICAL EXAMINATION: VITAL SIGNS: He is afebrile, temperature 98, pulse 62, respirations 18 and blood pressure 117/45 on 3 liters nasal cannula. CONSTITUTIONAL: He is a pleasant gentleman. He is cooperative. He is in no acute distress. He is sitting upright in bed. He is eating. HEENT: His pupils are equal and reactive. Oral cavity, pharynx is clear. NECK: Without JVD. LUNGS: Decreased in the bases. HEART: S1 and S2 with a 1-2/6 murmur. ABDOMEN: Obese, soft and nontender. No guarding or rebound. EXTREMITIES: Without clubbing. He has chronic venous stasis changes. He has a deformed toe. His left great toe has an ulcer on it. There is some purulent material that can be expressed from it. He has got a dry ulcer on the tip of his fourth toe. No signs of gross infection. NEUROLOGICAL: He is alert, answers questions appropriately and moves all extremities. Affect is appropriate. LABORATORY DATA: White count of 5.9, hemoglobin 8.1, platelets of 217, neutrophils 64, 9 lymphs and eosinophils of 14. Creatinine today of 2.1 and was 2.4 at presentation with normal liver function study tests. Glucose of 136. Urine not consistent with a urinary tract infection. Blood cultures x 2 are negative from the . RADIOLOGICAL DATA: X-ray without osteomyelitis. IMPRESSION: 1. Left great toe, questionable osteomyelitis treated with 6 weeks of IV antibiotics for more finished in October. 2. Left great toe wound with purulence. 3. Penicillin allergy, tolerates cephalosporins. 4. Peripheral arterial disease. 5. Acute kidney injury. 6. Left fourth toe ulcer. 7. Eosinophilia. RECOMMENDATIONS: For now, given his acute kidney injury, avoiding vancomycin, added Zyvox. As he is expected to undergo additional contrast studies. Given his penicillin allergy, added cefepime as well as metronidazole. Given his foot wound, we will obtain culture of the wound pus to follow up on labs. Await aortogram. This was discussed with Dr. Eldridge on 24 of January. D[address] with Dr. Smalls today. Discussed with nursing. Discussed with . Thank you for allowing me to participate in the patient's care. Should you have any questions, please do not hesitate to contact me. TRACY MACHUCA MD DR: [email or web address]/ferny JOB#: [id number] / [id number]
[2019-01-26 07:00] VITALS: BP 134/49
[2019-01-26] MEDS: PANTOPRAZOLE 40 MG TABLET.DR. PO SCH (07:00)
[2019-01-26] MEDS ORDERED: MORPHINE SULFATE 2 MG/ML VIAL. IV PRN (07:00)
[2019-01-26] MEDS ORDERED: ONDANSETRON PF 4 MG/2 ML VIAL. IV PRN (07:00)
[2019-01-26] MEDS ORDERED: HYDROmorphone 2 MG/ML VIAL IV PRN (07:00)
[2019-01-26] MEDS ORDERED: IV RINGERS,LACTATED 1000ML 1,000 ML IV SCH (07:00)
[2019-01-26] MEDS ORDERED: PROCHLORPERAZINE 10 MG/2 ML VIAL. IV PRN (07:00)
[2019-01-26] MEDS ORDERED: fentaNYL PF VIAL 100 MCG/2 ML VIAL IV PRN ×4 (07:00→14:30)
[2019-01-26] MEDS: NON FORMULARY ITEM (Linaclotide (Linzess) 145 MCG) PO SCH (07:00)
[2019-01-26] MEDS ORDERED: LIDOCAINE 1% PF 2 ML VIAL. ID PRN (07:00)
[2019-01-26] MEDS: ASPIRIN CHEWABLE 81 MG TABLET. PO SCH (07:20)
[2019-01-26] MEDS: CITALOPRAM 20 MG TABLET. PO SCH (07:20)
[2019-01-26] MEDS: MULTIVITAMIN with MINERAL TABLET. PO SCH (07:21)
[2019-01-26] MEDS: LACTOBACILLUS RHAMNOSUS GG 1 CAPSULE. PO SCH ×2 (07:21→21:41)
[2019-01-26] MEDS: CHOLECALCIFEROL (VITAMIN D3) 1,000 UNIT TABLET PO SCH (07:21)
[2019-01-26] MEDS: FINASTERIDE 5 MG TABLET. PO SCH (07:21)
[2019-01-26] MEDS: TAMSULOSIN 0.4 MG CAP.ER.24H. PO SCH (07:21)
[2019-01-26] MEDS: SPIRONOLACTONE 25 MG TABLET PO SCH (07:22)
[2019-01-26] MEDS: IPRATRPIUM/ALBUTEROL 0.5/2.5MG 3 ML NEBU. NEB SCH ×4 (07:26→20:48)
[2019-01-26] MEDS: BUDESONIDE 0.5 MG/2 ML NEBU. NEB SCH ×2 (07:27→20:50)
[2019-01-26] MEDS: INSULIN LISPRO 300 UNITS/3 ML INSULN.PEN. SQ SCH ×6 (08:00→17:05)
[2019-01-26] MEDS: IV NORMAL SALINE 1000ML BAG 1,000 ML IV SCH (08:46)
[2019-01-26] MEDS: METOPROLOL SUCC 24HR ER 25 MG TAB.ER.24H. PO SCH (08:49)
[2019-01-26] MEDS: CEFEPIME HCL IV Push 2 GM VIAL. IVP SCH ×2 (08:55→21:43)
[2019-01-26] MEDS: NYSTATIN TOPICAL POWDER 15GM BOTTLE. TP SCH ×2 (09:00→21:42)
--- NOTE | 2019-01-26 09:18 | PDOC ---
PROGRESS NOTES Chief Complaint Chief Complaint A/P: Left great toe cellulitis - will consult ID, given vancomycin, however has CKD Multiple toe ulcers - likely vascular, will ask Dr. Schumacher to consult PAD LLE - Dr. Schumacher noted he may undergo angiography under general anesthesia. decreased arterial sonogram hence was advised the runoff procedure Coronary artery disease, 2 stents prior - cont meds Afib - s/p DCCV on NOAC, changed from eliquis to xarelto recently Hypertension, controlled. History of osteomyelitis, left big toe - Xray does not confirm currently, however, not the best modality CLL - no meds for this Anemia of chronic disease - likely from CLL DM2 - basal bolus plus regimen in house Chronic systolic CHF - stable currently on meds Peripheral neuropathy - 2/2 DM, will monitor Aortic stenosis (s/p TAVR @ [facility] in 2013) COPD - will treat with nebs. Sees Dr. Ramírez outpatient [facility] with CPAP - cont in house Migraines - prn tylenol Depression - cont meds LYNDSEY on CKD - likely vasomotor from his infection, improved over the past 24 hours - will consult nephrology, likely he will need contrast dye in the next few days Benign prostatic hyperplasia - cont meds Chronic stasis dermatitis - bilateral, stable FEN - ADA diet PPX - Heparin DNR/DNI Inpatient for left great toe cellulitis in a complicated patient, likely at least 2 midnights inpatient History of Present Illness History of Present Illness Mr Price is an 83yo M w/ PMHx CLL, PAD, DM2, chronic systolic CHF, peripheral neuropathy, AFIB (with DCCV prior, on NOAC), HTN, Hyperlipidemia, Aortic stenosis (s/p TAVR @ [facility] in 2013), Other (cardiomyopathy), COPD, [facility] with CPAP, migraines, Depression, Chronic renal insufficiency, Benign prostatic hyperplasia, chronic stasis dermatitis bilateral lower extremities who presents from his stable hand for concerns of osteomyelitis of left great toe. Seen in [place] in August on 6 weeks IV antibiotics in SNF, then home where his has been caring for him. She reports patient had been doing good and then a few weeks ago he stubbed his left great toe and since has had increased redness and swelling along with worsening wound on his great toe. Patient also has 2 small scabbed wounds on his third and fourth toe on his left foot. He was seen previously by vascular surgery by Dr. Schumacher for arterial insufficiency, was planning further treatment outpatient for LLE PAD. In ED was given empiric vancomycin and admitted for further care He is feeling slightly improved since last night. Good UOP. Pain in foot. Cr down to 1.7 today. plan to go for LLE arterial runoff study with vascular surgery today. Vitals Vitals Vital Signs Date Time Temp Pulse Resp B/P (MAP) Pulse Ox O2 Delivery O2 Flow Rate FiO2 01/26/19 08:49 67 134/49 01/26/19 07:33 96 Nasal Cannula 3.0 01/26/19 07:00 98.0 18 98.0 Physical Exam General: Alert, Oriented X3, Cooperative, No acute distress Heart: Regular rate, Normal S1, Normal S2 Lungs: Wheezing Abdomen: Normal bowel sounds, Soft, No tenderness, No hepatosplenomegaly, No masses Extremities: Other (venous stasis dermatitis) Skin: Other (Great toe red with 2 ulcer on tip and DIP, and 3rd and 4th toe ulcers) Labs LABS Laboratory Tests Test 01/25/19 11:13 01/25/19 20:10 01/26/19 07:54 Glucose (Fingerstick) 188 mg/dL (70-99) 132 mg/dL (70-99) 134 mg/dL (70-99) Assessment and Plan Assessmemt and Plan Problems Medical Problems: (1) Left foot infection Status: Acute (2) Wound cellulitis Status: Acute Comment Review of Relevant I have reviewed the following items earnest (where applicable) has been applied. Labs Laboratory Tests Test 01/24/19 11:19 01/24/19 16:32 01/24/19 20:29 01/25/19 07:10 Glucose (Fingerstick) 202 mg/dL (70-99) 181 mg/dL (70-99) 156 mg/dL (70-99) White Blood Count 5.9 x10^3/uL (4.0-11.0) Red Blood Count 2.66 x10^6/uL (4.30-5.70) Hemoglobin 8.1 g/dL (13.0-17.5) Hematocrit 24.7 % (39.0-53.0) Mean Corpuscular Volume 93 fL (79-100) Mean Corpuscular Hemoglobin 31 pg (25-35) Mean Corpuscular Hemoglobin Concent 33 g/dL (31-37) Red Cell Distribution Width 14.5 % (11.5-14.5) Platelet Count 217 x10^3/uL (140-400) Neutrophils (%) (Auto) 64 % (31-73) Lymphocytes (%) (Auto) 9 % (24-48) Monocytes (%) (Auto) 12 % (0-9) Eosinophils (%) (Auto) 14 % (0-3) Basophils (%) (Auto) 1 % (0-3) Neutrophils # (Auto) 3.8 x10^3uL (1.8-7.7) Lymphocytes # (Auto) 0.5 x10^3/uL (1.0-4.8) Monocytes # (Auto) 0.7 x10^3/uL (0.0-1.1) Eosinophils # (Auto) 0.8 x10^3/uL (0.0-0.7) Basophils # (Auto) 0.1 x10^3/uL (0.0-0.2) Prothrombin Time 14.7 SEC (11.7-14.0) Prothromb Time International Ratio 1.2 (0.8-1.1) Sodium Level 142 mmol/L (136-145) Potassium Level 4.6 mmol/L (3.5-5.1) Chloride Level 105 mmol/L (98-107) Carbon Dioxide Level 29 mmol/L (21-32) Anion Gap 8 (6-14) Blood Urea Nitrogen 54 mg/dL (8-26) Creatinine 2.1 mg/dL (0.7-1.3) Estimated GFR (Cockcroft-Gault) 30.2 Glucose Level 136 mg/dL (70-99) Calcium Level 9.7 mg/dL (8.5-10.1) Test 01/25/19 07:32 01/25/19 11:13 01/25/19 20:10 01/26/19 07:54 Glucose (Fingerstick) 120 mg/dL (70-99) 188 mg/dL (70-99) 132 mg/dL (70-99) 134 mg/dL (70-99) Laboratory Tests Test 01/25/19 11:13 01/25/19 20:10 01/26/19 07:54 Glucose (Fingerstick) 188 mg/dL (70-99) 132 mg/dL (70-99) 134 mg/dL (70-99) Microbiology 01/23/19 Blood Culture - Preliminary, Resulted NO GROWTH AFTER 2 DAYS Medications Current Medications Vancomycin HCl (Vanco Per Pharmacy) 1 each 1X ONCE MC Last administered on 01/23/19at 23:33; Start 01/23/19 at 18:00; Stop 01/23/19 at 18:23; Status DC Vancomycin HCl 2 gm/Sodium Chloride 500 ml @ 250 mls/hr 1X ONCE IV Last administered on 01/23/19at 18:59; Start 01/23/19 at 19:00; Stop 01/23/19 at 20:59; Status DC Piperacillin Sod/ Tazobactam Sod 3.375 gm/Sodium Chloride 50 ml @ 100 mls/hr 1X ONCE IV ; Start 01/23/19 at 19:15; Stop 01/23/19 at 19:44; Status Cancel Ondansetron HCl (Zofran) 4 mg PRN Q8HRS PRN IV NAUSEA/VOMITING; Start 01/23/19 at 20:30; Stop 01/24/19 at 20:29; Status DC Fentanyl Citrate (Fentanyl 2ml Vial) 25 mcg PRN Q2HR PRN IV PAIN Last administered on 01/24/19at 09:15; Start 01/23/19 at 20:30; Stop 01/24/19 at 20:29; Status DC Acetaminophen (Tylenol) 650 mg PRN Q4HRS PRN PO FEVER; Start 01/23/19 at 20:30; Stop 01/24/19 at 20:29; Status DC Multivitamins (Thera M Plus) 1 tab DAILY PO Last administered on 01/25/19at 08:35; Start 01/24/19 at 11:00 Aspirin (Children'S Aspirin) 81 mg DAILY PO Last administered on 01/25/19at 08:32; Start 01/24/19 at 14:30 Cetirizine HCl (ZyrTEC) 10 mg HS PO Last administered on 01/25/19at 21:30; Start 01/24/19 at 21:00 Vitamin D (Vitamin D3) 1,000 unit DAILY PO Last administered on 01/25/19at 08:34; Start 01/24/19 at 14:30 Finasteride (Proscar) 5 mg DAILY PO Last administered on 01/25/19 08:32; Start 01/24/19 at 14:30 Insulin Glargine (Lantus) 14 units QHS SQ Last administered on 01/25/19 21:42; Start 01/24/19 at 21:00 Insulin Human Lispro (HumaLOG) 5 units TIDWMEALS SQ Last administered on 01/26/19 08:55; Start 01/24/19 at 17:00 Metoprolol Succinate (Toprol Xl) 12.5 mg DAILY PO Last administered on 01/26/19 08:49; Start 01/24/19 at 14:30 Simvastatin (Zocor) 10 mg QHS PO Last administered on 01/25/19 21:30; Start 01/24/19 at 21:00 Tamsulosin HCl (Flomax) 0.4 mg DAILY PO Last administered on 01/25/19 08:35; Start 01/24/19 at 14:30 Non-Formulary Medication (Budesonide/ Formoterol Fumarate (Symbicort 160-4.5 Mcg Inhaler)) 2 puff BID IH ; Start 01/24/19 at 21:00; Status UNV Citalopram Hydrobromide (CeleXA) 40 mg DAILY PO Last administered on 01/25/19 08:34; Start 01/24/19 at 14:30 Pantoprazole Sodium (Protonix) 40 mg DAILYAC PO Last administered on 01/25/19 07:06; Start 01/24/19 at 14:30 Non-Formulary Medication (Ipratropium/ Albuterol Sulfate (Combivent Respimat Inhal)) 2 inh QID IH ; Start 01/24/19 at 17:00; Status UNV Non-Formulary Medication (Linaclotide (Linzess)) 145 mcg DAILY07 PO ; Start 01/25/19 at 07:00; Stop 01/26/19 at 07:38; Status DC Non-Formulary Medication (Rivaroxaban (Xarelto)) 20 mg DAILY PO ; Start 01/25/19 at 09:00; Stop 01/25/19 at 09:00; Status DC Spironolactone (Aldactone) 12.5 mg DAILY PO Last administered on 01/25/19 08:35; Start 01/24/19 at 14:30 Insulin Human Lispro (HumaLOG) 0-5 UNITS TIDWMEALS SQ Last administered on 01/25/19at 16:53; Start 01/24/19 at 17:00 Dextrose (Dextrose 50%-Water Syringe) 12.5 gm PRN Q15MIN PRN IV SEE COMMENTS; Start 01/24/19 at 13:30 Budesonide (Pulmicort) 0.5 mg RTBID NEB Last administered on 01/26/19at 07:27; Start 01/24/19 at 20:00 Albuterol/ Ipratropium (Duoneb) 3 ml RTQID NEB Last administered on 01/26/19at 07:26; Start 01/24/19 at 16:00 Vancomycin HCl (Vanco Per Pharmacy) 1 each PRN DAILY PRN MC SEE COMMENTS; Start 01/24/19 at 14:30; Stop 01/24/19 at 14:47; Status DC Linezolid (Zyvox) 600 mg Q12HR PO Last administered on 01/25/19at 21:30; Start 01/24/19 at 15:00 Cefepime HCl (Maxipime) 2 gm Q12HR IVP Last administered on 01/26/19at 08:55; Start 01/24/19 at 15:00 Metronidazole 100 ml @ 100 mls/hr Q8HRS IV Last administered on 01/26/19at 06:00; Start 01/24/19 at 15:00 Nystatin (Nystop) 1 nawaf BID TP Last administered on 01/26/19at 09:00; Start 01/24/19 at 21:00 Lactobacillus Rhamnosus (Culturelle) 1 cap BID PO Last administered on 01/25/19at 21:30; Start 01/25/19 at 21:00 Sodium Chloride 1,000 ml @ 100 mls/hr Q10H IV Last administered on 01/26/19at 08:46; Start 01/25/19 at 22:30 Sodium Chloride 1,000 ml @ 100 mls/hr Q10H IV ; Start 01/26/19 at 11:30 Ondansetron HCl (Zofran) 4 mg PRN Q6HRS PRN IV NAUSEA/VOMITING; Start 01/26/19 at 07:00; Stop 01/27/19 at 06:59 Fentanyl Citrate (Fentanyl 2ml Vial) 25 mcg PRN Q5MIN PRN IV MILD PAIN 1-3; Start 01/26/19 at 07:00; Stop 01/27/19 at 06:59 Fentanyl Citrate (Fentanyl 2ml Vial) 50 mcg PRN Q5MIN PRN IV MODERATE TO SEVERE PAIN; Start 01/26/19 at 07:00; Stop 01/27/19 at 06:59 Morphine Sulfate (Morphine Sulfate) 1 mg PRN Q10MIN PRN IV SEVERE PAIN 7-10; Start 01/26/19 at 07:00; Stop 01/27/19 at 06:59 Ringer's Solution 1,000 ml @ 30 mls/hr Q24H IV ; Start 01/26/19 at 07:00; Stop 01/26/19 at 18:59 Lidocaine HCl (Xylocaine-Mpf 1% 2ml Vial) 2 ml PRN 1X PRN ID PRIOR TO IV START; Start 01/26/19 at 07:00; Stop 01/27/19 at 06:59 Hydromorphone HCl (Dilaudid) 0.5 mg PRN Q10MIN PRN IV SEV PAIN, Second choice; Start 01/26/19 at 07:00; Stop 01/27/19 at 06:59 Prochlorperazine Edisylate (Compazine) 5 mg PACU PRN PRN IV NAUSEA, MRX1; Start 01/26/19 at 07:00; Stop 01/27/19 at 06:59 Active Scripts Active Xarelto (Rivaroxaban) 20 Mg Tablet 20 Mg PO DAILYWSUP 30 Days please hold on Wednesday and WednesdayNovember 12 and . Reported Fiorinal 50-325-40 Mg Capsule (Butalbital/Aspirin/Caffeine) 1 Each Capsule 1 Each PO Q4HRS Combivent Respimat Inhal (Ipratropium/Albuterol Sulfate) 4 Gm Aer.w.adap 2 Inh IH QID Metoprolol Succinate ( Xl ) (Metoprolol Succinate) 25 Mg Tab.er.24h 0.5 Tab PO DAILY Cetirizine Hcl 10 Mg Tablet 1 Tab PO HS Aspirin 81 Mg Tab.chew 1 Tab PO DAILY Linzess (Linaclotide) 145 Mcg Capsule 145 Mcg PO DAILY07 Acetaminophen 325 Mg/10.15 Ml Solution 325 Mg PO Q4HRS Lantus Solostar (Insulin Glargine,Hum.rec.anlog) 100 Unit/1 Ml Insuln.pen 14 Unit SQ QHS Humalog (Insulin Lispro) 100 Unit/1 Ml Insuln.pen 5 Unit SQ AT LUNCH/DINNER Symbicort 160-4.5 Mcg Inhaler (Budesonide/Formoterol Fumarate) 10.2 Gm Hfa.aer.ad 2 Puff IH BID Flomax (Tamsulosin Hcl) 0.4 Mg Cap.er.24h 1 Cap PO DAILY Spironolactone 25 Mg Tablet 0.5 Tab PO DAILY Simvastatin 10 Mg Tablet 1 Tab PO QHS Xarelto (Rivaroxaban) 20 Mg Tablet 20 Mg PO DAILY Nexium Capsule (Esomeprazole Magnesium) 40 Mg Capsule.dr 1 Cap PO DAILY Finasteride 5 Mg Tablet 1 Tab PO DAILY Lexapro (Escitalopram Oxalate) 20 Mg Tablet 1 Tab PO DAILY Vitamin D (Cholecalciferol (Vitamin D3)) 1,000 Unit Tablet 1,000 Unit PO DAILY Probiotic (Lactobacillus Combo No.11) 1 Each Cap.sprink 1 Each PO DAILY Humalog (Insulin Lispro) 100 Unit/1 Ml Cartridge 6 Unit SQ BIDACLD Vibramycin (Doxycycline Hyclate) 100 Mg Capsule 1 Cap PO BID Losartan Potassium (Losartan Potassium) 25 Mg Tablet 25 Mg PO DAILY Metoprolol Succinate ( Xl ) (Metoprolol Succinate) 25 Mg Tab.er.24h 1 Tab PO DAILY Spironolactone 25 Mg Tablet 1 Tab PO DAILY Probiotic (Lactobacillus Acidophilus) 1 Each Capsule 1 Each PO DAILY Fiorinal-Cod [id number] Cap (Codeine/Butalbital/Asa/Caffein) 1 Each Capsule 1 Each PO PRN Q4-6HRS PRN Simvastatin 10 Mg Tablet 1 Tab PO HS Torsemide 20 Mg Tablet 10 Mg PO DAILY Escitalopram Oxalate 20 Mg Tablet 1 Tab PO DAILY Proscar (Finasteride) 5 Mg Tablet 1 Tab PO DAILYWSUP Lantus (Insulin Glargine,Hum.rec.anlog) 100 Unit/1 Ml Vial 14 Unit SQ HS Humalog (Insulin Lispro) 100 Unit/1 Ml Insuln.pen 8 Unit SQ DAILYWBKFT Vitamin D (Cholecalciferol (Vitamin D3)) 1,000 Unit Tablet 1,000 Unit PO BID Multivitamins (Multivitamin) 1 Each Tablet 1 Each PO DAILY Aspir 81 (Aspirin) 81 Mg Tablet.dr 81 Mg PO DAILY Combivent Respimat Inhal (Ipratropium/Albuterol Sulfate) 4 Gm Aer.w.adap 4 Gm IH BID Zanaflex (Tizanidine Hcl) 2 Mg Capsule 2 Mg PO HS Flomax (Tamsulosin Hcl) 0.4 Mg Cap.er.24h 0.4 Mg PO DAILYWSUP Vitals/I & O Vital Sign - Last 24 Hours 01/25/19 01/25/19 01/25/19 01/25/19 11:00 12:30 15:00 15:52 Temp 97.9 98.3 97.9 98.3 Pulse 82 80 Resp 18 18 B/P (MAP) 102/49 (66) 128/53 (78) Pulse Ox 98 99 O2 Delivery Nasal Cannula Nasal Cannula Nasal Cannula Nasal Cannula O2 Flow Rate 3.0 3.0 3.0 3.0 01/25/19 01/25/19 01/25/19 01/25/19 19:00 19:50 19:50 20:00 Temp 97.9 97.9 Pulse 78 Resp 18 B/P (MAP) 136/49 (78) Pulse Ox 100 98 98 O2 Delivery Nasal Cannula Nasal Cannula Nasal Cannula Nasal Cannula O2 Flow Rate 3.0 3.0 3.0 3.0 01/25/19 01/26/19 01/26/19 01/26/19 23:00 03:00 07:00 07:32 Temp 97.7 98.9 98.0 97.7 98.9 98.0 Pulse 81 77 67 Resp 16 18 18 B/P (MAP) 131/40 (70) 128/41 (70) 134/49 (77) Pulse Ox 97 94 96 96 O2 Delivery Nasal Cannula Nasal Cannula Nasal Cannula Nasal Cannula O2 Flow Rate 3.0 3.0 3.0 3.0 01/26/19 01/26/19 07:33 08:49 Pulse 67 B/P (MAP) 134/49 Pulse Ox 96 O2 Delivery Nasal Cannula O2 Flow Rate 3.0 Intake and Output 01/25/19 01/25/19 01/26/19 15:00 23:00 07:00 Intake Total 520 ml 150 ml 150 ml Output Total 900 ml 600 ml Balance 520 ml -750 ml -450 ml KARLA CERRATO MD January 26, 2019 09:18
[2019-01-26 09:32] LABS: BASO % 1 % (0-3); EOS # 0.9 x10^3/uL (0.0-0.7); EOS % 11 % (0-3); HEMATOCRIT 26.3 % (39.0-53.0); HEMOGLOBIN 8.7 g/dL (13.0-17.5); LYMPH % 12 % (24-48); MEAN CORPUSCULAR HEMOGLOBIN 31 pg (25-35); MEAN CORPUSCULAR HGB CONC 33 g/dL (31-37); MEAN CORPUSCULAR VOLUME 93 fL (79-100); MONO # 0.8 x10^3/uL (0.0-1.1); MONO % 9 % (0-9); NEUT # 5.9 x10^3uL (1.8-7.7); NEUT % 68 % (31-73); PLATELET COUNT 224 x10^3/uL (140-400); RED BLOOD COUNT 2.84 x10^6/uL (4.30-5.70); RED CELL DISTRIBUTION WIDTH 15.1 % (11.5-14.5); WHITE BLOOD COUNT 8.6 x10^3/uL (4.0-11.0)
[2019-01-26 09:35] LABS: CALCIUM 10.3 mg/dL (8.5-10.1); CREATININE 1.7 mg/dL (0.7-1.3); GFR 38.5
[2019-01-26] MEDS: LINEZOLID 600 MG TABLET PO SCH ×2 (09:54→21:41)
[2019-01-26 11:00] VITALS: BP 120/52
--- NOTE | 2019-01-26 11:23 | PDOC ---
Infectious Disease Note Subjective Subjective Doing ok. Disappointed procedure has been cancelled No F/C/S/N/V/d/SOA/Rash ROS ROS o/w neg Vital Sign Vital Signs Vital Signs Date Time Temp Pulse Resp B/P (MAP) Pulse Ox O2 Delivery O2 Flow Rate FiO2 01/26/19 11:00 98.4 86 18 120/52 (74) 93 Nasal Cannula 3.0 98.4 Physical Exam PHYSICAL EXAM CONSTITUTIONAL: He is a pleasant gentleman. He is cooperative. He is in no acute distress. He is sitting upright in bed. HEENT: His pupils are equal and reactive. Oral cavity, pharynx is clear. NECK: Without JVD. LUNGS: Decreased in the bases. HEART: S1 and S2 with a 1-2/6 murmur. ABDOMEN: Obese, soft and nontender. No guarding or rebound. EXTREMITIES: Without clubbing. He has chronic venous stasis changes. Wound is dressed NEUROLOGICAL: He is alert, answers questions appropriately and moves all extremities. Affect is appropriate Labs Lab Laboratory Tests Test 01/25/19 20:10 01/26/19 07:54 01/26/19 08:02 Glucose (Fingerstick) 132 mg/dL (70-99) 134 mg/dL (70-99) White Blood Count 8.6 x10^3/uL (4.0-11.0) Red Blood Count 2.84 x10^6/uL (4.30-5.70) Hemoglobin 8.7 g/dL (13.0-17.5) Hematocrit 26.3 % (39.0-53.0) Mean Corpuscular Volume 93 fL (79-100) Mean Corpuscular Hemoglobin 31 pg (25-35) Mean Corpuscular Hemoglobin Concent 33 g/dL (31-37) Red Cell Distribution Width 15.1 % (11.5-14.5) Platelet Count 224 x10^3/uL (140-400) Neutrophils (%) (Auto) 68 % (31-73) Lymphocytes (%) (Auto) 12 % (24-48) Monocytes (%) (Auto) 9 % (0-9) Eosinophils (%) (Auto) 11 % (0-3) Basophils (%) (Auto) 1 % (0-3) Neutrophils # (Auto) 5.9 x10^3uL (1.8-7.7) Lymphocytes # (Auto) 1.0 x10^3/uL (1.0-4.8) Monocytes # (Auto) 0.8 x10^3/uL (0.0-1.1) Eosinophils # (Auto) 0.9 x10^3/uL (0.0-0.7) Basophils # (Auto) 0.0 x10^3/uL (0.0-0.2) Sodium Level 142 mmol/L (136-145) Potassium Level 5.0 mmol/L (3.5-5.1) Chloride Level 106 mmol/L (98-107) Carbon Dioxide Level 26 mmol/L (21-32) Anion Gap 10 (6-14) Blood Urea Nitrogen 58 mg/dL (8-26) Creatinine 1.7 mg/dL (0.7-1.3) Estimated GFR (Cockcroft-Gault) 38.5 Glucose Level 143 mg/dL (70-99) Calcium Level 10.3 mg/dL (8.5-10.1) Micro IMPRESSION: Degenerative changes are seen involving the left foot as discussed above. No acute osseous abnormality is seen. Microbiology 01/23/19 Blood Culture - Preliminary, Resulted NO GROWTH AFTER 1 DAY Objective Assessment L Great toe ? Osteomyelitis - treated with 6 weeks from [facility] of IV and finished in Oct L great toe wound with purulence PCN allergy - tolerated Cephalosporins PAD LYNDSEY L 4 th toe dry ulcer Eosinophilia Plan Plan of Care Given LYNDSEY added Zyvox Cont Cefepime and Flagyl will f/u cult wound pus from 01/25 F/u labs Await Aortogram D/w nursing. D/w TRACY MACHUCA MD January 26, 2019 11:23
[2019-01-26] MEDS ORDERED: IV NORMAL SALINE 1000ML BAG 1,000 ML IV SCH ×2 (11:30→19:30)
--- NOTE | 2019-01-26 12:00 | NUR ---
SW following for discharge planning. Discussed with RN, pt's angiogram today has been postponed. Pt on PO zyvox. SW will continue to follow for any discharge planning needs.
--- NOTE | 2019-01-26 14:25 | PDOC ---
SUBJECTIVE ROS Stable, No concerns voiced by Pt or OBJECTIVE Vital Signs Vital Signs Date Time Temp Pulse Resp B/P (MAP) Pulse Ox O2 Delivery O2 Flow Rate FiO2 01/26/19 11:39 Nasal Cannula 3.0 01/26/19 11:00 98.4 86 18 120/52 (74) 93 98.4 I & 0 Intake and Output 01/26/19 07:00 Intake Total 820 ml Output Total 1500 ml Balance -680 ml Intake Oral 820 ml Output Urine Total 1500 ml # Voids 6 # Bowel Movements 1 PHYSICAL EXAM Physical Exam General: No acute distress HEENT: Atraumatic, PERRLA, EOMI, Mucous membr. moist/pink Neck Supple Lungs: CTA, Non labored Heart: S1S2, RRR, ABDIAS 2/6 Abdomen: Normal bowel sounds, Soft, No tenderness Extremities: venous stasis dermatitis Skin: Great toe red with 2 ulcer on tip and DIP, and 3rd and 4th toe ulcers Neuro: Alert, Oriented X3,grossly normal : No Gama Psych/Mental Status: Mental status NL, Mood NL DIAGNOSIS/ASSESSMENT Assessment & Plan LYNDSEY- Cr peaked to 2.4, down to 1.7 UA unremarkable Monitor strict I/O CKD stage 3- Baseline Creat was 1.4-1.7 in 2018 Since Oct 2018- Creat 2.2 as per [facility] records Left lower extremity peripheral arterial disease with nonhealing ulcer on the left first toe and fourth toe-severe occlusive tibial disease. Vascular planning angiogram with left leg tibial intervention with low volume of contrast and CO2 I V hydration with NS 1ml/kg /hr 12 hrs pre and continue for 12 hrs post procedure, if stable cardiac status Hold Aldactone ,Increased risk of SHELBIE Diabetes mellitus Hypertension, controlled. CLL - no meds for this Anemia of chronic disease - likely from CLL Chronic systolic CHF - stable currently on meds Aortic stenosis (s/p TAVR @ [facility] in 2013) COPD - will treat with nebs. Sees Dr. Ramírez outpatient [facility] with CPAP - cont in house Benign prostatic hyperplasia - cont meds Discussed Renal Function, Risk of SHELBIE with patient Discussed with RN COMMENT/RELEVANT DATA Meds Current Medications Medications (Trade) Dose Ordered Sig/Robert Start Time Stop Time Status Last Admin Dose Admin Acetaminophen (Tylenol) 650 mg PRN Q4HRS PRN 01/23/19 20:30 01/24/19 20:29 DC Albuterol/ Ipratropium (Duoneb) 3 ml RTQID 01/24/19 16:00 01/26/19 11:36 3 ML Aspirin (Children'S Aspirin) 81 mg DAILY 01/24/19 14:30 01/25/19 08:32 81 MG Budesonide (Pulmicort) 0.5 mg RTBID 01/24/19 20:00 01/26/19 07:27 0.5 MG Cefepime HCl (Maxipime) 2 gm Q12HR 01/24/19 15:00 01/26/19 08:55 2 GM Cetirizine HCl (ZyrTEC) 10 mg HS 01/24/19 21:00 01/25/19 21:30 10 MG Citalopram Hydrobromide (CeleXA) 40 mg DAILY 01/24/19 14:30 01/25/19 08:34 40 MG Dextrose (Dextrose 50%-Water Syringe) 12.5 gm PRN Q15MIN PRN 01/24/19 13:30 Fentanyl Citrate (Fentanyl 2ml Vial) 50 mcg PRN Q5MIN PRN 01/26/19 07:00 01/27/19 06:59 Finasteride (Proscar) 5 mg DAILY 01/24/19 14:30 01/25/19 08:32 5 MG Hydromorphone HCl (Dilaudid) 0.5 mg PRN Q10MIN PRN 01/26/19 07:00 01/27/19 06:59 Insulin Glargine (Lantus) 14 units QHS 01/24/19 21:00 01/25/19 21:42 14 UNITS Insulin Human Lispro (HumaLOG) 0-5 UNITS TIDWMEALS 01/24/19 17:00 01/26/19 12:41 2 UNITS Lactobacillus Rhamnosus (Culturelle) 1 cap BID 01/25/19 21:00 01/25/19 21:30 1 CAP Lidocaine HCl (Xylocaine-Mpf 1% 2ml Vial) 2 ml PRN 1X PRN 01/26/19 07:00 01/27/19 06:59 Linezolid (Zyvox) 600 mg Q12HR 01/24/19 15:00 01/26/19 09:54 600 MG Metoprolol Succinate (Toprol Xl) 12.5 mg DAILY 01/24/19 14:30 01/26/19 08:49 12.5 MG Metronidazole 100 ml @ 100 mls/hr Q8HRS 01/24/19 15:00 01/26/19 14:05 100 MLS/HR Morphine Sulfate (Morphine Sulfate) 1 mg PRN Q10MIN PRN 01/26/19 07:00 01/27/19 06:59 Multivitamins (Thera M Plus) 1 tab DAILY 01/24/19 11:00 01/25/19 08:35 1 TAB Non-Formulary Medication (Budesonide/ Formoterol Fumarate (Symbicort 160-4.5 Mcg Inhaler)) 2 puff BID 01/24/19 21:00 UNV Non-Formulary Medication (Ipratropium/ Albuterol Sulfate (Combivent Respimat Inhal)) 2 inh QID 01/24/19 17:00 UNV Non-Formulary Medication (Linaclotide (Linzess)) 145 mcg DAILY07 01/25/19 07:00 01/26/19 07:38 DC Non-Formulary Medication (Rivaroxaban (Xarelto)) 20 mg DAILY 01/25/19 09:00 01/25/19 09:00 DC Nystatin (Nystop) 1 nawaf BID 01/24/19 21:00 01/26/19 09:00 1 NAWAF Ondansetron HCl (Zofran) 4 mg PRN Q6HRS PRN 01/26/19 07:00 01/27/19 06:59 Pantoprazole Sodium (Protonix) 40 mg DAILYAC 01/24/19 14:30 01/25/19 07:06 40 MG Piperacillin Sod/ Tazobactam Sod 3.375 gm/Sodium Chloride 50 ml @ 100 mls/hr 1X ONCE 01/23/19 19:15 01/23/19 19:44 Cancel Prochlorperazine Edisylate (Compazine) 5 mg PACU PRN PRN 01/26/19 07:00 01/27/19 06:59 Ringer's Solution 1,000 ml @ 30 mls/hr Q24H 01/26/19 07:00 01/26/19 18:59 Simvastatin (Zocor) 10 mg QHS 01/24/19 21:00 01/25/19 21:30 10 MG Sodium Chloride 1,000 ml @ 100 mls/hr Q10H 01/26/19 11:30 01/26/19 11:54 DC Spironolactone (Aldactone) 12.5 mg DAILY 01/24/19 14:30 01/25/19 08:35 12.5 MG Tamsulosin HCl (Flomax) 0.4 mg DAILY 01/24/19 14:30 01/25/19 08:35 0.4 MG Vancomycin HCl (Vanco Per Pharmacy) 1 each PRN DAILY PRN 01/24/19 14:30 01/24/19 14:47 DC Vancomycin HCl 2 gm/Sodium Chloride 500 ml @ 250 mls/hr 1X ONCE 01/23/19 19:00 01/23/19 20:59 DC 01/23/19 18:59 250 MLS/HR Vitamin D (Vitamin D3) 1,000 unit DAILY 01/24/19 14:30 01/25/19 08:34 1,000 UNIT Lab Laboratory Tests Test 01/25/19 20:10 01/26/19 07:54 01/26/19 08:02 01/26/19 11:53 Glucose (Fingerstick) 132 mg/dL (70-99) 134 mg/dL (70-99) 157 mg/dL (70-99) White Blood Count 8.6 x10^3/uL (4.0-11.0) Red Blood Count 2.84 x10^6/uL (4.30-5.70) Hemoglobin 8.7 g/dL (13.0-17.5) Hematocrit 26.3 % (39.0-53.0) Mean Corpuscular Volume 93 fL (79-100) Mean Corpuscular Hemoglobin 31 pg (25-35) Mean Corpuscular Hemoglobin Concent 33 g/dL (31-37) Red Cell Distribution Width 15.1 % (11.5-14.5) Platelet Count 224 x10^3/uL (140-400) Neutrophils (%) (Auto) 68 % (31-73) Lymphocytes (%) (Auto) 12 % (24-48) Monocytes (%) (Auto) 9 % (0-9) Eosinophils (%) (Auto) 11 % (0-3) Basophils (%) (Auto) 1 % (0-3) Neutrophils # (Auto) 5.9 x10^3uL (1.8-7.7) Lymphocytes # (Auto) 1.0 x10^3/uL (1.0-4.8) Monocytes # (Auto) 0.8 x10^3/uL (0.0-1.1) Eosinophils # (Auto) 0.9 x10^3/uL (0.0-0.7) Basophils # (Auto) 0.0 x10^3/uL (0.0-0.2) Sodium Level 142 mmol/L (136-145) Potassium Level 5.0 mmol/L (3.5-5.1) Chloride Level 106 mmol/L (98-107) Carbon Dioxide Level 26 mmol/L (21-32) Anion Gap 10 (6-14) Blood Urea Nitrogen 58 mg/dL (8-26) Creatinine 1.7 mg/dL (0.7-1.3) Estimated GFR (Cockcroft-Gault) 38.5 Glucose Level 143 mg/dL (70-99) Calcium Level 10.3 mg/dL (8.5-10.1) Results All relevant outside records, renal labs, imaging studies, telemetry/EKG's were reviewed. ELLA DOLAN MD January 26, 2019 14:25
[2019-01-26 15:00] VITALS: BP 124/43
--- NOTE | 2019-01-26 15:37 | PDOC ---
Provider Note Provider Note Vascular S: Patient seen and examined in room. No complaints. O: Awake and alert Left first toe unchanged, small dry ulcer toe tip, erythema and swelling in leg. Scaly skin with discoloration in fritz and calf. Assessment: 1. Left lower extremity peripheral arterial disease with nonhealing ulcer on the left first toe and fourth toe. 2. Diabetes mellitus. 3. Chronic renal insufficiency. PLAN: The patient has known peripheral arterial disease in the left lower extremity, mainly severe occlusive tibial disease. He had a recent angiogram with Dr. Schumacher; however, intervention could not be performed because the patient would not lie still on the table. Angiogram with left leg tibial intervention by Dr. Schumacher postponed to 01/27/2019 at 7:30 ID has been consulted, history osteomyelitis Nephrology consulted, they recommend IV hydration, discussed with RN Continue local wound care ALEKSANDAR PEREZ APRN January 26, 2019 15:37
[2019-01-26 19:25] VITALS: BP 115/48
[2019-01-26] MEDS: CETIRIZINE HCL 10 MG TABLET. PO SCH (21:41)
[2019-01-26] MEDS: SIMVASTATIN 10 MG TABLET PO SCH (21:42)
[2019-01-26] MEDS: INSULIN GLARGINE 300 UNITS/3 ML INSULN.PEN. SQ SCH (21:52)
[2019-01-26 23:28] VITALS: BP 118/52
[2019-01-27] VITALS (12 sets, daily range): BP systolic 102–165; BP diastolic 41–68
[2019-01-27] MEDS ORDERED: PROPOFOL 100 ML IV ONE (06:19)
[2019-01-27] MEDS ORDERED: IODIXANOL 320 MG/ML 100 ML VIAL. ONE ×2 (06:46→06:51)
[2019-01-27] MEDS ORDERED: HEPARIN for ARTERIAL LINE 0 ML ONE (06:46)
[2019-01-27] MEDS ORDERED: LIDOCAINE 1% Multi-Dose 20 ML VIAL. ONE ×2 (06:46→06:51)
[2019-01-27] MEDS ORDERED: HEPARIN for ARTERIAL LINE 1,500 ML ONE (06:51)
[2019-01-27] MEDS ORDERED: PHENYLEPHRINE in 0.9% NACL PF 1 MG/10 ML SYRINGE. IV ONE (07:00)
[2019-01-27] MEDS ORDERED: IV RINGERS,LACTATED 1000ML 1,000 ML IV SCH (07:00)
[2019-01-27] MEDS ORDERED: MORPHINE SULFATE 2 MG/ML VIAL. IV PRN (07:00)
[2019-01-27] MEDS ORDERED: ePHEDrine PF IN SALINE 50 MG/10 ML SYRINGE. IV ONE (07:00)
[2019-01-27] MEDS ORDERED: HYDROmorphone 2 MG/ML VIAL IV PRN (07:00)
[2019-01-27] MEDS ORDERED: PROCHLORPERAZINE 10 MG/2 ML VIAL. IV PRN (07:00)
[2019-01-27] MEDS ORDERED: PROPOFOL 10 MG/ML (20ML) VIAL. IV ONE (07:00)
[2019-01-27] MEDS: IPRATRPIUM/ALBUTEROL 0.5/2.5MG 3 ML NEBU. NEB SCH ×4 (07:11→19:32)
[2019-01-27] MEDS: BUDESONIDE 0.5 MG/2 ML NEBU. NEB SCH ×2 (07:11→19:32)
[2019-01-27] MEDS ORDERED: KETAMINE HCL IN NACL, ISO-OSM 50 MG/5 ML SYRINGE ONE ×2 (07:18→09:29)
[2019-01-27] MEDS ORDERED: MIDAZOLAM HCL/PF 2 MG/2 ML VIAL. ONE (07:18)
[2019-01-27] MEDS ORDERED: PROPOFOL 20 ML IV ONE ×2 (07:20→09:29)
[2019-01-27] MEDS: INSULIN LISPRO 300 UNITS/3 ML INSULN.PEN. SQ SCH ×6 (08:00→17:23)
[2019-01-27] MEDS ORDERED: fentaNYL PF VIAL 100 MCG/2 ML VIAL ONE (08:00)
[2019-01-27] MEDS ORDERED: HEPARIN for IV BOLUS 10,000 UNIT/10 ML VIAL. ONE ×2 (08:07→08:23)
[2019-01-27] MEDS ORDERED: VERAPAMIL 5 MG/2 ML VIAL. ONE (08:23)
[2019-01-27] MEDS ORDERED: NITROGLYCERIN 200 MCG/2 ML SYRINGE FOR CATH/VASC LAB. ONE (08:23)
--- NOTE | 2019-01-27 08:28 | PDOC ---
PROGRESS NOTES Chief Complaint Chief Complaint A/P: Left great toe cellulitis - will consult ID, given vancomycin, however has CKD Multiple toe ulcers - likely vascular, Dr. Schumacher to consult PAD LLE - Dr. Schumacher noted he may undergo angiography under general anesthesia. decreased arterial sonogram hence was advised the runoff procedure today Coronary artery disease, 2 stents prior - cont meds Afib - s/p DCCV on NOAC, changed from eliquis to xarelto recently Hypertension, controlled. History of osteomyelitis, left big toe - Xray does not confirm currently, however, not the best modality CLL - no meds for this Anemia of chronic disease - likely from CLL DM2 - basal bolus plus regimen in house Chronic systolic CHF - stable currently on meds Peripheral neuropathy - 2/2 DM, will monitor Aortic stenosis (s/p TAVR @ [facility] in 2013) COPD - will treat with nebs. Sees Dr. Ramírez outpatient [facility] with CPAP - cont in house Migraines - prn tylenol Depression - cont meds LYNDSEY on CKD - likely vasomotor from his infection, improved over the past 24 hours - will consult nephrology, likely he will need contrast dye in the next few days Benign prostatic hyperplasia - cont meds Chronic stasis dermatitis - bilateral, stable FEN - ADA diet PPX - Heparin DNR/DNI Inpatient for left great toe cellulitis in a complicated patient, likely at least 2 midnights inpatient History of Present Illness History of Present Illness Mr Price is an 83yo M w/ PMHx CLL, PAD, DM2, chronic systolic CHF, peripheral neuropathy, AFIB (with DCCV prior, on NOAC), HTN, Hyperlipidemia, Aortic stenosis (s/p TAVR @ [facility] in 2013), Other (cardiomyopathy), COPD, [facility]WIN with CPAP, migraines, Depression, Chronic renal insufficiency, Benign prostatic hyperplasia, chronic stasis dermatitis bilateral lower extremities who presents from his survival specialist for concerns of osteomyelitis of left great toe. Seen in [place] in August on 6 weeks IV antibiotics in SNF, then home where his has been caring for him. She reports patient had been doing good and then a few weeks ago he stubbed his left great toe and since has had increased redness and swelling along with worsening wound on his great toe. Patient also has 2 small scabbed wounds on his third and fourth toe on his left foot. He was seen previously by vascular surgery by Dr. Schumacher for arterial insufficiency, was planning further treatment outpatient for LLE PAD. In ED was given empiric vancomycin and admitted for further care. Seen by vascular surgery, ID, and nephrology. He is feeling slightly improved since last night. Good UOP. Pain in foot. Cr down to 1.7 yesterday, did have plan to go for LLE arterial runoff study with vascular surgery today which was delayed. Wound much less red today. Vitals Vitals Vital Signs Date Time Temp Pulse Resp B/P (MAP) Pulse Ox O2 Delivery O2 Flow Rate FiO2 01/27/19 07:11 99 Nasal Cannula 3.0 01/27/19 07:00 01/27/19 03:15 97.8 69 20 97.8 Physical Exam Physical Exam CONSTITUTIONAL: He is a pleasant gentleman. He is cooperative. He is in no acute distress. He is sitting upright in bed. HEENT: His pupils are equal and reactive. Oral cavity, pharynx is clear. NECK: Without JVD. LUNGS: Decreased in the bases. HEART: S1 and S2 with a 1-2/6 murmur. ABDOMEN: Obese, soft and nontender. No guarding or rebound. EXTREMITIES: Without clubbing. He has chronic venous stasis changes. Wound is dressed NEUROLOGICAL: He is alert, answers questions appropriately and moves all extremities. Affect is appropriate General: Alert, Oriented X3, Cooperative, No acute distress Heart: Regular rate, Normal S1, Normal S2 Lungs: Wheezing Abdomen: Normal bowel sounds, Soft, No tenderness, No hepatosplenomegaly, No masses Extremities: Other (venous stasis dermatitis) Skin: Other (Great toe red with 2 ulcer on tip and DIP, and 3rd and 4th toe ulcers) Labs LABS Laboratory Tests Test 01/26/19 11:53 01/26/19 16:44 01/26/19 21:26 01/27/19 07:16 Glucose (Fingerstick) 157 mg/dL (70-99) 97 mg/dL (70-99) 125 mg/dL (70-99) 100 mg/dL (70-99) Assessment and Plan Assessmemt and Plan Problems Medical Problems: (1) Left foot infection Status: Acute (2) Wound cellulitis Status: Acute Comment Review of Relevant I have reviewed the following items earnest (where applicable) has been applied. Labs Laboratory Tests Test 01/25/19 11:13 01/25/19 16:39 01/25/19 20:10 01/26/19 07:54 Glucose (Fingerstick) 188 mg/dL (70-99) 167 mg/dL (70-99) 132 mg/dL (70-99) 134 mg/dL (70-99) Test 01/26/19 08:02 01/26/19 11:53 01/26/19 16:44 01/26/19 21:26 White Blood Count 8.6 x10^3/uL (4.0-11.0) Red Blood Count 2.84 x10^6/uL (4.30-5.70) Hemoglobin 8.7 g/dL (13.0-17.5) Hematocrit 26.3 % (39.0-53.0) Mean Corpuscular Volume 93 fL (79-100) Mean Corpuscular Hemoglobin 31 pg (25-35) Mean Corpuscular Hemoglobin Concent 33 g/dL (31-37) Red Cell Distribution Width 15.1 % (11.5-14.5) Platelet Count 224 x10^3/uL (140-400) Neutrophils (%) (Auto) 68 % (31-73) Lymphocytes (%) (Auto) 12 % (24-48) Monocytes (%) (Auto) 9 % (0-9) Eosinophils (%) (Auto) 11 % (0-3) Basophils (%) (Auto) 1 % (0-3) Neutrophils # (Auto) 5.9 x10^3uL (1.8-7.7) Lymphocytes # (Auto) 1.0 x10^3/uL (1.0-4.8) Monocytes # (Auto) 0.8 x10^3/uL (0.0-1.1) Eosinophils # (Auto) 0.9 x10^3/uL (0.0-0.7) Basophils # (Auto) 0.0 x10^3/uL (0.0-0.2) Sodium Level 142 mmol/L (136-145) Potassium Level 5.0 mmol/L (3.5-5.1) Chloride Level 106 mmol/L (98-107) Carbon Dioxide Level 26 mmol/L (21-32) Anion Gap 10 (6-14) Blood Urea Nitrogen 58 mg/dL (8-26) Creatinine 1.7 mg/dL (0.7-1.3) Estimated GFR (Cockcroft-Gault) 38.5 Glucose Level 143 mg/dL (70-99) Calcium Level 10.3 mg/dL (8.5-10.1) Glucose (Fingerstick) 157 mg/dL (70-99) 97 mg/dL (70-99) 125 mg/dL (70-99) Test 01/27/19 07:16 Glucose (Fingerstick) 100 mg/dL (70-99) Laboratory Tests Test 01/26/19 11:53 01/26/19 16:44 01/26/19 21:26 01/27/19 07:16 Glucose (Fingerstick) 157 mg/dL (70-99) 97 mg/dL (70-99) 125 mg/dL (70-99) 100 mg/dL (70-99) Microbiology 01/23/19 Blood Culture - Preliminary, Resulted NO GROWTH AFTER 3 DAYS 01/25/19 Anaerobic/Aerobic Culture, Resulted Pending 01/25/19 Anaerobic Culture Result 1 (NEIL), Resulted Pending 01/25/19 Aerobic Culture, Resulted Pending 01/25/19 Aerobic Culture Result 1 (NEIL), Resulted Pending 01/25/19 Gram Stain - Final, Resulted 01/25/19 Gram Stain Result 1 (NEIL) - Final, Resulted 01/25/19 Gram Stain Result 2 (NEIL) - Final, Resulted Medications Current Medications Vancomycin HCl (Vanco Per Pharmacy) 1 each 1X ONCE MC Last administered on 01/23/19at 23:33; Start 01/23/19 at 18:00; Stop 01/23/19 at 18:23; Status DC Vancomycin HCl 2 gm/Sodium Chloride 500 ml @ 250 mls/hr 1X ONCE IV Last administered on 01/23/19at 18:59; Start 01/23/19 at 19:00; Stop 01/23/19 at 20:59; Status DC Piperacillin Sod/ Tazobactam Sod 3.375 gm/Sodium Chloride 50 ml @ 100 mls/hr 1X ONCE IV ; Start 01/23/19 at 19:15; Stop 01/23/19 at 19:44; Status Cancel Ondansetron HCl (Zofran) 4 mg PRN Q8HRS PRN IV NAUSEA/VOMITING; Start 01/23/19 at 20:30; Stop 01/24/19 at 20:29; Status DC Fentanyl Citrate (Fentanyl 2ml Vial) 25 mcg PRN Q2HR PRN IV PAIN Last administered on 01/24/19 09:15; Start 01/23/19 at 20:30; Stop 01/24/19 at 20:29; Status DC Acetaminophen (Tylenol) 650 mg PRN Q4HRS PRN PO FEVER; Start 01/23/19 at 20:30; Stop 01/24/19 at 20:29; Status DC Multivitamins (Thera M Plus) 1 tab DAILY PO Last administered on 01/25/19 08:35; Start 01/24/19 at 11:00 Aspirin (Children'S Aspirin) 81 mg DAILY PO Last administered on 01/25/19 08:32; Start 01/24/19 at 14:30 Cetirizine HCl (ZyrTEC) 10 mg HS PO Last administered on 01/26/19 21:41; Start 01/24/19 at 21:00 Vitamin D (Vitamin D3) 1,000 unit DAILY PO Last administered on 01/25/19 08:34; Start 01/24/19 at 14:30 Finasteride (Proscar) 5 mg DAILY PO Last administered on 01/25/19 08:32; S tart 01/24/19 at 14:30 Insulin Glargine (Lantus) 14 units QHS SQ Last administered on 01/26/19 21:52; Start 01/24/19 at 21:00 Insulin Human Lispro (HumaLOG) 5 units TIDWMEALS SQ Last administered on 01/26/19 17:05; Start 01/24/19 at 17:00 Metoprolol Succinate (Toprol Xl) 12.5 mg DAILY PO Last administered on 01/26/19 08:49; Start 01/24/19 at 14:30 Simvastatin (Zocor) 10 mg QHS PO Last administered on 01/26/19 21:42; Start 01/24/19 at 21:00 Tamsulosin HCl (Flomax) 0.4 mg DAILY PO Last administered on 01/25/19 08:35; Start 01/24/19 at 14:30 Non-Formulary Medication (Budesonide/ Formoterol Fumarate (Symbicort 160-4.5 Mcg Inhaler)) 2 puff BID IH ; Start 01/24/19 at 21:00; Status UNV Citalopram Hydrobromide (CeleXA) 40 mg DAILY PO Last administered on 01/25/19at 08:34; Start 01/24/19 at 14:30 Pantoprazole Sodium (Protonix) 40 mg DAILYAC PO Last administered on 01/25/19at 07:06; Start 01/24/19 at 14:30 Non-Formulary Medication (Ipratropium/ Albuterol Sulfate (Combivent Respimat Inhal)) 2 inh QID IH ; Start 01/24/19 at 17:00; Status UNV Non-Formulary Medication (Linaclotide (Linzess)) 145 mcg DAILY07 PO ; Start 01/25/19 at 07:00; Stop 01/26/19 at 07:38; Status DC Non-Formulary Medication (Rivaroxaban (Xarelto)) 20 mg DAILY PO ; Start 01/25/19 at 09:00; Stop 01/25/19 at 09:00; Status DC Spironolactone (Aldactone) 12.5 mg DAILY PO Last administered on 01/25/19at 08:35; Start 01/24/19 at 14:30 Insulin Human Lispro (HumaLOG) 0-5 UNITS TIDWMEALS SQ Last administered on 01/26/19at 12:41; Start 01/24/19 at 17:00 Dextrose (Dextrose 50%-Water Syringe) 12.5 gm PRN Q15MIN PRN IV SEE COMMENTS; Start 01/24/19 at 13:30 Budesonide (Pulmicort) 0.5 mg RTBID NEB Last administered on 01/27/19at 07:11; Start 01/24/19 at 20:00 Albuterol/ Ipratropium (Duoneb) 3 ml RTQID NEB Last administered on 01/27/19at 07:11; Start 01/24/19 at 16:00 Vancomycin HCl (Vanco Per Pharmacy) 1 each PRN DAILY PRN MC SEE COMMENTS; Start 01/24/19 at 14:30; Stop 01/24/19 at 14:47; Status DC Linezolid (Zyvox) 600 mg Q12HR PO Last administered on 01/26/19at 21:41; Start 01/24/19 at 15:00 Cefepime HCl (Maxipime) 2 gm Q12HR IVP Last administered on 01/26/19at 21:43; Start 01/24/19 at 15:00 Metronidazole 100 ml @ 100 mls/hr Q8HRS IV Last administered on 01/27/19at 05:48; Start 01/24/19 at 15:00 Nystatin (Nystop) 1 nawaf BID TP Last administered on 01/26/19at 21:42; Start 01/24/19 at 21:00 Lactobacillus Rhamnosus (Culturelle) 1 cap BID PO Last administered on 01/26/19at 21:41; Start 01/25/19 at 21:00 Sodium Chloride 1,000 ml @ 100 mls/hr Q10H IV Last administered on 01/26/19at 08:46; Start 01/25/19 at 22:30; Stop 01/26/19 at 15:41; Status DC Sodium Chloride 1,000 ml @ 100 mls/hr Q10H IV ; Start 01/26/19 at 11:30; Stop 01/26/19 at 11:54; Status DC Ondansetron HCl (Zofran) 4 mg PRN Q6HRS PRN IV NAUSEA/VOMITING; Start 01/26/19 at 07:00; Stop 01/26/19 at 14:29; Status DC Fentanyl Citrate (Fentanyl 2ml Vial) 25 mcg PRN Q5MIN PRN IV MILD PAIN 1-3; Start 01/26/19 at 07:00; Stop 01/26/19 at 14:25; Status DC Fentanyl Citrate (Fentanyl 2ml Vial) 50 mcg PRN Q5MIN PRN IV MODERATE TO SEVERE PAIN; Start 01/26/19 at 07:00; Stop 01/26/19 at 14:26; Status DC Morphine Sulfate (Morphine Sulfate) 1 mg PRN Q10MIN PRN IV SEVERE PAIN 7-10; Start 01/26/19 at 07:00; Stop 01/26/19 at 14:29; Status DC Ringer's Solution 1,000 ml @ 30 mls/hr Q24H IV ; Start 01/26/19 at 07:00; Stop 01/26/19 at 14:27; Status DC Lidocaine HCl (Xylocaine-Mpf 1% 2ml Vial) 2 ml PRN 1X PRN ID PRIOR TO IV START; Start 01/26/19 at 07:00; Stop 01/27/19 at 06:59; Status Cancel Hydromorphone HCl (Dilaudid) 0.5 mg PRN Q10MIN PRN IV SEV PAIN, Second choice; Start 01/26/19 at 07:00; Stop 01/27/19 at 06:59; Status Cancel Prochlorperazine Edisylate (Compazine) 5 mg PACU PRN PRN IV NAUSEA, MRX1; Start 01/26/19 at 07:00; Stop 01/27/19 at 06:59; Status Cancel Morphine Sulfate (Morphine Sulfate) 1 mg PRN Q10MIN PRN IV SEVERE PAIN 7-10; Start 01/27/19 at 07:00; Stop 01/28/19 at 06:59 Ringer's Solution 1,000 ml @ 30 mls/hr Q24H IV ; Start 01/27/19 at 07:00; Stop 01/27/19 at 18:59 Hydromorphone HCl (Dilaudid) 0.5 mg PRN Q10MIN PRN IV SEV PAIN, Second choice; Start 01/27/19 at 07:00; Stop 01/27/19 at 21:00 Prochlorperazine Edisylate (Compazine) 5 mg PACU PRN PRN IV NAUSEA, MRX1; Start 01/27/19 at 07:00; Stop 01/27/19 at 21:00 Fentanyl Citrate (Fentanyl 2ml Vial) 25 mcg PRN Q5MIN PRN IV MILD PAIN 1-3; Start 01/26/19 at 14:30; Stop 01/26/19 at 14:30; Status DC Fentanyl Citrate (Fentanyl 2ml Vial) 50 mcg PRN Q5MIN PRN IV MODERATE TO SEVERE PAIN; Start 01/26/19 at 14:30; Stop 01/26/19 at 14:30; Status DC Sodium Chloride 1,000 ml @ 100 mls/hr Q10H IV Last administered on 01/26/19at 21:43; Start 01/26/19 at 19:30; Stop 01/27/19 at 05:29; Status DC Sodium Chloride 1,000 ml @ 100 mls/hr Q10H IV ; Start 01/27/19 at 07:30 Iodixanol (Visipaque 320) 100 ml STK-MED ONCE .ROUTE ; Start 01/27/19 at 06:46; Stop 01/27/19 at 06:47; Status DC Lidocaine HCl (Lidocaine 1% 20ml Vial) 20 ml STK-MED ONCE .ROUTE ; Start 01/27/19 at 06:46; Stop 01/27/19 at 06:47; Status DC Heparin Sodium/ Sodium Chloride 0 ml @ As Directed STK-MED ONCE .ROUTE ; Start 01/27/19 at 06:46; Stop 01/27/19 at 06:47; Status DC Iodixanol (Visipaque 320) 100 ml STK-MED ONCE .ROUTE ; Start 01/27/19 at 06:51; Stop 01/27/19 at 06:52; Status DC Lidocaine HCl (Lidocaine 1% 20ml Vial) 20 ml STK-MED ONCE .ROUTE ; Start 01/27/19 at 06:51; Stop 01/27/19 at 06:52; Status DC Heparin Sodium/ Sodium Chloride 1,500 ml @ As Directed STK-MED ONCE .ROUTE ; Start 01/27/19 at 06:51; Stop 01/27/19 at 06:52; Status DC Midazolam HCl (Versed) 2 mg STK-MED ONCE .ROUTE ; Start 01/27/19 at 07:18; Stop 01/27/19 at 07:19; Status DC Ketamine HCl (Ketamine) 50 mg STK-MED ONCE .ROUTE ; Start 01/27/19 at 07:18; Stop 01/27/19 at 07:19; Status DC Propofol 100 ml @ As Directed STK-MED ONCE IV ; Start 01/27/19 at 06:19; Stop 01/27/19 at 07:19; Status DC Propofol 20 ml @ As Directed STK-MED ONCE IV ; Start 01/27/19 at 07:20; Stop 01/27/19 at 07:21; Status DC Fentanyl Citrate (Fentanyl 2ml Vial) 100 mcg STK-MED ONCE .ROUTE ; Start 01/27/19 at 08:00; Stop 01/27/19 at 08:02; Status DC Heparin Sodium (Porcine) (Heparin Sodium) 10,000 unit STK-MED ONCE .ROUTE ; Start 01/27/19 at 08:07; Stop 01/27/19 at 08:08; Status DC Heparin Sodium/ Sodium Chloride 500 ml @ As Directed STK-MED ONCE .ROUTE ; Start 01/27/19 at 08:15; Stop 01/27/19 at 08:16; Status DC Verapamil HCl (Verapamil) 5 mg STK-MED ONCE .ROUTE ; Start 01/27/19 at 08:23; Stop 01/27/19 at 08:24; Status DC Nitroglycerin (Nitroglycerin) 200 mcg STK-MED ONCE .ROUTE ; Start 01/27/19 at 08:23; Stop 01/27/19 at 08:24; Status DC Heparin Sodium (Porcine) (Heparin Sodium) 10,000 unit STK-MED ONCE .ROUTE ; Start 01/27/19 at 08:23; Stop 01/27/19 at 08:24; Status DC Active Scripts Active Xarelto (Rivaroxaban) 20 Mg Tablet 20 Mg PO DAILYWSUP 30 Days please hold on Wednesday and WednesdayNovember 12 and . Reported Fiorinal 50-325-40 Mg Capsule (Butalbital/Aspirin/Caffeine) 1 Each Capsule 1 Each PO Q4HRS Combivent Respimat Inhal (Ipratropium/Albuterol Sulfate) 4 Gm Aer.w.adap 2 Inh IH QID Metoprolol Succinate ( Xl ) (Metoprolol Succinate) 25 Mg Tab.er.24h 0.5 Tab PO DAILY Cetirizine Hcl 10 Mg Tablet 1 Tab PO HS Aspirin 81 Mg Tab.chew 1 Tab PO DAILY Linzess (Linaclotide) 145 Mcg Capsule 145 Mcg PO DAILY07 Acetaminophen 325 Mg/10.15 Ml Solution 325 Mg PO Q4HRS Lantus Solostar (Insulin Glargine,Hum.rec.anlog) 100 Unit/1 Ml Insuln.pen 14 Unit SQ QHS Humalog (Insulin Lispro) 100 Unit/1 Ml Insuln.pen 5 Unit SQ AT LUNCH/DINNER Symbicort 160-4.5 Mcg Inhaler (Budesonide/Formoterol Fumarate) 10.2 Gm Hfa. aer.ad 2 Puff IH BID Flomax (Tamsulosin Hcl) 0.4 Mg Cap.er.24h 1 Cap PO DAILY Spironolactone 25 Mg Tablet 0.5 Tab PO DAILY Simvastatin 10 Mg Tablet 1 Tab PO QHS Xarelto (Rivaroxaban) 20 Mg Tablet 20 Mg PO DAILY Nexium Capsule (Esomeprazole Magnesium) 40 Mg Capsule.dr 1 Cap PO DAILY Finasteride 5 Mg Tablet 1 Tab PO DAILY Lexapro (Escitalopram Oxalate) 20 Mg Tablet 1 Tab PO DAILY Vitamin D (Cholecalciferol (Vitamin D3)) 1,000 Unit Tablet 1,000 Unit PO DAILY Probiotic (Lactobacillus Combo No.11) 1 Each Cap.sprink 1 Each PO DAILY Humalog (Insulin Lispro) 100 Unit/1 Ml Cartridge 6 Unit SQ BIDACLD Vibramycin (Doxycycline Hyclate) 100 Mg Capsule 1 Cap PO BID Losartan Potassium (Losartan Potassium) 25 Mg Tablet 25 Mg PO DAILY Metoprolol Succinate ( Xl ) (Metoprolol Succinate) 25 Mg Tab.er.24h 1 Tab PO DAILY Spironolactone 25 Mg Tablet 1 Tab PO DAILY Probiotic (Lactobacillus Acidophilus) 1 Each Capsule 1 Each PO DAILY Fiorinal-Cod 84-21-782-40 Cap (Codeine/Butalbital/Asa/Caffein) 1 Each Capsule 1 Each PO PRN Q4-6HRS PRN Simvastatin 10 Mg Tablet 1 Tab PO HS Torsemide 20 Mg Tablet 10 Mg PO DAILY Escitalopram Oxalate 20 Mg Tablet 1 Tab PO DAILY Proscar (Finasteride) 5 Mg Tablet 1 Tab PO DAILYWSUP Lantus (Insulin Glargine,Hum.rec.anlog) 100 Unit/1 Ml Vial 14 Unit SQ HS Humalog (Insulin Lispro) 100 Unit/1 Ml Insuln.pen 8 Unit SQ DAILYWBKFT Vitamin D (Cholecalciferol (Vitamin D3)) 1,000 Unit Tablet 1,000 Unit PO BID Multivitamins (Multivitamin) 1 Each Tablet 1 Each PO DAILY Aspir 81 (Aspirin) 81 Mg Tablet.dr 81 Mg PO DAILY Combivent Respimat Inhal (Ipratropium/Albuterol Sulfate) 4 Gm Aer.w.adap 4 Gm IH BID Zanaflex (Tizanidine Hcl) 2 Mg Capsule 2 Mg PO HS Flomax (Tamsulosin Hcl) 0.4 Mg Cap.er.24h 0.4 Mg PO DAILYWSUP Vitals/I & O Vital Sign - Last 24 Hours 01/26/19 01/26/19 01/26/19 01/26/19 08:49 11:00 11:39 15:00 Temp 98.4 98.4 98.4 98.4 Pulse 67 86 76 Resp 18 18 B/P (MAP) 134/49 120/52 (74) 124/43 (70) Pulse Ox 93 98 O2 Delivery Nasal Cannula Nasal Cannula Nasal Cannula O2 Flow Rate 3.0 3.0 3.0 01/26/19 01/26/19 01/26/19 01/26/19 15:34 19:25 20:00 20:50 Temp 97.1 97.1 Pulse 81 Resp 18 B/P (MAP) 115/48 (70) Pulse Ox 97 O2 Delivery Nasal Cannula Room Air Nasal Cannula Nasal Cannula O2 Flow Rate 3.0 3.0 3.0 01/26/19 01/27/19 01/27/19 01/27/19 23:28 03:15 07:00 07:11 Temp 98.1 97.8 98.1 97.8 Pulse 80 69 Resp 18 20 B/P (MAP) 118/52 (74) 139/57 (84) Pulse Ox 98 99 100 99 O2 Delivery BiPAP/CPAP Room Air Breathing Treatment Nasal Cannula O2 Flow Rate 5.0 3.0 Intake and Output 01/26/19 01/26/19 01/27/19 15:00 23:00 07:00 Intake Total 240 ml Output Total 550 ml 595 ml 400 ml Balance -550 ml -595 ml -160 ml KARLA CERRATO MD January 27, 2019 08:28
[2019-01-27] MEDS ORDERED: CLOPIDOGREL BISULFATE 75 MG TABLET PO ONE ×2 (09:45→10:00)
[2019-01-27] MEDS ORDERED: LIDOCAINE 1% Multi-Dose 20 ML VIAL. INJ ONE (09:45)
[2019-01-27] MEDS ORDERED: HEPARIN for IV BOLUS 10,000 UNIT/10 ML VIAL. IART ONE (09:45)
[2019-01-27] MEDS ORDERED: IODIXANOL 320 MG/ML 100 ML VIAL. IART ONE (09:45)
[2019-01-27] MEDS ORDERED: VERAPAMIL 5 MG/2 ML VIAL. IART ONE (09:45)
[2019-01-27] MEDS ORDERED: NITROGLYCERIN 200 MCG/2 ML SYRINGE FOR CATH/VASC LAB. IART ONE (09:45)
--- NOTE | 2019-01-27 10:08 | PDOC4 ---
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 with ulceration of the toes (other part of foot) Post-Op Diagnosis: Same as above Procedure Performed: #1 ultrasound-guided access right common femoral artery #2 ultrasound-guided access left posterior tibial artery #3 angioplasty left posterior tibial artery Surgeon: Carlyle Rollins MD Anesthesia Type: General -- patient with restless leg unable to lie still with conscious sedation Blood Loss: 10 mL Specimans Obtained: None Findings: #1 the PETER was occluded long segment shortly after it's origin and very calcifiedattempted across this from above was unable #2 the posterior tibial artery was flush occluded at its originI was able to cross this from pedal access and then treated from above #3 after balloon angioplasty of the tibial peroneal trunk and posterior tibial artery there is in-line flow to the foot with large medial and lateral tarsal branches giving good flow to the toes Complications: None Operative Note: The patient was escorted to the [facility] and placed supine on the table. A timeout was performed and anesthesia was induced by REAM CUTTER. The groins were prepped and draped in usual sterile fashion as was the left foot. Attention was directed to the right groin where the right common femoral artery was fluoroscopically marked over the femoral head and examined with ultrasound. The vessels found to be widely patent with good flow and an image of the vessels taken and saved for the medical record. Under real-time ultrasound guidance local anesthetic was injected in the right groin and the right common femoral artery was accessed in retrograde fashion using a micropuncture needle. This was used to place a micropuncture wire into the iliac artery under fluoroscopic guidance and this was used to exchange the needle for a micropuncture sheath which backbled easily. This was used to introduce a Hayden wire the abdominal aorta and exchange the micropuncture sheath for a 5 [place]ian sheath which was aspirated and flushed without difficulty. This was used to introduce an Omni Flush catheter into the abdominal aorta and this and the Hayden wire were used to hook the artery bifurcation and the Hayden wire was passed to the left SFA under fluoroscopic guidance. The catheter was advanced to the left SFA over the wire and then used to exchange for a long supra core wire passed to the left popliteal artery under fluoroscopic guidance. Patient was given intravenous heparin and the catheter was removed and the wire was used to exchange the 5 [place]ian short sheath for a 6 [place]ian 90 cm Terumo destination sheath passed up and over the bifurcation with the distal tip in the left popliteal artery. I used an angled Navicross catheter to select anterior tibial artery and try to cross this long segment PETER occlusion with V 18 wire but it was highly calcified and I was unable to make significant progress past the mid calf. Attention was directed to the left posterior tibial artery at the ankle. This was examined with ultrasound and found to be widely patent with a good lumen. An image of the vessels taken and saved for the medical record and local anesthetic was injected in the left ankle. Under real-time ultrasound guidance the left posterior tibial artery was accessed in retrograde fashion using a micropuncture needle and I used this to pass a wire into the posterior tibial artery under flu oroscopic guidance. I used this to exchange the needle for a 4 [place]ian Terumo slender sheath which was passed retrograde and the posterior tibial artery. This was aspirated and flushed without difficulty. I used this to introduce a 0.018 command wire and a Navicross catheter retrograde of the posterior tibial artery. I was able to cross most this and the subintimal plane and then attempted to reenter the TP trunk under guidance with angiography from above. I was unable to do so but with the wire in this sub intimal space I was able to guide a catheter from above and passed the wire parallel antegrade now the right knee where the origin was. With these 2 wires overlapping I advanced the Navicross catheter from above and the mid posterior tibial artery and placed into Navicross catheter tips near each other. I pulled both wires back and was able to pass the command wire from below into the lumen of the Navicross catheter from above and used this to body floss the patient from right groin to left ankle. Once this was done the catheters were both removed and I used the wire to deliver a 3 x 200 and a 3.5 x 150 angioplasty balloon in treated the TP trunk and the entire occluded segment of the posterior tibial artery. Retrograde angiogram from the pedal sheath showed excellent luminal gain with minimal residual stenosis. A 2.5 mm balloon was advanced over the wire to the tip of the pedal access sheath and the wire was totally removed. A 0.014 command wire was passed across the access site into the foot and then the 2.5 mm balloon was used to treat the case access site from the inside with a 5 minute inflation. Completion angiogram from above then showed excellent flow to the foot without any further extravasation and no stenosis at the access site. There was a palpable pulse at the left posterior tibial artery at the ankle. The small wires and catheters were removed and the sheath was pulled back over the Hayden wire. This was used to deliver and then deploy a 6 [place]ian Angio-Seal device at the right groin with excellent hemostasis. Patient was examined found to have no access site complication no hematoma the right groin and a palpable pulse at the left ankle with good hemostasis at the access site here. She was loaded with 300 mg of Plavix and will continue on this. This concludes dictation CARLYLE ROLLINS MD January 27, 2019 10:08
--- NOTE | 2019-01-27 10:13 | PDOC ---
SUBJECTIVE ROS s/p angioplasty left posterior tibial artery this am Back from procedure, stable OBJECTIVE Vital Signs Vital Signs Date Time Temp Pulse Resp B/P (MAP) Pulse Ox O2 Delivery O2 Flow Rate FiO2 01/27/19 09:42 65 01/27/19 07:11 99 Nasal Cannula 3.0 01/27/19 07:00 01/27/19 03:15 97.8 20 97.8 I & 0 Intake and Output 01/27/19 07:00 Intake Total 240 ml Output Total 1545 ml Balance -1305 ml Intake Oral 240 ml Output Urine Total 1545 ml # Voids 6 # Bowel Movements 1 PHYSICAL EXAM Physical Exam General: No acute distress HEENT: Atraumatic, PERRLA, EOMI, Mucous membr. moist/pink Neck Supple Lungs: CTA, Non labored Heart: S1S2, RRR, ABDIAS 2/6 Abdomen: Normal bowel sounds, Soft, No tenderness Extremities: venous stasis dermatitis Skin: Great toe red with 2 ulcer on tip and DIP, and 3rd and 4th toe ulcers Neuro: Alert, Oriented X3,grossly normal : No [place] Psych/Mental Status: Mental status NL, Mood NL DIAGNOSIS/ASSESSMENT Assessment & Plan LYNDSEY- Cr peaked to 2.4, down to 1.7 Post procedure 1.8, Monitor for SHELBIE UA unremarkable strict I/O , Monitor CKD stage 3- Baseline Creat was 1.4-1.7 in 2018 Since Oct 2018- Creat 2.2 as per [facility] records Left lower extremity peripheral arterial disease with nonhealing ulcer on the left first toe and fourth toe-severe occlusive tibial disease. S/p angioplasty left posterior tibial artery THIS AM I V hydration with NS 1ml/kg /hr 12 hrs continue for 12 hrs post procedure, if stable cardiac status Discussed Renal Function, Risk of SHELBIE with patient and Diabetes mellitus Hypertension, controlled. CLL - no meds for this Anemia of chronic disease - likely from CLL Chronic systolic CHF - stable currently on meds Aortic stenosis (s/p TAVR @ [facility] in 2013) COPD - will treat with nebs. Sees Dr. Ramírez outpatient [facility] with CPAP - cont in house Benign prostatic hyperplasia - cont meds COMMENT/RELEVANT DATA Meds Current Medications Medications (Trade) Dose Ordered Sig/Robert Start Time Stop Time Status Last Admin Dose Admin Acetaminophen (Tylenol) 650 mg PRN Q4HRS PRN 5/13/19 20:30 01/24/19 20:29 DC Albuterol/ Ipratropium (Duoneb) 3 ml RTQID 01/24/19 16:00 01/27/19 07:11 3 ML Aspirin (Children'S Aspirin) 81 mg DAILY 01/24/19 14:30 01/25/19 08:32 81 MG Budesonide (Pulmicort) 0.5 mg RTBID 01/24/19 20:00 01/27/19 07:11 0.5 MG Cefepime HCl (Maxipime) 2 gm Q12HR 01/24/19 15:00 01/26/19 21:43 2 GM Cetirizine HCl (ZyrTEC) 10 mg HS 01/24/19 21:00 01/26/19 21:41 10 MG Citalopram Hydrobromide (CeleXA) 40 mg DAILY 01/24/19 14:30 01/25/19 08:34 40 MG Clopidogrel Bisulfate (Plavix) 300 mg 1X ONCE 01/27/19 10:00 01/27/19 10:01 UNV Dextrose (Dextrose 50%-Water Syringe) 12.5 gm PRN Q15MIN PRN 01/24/19 13:30 Fentanyl Citrate (Fentanyl 2ml Vial) 100 mcg STK-MED ONCE 01/27/19 08:00 01/27/19 08:02 DC Finasteride (Proscar) 5 mg DAILY 01/24/19 14:30 01/25/19 08:32 5 MG Heparin Sodium (Porcine) (Heparin Sodium) 2,500 unit 1X ONCE 01/27/19 09:45 01/27/19 09:46 DC 01/27/19 09:41 2,500 UNIT Heparin Sodium/ Sodium Chloride (HEPARIN for ARTERIAL LINE FLUSH) 1,000 unit 1X ONCE 01/27/19 09:45 01/27/19 09:46 DC 01/27/19 09:44 1,000 UNIT Hydromorphone HCl (Dilaudid) 0.5 mg PRN Q10MIN PRN 01/27/19 07:00 01/27/19 21:00 Insulin Glargine (Lantus) 14 units QHS 01/24/19 21:00 01/26/19 21:52 14 UNITS Insulin Human Lispro (HumaLOG) 0-5 UNITS TIDWMEALS 01/24/19 17:00 01/26/19 12:41 2 UNITS Iodixanol (Visipaque 320) 61 ml 1X ONCE 01/27/19 09:45 01/27/19 09:46 DC 01/27/19 09:40 61 ML Ketamine HCl (Ketamine) 50 mg STK-MED ONCE 01/27/19 09:29 01/27/19 09:30 DC Lactobacillus Rhamnosus (Culturelle) 1 cap BID 01/25/19 21:00 01/26/19 21:41 1 CAP Lidocaine HCl (Lidocaine 1% 20ml Vial) 20 ml 1X ONCE 01/27/19 09:45 01/27/19 09:46 DC 01/27/19 09:41 20 ML Lidocaine HCl (Xylocaine-Mpf 1% 2ml Vial) 2 ml PRN 1X PRN 01/26/19 07:00 01/27/19 06:59 Cancel Linezolid (Zyvox) 600 mg Q12HR 01/24/19 15:00 01/26/19 21:41 600 MG Metoprolol Succinate (Toprol Xl) 12.5 mg DAILY 01/24/19 14:30 01/26/19 08:49 12.5 MG Metronidazole 100 ml @ 100 mls/hr Q8HRS 01/24/19 15:00 01/27/19 05:48 100 MLS/HR Midazolam HCl (Versed) 2 mg STK-MED ONCE 01/27/19 07:18 01/27/19 07:19 DC Morphine Sulfate (Morphine Sulfate) 1 mg PRN Q10MIN PRN 01/27/19 07:00 01/28/19 06:59 Multivitamins (Thera M Plus) 1 tab DAILY 01/24/19 11:00 01/25/19 08:35 1 TAB Nitroglycerin (Nitroglycerin) 200 mcg 1X ONCE 01/27/19 09:45 01/27/19 09:46 DC 01/27/19 09:41 200 MCG Non-Formulary Medication (Budesonide/ Formoterol Fumarate (Symbicort 160-4.5 Mcg Inhaler)) 2 puff BID 01/24/19 21:00 UNV Non-Formulary Medication (Ipratropium/ Albuterol Sulfate (Combivent Respimat Inhal)) 2 inh QID 01/24/19 17:00 UNV Non-Formulary Medication (Linaclotide (Linzess)) 145 mcg DAILY07 01/25/19 07:00 01/26/19 07:38 DC Non-Formulary Medication (Rivaroxaban (Xarelto)) 20 mg DAILY 01/25/19 09:00 01/25/19 09:00 DC Nystatin (Nystop) 1 nawaf BID 01/24/19 21:00 01/26/19 21:42 1 NAWAF Ondansetron HCl (Zofran) 4 mg PRN Q6HRS PRN 01/26/19 07:00 01/26/19 14:29 DC Pantoprazole Sodium (Protonix) 40 mg DAILYAC 01/24/19 14:30 01/25/19 07:06 40 MG Piperacillin Sod/ Tazobactam Sod 3.375 gm/Sodium Chloride 50 ml @ 100 mls/hr 1X ONCE 01/23/19 19:15 01/23/19 19:44 Cancel Prochlorperazine Edisylate (Compazine) 5 mg PACU PRN PRN 01/27/19 07:00 01/27/19 21:00 Propofol 20 ml @ As Directed STK-MED ONCE 01/27/19 09:29 01/27/19 09:30 DC Ringer's Solution 1,000 ml @ 30 mls/hr Q24H 01/27/19 07:00 01/27/19 18:59 Simvastatin (Zocor) 10 mg QHS 01/24/19 21:00 01/26/19 21:42 10 MG Sodium Chloride 1,000 ml @ 100 mls/hr Q10H 01/27/19 07:30 Spironolactone (Aldactone) 12.5 mg DAILY 01/24/19 14:30 01/25/19 08:35 12.5 MG Tamsulosin HCl (Flomax) 0.4 mg DAILY 01/24/19 14:30 01/25/19 08:35 0.4 MG Vancomycin HCl (Vanco Per Pharmacy) 1 each PRN DAILY PRN 01/24/19 14:30 01/24/19 14:47 DC Vancomycin HCl 2 gm/Sodium Chloride 500 ml @ 250 mls/hr 1X ONCE 01/23/19 19:00 5/13/19 20:59 DC 01/23/19 18:59 250 MLS/HR Verapamil HCl (Verapamil) 2.5 mg 1X ONCE 01/27/19 09:45 01/27/19 09:46 DC 01/27/19 09:42 2.5 MG Vitamin D (Vitamin D3) 1,000 unit DAILY 01/24/19 14:30 01/25/19 08:34 1,000 UNIT Lab Laboratory Tests Test 01/26/19 11:53 01/26/19 16:44 01/26/19 21:26 01/27/19 07:16 Glucose (Fingerstick) 157 mg/dL (70-99) 97 mg/dL (70-99) 125 mg/dL (70-99) 100 mg/dL (70-99) Results All relevant outside records, renal labs, imaging studies, telemetry/EKG's were reviewed. ELLA DOLAN MD January 27, 2019 10:13
--- NOTE | 2019-01-27 11:17 | PDOC ---
Infectious Disease Note Subjective Subjective Doing ok post procedure. Hungry No F/C/S/N/V/d/SOA/Rash Vital Sign Vital Signs Vital Signs Date Time Temp Pulse Resp B/P (MAP) Pulse Ox O2 Delivery O2 Flow Rate FiO2 01/27/19 10:49 96.8 73 20 145/48 98 Nasal Cannula 3 96.8 Physical Exam PHYSICAL EXAM CONSTITUTIONAL: He is a pleasant gentleman. He is cooperative. He is in no acute distress. He is sitting upright in bed. on breathing treatment HEENT: His pupils are equal and reactive. Oral cavity, pharynx is clear. NECK: Without JVD. LUNGS: Decreased in the bases. HEART: S1 and S2 with a 1-2/6 murmur. ABDOMEN: Obese, soft and nontender. No guarding or rebound. EXTREMITIES: Without clubbing. He has chronic venous stasis changes. Wound is dressed NEUROLOGICAL: He is alert, answers questions appropriately and moves all extremities. Affect is appropriate Labs Lab Laboratory Tests Test 01/26/19 11:53 01/26/19 16:44 01/26/19 21:26 01/27/19 07:16 Glucose (Fingerstick) 157 mg/dL (70-99) 97 mg/dL (70-99) 125 mg/dL (70-99) 100 mg/dL (70-99) Micro IMPRESSION: Degenerative changes are seen involving the left foot as discussed above. No acute osseous abnormality is seen. Microbiology 01/23/19 Blood Culture - Preliminary, Resulted NO GROWTH AFTER 1 DAY Objective Assessment L Great toe ? Osteomyelitis - treated with 6 weeks from [facility] of IV and finished in Oct L great toe wound with purulence GPC PCN allergy - tolerated Cephalosporins PAD s/p angioplasty 01/27 L post tibial artery LYNDSEY - better L 4 th toe dry ulcer Eosinophilia Plan Plan of Care Given LYNDSEY added Zyvox Cont Cefepime and Flagyl will f/u cult wound pus from 01/25 F/u labs in am D/w nursing. D/w TRACY MACHUCA MD January 27, 2019 11:17
[2019-01-27 11:24] LABS: ALBUMIN 2.7 g/dL (3.4-5.0); CALCIUM 9.7 mg/dL (8.5-10.1); CREATININE 1.8 mg/dL (0.7-1.3); PHOSPHORUS 3.7 mg/dL (2.6-4.7); POTASSIUM 4.6 mmol/L (3.5-5.1)
[2019-01-27] MEDS: PANTOPRAZOLE 40 MG TABLET.DR. PO SCH (11:44)
[2019-01-27] MEDS: CEFEPIME HCL IV Push 2 GM VIAL. IVP SCH ×2 (11:45→20:47)
[2019-01-27] MEDS: LINEZOLID 600 MG TABLET PO SCH ×2 (11:56→20:46)
[2019-01-27] MEDS: CHOLECALCIFEROL (VITAMIN D3) 1,000 UNIT TABLET PO SCH (11:56)
[2019-01-27] MEDS: CITALOPRAM 20 MG TABLET. PO SCH (11:56)
[2019-01-27] MEDS: TAMSULOSIN 0.4 MG CAP.ER.24H. PO SCH (11:57)
[2019-01-27] MEDS: SPIRONOLACTONE 25 MG TABLET PO SCH (11:57)
[2019-01-27] MEDS: FINASTERIDE 5 MG TABLET. PO SCH (11:57)
[2019-01-27] MEDS: LACTOBACILLUS RHAMNOSUS GG 1 CAPSULE. PO SCH ×2 (11:57→20:46)
[2019-01-27] MEDS: METOPROLOL SUCC 24HR ER 25 MG TAB.ER.24H. PO SCH (11:57)
[2019-01-27] MEDS: ASPIRIN CHEWABLE 81 MG TABLET. PO SCH (11:57)
[2019-01-27] MEDS: MULTIVITAMIN with MINERAL TABLET. PO SCH (11:58)
[2019-01-27] MEDS: NYSTATIN TOPICAL POWDER 15GM BOTTLE. TP SCH ×2 (11:58→20:50)
[2019-01-27] MEDS: IV NORMAL SALINE 1000ML BAG 1,000 ML IV SCH ×2 (12:09→17:18)
--- NOTE | 2019-01-27 13:52 | NUR ---
SW following. Discussed with RN, pt had procedure this morning. SW awaiting PT/OT recommendations for discharge planning. SW will continue to follow.
[2019-01-27] MEDS: ACETAMINOPHEN 325 MG TABLET. PO PRN (17:14)
[2019-01-27] MEDS: CETIRIZINE HCL 10 MG TABLET. PO SCH (20:46)
[2019-01-27] MEDS: SIMVASTATIN 10 MG TABLET PO SCH (20:46)
[2019-01-27] MEDS: INSULIN GLARGINE 300 UNITS/3 ML INSULN.PEN. SQ SCH (20:49)
[2019-01-28 03:00] VITALS: BP 139/44
[2019-01-28] MEDS: IV NORMAL SALINE 1000ML BAG 1,000 ML IV SCH (03:30)
[2019-01-28] MEDS: ACETAMINOPHEN 325 MG TABLET. PO PRN ×2 (06:31→16:09)
[2019-01-28] MEDS: PANTOPRAZOLE 40 MG TABLET.DR. PO SCH (06:31)
[2019-01-28 06:43] LABS: BASO % 0 % (0-3); EOS # 1.1 x10^3/uL (0.0-0.7); EOS % 15 % (0-3); HEMATOCRIT 22.8 % (39.0-53.0); HEMOGLOBIN 7.6 g/dL (13.0-17.5); LYMPH # 0.4 x10^3/uL (1.0-4.8); LYMPH % 5 % (24-48); MEAN CORPUSCULAR HEMOGLOBIN 31 pg (25-35); MEAN CORPUSCULAR HGB CONC 33 g/dL (31-37); MEAN CORPUSCULAR VOLUME 94 fL (79-100); MONO # 0.7 x10^3/uL (0.0-1.1); MONO % 9 % (0-9); NEUT # 5.4 x10^3uL (1.8-7.7); NEUT % 71 % (31-73); PLATELET COUNT 206 x10^3/uL (140-400); RED BLOOD COUNT 2.44 x10^6/uL (4.30-5.70); RED CELL DISTRIBUTION WIDTH 15.7 % (11.5-14.5); WHITE BLOOD COUNT 7.6 x10^3/uL (4.0-11.0)
[2019-01-28 06:52] LABS: ALBUMIN 2.5 g/dL (3.4-5.0); CREATININE 1.6 mg/dL (0.7-1.3); GFR 41.3; POTASSIUM 4.6 mmol/L (3.5-5.1)
[2019-01-28 07:00] VITALS: BP 147/61
[2019-01-28] MEDS: IPRATRPIUM/ALBUTEROL 0.5/2.5MG 3 ML NEBU. NEB SCH ×4 (07:26→19:51)
[2019-01-28] MEDS: BUDESONIDE 0.5 MG/2 ML NEBU. NEB SCH ×2 (07:26→19:51)
[2019-01-28] MEDS: INSULIN LISPRO 300 UNITS/3 ML INSULN.PEN. SQ SCH ×6 (08:00→17:00)
--- NOTE | 2019-01-28 08:29 | PDOC ---
PROGRESS NOTES Chief Complaint Chief Complaint A/P: Left great toe cellulitis - will consult ID, given vancomycin, however has CKD Multiple toe ulcers - likely vascular, Dr. Schumacher to consult PAD LLE - Dr. Schumacher noted he may undergo angiography under general anesthesia. decreased arterial sonogram hence was advised the runoff procedure today Coronary artery disease, 2 stents prior - cont meds Afib - s/p DCCV on NOAC, changed from eliquis to xarelto recently Hypertension, controlled. History of osteomyelitis, left big toe - Xray does not confirm currently, however, not the best modality CLL - no meds for this Anemia of chronic disease - likely from CLL DM2 - basal bolus plus regimen in house Chronic systolic CHF - stable currently on meds Peripheral neuropathy - 2/2 DM, will monitor Aortic stenosis (s/p TAVR @ [facility] in 2013) COPD - will treat with nebs. Sees Dr. Ramírez outpatient [facility] with CPAP - cont in house Migraines - prn tylenol Depression - cont meds LYNDSEY on CKD - likely vasomotor from his infection, improved over the past 24 hours - will consult nephrology, likely he will need contrast dye in the next few days Benign prostatic hyperplasia - cont meds Chronic stasis dermatitis - bilateral, stable FEN - ADA diet PPX - Heparin DNR/DNI Inpatient for left great toe cellulitis in a complicated patient, likely at least 2 midnights inpatient History of Present Illness History of Present Illness Mr Price is an 83yo M w/ PMHx CLL, PAD, DM2, chronic systolic CHF, peripheral neuropathy, AFIB (with DCCV prior, on NOAC), HTN, Hyperlipidemia, Aortic stenosis (s/p TAVR @ [facility] in 2013), Other (cardiomyopathy), COPD, [facility] with CPAP, migraines, Depression, Chronic renal insufficiency, Benign prostatic hyperplasia, chronic stasis dermatitis bilateral lower extremities who presents from his [employer] [facility] for concerns of osteomyelitis of left great toe. Seen in [place] in August on 6 weeks IV antibiotics in SNF, then home where his has been caring for him. She reports patient had been doing good and then a few weeks ago he stubbed his left great toe and since has had increased redness and swelling along with worsening wound on his great toe. Patient also has 2 small scabbed wounds on his third and fourth toe on his left foot. He was seen previously by vascular surgery by Dr. Schumacher for arterial insufficiency, was planning further treatment outpatient for LLE PAD. In ED was given empiric vancomycin and admitted for further care. Seen by vascular surgery, ID, and nephrology. 01/27: LLE arterial runoff study - balloon angioplasty of the tibial peroneal trunk and posterior tibial artery there is in-line flow to the foot with large medial and lateral tarsal branches giving good flow to the toes He is feeling slightly improved since last night. Good UOP. Pain in foot. Cr down to 1.5, did have Hb drop to < 8. Wound much less red today. Wound culture shows GPC, looks like staph Plan: Type and screen Stop NSS, has hyperchloremia today Likely needs a transfusion tomorrow. With CLL history would likely need leukoreduced Vitals Vitals Vital Signs Date Time Temp Pulse Resp B/P (MAP) Pulse Ox O2 Delivery O2 Flow Rate FiO2 01/28/19 07:26 97 Nasal Cannula 3.0 01/28/19 03:00 98.1 74 18 139/44 (75) 98.1 Physical Exam Physical Exam CONSTITUTIONAL: He is a pleasant gentleman. He is cooperative. He is in no acute distress. He is sitting upright in bed. on breathing treatment HEENT: His pupils are equal and reactive. Oral cavity, pharynx is clear. NECK: Without JVD. LUNGS: Decreased in the bases. HEART: S1 and S2 with a 1-2/6 murmur. ABDOMEN: Obese, soft and nontender. No guarding or rebound. EXTREMITIES: Without clubbing. He has chronic venous stasis changes. Wound is dressed NEUROLOGICAL: He is alert, answers questions appropriately and moves all extremities. Affect is appropriate General: Alert, Oriented X3, Cooperative, No acute distress Heart: Regular rate, Normal S1, Normal S2 Lungs: Wheezing Abdomen: Normal bowel sounds, Soft, No tenderness, No hepatosplenomegaly, No masses Extremities: Other (venous stasis dermatitis) Skin: Other (Great toe red with 2 ulcer on tip and DIP, and 3rd and 4th toe ulcers) Labs LABS Laboratory Tests Test 01/27/19 10:41 01/27/19 11:12 01/27/19 16:28 01/28/19 06:00 Sodium Level 144 mmol/L (136-145) 145 mmol/L (136-145) Potassium Level 4.6 mmol/L (3.5-5.1) 4.6 mmol/L (3.5-5.1) Chloride Level 109 mmol/L (98-107) 112 mmol/L (98-107) Carbon Dioxide Level 25 mmol/L (21-32) 22 mmol/L (21-32) Anion Gap 10 (6-14) 11 (6-14) Blood Urea Nitrogen 56 mg/dL (8-26) 55 mg/dL (8-26) Creatinine 1.8 mg/dL (0.7-1.3) 1.6 mg/dL (0.7-1.3) Estimated GFR (Cockcroft-Gault) 36.0 41.3 Glucose Level 145 mg/dL (70-99) 106 mg/dL (70-99) Calcium Level 9.7 mg/dL (8.5-10.1) 10.0 mg/dL (8.5-10.1) Phosphorus Level 3.7 mg/dL (2.6-4.7) 3.0 mg/dL (2.6-4.7) Albumin 2.7 g/dL (3.4-5.0) 2.5 g/dL (3.4-5.0) Glucose (Fingerstick) 140 mg/dL (70-99) 151 mg/dL (70-99) White Blood Count 7.6 x10^3/uL (4.0-11.0) Red Blood Count 2.44 x10^6/uL (4.30-5.70) Hemoglobin 7.6 g/dL (13.0-17.5) Hematocrit 22.8 % (39.0-53.0) Mean Corpuscular Volume 94 fL (79-100) Mean Corpuscular Hemoglobin 31 pg (25-35) Mean Corpuscular Hemoglobin Concent 33 g/dL (31-37) Red Cell Distribution Width 15.7 % (11.5-14.5) Platelet Count 206 x10^3/uL (140-400) Neutrophils (%) (Auto) 71 % (31-73) Lymphocytes (%) (Auto) 5 % (24-48) Monocytes (%) (Auto) 9 % (0-9) Eosinophils (%) (Auto) 15 % (0-3) Basophils (%) (Auto) 0 % (0-3) Neutrophils # (Auto) 5.4 x10^3uL (1.8-7.7) Lymphocytes # (Auto) 0.4 x10^3/uL (1.0-4.8) Monocytes # (Auto) 0.7 x10^3/uL (0.0-1.1) Eosinophils # (Auto) 1.1 x10^3/uL (0.0-0.7) Basophils # (Auto) 0.0 x10^3/uL (0.0-0.2) Assessment and Plan Assessmemt and Plan Problems Medical Problems: (1) Left foot infection Status: Acute (2) Wound cellulitis Status: Acute Comment Review of Relevant I have reviewed the following items earnest (where applicable) has been applied. Labs Laboratory Tests Test 01/26/19 11:53 01/26/19 16:44 01/26/19 21:26 01/27/19 07:16 Glucose (Fingerstick) 157 mg/dL (70-99) 97 mg/dL (70-99) 125 mg/dL (70-99) 100 mg/dL (70-99) Test 01/27/19 10:41 01/27/19 11:12 01/27/19 16:28 01/28/19 06:00 Sodium Level 144 mmol/L (136-145) 145 mmol/L (136-145) Potassium Level 4.6 mmol/L (3.5-5.1) 4.6 mmol/L (3.5-5.1) Chloride Level 109 mmol/L (98-107) 112 mmol/L (98-107) Carbon Dioxide Level 25 mmol/L (21-32) 22 mmol/L (21-32) Anion Gap 10 (6-14) 11 (6-14) Blood Urea Nitrogen 56 mg/dL (8-26) 55 mg/dL (8-26) Creatinine 1.8 mg/dL (0.7-1.3) 1.6 mg/dL (0.7-1.3) Estimated GFR (Cockcroft-Gault) 36.0 41.3 Glucose Level 145 mg/dL (70-99) 106 mg/dL (70-99) Calcium Level 9.7 mg/dL (8.5-10.1) 10.0 mg/dL (8.5-10.1) Phosphorus Level 3.7 mg/dL (2.6-4.7) 3.0 mg/dL (2.6-4.7) Albumin 2.7 g/dL (3.4-5.0) 2.5 g/dL (3.4-5.0) Glucose (Fingerstick) 140 mg/dL (70-99) 151 mg/dL (70-99) White Blood Count 7.6 x10^3/uL (4.0-11.0) Red Blood Count 2.44 x10^6/uL (4.30-5.70) Hemoglobin 7.6 g/dL (13.0-17.5) Hematocrit 22.8 % (39.0-53.0) Mean Corpuscular Volume 94 fL (79-100) Mean Corpuscular Hemoglobin 31 pg (25-35) Mean Corpuscular Hemoglobin Concent 33 g/dL (31-37) Red Cell Distribution Width 15.7 % (11.5-14.5) Platelet Count 206 x10^3/uL (140-400) Neutrophils (%) (Auto) 71 % (31-73) Lymphocytes (%) (Auto) 5 % (24-48) Monocytes (%) (Auto) 9 % (0-9) Eosinophils (%) (Auto) 15 % (0-3) Basophils (%) (Auto) 0 % (0-3) Neutrophils # (Auto) 5.4 x10^3uL (1.8-7.7) Lymphocytes # (Auto) 0.4 x10^3/uL (1.0-4.8) Monocytes # (Auto) 0.7 x10^3/uL (0.0-1.1) Eosinophils # (Auto) 1.1 x10^3/uL (0.0-0.7) Basophils # (Auto) 0.0 x10^3/uL (0.0-0.2) Laboratory Tests Test 01/27/19 10:41 01/27/19 11:12 01/27/19 16:28 01/28/19 06:00 Sodium Level 144 mmol/L (136-145) 145 mmol/L (136-145) Potassium Level 4.6 mmol/L (3.5-5.1) 4.6 mmol/L (3.5-5.1) Chloride Level 109 mmol/L (98-107) 112 mmol/L (98-107) Carbon Dioxide Level 25 mmol/L (21-32) 22 mmol/L (21-32) Anion Gap 10 (6-14) 11 (6-14) Blood Urea Nitrogen 56 mg/dL (8-26) 55 mg/dL (8-26) Creatinine 1.8 mg/dL (0.7-1.3) 1.6 mg/dL (0.7-1.3) Estimated GFR (Cockcroft-Gault) 36.0 41.3 Glucose Level 145 mg/dL (70-99) 106 mg/dL (70-99) Calcium Level 9.7 mg/dL (8.5-10.1) 10.0 mg/dL (8.5-10.1) Phosphorus Level 3.7 mg/dL (2.6-4.7) 3.0 mg/dL (2.6-4.7) Albumin 2.7 g/dL (3.4-5.0) 2.5 g/dL (3.4-5.0) Glucose (Fingerstick) 140 mg/dL (70-99) 151 mg/dL (70-99) White Blood Count 7.6 x10^3/uL (4.0-11.0) Red Blood Count 2.44 x10^6/uL (4.30-5.70) Hemoglobin 7.6 g/dL (13.0-17.5) Hematocrit 22.8 % (39.0-53.0) Mean Corpuscular Volume 94 fL (79-100) Mean Corpuscular Hemoglobin 31 pg (25-35) Mean Corpuscular Hemoglobin Concent 33 g/dL (31-37) Red Cell Distribution Width 15.7 % (11.5-14.5) Platelet Count 206 x10^3/uL (140-400) Neutrophils (%) (Auto) 71 % (31-73) Lymphocytes (%) (Auto) 5 % (24-48) Monocytes (%) (Auto) 9 % (0-9) Eosinophils (%) (Auto) 15 % (0-3) Basophils (%) (Auto) 0 % (0-3) Neutrophils # (Auto) 5.4 x10^3uL (1.8-7.7) Lymphocytes # (Auto) 0.4 x10^3/uL (1.0-4.8) Monocytes # (Auto) 0.7 x10^3/uL (0.0-1.1) Eosinophils # (Auto) 1.1 x10^3/uL (0.0-0.7) Basophils # (Auto) 0.0 x10^3/uL (0.0-0.2) Microbiology 01/23/19 Blood Culture - Preliminary, Resulted NO GROWTH AFTER 4 DAYS 01/25/19 Anaerobic/Aerobic Culture, Resulted Pending 01/25/19 Anaerobic Culture Result 1 (NEIL), Resulted Pending 01/25/19 Aerobic Culture - Preliminary, Resulted 01/25/19 Aerobic Culture Result 1 (NEIL) - Preliminary, Resulted 01/25/19 Gram Stain - Final, Resulted 01/25/19 Gram Stain Result 1 (NEIL) - Final, Resulted 01/25/19 Gram Stain Result 2 (NEIL) - Final, Resulted Medications Current Medications Vancomycin HCl (Vanco Per Pharmacy) 1 each 1X ONCE MC Last administered on 01/23/19at 23:33; Start 01/23/19 at 18:00; Stop 01/23/19 at 18:23; Status DC Vancomycin HCl 2 gm/Sodium Chloride 500 ml @ 250 mls/hr 1X ONCE IV Last administered on 01/23/19at 18:59; Start 01/23/19 at 19:00; Stop 01/23/19 at 20:59; Status DC Piperacillin Sod/ Tazobactam Sod 3.375 gm/Sodium Chloride 50 ml @ 100 mls/hr 1X ONCE IV ; Start 01/23/19 at 19:15; Stop 01/23/19 at 19:44; Status Cancel Ondansetron HCl (Zofran) 4 mg PRN Q8HRS PRN IV NAUSEA/VOMITING; Start 01/23/19 at 20:30; Stop 01/24/19 at 20:29; Status DC Fentanyl Citrate (Fentanyl 2ml Vial) 25 mcg PRN Q2HR PRN IV PAIN Last administered on 01/24/19at 09:15; Start 01/23/19 at 20:30; Stop 01/24/19 at 20:29; Status DC Acetaminophen (Tylenol) 650 mg PRN Q4HRS PRN PO FEVER; Start 01/23/19 at 20:30; Stop 01/24/19 at 20:29; Status DC Multivitamins (Thera M Plus) 1 tab DAILY PO Last administered on 01/27/19 11:58; Start 01/24/19 at 11:00 Aspirin (Children'S Aspirin) 81 mg DAILY PO Last administered on 01/27/19 11:57; Start 01/24/19 at 14:30 Cetirizine HCl (ZyrTEC) 10 mg HS PO Last administered on 01/27/19 20:46; Start 01/24/19 at 21:00 Vitamin D (Vitamin D3) 1,000 unit DAILY PO Last administered on 01/27/19 11:56; Start 01/24/19 at 14:30 Finasteride (Proscar) 5 mg DAILY PO Last administered on 01/27/19 11:57; Start 01/24/19 at 14:30 Insulin Glargine (Lantus) 14 units QHS SQ Last administered on 01/27/19 20:49; Start 01/24/19 at 21:00 Insulin Human Lispro (HumaLOG) 5 units TIDWMEALS SQ Last administered on 01/27/19 17:23; Start 01/24/19 at 17:00 Metoprolol Succinate (Toprol Xl) 12.5 mg DAILY PO Last administered on 01/27/19 11:57; Start 01/24/19 at 14:30 Simvastatin (Zocor) 10 mg QHS PO Last administered on 01/27/19 20:46; Start 01/24/19 at 21:00 Tamsulosin HCl (Flomax) 0.4 mg DAILY PO Last administered on 01/27/19 11:57; Start 01/24/19 at 14:30 Non-Formulary Medication (Budesonide/ Formoterol Fumarate (Symbicort 160-4.5 Mcg Inhaler)) 2 puff BID IH ; Start 01/24/19 at 21:00; Status UNV Citalopram Hydrobromide (CeleXA) 40 mg DAILY PO Last administered on 01/27/19 11:56; Start 01/24/19 at 14:30 Pantoprazole Sodium (Protonix) 40 mg DAILYAC PO Last administered on 5/18/19at 06:31; Start 01/24/19 at 14:30 Non-Formulary Medication (Ipratropium/ Albuterol Sulfate (Combivent Respimat Inhal)) 2 inh QID IH ; Start 01/24/19 at 17:00; Status UNV Non-Formulary Medication (Linaclotide (Linzess)) 145 mcg DAILY07 PO ; Start 01/25/19 at 07:00; Stop 01/26/19 at 07:38; Status DC Non-Formulary Medication (Rivaroxaban (Xarelto)) 20 mg DAILY PO ; Start 01/25/19 at 09:00; Stop 01/25/19 at 09:00; Status DC Spironolactone (Aldactone) 12.5 mg DAILY PO Last administered on 01/27/19at 11:57; Start 01/24/19 at 14:30 Insulin Human Lispro (HumaLOG) 0-5 UNITS TIDWMEALS SQ Last administered on 01/26/19at 12:41; Start 01/24/19 at 17:00 Dextrose (Dextrose 50%-Water Syringe) 12.5 gm PRN Q15MIN PRN IV SEE COMMENTS; Start 01/24/19 at 13:30 Budesonide (Pulmicort) 0.5 mg RTBID NEB Last administered on 01/28/19 07:26; Start 01/24/19 at 20:00 Albuterol/ Ipratropium (Duoneb) 3 ml RTQID NEB Last administered on 01/28/19at 07:26; Start 01/24/19 at 16:00 Vancomycin HCl (Vanco Per Pharmacy) 1 each PRN DAILY PRN MC SEE COMMENTS; Start 01/24/19 at 14:30; Stop 01/24/19 at 14:47; Status DC Linezolid (Zyvox) 600 mg Q12HR PO Last administered on 01/27/19at 20:46; Start 01/24/19 at 15:00 Cefepime HCl (Maxipime) 2 gm Q12HR IVP Last administered on 01/27/19at 20:47; Start 01/24/19 at 15:00 Metronidazole 100 ml @ 100 mls/hr Q8HRS IV Last administered on 01/28/19at 06:09; Start 01/24/19 at 15:00 Nystatin (Nystop) 1 nawaf BID TP Last administered on 01/27/19at 20:50; Start 01/24/19 at 21:00 Lactobacillus Rhamnosus (Culturelle) 1 cap BID PO Last administered on 01/27/19at 20:46; Start 01/25/19 at 21:00 Sodium Chloride 1,000 ml @ 100 mls/hr Q10H IV Last administered on 01/26/19at 08:46; Start 01/25/19 at 22:30; Stop 01/26/19 at 15:41; Status DC Sodium Chloride 1,000 ml @ 100 mls/hr Q10H IV ; Start 01/26/19 at 11:30; Stop 01/26/19 at 11:54; Status DC Ondansetron HCl (Zofran) 4 mg PRN Q6HRS PRN IV NAUSEA/VOMITING; Start 01/26/19 at 07:00; Stop 01/26/19 at 14:29; Status DC Fentanyl Citrate (Fentanyl 2ml Vial) 25 mcg PRN Q5MIN PRN IV MILD PAIN 1-3; Start 01/26/19 at 07:00; Stop 01/26/19 at 14:25; Status DC Fentanyl Citrate (Fentanyl 2ml Vial) 50 mcg PRN Q5MIN PRN IV MODERATE TO SEVERE PAIN; Start 01/26/19 at 07:00; Stop 01/26/19 at 14:26; Status DC Morphine Sulfate (Morphine Sulfate) 1 mg PRN Q10MIN PRN IV SEVERE PAIN 7-10; Start 01/26/19 at 07:00; Stop 01/26/19 at 14:29; Status DC Ringer's Solution 1,000 ml @ 30 mls/hr Q24H IV ; Start 01/26/19 at 07:00; Stop 01/26/19 at 14:27; Status DC Lidocaine HCl (Xylocaine-Mpf 1% 2ml Vial) 2 ml PRN 1X PRN ID PRIOR TO IV START; Start 01/26/19 at 07:00; Stop 01/27/19 at 06:59; Status Cancel Hydromorphone HCl (Dilaudid) 0.5 mg PRN Q10MIN PRN IV SEV PAIN, Second choice; Start 01/26/19 at 07:00; Stop 01/27/19 at 06:59; Status Cancel Prochlorperazine Edisylate (Compazine) 5 mg PACU PRN PRN IV NAUSEA, MRX1; Start 01/26/19 at 07:00; Stop 01/27/19 at 06:59; Status Cancel Morphine Sulfate (Morphine Sulfate) 1 mg PRN Q10MIN PRN IV SEVERE PAIN 7-10; Start 01/27/19 at 07:00; Stop 01/28/19 at 06:59; Status DC Ringer's Solution 1,000 ml @ 30 mls/hr Q24H IV ; Start 01/27/19 at 07:00; Stop 01/27/19 at 18:59; Status DC Hydromorphone HCl (Dilaudid) 0.5 mg PRN Q10MIN PRN IV SEV PAIN, Second choice; Start 01/27/19 at 07:00; Stop 01/27/19 at 21:00; Status DC Prochlorperazine Edisylate (Compazine) 5 mg PACU PRN PRN IV NAUSEA, MRX1; Start 01/27/19 at 07:00; Stop 01/27/19 at 21:00; Status DC Fentanyl Citrate (Fentanyl 2ml Vial) 25 mcg PRN Q5MIN PRN IV MILD PAIN 1-3; Start 01/26/19 at 14:30; Stop 01/26/19 at 14:30; Status DC Fentanyl Citrate (Fentanyl 2ml Vial) 50 mcg PRN Q5MIN PRN IV MODERATE TO SEVERE PAIN; Start 01/26/19 at 14:30; Stop 01/26/19 at 14:30; Status DC Sodium Chloride 1,000 ml @ 100 mls/hr Q10H IV Last administered on 01/26/19at 21:43; Start 01/26/19 at 19:30; Stop 01/27/19 at 05:29; Status DC Sodium Chloride 1,000 ml @ 100 mls/hr Q10H IV Last administered on 01/27/19at 17:18; Start 01/27/19 at 07:30 Iodixanol (Visipaque 320) 100 ml STK-MED ONCE .ROUTE ; Start 01/27/19 at 06:46; Stop 01/27/19 at 06:47; Status DC Lidocaine HCl (Lidocaine 1% 20ml Vial) 20 ml STK-MED ONCE .ROUTE ; Start 01/27/19 at 06:46; Stop 01/27/19 at 06:47; Status DC Heparin Sodium/ Sodium Chloride 0 ml @ As Directed STK-MED ONCE .ROUTE ; Start 01/27/19 at 06:46; Stop 01/27/19 at 06:47; Status DC Iodixanol (Visipaque 320) 100 ml STK-MED ONCE .ROUTE ; Start 01/27/19 at 06:51; Stop 01/27/19 at 06:52; Status DC Lidocaine HCl (Lidocaine 1% 20ml Vial) 20 ml STK-MED ONCE .ROUTE ; Start 01/27/19 at 06:51; Stop 01/27/19 at 06:52; Status DC Heparin Sodium/ Sodium Chloride 1,500 ml @ As Directed STK-MED ONCE .ROUTE ; Start 01/27/19 at 06:51; Stop 01/27/19 at 06:52; Status DC Midazolam HCl (Versed) 2 mg STK-MED ONCE .ROUTE ; Start 01/27/19 at 07:18; Stop 01/27/19 at 07:19; Status DC Ketamine HCl (Ketamine) 50 mg STK-MED ONCE .ROUTE ; Start 01/27/19 at 07:18; Stop 01/27/19 at 07:19; Status DC Propofol 100 ml @ As Directed STK-MED ONCE IV ; Start 01/27/19 at 06:19; Stop 01/27/19 at 07:19; Status DC Propofol 20 ml @ As Directed STK-MED ONCE IV ; Start 01/27/19 at 07:20; Stop 01/27/19 at 07:21; Status DC Fentanyl Citrate (Fentanyl 2ml Vial) 100 mcg STK-MED ONCE .ROUTE ; Start 01/27/19 at 08:00; Stop 01/27/19 at 08:02; Status DC Heparin Sodium (Porcine) (Heparin Sodium) 10,000 unit STK-MED ONCE .ROUTE ; Start 01/27/19 at 08:07; Stop 01/27/19 at 08:08; Status DC Heparin Sodium/ Sodium Chloride 500 ml @ As Directed STK-MED ONCE .ROUTE ; Start 01/27/19 at 08:15; Stop 01/27/19 at 08:16; Status DC Verapamil HCl (Verapamil) 5 mg STK-MED ONCE .ROUTE ; Start 01/27/19 at 08:23; Stop 01/27/19 at 08:24; Status DC Nitroglycerin (Nitroglycerin) 200 mcg STK-MED ONCE .ROUTE ; Start 01/27/19 at 08:23; Stop 01/27/19 at 08:24; Status DC Heparin Sodium (Porcine) (Heparin Sodium) 10,000 unit STK-MED ONCE .ROUTE ; Start 01/27/19 at 08:23; Stop 01/27/19 at 08:24; Status DC Ketamine HCl (Ketamine) 50 mg STK-MED ONCE .ROUTE ; Start 01/27/19 at 09:29; Stop 01/27/19 at 09:30; Status DC Propofol 20 ml @ As Directed STK-MED ONCE IV ; Start 01/27/19 at 09:29; Stop 01/27/19 at 09:30; Status DC Nitroglycerin (Nitroglycerin) 200 mcg 1X ONCE IART Last administered on 01/27/19at 09:41; Start 01/27/19 at 09:45; Stop 01/27/19 at 09:46; Status DC Verapamil HCl (Verapamil) 2.5 mg 1X ONCE IART Last administered on 01/27/19at 09:42; Start 01/27/19 at 09:45; Stop 01/27/19 at 09:46; Status DC Heparin Sodium (Porcine) (Heparin Sodium) 2,500 unit 1X ONCE IART Last administered on 01/27/19at 09:41; Start 01/27/19 at 09:45; Stop 01/27/19 at 09:46; Status DC Heparin Sodium/ Sodium Chloride (HEPARIN for ARTERIAL LINE FLUSH) 1,000 unit 1X ONCE IART Last administered on 01/27/19at 09:43; Start 01/27/19 at 09:45; Stop 01/27/19 at 09:46; Status DC Heparin Sodium/ Sodium Chloride (HEPARIN for ARTERIAL LINE FLUSH) 1,000 unit 1X ONCE IART Last administered on 01/27/19at 09:44; Start 01/27/19 at 09:45; Stop 01/27/19 at 09:46; Status DC Lidocaine HCl (Lidocaine 1% 20ml Vial) 20 ml 1X ONCE INJ Last administered on 01/27/19at 09:41; Start 01/27/19 at 09:45; Stop 01/27/19 at 09:46; Status DC Iodixanol (Visipaque 320) 61 ml 1X ONCE IART Last administered on 01/27/19at 09:40; Start 01/27/19 at 09:45; Stop 01/27/19 at 09:46; Status DC Clopidogrel Bisulfate (Plavix) 300 mg 1X ONCE PO Last administered on 01/27/19at 10:53; Start 01/27/19 at 09:45; Stop 01/27/19 at 09:46; Status DC Clopidogrel Bisulfate (Plavix) 75 mg DAILYWBKFT PO ; Start 01/28/19 at 08:00 Clopidogrel Bisulfate (Plavix) 300 mg 1X ONCE PO ; Start 01/27/19 at 10:00; Stop 01/27/19 at 10:01; Status UNV Ephedrine Sulfate (ePHEDrine PF IN SALINE SYRINGE) 50 mg STK-MED ONCE IV ; Start 01/27/19 at 07:00; Stop 01/27/19 at 12:40; Status DC Phenylephrine HCl (PHENYLEPHRINE in 0.9% NACL PF) 1 mg STK-MED ONCE IV ; Start 01/27/19 at 07:00; Stop 01/27/19 at 12:40; Status DC Propofol (Diprivan) 400 mg STK-MED ONCE IV ; Start 01/27/19 at 07:00; Stop 01/27/19 at 12:40; Status DC Acetaminophen (Tylenol) 650 mg PRN Q6HRS PRN PO MILD PAIN / TEMP Last admini stered on 01/28/19at 06:31; Start 01/27/19 at 17:15 Active Scripts Active Xarelto (Rivaroxaban) 20 Mg Tablet 20 Mg PO DAILYWSUP 30 Days please hold on Wednesday and WednesdayNovember 12 and . Reported Fiorinal 50-325-40 Mg Capsule (Butalbital/Aspirin/Caffeine) 1 Each Capsule 1 Each PO Q4HRS Combivent Respimat Inhal (Ipratropium/Albuterol Sulfate) 4 Gm Aer.w.adap 2 Inh IH QID Metoprolol Succinate ( Xl ) (Metoprolol Succinate) 25 Mg Tab.er.24h 0.5 Tab PO DAILY Cetirizine Hcl 10 Mg Tablet 1 Tab PO HS Aspirin 81 Mg Tab.chew 1 Tab PO DAILY Linzess (Linaclotide) 145 Mcg Capsule 145 Mcg PO DAILY07 Acetaminophen 325 Mg/10.15 Ml Solution 325 Mg PO Q4HRS Lantus Solostar (Insulin Glargine,Hum.rec.anlog) 100 Unit/1 Ml Insuln.pen 14 Unit SQ QHS Humalog (Insulin Lispro) 100 Unit/1 Ml Insuln.pen 5 Unit SQ AT LUNCH/DINNER Symbicort 160-4.5 Mcg Inhaler (Budesonide/Formoterol Fumarate) 10.2 Gm Hfa.aer.ad 2 Puff IH BID Flomax (Tamsulosin Hcl) 0.4 Mg Cap.er.24h 1 Cap PO DAILY Spironolactone 25 Mg Tablet 0.5 Tab PO DAILY Simvastatin 10 Mg Tablet 1 Tab PO QHS Xarelto (Rivaroxaban) 20 Mg Tablet 20 Mg PO DAILY Nexium Capsule (Esomeprazole Magnesium) 40 Mg Capsule.dr 1 Cap PO DAILY Finasteride 5 Mg Tablet 1 Tab PO DAILY Lexapro (Escitalopram Oxalate) 20 Mg Tablet 1 Tab PO DAILY Vitamin D (Cholecalciferol (Vitamin D3)) 1,000 Unit Tablet 1,000 Unit PO DAILY Probiotic (Lactobacillus Combo No.11) 1 Each Cap.sprink 1 Each PO DAILY Humalog (Insulin Lispro) 100 Unit/1 Ml Cartridge 6 Unit SQ BIDACLD Vibramycin (Doxycycline Hyclate) 100 Mg Capsule 1 Cap PO BID Losartan Potassium (Losartan Potassium) 25 Mg Tablet 25 Mg PO DAILY Metoprolol Succinate ( Xl ) (Metoprolol Succinate) 25 Mg Tab.er.24h 1 Tab PO DAILY Spironolactone 25 Mg Tablet 1 Tab PO DAILY Probiotic (Lactobacillus Acidophilus) 1 Each Capsule 1 Each PO DAILY Fiorinal-Cod 51-36-301-40 Cap (Codeine/Butalbital/Asa/Caffein) 1 Each Capsule 1 Each PO PRN Q4-6HRS PRN Simvastatin 10 Mg Tablet 1 Tab PO HS Torsemide 20 Mg Tablet 10 Mg PO DAILY Escitalopram Oxalate 20 Mg Tablet 1 Tab PO DAILY Proscar (Finasteride) 5 Mg Tablet 1 Tab PO DAILYWSUP Lantus (Insulin Glargine,Hum.rec.anlog) 100 Unit/1 Ml Vial 14 Unit SQ HS Humalog (Insulin Lispro) 100 Unit/1 Ml Insuln.pen 8 Unit SQ DAILYWBKFT Vitamin D (Cholecalciferol (Vitamin D3)) 1,000 Unit Tablet 1,000 Unit PO BID Multivitamins (Multivitamin) 1 Each Tablet 1 Each PO DAILY Aspir 81 (Aspirin) 81 Mg Tablet.dr 81 Mg PO DAILY Combivent Respimat Inhal (Ipratropium/Albuterol Sulfate) 4 Gm Aer.w.adap 4 Gm IH BID Zanaflex (Tizanidine Hcl) 2 Mg Capsule 2 Mg PO HS Flomax (Tamsulosin Hcl) 0.4 Mg Cap.er.24h 0.4 Mg PO DAILYWSUP Vitals/I & O Vital Sign - Last 24 Hours 01/27/19 01/27/19 01/27/19 01/27/19 09:42 09:50 09:50 10:05 Temp 96.8 96.8 Pulse 65 114 94 Resp 20 20 B/P (MAP) 116/54 129/59 Pulse Ox 100 100 O2 Delivery Simple Mask Mask Simple Mask O2 Flow Rate 10 10 10 01/27/19 01/27/19 01/27/19 01/27/19 10:20 10:35 10:49 10:50 Temp 96.8 96.8 Pulse 90 82 73 Resp 22 20 20 B/P (MAP) 111/49 152/50 145/48 Pulse Ox 96 95 98 O2 Delivery Simple Mask Nasal Cannula Nasal Cannula Nasal Cannula O2 Flow Rate 10 2 3 3 01/27/19 01/27/19 01/27/19 01/27/19 11:04 11:10 11:10 11:15 Temp 96.8 97.4 96.8 97.4 Pulse 78 89 86 Resp 20 18 B/P (MAP) 158/66 149/68 (95) 165/66 (99) Pulse Ox 97 96 94 99 O2 Delivery Nasal Cannula Nasal Cannula Nasal Cannula Nasal Cannula O2 Flow Rate 3 3.0 3.0 3.0 01/27/19 01/27/19 01/27/19 01/27/19 11:30 11:45 11:57 12:00 Pulse 87 75 79 85 B/P (MAP) 146/61 (89) 157/60 (92) 157/60 153/62 (92) Pulse Ox 100 100 98 O2 Delivery Nasal Cannula Nasal Cannula Nasal Cannula O2 Flow Rate 3.0 3.0 3.0 01/27/19 01/27/19 01/27/19 01/27/19 12:30 13:00 14:00 15:19 Pulse 100 94 72 B/P (MAP) 124/41 (68) 117/54 (75) 139/46 (77) Pulse Ox 100 96 O2 Delivery Nasal Cannula Nasal Cannula Nasal Cannula Nasal Cannula O2 Flow Rate 3.0 3.0 3.0 3.0 01/27/19 01/27/19 01/27/19 01/27/19 19:00 19:35 20:15 23:00 Temp 98.8 97.7 98.8 97.7 Pulse 85 71 Resp 18 18 B/P (MAP) 102/46 (64) 124/49 (74) Pulse Ox 99 98 93 O2 Delivery Nasal Cannula Nasal Cannula Nasal Cannula Nasal Cannula O2 Flow Rate 3.0 3.0 3.0 3.0 01/28/19 01/28/19 03:00 07:26 Temp 98.1 98.1 Pulse 74 Resp 18 B/P (MAP) 139/44 (75) Pulse Ox 95 97 O2 Delivery Nasal Cannula Nasal Cannula O2 Flow Rate 3.0 3.0 Intake and Output 01/27/19 01/27/19 01/28/19 15:00 23:00 07:00 Intake Total 900 ml Output Total 550 ml 750 ml 600 ml Balance 350 ml -750 ml -600 ml KARLA CERRATO MD January 28, 2019 08:29
[2019-01-28] MEDS: LINEZOLID 600 MG TABLET PO SCH ×2 (09:42→21:31)
[2019-01-28] MEDS: FINASTERIDE 5 MG TABLET. PO SCH (09:42)
[2019-01-28] MEDS: ASPIRIN CHEWABLE 81 MG TABLET. PO SCH (09:42)
[2019-01-28] MEDS: LACTOBACILLUS RHAMNOSUS GG 1 CAPSULE. PO SCH ×2 (09:42→21:32)
[2019-01-28] MEDS: METOPROLOL SUCC 24HR ER 25 MG TAB.ER.24H. PO SCH (09:42)
[2019-01-28] MEDS: SPIRONOLACTONE 25 MG TABLET PO SCH (09:42)
[2019-01-28] MEDS: TAMSULOSIN 0.4 MG CAP.ER.24H. PO SCH (09:42)
[2019-01-28] MEDS: MULTIVITAMIN with MINERAL TABLET. PO SCH (09:42)
[2019-01-28] MEDS: CITALOPRAM 20 MG TABLET. PO SCH (09:43)
[2019-01-28] MEDS: CEFEPIME HCL IV Push 2 GM VIAL. IVP SCH ×2 (09:43→21:32)
[2019-01-28] MEDS: CHOLECALCIFEROL (VITAMIN D3) 1,000 UNIT TABLET PO SCH (09:43)
[2019-01-28] MEDS: CLOPIDOGREL BISULFATE 75 MG TABLET PO SCH (09:43)
[2019-01-28] MEDS: NYSTATIN TOPICAL POWDER 15GM BOTTLE. TP SCH ×2 (09:44→21:00)
[2019-01-28 09:57] LABS: % BANDS 5 % (0-9); % BASOS 1 % (0-3); % EOS 6 % (0-5); % LYMPHS 6 % (24-48); % MONOS 6 % (0-10); % SEGS 76 % (35-66)
[2019-01-28 09:58] LABS: ANISOCYTOSIS SLIGHT; PLT ESTIMATE ADEQUATE (ADEQUATE)
[2019-01-28] MEDS ORDERED: BUTALB/APAP/CAFEIN 50/325/40MG TABLET. PO PRN (10:45)
[2019-01-28 11:00] VITALS: BP 136/46
--- NOTE | 2019-01-28 13:27 | PDOC ---
PROGRESS NOTES Subjective Subjective SEEN IN FOLLOW UP OF CKD3 Objective Objective Vital Signs Date Time Temp Pulse Resp B/P (MAP) Pulse Ox O2 Delivery O2 Flow Rate FiO2 01/28/19 11:15 Nasal Cannula 3.0 01/28/19 11:00 98.1 83 18 136/46 (76) 99 98.1 Intake and Output 01/28/19 07:00 Intake Total 900 ml Output Total 1900 ml Balance -1000 ml IV Total 900 ml Output Urine Total 1900 ml Physical Exam Abdomen: Normal bowel sounds, Soft, No tenderness, No hepatosplenomegaly, No masses Heart: Regular rate, Normal S1, Normal S2, No murmurs, Gallops Extremities: No clubbing, No cyanosis, No edema, Normal pulses, No tenderness/swelling General: Alert, Oriented X3, Cooperative, No acute distress Lungs: Clear to auscultation, Normal air movement Diagnosis RENAL FAILURE: Chronic (CKD stage III) Assessment Assessment Problems Medical Problems: (1) Left foot infection Status: Acute (2) Wound cellulitis Status: Acute Plan Plan of Care RENAL FUNCTION IS AT BASELINE. OK TO D/C WHEN ANTIBIOTICS CLARIFIED. WILL SIGN OFF Comment Review of Relevant I have reviewed the following items earnest (where applicable) has been applied. Labs Laboratory Tests Test 01/26/19 16:44 01/26/19 21:26 01/27/19 07:16 01/27/19 10:41 Glucose (Fingerstick) 97 mg/dL (70-99) 125 mg/dL (70-99) 100 mg/dL (70-99) Sodium Level 144 mmol/L (136-145) Potassium Level 4.6 mmol/L (3.5-5.1) Chloride Level 109 mmol/L (98-107) Carbon Dioxide Level 25 mmol/L (21-32) Anion Gap 10 (6-14) Blood Urea Nitrogen 56 mg/dL (8-26) Creatinine 1.8 mg/dL (0.7-1.3) Estimated GFR (Cockcroft-Gault) 36.0 Glucose Level 145 mg/dL (70-99) Calcium Level 9.7 mg/dL (8.5-10.1) Phosphorus Level 3.7 mg/dL (2.6-4.7) Albumin 2.7 g/dL (3.4-5.0) Test 5/17/19 11:12 01/27/19 16:28 01/28/19 06:00 01/28/19 07:41 Glucose (Fingerstick) 140 mg/dL (70-99) 151 mg/dL (70-99) 108 mg/dL (70-99) White Blood Count 7.6 x10^3/uL (4.0-11.0) Red Blood Count 2.44 x10^6/uL (4.30-5.70) Hemoglobin 7.6 g/dL (13.0-17.5) Hematocrit 22.8 % (39.0-53.0) Mean Corpuscular Volume 94 fL (79-100) Mean Corpuscular Hemoglobin 31 pg (25-35) Mean Corpuscular Hemoglobin Concent 33 g/dL (31-37) Red Cell Distribution Width 15.7 % (11.5-14.5) Platelet Count 206 x10^3/uL (140-400) Neutrophils (%) (Auto) 71 % (31-73) Lymphocytes (%) (Auto) 5 % (24-48) Monocytes (%) (Auto) 9 % (0-9) Eosinophils (%) (Auto) 15 % (0-3) Basophils (%) (Auto) 0 % (0-3) Neutrophils # (Auto) 5.4 x10^3uL (1.8-7.7) Lymphocytes # (Auto) 0.4 x10^3/uL (1.0-4.8) Monocytes # (Auto) 0.7 x10^3/uL (0.0-1.1) Eosinophils # (Auto) 1.1 x10^3/uL (0.0-0.7) Basophils # (Auto) 0.0 x10^3/uL (0.0-0.2) Segmented Neutrophils % 76 % (35-66) Band Neutrophils % 5 % (0-9) Lymphocytes % 6 % (24-48) Monocytes % 6 % (0-10) Eosinophils % 6 % (0-5) Basophils % 1 % (0-3) Platelet Estimate Adequate (ADEQUATE) Anisocytosis Slight Sodium Level 145 mmol/L (136-145) Potassium Level 4.6 mmol/L (3.5-5.1) Chloride Level 112 mmol/L (98-107) Carbon Dioxide Level 22 mmol/L (21-32) Anion Gap 11 (6-14) Blood Urea Nitrogen 55 mg/dL (8-26) Creatinine 1.6 mg/dL (0.7-1.3) Estimated GFR (Cockcroft-Gault) 41.3 Glucose Level 106 mg/dL (70-99) Calcium Level 10.0 mg/dL (8.5-10.1) Phosphorus Level 3.0 mg/dL (2.6-4.7) Albumin 2.5 g/dL (3.4-5.0) Test 01/28/19 11:15 Glucose (Fingerstick) 150 mg/dL (70-99) Laboratory Tests Test 01/27/19 16:28 01/28/19 06:00 01/28/19 07:41 01/28/19 11:15 Glucose (Fingerstick) 151 mg/dL (70-99) 108 mg/dL (70-99) 150 mg/dL (70-99) White Blood Count 7.6 x10^3/uL (4.0-11.0) Red Blood Count 2.44 x10^6/uL (4.30-5.70) Hemoglobin 7.6 g/dL (13.0-17.5) Hematocrit 22.8 % (39.0-53.0) Mean Corpuscular Volume 94 fL (79-100) Mean Corpuscular Hemoglobin 31 pg (25-35) Mean Corpuscular Hemoglobin Concent 33 g/dL (31-37) Red Cell Distribution Width 15.7 % (11.5-14.5) Platelet Count 206 x10^3/uL (140-400) Neutrophils (%) (Auto) 71 % (31-73) Lymphocytes (%) (Auto) 5 % (24-48) Monocytes (%) (Auto) 9 % (0-9) Eosinophils (%) (Auto) 15 % (0-3) Basophils (%) (Auto) 0 % (0-3) Neutrophils # (Auto) 5.4 x10^3uL (1.8-7.7) Lymphocytes # (Auto) 0.4 x10^3/uL (1.0-4.8) Monocytes # (Auto) 0.7 x10^3/uL (0.0-1.1) Eosinophils # (Auto) 1.1 x10^3/uL (0.0-0.7) Basophils # (Auto) 0.0 x10^3/uL (0.0-0.2) Segmented Neutrophils % 76 % (35-66) Band Neutrophils % 5 % (0-9) Lymphocytes % 6 % (24-48) Monocytes % 6 % (0-10) Eosinophils % 6 % (0-5) Basophils % 1 % (0-3) Platelet Estimate Adequate (ADEQUATE) Anisocytosis Slight Sodium Level 145 mmol/L (136-145) Potassium Level 4.6 mmol/L (3.5-5.1) Chloride Level 112 mmol/L (98-107) Carbon Dioxide Level 22 mmol/L (21-32) Anion Gap 11 (6-14) Blood Urea Nitrogen 55 mg/dL (8-26) Creatinine 1.6 mg/dL (0.7-1.3) Estimated GFR (Cockcroft-Gault) 41.3 Glucose Level 106 mg/dL (70-99) Calcium Level 10.0 mg/dL (8.5-10.1) Phosphorus Level 3.0 mg/dL (2.6-4.7) Albumin 2.5 g/dL (3.4-5.0) Microbiology 01/23/19 Blood Culture - Preliminary, Resulted NO GROWTH AFTER 4 DAYS 01/25/19 Anaerobic/Aerobic Culture, Resulted Pending 01/25/19 Anaerobic Culture Result 1 (NEIL), Resulted Pending 01/25/19 Aerobic Culture - Preliminary, Resulted 01/25/19 Aerobic Culture Result 1 (NEIL) - Preliminary, Resulted 01/25/19 Gram Stain - Final, Resulted 01/25/19 Gram Stain Result 1 (NEIL) - Final, Resulted 01/25/19 Gram Stain Result 2 (NEIL) - Final, Resulted Medications Current Medications Vancomycin HCl (Vanco Per Pharmacy) 1 each 1X ONCE MC Last administered on 01/23/19at 23:33; Start 01/23/19 at 18:00; Stop 01/23/19 at 18:23; Status DC Vancomycin HCl 2 gm/Sodium Chloride 500 ml @ 250 mls/hr 1X ONCE IV Last ad ministered on 01/23/19at 18:59; Start 01/23/19 at 19:00; Stop 01/23/19 at 20:59; Status DC Piperacillin Sod/ Tazobactam Sod 3.375 gm/Sodium Chloride 50 ml @ 100 mls/hr 1X ONCE IV ; Start 01/23/19 at 19:15; Stop 01/23/19 at 19:44; Status Cancel Ondansetron HCl (Zofran) 4 mg PRN Q8HRS PRN IV NAUSEA/VOMITING; Start 01/23/19 at 20:30; Stop 01/24/19 at 20:29; Status DC Fentanyl Citrate (Fentanyl 2ml Vial) 25 mcg PRN Q2HR PRN IV PAIN Last administered on 01/24/19 09:15; Start 01/23/19 at 20:30; Stop 01/24/19 at 20:29; Status DC Acetaminophen (Tylenol) 650 mg PRN Q4HRS PRN PO FEVER; Start 01/23/19 at 20:30; Stop 01/24/19 at 20:29; Status DC Multivitamins (Thera M Plus) 1 tab DAILY PO Last administered on 01/28/19 09:42; Start 01/24/19 at 11:00 Aspirin (Children'S Aspirin) 81 mg DAILY PO Last administered on 01/28/19 09:42; Start 01/24/19 at 14:30 Cetirizine HCl (ZyrTEC) 10 mg HS PO Last administered on 01/27/19 20:46; Start 01/24/19 at 21:00 Vitamin D (Vitamin D3) 1,000 unit DAILY PO Last administered on 01/28/19 09:43; Start 01/24/19 at 14:30 Finasteride (Proscar) 5 mg DAILY PO Last administered on 01/28/19 09:42; Start 01/24/19 at 14:30 Insulin Glargine (Lantus) 14 units QHS SQ Last administered on 01/27/19 20:49; Start 01/24/19 at 21:00 Insulin Human Lispro (HumaLOG) 5 units TIDWMEALS SQ Last administered on 01/28/19 12:45; Start 01/24/19 at 17:00 Metoprolol Succinate (Toprol Xl) 12.5 mg DAILY PO Last administered on 01/28/19 09:42; Start 01/24/19 at 14:30 Simvastatin (Zocor) 10 mg QHS PO Last administered on 5/17/19at 20:46; Start 01/24/19 at 21:00 Tamsulosin HCl (Flomax) 0.4 mg DAILY PO Last administered on 01/28/19 09:42; Start 01/24/19 at 14:30 Non-Formulary Medication (Budesonide/ Formoterol Fumarate (Symbicort 160-4.5 Mcg Inhaler)) 2 puff BID IH ; Start 01/24/19 at 21:00; Status UNV Citalopram Hydrobromide (CeleXA) 40 mg DAILY PO Last administered on 01/28/19at 09:43; Start 01/24/19 at 14:30 Pantoprazole Sodium (Protonix) 40 mg DAILYAC PO Last administered on 01/28/19 06:31; Start 01/24/19 at 14:30 Non-Formulary Medication (Ipratropium/ Albuterol Sulfate (Combivent Respimat Inhal)) 2 inh QID IH ; Start 01/24/19 at 17:00; Status UNV Non-Formulary Medication (Linaclotide (Linzess)) 145 mcg DAILY07 PO ; Start 01/25/19 at 07:00; Stop 01/26/19 at 07:38; Status DC Non-Formulary Medication (Rivaroxaban (Xarelto)) 20 mg DAILY PO ; Start 01/25/19 at 09:00; Stop 01/25/19 at 09:00; Status DC Spironolactone (Aldactone) 12.5 mg DAILY PO Last administered on 01/28/19at 09:42; Start 01/24/19 at 14:30 Insulin Human Lispro (HumaLOG) 0-5 UNITS TIDWMEALS SQ Last administered on 01/26/19at 12:41; Start 01/24/19 at 17:00 Dextrose (Dextrose 50%-Water Syringe) 12.5 gm PRN Q15MIN PRN IV SEE COMMENTS; Start 01/24/19 at 13:30 Budesonide (Pulmicort) 0.5 mg RTBID NEB Last administered on 01/28/19at 07:26; Start 01/24/19 at 20:00 Albuterol/ Ipratropium (Duoneb) 3 ml RTQID NEB Last administered on 01/28/19at 11:15; Start 01/24/19 at 16:00 Vancomycin HCl (Vanco Per Pharmacy) 1 each PRN DAILY PRN MC SEE COMMENTS; Start 01/24/19 at 14:30; Stop 01/24/19 at 14:47; Status DC Linezolid (Zyvox) 600 mg Q12HR PO Last administered on 01/28/19at 09:42; Start 01/24/19 at 15:00 Cefepime HCl (Maxipime) 2 gm Q12HR IVP Last administered on 01/28/19at 09:43; Start 01/24/19 at 15:00 Metronidazole 100 ml @ 100 mls/hr Q8HRS IV Last administered on 01/28/19at 06:09; Start 01/24/19 at 15:00 Nystatin (Nystop) 1 nawaf BID TP Last administered on 01/28/19at 09:44; Start 01/24/19 at 21:00 Lactobacillus Rhamnosus (Culturelle) 1 cap BID PO Last administered on 01/28/19at 09:42; Start 01/25/19 at 21:00 Sodium Chloride 1,000 ml @ 100 mls/hr Q10H IV Last administered on 01/26/19at 08:46; Start 01/25/19 at 22:30; Stop 01/26/19 at 15:41; Status DC Sodium Chloride 1,000 ml @ 100 mls/hr Q10H IV ; Start 01/26/19 at 11:30; Stop 01/26/19 at 11:54; Status DC Ondansetron HCl (Zofran) 4 mg PRN Q6HRS PRN IV NAUSEA/VOMITING; Start 01/26/19 at 07:00; Stop 01/26/19 at 14:29; Status DC Fentanyl Citrate (Fentanyl 2ml Vial) 25 mcg PRN Q5MIN PRN IV MILD PAIN 1-3; Start 01/26/19 at 07:00; Stop 01/26/19 at 14:25; Status DC Fentanyl Citrate (Fentanyl 2ml Vial) 50 mcg PRN Q5MIN PRN IV MODERATE TO SEVERE PAIN; Start 01/26/19 at 07:00; Stop 01/26/19 at 14:26; Status DC Morphine Sulfate (Morphine Sulfate) 1 mg PRN Q10MIN PRN IV SEVERE PAIN 7-10; Start 01/26/19 at 07:00; Stop 01/26/19 at 14:29; Status DC Ringer's Solution 1,000 ml @ 30 mls/hr Q24H IV ; Start 01/26/19 at 07:00; Stop 01/26/19 at 14:27; Status DC Lidocaine HCl (Xylocaine-Mpf 1% 2ml Vial) 2 ml PRN 1X PRN ID PRIOR TO IV START; Start 01/26/19 at 07:00; Stop 01/27/19 at 06:59; Status Cancel Hydromorphone HCl (Dilaudid) 0.5 mg PRN Q10MIN PRN IV SEV PAIN, Second choice; Start 01/26/19 at 07:00; Stop 01/27/19 at 06:59; Status Cancel Prochlorperazine Edisylate (Compazine) 5 mg PACU PRN PRN IV NAUSEA, MRX1; Start 01/26/19 at 07:00; Stop 01/27/19 at 06:59; Status Cancel Morphine Sulfate (Morphine Sulfate) 1 mg PRN Q10MIN PRN IV SEVERE PAIN 7-10; Start 01/27/19 at 07:00; Stop 01/28/19 at 06:59; Status DC Ringer's Solution 1,000 ml @ 30 mls/hr Q24H IV ; Start 01/27/19 at 07:00; Stop 01/27/19 at 18:59; Status DC Hydromorphone HCl (Dilaudid) 0.5 mg PRN Q10MIN PRN IV SEV PAIN, Second choice; Start 01/27/19 at 07:00; Stop 01/27/19 at 21:00; Status DC Prochlorperazine Edisylate (Compazine) 5 mg PACU PRN PRN IV NAUSEA, MRX1; Start 01/27/19 at 07:00; Stop 01/27/19 at 21:00; Status DC Fentanyl Citrate (Fentanyl 2ml Vial) 25 mcg PRN Q5MIN PRN IV MILD PAIN 1-3; Start 01/26/19 at 14:30; Stop 01/26/19 at 14:30; Status DC Fentanyl Citrate (Fentanyl 2ml Vial) 50 mcg PRN Q5MIN PRN IV MODERATE TO SEVERE PAIN; Start 01/26/19 at 14:30; Stop 01/26/19 at 14:30; Status DC Sodium Chloride 1,000 ml @ 100 mls/hr Q10H IV Last administered on 01/26/19at 21:43; Start 01/26/19 at 19:30; Stop 01/27/19 at 05:29; Status DC Sodium Chloride 1,000 ml @ 100 mls/hr Q10H IV Last administered on 01/27/19at 17:18; Start 01/27/19 at 07:30; Stop 01/28/19 at 08:26; Status DC Iodixanol (Visipaque 320) 100 ml STK-MED ONCE .ROUTE ; Start 01/27/19 at 06:46; Stop 01/27/19 at 06:47; Status DC Lidocaine HCl (Lidocaine 1% 20ml Vial) 20 ml STK-MED ONCE .ROUTE ; Start 01/27/19 at 06:46; Stop 01/27/19 at 06:47; Status DC Heparin Sodium/ Sodium Chloride 0 ml @ As Directed STK-MED ONCE .ROUTE ; Start 01/27/19 at 06:46; Stop 01/27/19 at 06:47; Status DC Iodixanol (Visipaque 320) 100 ml STK-MED ONCE .ROUTE ; Start 01/27/19 at 06:51; Stop 01/27/19 at 06:52; Status DC Lidocaine HCl (Lidocaine 1% 20ml Vial) 20 ml STK-MED ONCE .ROUTE ; Start 01/27 at 06:51; Stop 01/27/19 at 06:52; Status DC Heparin Sodium/ Sodium Chloride 1,500 ml @ As Directed STK-MED ONCE .ROUTE ; Start 01/27/19 at 06:51; Stop 01/27/19 at 06:52; Status DC Midazolam HCl (Versed) 2 mg STK-MED ONCE .ROUTE ; Start 01/27/19 at 07:18; Stop 01/27/19 at 07:19; Status DC Ketamine HCl (Ketamine) 50 mg STK-MED ONCE .ROUTE ; Start 01/27/19 at 07:18; Stop 01/27/19 at 07:19; Status DC Propofol 100 ml @ As Directed STK-MED ONCE IV ; Start 01/27/19 at 06:19; Stop 01/27/19 at 07:19; Status DC Propofol 20 ml @ As Directed STK-MED ONCE IV ; Start 01/27/19 at 07:20; Stop 01/27/19 at 07:21; Status DC Fentanyl Citrate (Fentanyl 2ml Vial) 100 mcg STK-MED ONCE .ROUTE ; Start 01/27/19 at 08:00; Stop 01/27/19 at 08:02; Status DC Heparin Sodium (Porcine) (Heparin Sodium) 10,000 unit STK-MED ONCE .ROUTE ; Start 01/27/19 at 08:07; Stop 01/27/19 at 08:08; Status DC Heparin Sodium/ Sodium Chloride 500 ml @ As Directed STK-MED ONCE .ROUTE ; Start 01/27/19 at 08:15; Stop 01/27/19 at 08:16; Status DC Verapamil HCl (Verapamil) 5 mg STK-MED ONCE .ROUTE ; Start 01/27/19 at 08:23; Stop 01/27/19 at 08:24; Status DC Nitroglycerin (Nitroglycerin) 200 mcg STK-MED ONCE .ROUTE ; Start 01/27/19 at 08:23; Stop 01/27/19 at 08:24; Status DC Heparin Sodium (Porcine) (Heparin Sodium) 10,000 unit STK-MED ONCE .ROUTE ; Start 01/27/19 at 08:23; Stop 01/27/19 at 08:24; Status DC Ketamine HCl (Ketamine) 50 mg STK-MED ONCE .ROUTE ; Start 01/27/19 at 09:29; Stop 01/27/19 at 09:30; Status DC Propofol 20 ml @ As Directed STK-MED ONCE IV ; Start 01/27/19 at 09:29; Stop 01/27/19 at 09:30; Status DC Nitroglycerin (Nitroglycerin) 200 mcg 1X ONCE IART Last administered on 01/27/19at 09:41; Start 01/27/19 at 09:45; Stop 01/27/19 at 09:46; Status DC Verapamil HCl (Verapamil) 2.5 mg 1X ONCE IART Last administered on 01/27/19at 09:42; Start 01/27/19 at 09:45; Stop 01/27/19 at 09:46; Status DC Heparin Sodium (Porcine) (Heparin Sodium) 2,500 unit 1X ONCE IART Last administered on 01/27/19at 09:41; Start 01/27/19 at 09:45; Stop 01/27/19 at 09:46; Status DC Heparin Sodium/ Sodium Chloride (HEPARIN for ARTERIAL LINE FLUSH) 1,000 unit 1X ONCE IART Last administered on 01/27/19at 09:43; Start 01/27/19 at 09:45; Stop 01/27/19 at 09:46; Status DC Heparin Sodium/ Sodium Chloride (HEPARIN for ARTERIAL LINE FLUSH) 1,000 unit 1X ONCE IART Last administered on 01/27/19at 09:44; Start 01/27/19 at 09:45; Stop 01/27/19 at 09:46; Status DC Lidocaine HCl (Lidocaine 1% 20ml Vial) 20 ml 1X ONCE INJ Last administered on 01/27/19at 09:41; Start 01/27/19 at 09:45; Stop 01/27/19 at 09:46; Status DC Iodixanol (Visipaque 320) 61 ml 1X ONCE IART Last administered on 01/27/19at 09:40; Start 01/27/19 at 09:45; Stop 01/27/19 at 09:46; Status DC Clopidogrel Bisulfate (Plavix) 300 mg 1X ONCE PO Last administered on 01/27/19at 10:53; Start 01/27/19 at 09:45; Stop 01/27/19 at 09:46; Status DC Clopidogrel Bisulfate (Plavix) 75 mg DAILYWBKFT PO Last administered on 01/28/19at 09:43; Start 01/28/19 at 08:00 Clopidogrel Bisulfate (Plavix) 300 mg 1X ONCE PO ; Start 01/27/19 at 10:00; Stop 01/27/19 at 10:01; Status UNV Ephedrine Sulfate (ePHEDrine PF IN SALINE SYRINGE) 50 mg STK-MED ONCE IV ; Start 01/27/19 at 07:00; Stop 01/27/19 at 12:40; Status DC Phenylephrine HCl (PHENYLEPHRINE in 0.9% NACL PF) 1 mg STK-MED ONCE IV ; Start 01/27/19 at 07:00; Stop 01/27/19 at 12:40; Status DC Propofol (Diprivan) 400 mg STK-MED ONCE IV ; Start 01/27/19 at 07:00; Stop 01/27/19 at 12:40; Status DC Acetaminophen (Tylenol) 650 mg PRN Q6HRS PRN PO MILD PAIN / TEMP Last adminis tered on 01/28/19at 06:31; Start 01/27/19 at 17:15 Acetaminophen/ Butalbital/ Caffeine (Fioricet) 1 tab PRN Q4HRS PRN PO MIGRAINE HEADACHE Last administered on 01/28/19at 10:49; Start 01/28/19 at 10:45 Active Scripts Active Xarelto (Rivaroxaban) 20 Mg Tablet 20 Mg PO DAILYWSUP 30 Days please hold on Wednesday and WednesdayNovember 12 and . Reported Fiorinal 50-325-40 Mg Capsule (Butalbital/Aspirin/Caffeine) 1 Each Capsule 1 Each PO PRN Q4HRS PRN Combivent Respimat Inhal (Ipratropium/Albuterol Sulfate) 4 Gm Aer.w.adap 2 Inh IH QID Metoprolol Succinate ( Xl ) (Metoprolol Succinate) 25 Mg Tab.er.24h 0.5 Tab PO DAILY Cetirizine Hcl 10 Mg Tablet 1 Tab PO HS Aspirin 81 Mg Tab.chew 1 Tab PO DAILY Linzess (Linaclotide) 145 Mcg Capsule 145 Mcg PO DAILY07 Acetaminophen 325 Mg/10.15 Ml Solution 325 Mg PO Q4HRS Lantus Solostar (Insulin Glargine,Hum.rec.anlog) 100 Unit/1 Ml Insuln.pen 14 Unit SQ QHS Humalog (Insulin Lispro) 100 Unit/1 Ml Insuln.pen 5 Unit SQ AT LUNCH/DINNER Symbicort 160-4.5 Mcg Inhaler (Budesonide/Formoterol Fumarate) 10.2 Gm Hfa.aer.ad 2 Puff IH BID Flomax (Tamsulosin Hcl) 0.4 Mg Cap.er.24h 1 Cap PO DAILY Spironolactone 25 Mg Tablet 0.5 Tab PO DAILY Simvastatin 10 Mg Tablet 1 Tab PO QHS Xarelto (Rivaroxaban) 20 Mg Tablet 20 Mg PO DAILY Nexium Capsule (Esomeprazole Magnesium) 40 Mg Capsule.dr 1 Cap PO DAILY Finasteride 5 Mg Tablet 1 Tab PO DAILY Lexapro (Escitalopram Oxalate) 20 Mg Tablet 1 Tab PO DAILY Vitamin D (Cholecalciferol (Vitamin D3)) 1,000 Unit Tablet 1,000 Unit PO DAILY Probiotic (Lactobacillus Combo No.11) 1 Each Cap.sprink 1 Each PO DAILY Humalog (Insulin Lispro) 100 Unit/1 Ml Cartridge 6 Unit SQ BIDACLD Vibramycin (Doxycycline Hyclate) 100 Mg Capsule 1 Cap PO BID Losartan Potassium (Losartan Potassium) 25 Mg Tablet 25 Mg PO DAILY Metoprolol Succinate ( Xl ) (Metoprolol Succinate) 25 Mg Tab.er.24h 1 Tab PO BANG LY Spironolactone 25 Mg Tablet 1 Tab PO DAILY Probiotic (Lactobacillus Acidophilus) 1 Each Capsule 1 Each PO DAILY Fiorinal-Cod 30-80-875-40 Cap (Codeine/Butalbital/Asa/Caffein) 1 Each Capsule 1 Each PO PRN Q4-6HRS PRN Simvastatin 10 Mg Tablet 1 Tab PO HS Torsemide 20 Mg Tablet 10 Mg PO DAILY Escitalopram Oxalate 20 Mg Tablet 1 Tab PO DAILY Proscar (Finasteride) 5 Mg Tablet 1 Tab PO DAILYWSUP Lantus (Insulin Glargine,Hum.rec.anlog) 100 Unit/1 Ml Vial 14 Unit SQ HS Humalog (Insulin Lispro) 100 Unit/1 Ml Insuln.pen 8 Unit SQ DAILYWBKFT Vitamin D (Cholecalciferol (Vitamin D3)) 1,000 Unit Tablet 1,000 Unit PO BID Multivitamins (Multivitamin) 1 Each Tablet 1 Each PO DAILY Aspir 81 (Aspirin) 81 Mg Tablet.dr 81 Mg PO DAILY Combivent Respimat Inhal (Ipratropium/Albuterol Sulfate) 4 Gm Aer.w.adap 4 Gm IH BID Zanaflex (Tizanidine Hcl) 2 Mg Capsule 2 Mg PO HS Flomax (Tamsulosin Hcl) 0.4 Mg Cap.er.24h 0.4 Mg PO DAILYWSUP Vitals/I & O Vital Sign - Last 24 Hours 01/27/19 01/27/19 01/27/19 01/27/19 14:00 15:19 19:00 19:35 Temp 98.8 98.8 Pulse 72 85 Resp 18 B/P (MAP) 139/46 (77) 102/46 (64) Pulse Ox 100 96 99 98 O2 Delivery Nasal Cannula Nasal Cannula Nasal Cannula Nasal Cannula O2 Flow Rate 3.0 3.0 3.0 3.0 01/27/19 01/27/19 01/28/19 01/28/19 20:15 23:00 03:00 07:00 Temp 97.7 98.1 98.1 97.7 98.1 98.1 Pulse 71 74 83 Resp 18 18 16 B/P (MAP) 124/49 (74) 139/44 (75) 147/61 (89) Pulse Ox 93 95 97 O2 Delivery Nasal Cannula Nasal Cannula Nasal Cannula Room Air O2 Flow Rate 3.0 3.0 3.0 01/28/19 01/28/19 01/28/19 01/28/19 07:26 09:42 11:00 11:15 Temp 98.1 98.1 Pulse 83 83 Resp 18 B/P (MAP) 147/61 136/46 (76) Pulse Ox 97 99 O2 Delivery Nasal Cannula Room Air Nasal Cannula O2 Flow Rate 3.0 3.0 Intake and Output 01/27/19 01/27/19 01/28/19 15:00 23:00 07:00 Intake Total 900 ml Output Total 550 ml 750 ml 600 ml Balance 350 ml -750 ml -600 ml NADINE BOSS MD January 28, 2019 13:27
--- NOTE | 2019-01-28 14:11 | PDOC ---
Infectious Disease Note Subjective Subjective Comfortable Denies pain/F/C/N/V/SOA Supplemental O2 ROS ROS per HPI Vital Sign Vital Signs Vital Signs Date Time Temp Pulse Resp B/P (MAP) Pulse Ox O2 Delivery O2 Flow Rate FiO2 01/28/19 11:15 Nasal Cannula 3.0 01/28/19 11:00 98.1 83 18 136/46 (76) 99 98.1 Physical Exam PHYSICAL EXAM GENERAL: Propped up in bed, with blanket over his head HEENT: Oral cavity, pharynx is clear. Dentures NECK: Supple LUNGS: Decreased in the bases. HEART: S1 and S2 with a 1-2/6 murmur. ABDOMEN: Obese, soft and nontender. No guarding or rebound. EXTREMITIES: Without clubbing. Chronic venous stasis changes BLE . Dry ulcer 1st and 4th left toes, no redness or drainage NEUROLOGICAL: Alert, answers questions appropriately SKIN: without rash PIV Labs Lab Laboratory Tests Test 01/27/19 16:28 01/28/19 06:00 01/28/19 07:41 01/28/19 11:15 Glucose (Fingerstick) 151 mg/dL (70-99) 108 mg/dL (70-99) 150 mg/dL (70-99) White Blood Count 7.6 x10^3/uL (4.0-11.0) Red Blood Count 2.44 x10^6/uL (4.30-5.70) Hemoglobin 7.6 g/dL (13.0-17.5) Hematocrit 22.8 % (39.0-53.0) Mean Corpuscular Volume 94 fL (79-100) Mean Corpuscular Hemoglobin 31 pg (25-35) Mean Corpuscular Hemoglobin Concent 33 g/dL (31-37) Red Cell Distribution Width 15.7 % (11.5-14.5) Platelet Count 206 x10^3/uL (140-400) Neutrophils (%) (Auto) 71 % (31-73) Lymphocytes (%) (Auto) 5 % (24-48) Monocytes (%) (Auto) 9 % (0-9) Eosinophils (%) (Auto) 15 % (0-3) Basophils (%) (Auto) 0 % (0-3) Neutrophils # (Auto) 5.4 x10^3uL (1.8-7.7) Lymphocytes # (Auto) 0.4 x10^3/uL (1.0-4.8) Monocytes # (Auto) 0.7 x10^3/uL (0.0-1.1) Eosinophils # (Auto) 1.1 x10^3/uL (0.0-0.7) Basophils # (Auto) 0.0 x10^3/uL (0.0-0.2) Segmented Neutrophils % 76 % (35-66) Band Neutrophils % 5 % (0-9) Lymphocytes % 6 % (24-48) Monocytes % 6 % (0-10) Eosinophils % 6 % (0-5) Basophils % 1 % (0-3) Platelet Estimate Adequate (ADEQUATE) Anisocytosis Slight Sodium Level 145 mmol/L (136-145) Potassium Level 4.6 mmol/L (3.5-5.1) Chloride Level 112 mmol/L (98-107) Carbon Dioxide Level 22 mmol/L (21-32) Anion Gap 11 (6-14) Blood Urea Nitrogen 55 mg/dL (8-26) Creatinine 1.6 mg/dL (0.7-1.3) Estimated GFR (Cockcroft-Gault) 41.3 Glucose Level 106 mg/dL (70-99) Calcium Level 10.0 mg/dL (8.5-10.1) Phosphorus Level 3.0 mg/dL (2.6-4.7) Albumin 2.5 g/dL (3.4-5.0) Micro Microbiology 01/23/19 Blood Culture - Preliminary, Resulted NO GROWTH AFTER 4 DAYS Left foot ANAEROBIC RES 1 PENDING AEROBIC RES 1 Preliminary Staphylococcus aureus Objective Assessment Left great toe ? Osteomyelitis - treated with 6 weeks from [facility] of IV and finished in Oct Left great toe wound with purulence - Staph aureus. susceptibilities pending PCN allergy - tolerated Cephalosporins PAD s/p angioplasty /17 L post tibial artery LYNDSEY - better Left 4 th toe dry ulcer Eosinophilia Plan Plan of Care Given LYNDSEY continue Zyvox Cont Cefepime and Flagyl awaiting culture susceptibilities D/w D/w nursing. D/w Dr. Hoyos Pt seen and examined Agree with above D/W at bedside CHEN PADILLA APRN January 28, 2019 14:11 SANDRITA BEAVERS MD January 28, 2019 15:13
[2019-01-28 15:00] VITALS: BP 113/46
[2019-01-28 19:00] VITALS: BP 143/53
[2019-01-28] MEDS: CETIRIZINE HCL 10 MG TABLET. PO SCH (21:00)
[2019-01-28] MEDS: SIMVASTATIN 10 MG TABLET PO SCH (21:32)
[2019-01-28] MEDS: INSULIN GLARGINE 300 UNITS/3 ML INSULN.PEN. SQ SCH (21:40)
[2019-01-28 23:00] VITALS: BP 158/60
[2019-01-29 03:00] VITALS: BP 123/63
[2019-01-29 06:13] LABS: BASO % 1 % (0-3); EOS # 0.8 x10^3/uL (0.0-0.7); EOS % 10 % (0-3); HEMATOCRIT 22.8 % (39.0-53.0); HEMOGLOBIN 7.5 g/dL (13.0-17.5); LYMPH # 0.5 x10^3/uL (1.0-4.8); LYMPH % 6 % (24-48); MEAN CORPUSCULAR HEMOGLOBIN 31 pg (25-35); MEAN CORPUSCULAR HGB CONC 33 g/dL (31-37); MEAN CORPUSCULAR VOLUME 93 fL (79-100); MONO # 0.7 x10^3/uL (0.0-1.1); MONO % 9 % (0-9); NEUT # 6.5 x10^3uL (1.8-7.7); NEUT % 76 % (31-73); PLATELET COUNT 199 x10^3/uL (140-400); RED BLOOD COUNT 2.45 x10^6/uL (4.30-5.70); RED CELL DISTRIBUTION WIDTH 15.2 % (11.5-14.5); WHITE BLOOD COUNT 8.7 x10^3/uL (4.0-11.0)
[2019-01-29 06:47] LABS: ALBUMIN 2.6 g/dL (3.4-5.0); CALCIUM 9.9 mg/dL (8.5-10.1); CREATININE 1.9 mg/dL (0.7-1.3); GFR 33.9; PHOSPHORUS 3.2 mg/dL (2.6-4.7); POTASSIUM 4.6 mmol/L (3.5-5.1)
[2019-01-29 07:00] VITALS: BP 125/62
[2019-01-29] MEDS: BUDESONIDE 0.5 MG/2 ML NEBU. NEB SCH ×2 (07:28→19:30)
[2019-01-29] MEDS: IPRATRPIUM/ALBUTEROL 0.5/2.5MG 3 ML NEBU. NEB SCH ×4 (07:28→19:30)
[2019-01-29] MEDS: INSULIN LISPRO 300 UNITS/3 ML INSULN.PEN. SQ SCH ×6 (08:00→17:55)
--- NOTE | 2019-01-29 08:00 | NUR ---
Pt appears lethargic and not as interactive compared with yesterday, slow thought processes, c/o left flank pain. Audible expiratory wheezes, Pt denies being SOA but reports "not feeling well." CXR ordered, Dr Slim ibrahim, he agrees with order placed, will notify of results.
[2019-01-29] MEDS: CLOPIDOGREL BISULFATE 75 MG TABLET PO SCH (08:06)
[2019-01-29] MEDS: PANTOPRAZOLE 40 MG TABLET.DR. PO SCH (08:06)
--- NOTE | 2019-01-29 08:26 | PDOC ---
PROGRESS NOTES Chief Complaint Chief Complaint A/P: Left great toe cellulitis - will consult ID, given vancomycin, however has CKD Multiple toe ulcers - likely vascular, Dr. Schumacher to consult PAD LLE - Dr. Schumacher noted he may undergo angiography under general anesthesia. decreased arterial sonogram hence was advised the runoff procedure today Coronary artery disease, 2 stents prior - cont meds Afib - s/p DCCV on NOAC, changed from eliquis to xarelto recently Hypertension, controlled. History of osteomyelitis, left big toe - Xray does not confirm currently, however, not the best modality CLL - no meds for this Anemia of chronic disease - likely from CLL DM2 - basal bolus plus regimen in house Chronic systolic CHF - stable currently on meds Peripheral neuropathy - 2/2 DM, will monitor Aortic stenosis (s/p TAVR @ [facility] in 2013) COPD - will treat with nebs. Sees Dr. Ramírez outpatient [facility] with CPAP - cont in house Migraines - prn tylenol Depression - cont meds LYDNSEY on CKD - likely vasomotor from his infection, improved over the past 24 hours - will consult nephrology, likely he will need contrast dye in the next few days Benign prostatic hyperplasia - cont meds Chronic stasis dermatitis - bilateral, stable FEN - ADA diet PPX - Heparin DNR/DNI Inpatient for left great toe cellulitis in a complicated patient, likely at least 2 midnights inpatient History of Present Illness History of Present Illness Mr Price is an 83yo M w/ PMHx CLL, PAD, DM2, chronic systolic CHF, peripheral neuropathy, AFIB (with DCCV prior, on NOAC), HTN, Hyperlipidemia, Aortic stenosis (s/p TAVR @ [facility] in 2013), Other (cardiomyopathy), COPD, [facility] with CPAP, migraines, Depression, Chronic renal insufficiency, Benign prostatic hyperplasia, chronic stasis dermatitis bilateral lower extremities who presents from his brancher for concerns of osteomyelitis of left great toe. Seen in [place] in August on 6 weeks IV antibiotics in SNF, then home where his has been caring for him. She reports patient had been doing good and then a few weeks ago he stubbed his left great toe and since has had increased redness and swelling along with worsening wound on his great toe. Patient also has 2 small scabbed wounds on his third and fourth toe on his left foot. He was seen previously by vascular surgery by Dr. Schumacher for arterial insufficiency, was planning further treatment outpatient for LLE PAD. In ED was given empiric vancomycin and admitted for further care. Seen by vascular surgery, ID, and nephrology. 01/27: LLE arterial runoff study - balloon angioplasty of the tibial peroneal trunk and posterior tibial artery there is in-line flow to the foot with large medial and lateral tarsal branches giving good flow to the toes He is feeling slightly worse since last night. Good UOP. Pain in foot. Cr up to 1.9, did have Hb drop to < 8. Wound much less red today. Wound culture shows GPC, looks like MSSA. Short of breath today, feeling worse and a bit confused according to his Plan: Type and screen CXR Stop NSS Likely needs a transfusion soon. With CLL history would likely need leukoreduced Vitals Vitals Vital Signs Date Time Temp Pulse Resp B/P (MAP) Pulse Ox O2 Delivery O2 Flow Rate FiO2 01/29/19 07:28 97 Nasal Cannula 3.0 01/29/19 03:00 100.2 98 16 123/63 (83) 100.2 Physical Exam Physical Exam GENERAL: Propped up in bed, with blanket over his head HEENT: Oral cavity, pharynx is clear. Dentures NECK: Supple LUNGS: Decreased in the bases. HEART: S1 and S2 with a 1-2/6 murmur. ABDOMEN: Obese, soft and nontender. No guarding or rebound. EXTREMITIES: Without clubbing. Chronic venous stasis changes BLE . Dry ulcer 1st and 4th left toes, no redness or drainage NEUROLOGICAL: Alert, answers questions appropriately SKIN: without rash PIV General: Alert, Oriented X3, Cooperative, No acute distress Heart: Regular rate, Normal S1, Normal S2, No murmurs, Gallops Lungs: Wheezing Abdomen: Normal bowel sounds, Soft, No tenderness, No hepatosplenomegaly, No masses Extremities: No clubbing, No cyanosis, No edema, Normal pulses, No tenderness/swelling Skin: Other (Great toe red with 2 ulcer on tip and DIP, and 3rd and 4th toe ulcers) Labs LABS Laboratory Tests Test 01/28/19 11:15 01/28/19 17:22 01/28/19 20:58 01/29/19 05:35 Glucose (Fingerstick) 150 mg/dL (70-99) 70 mg/dL (70-99) 142 mg/dL (70-99) White Blood Count 8.7 x10^3/uL (4.0-11.0) Red Blood Count 2.45 x10^6/uL (4.30-5.70) Hemoglobin 7.5 g/dL (13.0-17.5) Hematocrit 22.8 % (39.0-53.0) Mean Corpuscular Volume 93 fL (79-100) Mean Corpuscular Hemoglobin 31 pg (25-35) Mean Corpuscular Hemoglobin Concent 33 g/dL (31-37) Red Cell Distribution Width 15.2 % (11.5-14.5) Platelet Count 199 x10^3/uL (140-400) Neutrophils (%) (Auto) 76 % (31-73) Lymphocytes (%) (Auto) 6 % (24-48) Monocytes (%) (Auto) 9 % (0-9) Eosinophils (%) (Auto) 10 % (0-3) Basophils (%) (Auto) 1 % (0-3) Neutrophils # (Auto) 6.5 x10^3uL (1.8-7.7) Lymphocytes # (Auto) 0.5 x10^3/uL (1.0-4.8) Monocytes # (Auto) 0.7 x10^3/uL (0.0-1.1) Eosinophils # (Auto) 0.8 x10^3/uL (0.0-0.7) Basophils # (Auto) 0.0 x10^3/uL (0.0-0.2) Sodium Level 147 mmol/L (136-145) Potassium Level 4.6 mmol/L (3.5-5.1) Chloride Level 113 mmol/L (98-107) Carbon Dioxide Level 24 mmol/L (21-32) Anion Gap 10 (6-14) Blood Urea Nitrogen 54 mg/dL (8-26) Creatinine 1.9 mg/dL (0.7-1.3) Estimated GFR (Cockcroft-Gault) 33.9 Glucose Level 120 mg/dL (70-99) Calcium Level 9.9 mg/dL (8.5-10.1) Phosphorus Level 3.2 mg/dL (2.6-4.7) Albumin 2.6 g/dL (3.4-5.0) Assessment and Plan Assessmemt and Plan Problems Medical Problems: (1) Left foot infection Status: Acute (2) Wound cellulitis Status: Acute Comment Review of Relevant I have reviewed the following items earnest (where applicable) has been applied. Labs Laboratory Tests Test 01/27/19 10:41 01/27/19 11:12 01/27/19 16:28 01/28/19 06:00 Sodium Level 144 mmol/L (136-145) 145 mmol/L (136-145) Potassium Level 4.6 mmol/L (3.5-5.1) 4.6 mmol/L (3.5-5.1) Chloride Level 109 mmol/L (98-107) 112 mmol/L (98-107) Carbon Dioxide Level 25 mmol/L (21-32) 22 mmol/L (21-32) Anion Gap 10 (6-14) 11 (6-14) Blood Urea Nitrogen 56 mg/dL (8-26) 55 mg/dL (8-26) Creatinine 1.8 mg/dL (0.7-1.3) 1.6 mg/dL (0.7-1.3) Estimated GFR (Cockcroft-Gault) 36.0 41.3 Glucose Level 145 mg/dL (70-99) 106 mg/dL (70-99) Calcium Level 9.7 mg/dL (8.5-10.1) 10.0 mg/dL (8.5-10.1) Phosphorus Level 3.7 mg/dL (2.6-4.7) 3.0 mg/dL (2.6-4.7) Albumin 2.7 g/dL (3.4-5.0) 2.5 g/dL (3.4-5.0) Glucose (Fingerstick) 140 mg/dL (70-99) 151 mg/dL (70-99) White Blood Count 7.6 x10^3/uL (4.0-11.0) Red Blood Count 2.44 x10^6/uL (4.30-5.70) Hemoglobin 7.6 g/dL (13.0-17.5) Hematocrit 22.8 % (39.0-53.0) Mean Corpuscular Volume 94 fL (79-100) Mean Corpuscular Hemoglobin 31 pg (25-35) Mean Corpuscular Hemoglobin Concent 33 g/dL (31-37) Red Cell Distribution Width 15.7 % (11.5-14.5) Platelet Count 206 x10^3/uL (140-400) Neutrophils (%) (Auto) 71 % (31-73) Lymphocytes (%) (Auto) 5 % (24-48) Monocytes (%) (Auto) 9 % (0-9) Eosinophils (%) (Auto) 15 % (0-3) Basophils (%) (Auto) 0 % (0-3) Neutrophils # (Auto) 5.4 x10^3uL (1.8-7.7) Lymphocytes # (Auto) 0.4 x10^3/uL (1.0-4.8) Monocytes # (Auto) 0.7 x10^3/uL (0.0-1.1) Eosinophils # (Auto) 1.1 x10^3/uL (0.0-0.7) Basophils # (Auto) 0.0 x10^3/uL (0.0-0.2) Segmented Neutrophils % 76 % (35-66) Band Neutrophils % 5 % (0-9) Lymphocytes % 6 % (24-48) Monocytes % 6 % (0-10) Eosinophils % 6 % (0-5) Basophils % 1 % (0-3) Platelet Estimate Adequate (ADEQUATE) Anisocytosis Slight Test 01/28/19 07:41 01/28/19 11:15 01/28/19 17:22 01/28/19 20:58 Glucose (Fingerstick) 108 mg/dL (70-99) 150 mg/dL (70-99) 70 mg/dL (70-99) 142 mg/dL (70-99) Test 01/29/19 05:35 White Blood Count 8.7 x10^3/uL (4.0-11.0) Red Blood Count 2.45 x10^6/uL (4.30-5.70) Hemoglobin 7.5 g/dL (13.0-17.5) Hematocrit 22.8 % (39.0-53.0) Mean Corpuscular Volume 93 fL (79-100) Mean Corpuscular Hemoglobin 31 pg (25-35) Mean Corpuscular Hemoglobin Concent 33 g/dL (31-37) Red Cell Distribution Width 15.2 % (11.5-14.5) Platelet Count 199 x10^3/uL (140-400) Neutrophils (%) (Auto) 76 % (31-73) Lymphocytes (%) (Auto) 6 % (24-48) Monocytes (%) (Auto) 9 % (0-9) Eosinophils (%) (Auto) 10 % (0-3) Basophils (%) (Auto) 1 % (0-3) Neutrophils # (Auto) 6.5 x10^3uL (1.8-7.7) Lymphocytes # (Auto) 0.5 x10^3/uL (1.0-4.8) Monocytes # (Auto) 0.7 x10^3/uL (0.0-1.1) Eosinophils # (Auto) 0.8 x10^3/uL (0.0-0.7) Basophils # (Auto) 0.0 x10^3/uL (0.0-0.2) Sodium Level 147 mmol/L (136-145) Potassium Level 4.6 mmol/L (3.5-5.1) Chloride Level 113 mmol/L (98-107) Carbon Dioxide Level 24 mmol/L (21-32) Anion Gap 10 (6-14) Blood Urea Nitrogen 54 mg/dL (8-26) Creatinine 1.9 mg/dL (0.7-1.3) Estimated GFR (Cockcroft-Gault) 33.9 Glucose Level 120 mg/dL (70-99) Calcium Level 9.9 mg/dL (8.5-10.1) Phosphorus Level 3.2 mg/dL (2.6-4.7) Albumin 2.6 g/dL (3.4-5.0) Laboratory Tests Test 01/28/19 11:15 01/28/19 17:22 01/28/19 20:58 01/29/19 05:35 Glucose (Fingerstick) 150 mg/dL (70-99) 70 mg/dL (70-99) 142 mg/dL (70-99) White Blood Count 8.7 x10^3/uL (4.0-11.0) Red Blood Count 2.45 x10^6/uL (4.30-5.70) Hemoglobin 7.5 g/dL (13.0-17.5) Hematocrit 22.8 % (39.0-53.0) Mean Corpuscular Volume 93 fL (79-100) Mean Corpuscular Hemoglobin 31 pg (25-35) Mean Corpuscular Hemoglobin Concent 33 g/dL (31-37) Red Cell Distribution Width 15.2 % (11.5-14.5) Platelet Count 199 x10^3/uL (140-400) Neutrophils (%) (Auto) 76 % (31-73) Lymphocytes (%) (Auto) 6 % (24-48) Monocytes (%) (Auto) 9 % (0-9) Eosinophils (%) (Auto) 10 % (0-3) Basophils (%) (Auto) 1 % (0-3) Neutrophils # (Auto) 6.5 x10^3uL (1.8-7.7) Lymphocytes # (Auto) 0.5 x10^3/uL (1.0-4.8) Monocytes # (Auto) 0.7 x10^3/uL (0.0-1.1) Eosinophils # (Auto) 0.8 x10^3/uL (0.0-0.7) Basophils # (Auto) 0.0 x10^3/uL (0.0-0.2) Sodium Level 147 mmol/L (136-145) Potassium Level 4.6 mmol/L (3.5-5.1) Chloride Level 113 mmol/L (98-107) Carbon Dioxide Level 24 mmol/L (21-32) Anion Gap 10 (6-14) Blood Urea Nitrogen 54 mg/dL (8-26) Creatinine 1.9 mg/dL (0.7-1.3) Estimated GFR (Cockcroft-Gault) 33.9 Glucose Level 120 mg/dL (70-99) Calcium Level 9.9 mg/dL (8.5-10.1) Phosphorus Level 3.2 mg/dL (2.6-4.7) Albumin 2.6 g/dL (3.4-5.0) Microbiology 01/23/19 Blood Culture - Final, Complete NO GROWTH AFTER 5 DAYS 01/25/19 Anaerobic/Aerobic Culture, Resulted Pending 01/25/19 Anaerobic Culture Result 1 (NEIL), Resulted Pending 01/25/19 Aerobic Culture - Final, Resulted 01/25/19 Aerobic Culture Result 1 (NEIL) - Final, Resulted 01/25/19 Antimicrobic Susceptibility - Final, Resulted 01/25/19 Gram Stain - Final, Resulted 01/25/19 Gram Stain Result 1 (NEIL) - Final, Resulted 01/25/19 Gram Stain Result 2 (NEIL) - Final, Resulted Medications Current Medications Vancomycin HCl (Vanco Per Pharmacy) 1 each 1X ONCE MC Last administered on 01/23/19at 23:33; Start 01/23/19 at 18:00; Stop 01/23/19 at 18:23; Status DC Vancomycin HCl 2 gm/Sodium Chloride 500 ml @ 250 mls/hr 1X ONCE IV Last administered on 01/23/19at 18:59; Start 01/23/19 at 19:00; Stop 01/23/19 at 20:59; Status DC Piperacillin Sod/ Tazobactam Sod 3.375 gm/Sodium Chloride 50 ml @ 100 mls/hr 1X ONCE IV ; Start 01/23/19 at 19:15; Stop 01/23/19 at 19:44; Status Cancel Ondansetron HCl (Zofran) 4 mg PRN Q8HRS PRN IV NAUSEA/VOMITING; Start 01/23/19 at 20:30; Stop 01/24/19 at 20:29; Status DC Fentanyl Citrate (Fentanyl 2ml Vial) 25 mcg PRN Q2HR PRN IV PAIN Last administered on 01/24/19at 09:15; Start 01/23/19 at 20:30; Stop 01/24/19 at 20:29; Status DC Acetaminophen (Tylenol) 650 mg PRN Q4HRS PRN PO FEVER; Start 01/23/19 at 20:30; Stop 01/24/19 at 20:29; Status DC Multivitamins (Thera M Plus) 1 tab DAILY PO Last administered on 01/28/19at 09:42; Start 01/24/19 at 11:00 Aspirin (Children'S Aspirin) 81 mg DAILY PO Last administered on 01/28/19 09:4 2; Start 01/24/19 at 14:30 Cetirizine HCl (ZyrTEC) 10 mg HS PO Last administered on 01/28/19at 21:00; Start 01/24/19 at 21:00 Vitamin D (Vitamin D3) 1,000 unit DAILY PO Last administered on 01/28/19 09:43; Start 01/24/19 at 14:30 Finasteride (Proscar) 5 mg DAILY PO Last administered on 01/28/19 09:42; Start 01/24/19 at 14:30 Insulin Glargine (Lantus) 14 units QHS SQ Last administered on 01/28/19 21:40; Start 01/24/19 at 21:00 Insulin Human Lispro (HumaLOG) 5 units TIDWMEALS SQ Last administered on 12:45; Start 01/24/19 at 17:00 Metoprolol Succinate (Toprol Xl) 12.5 mg DAILY PO Last administered on 01/28/19 09:42; Start 01/24/19 at 14:30 Simvastatin (Zocor) 10 mg QHS PO Last administered on 01/28/19 21:32; Start 01/24/19 at 21:00 Tamsulosin HCl (Flomax) 0.4 mg DAILY PO Last administered on 01/28/19 09:42; Start 01/24/19 at 14:30 Non-Formulary Medication (Budesonide/ Formoterol Fumarate (Symbicort 160-4.5 Mcg Inhaler)) 2 puff BID IH ; Start 01/24/19 at 21:00; Status UNV Citalopram Hydrobromide (CeleXA) 40 mg DAILY PO Last administered on 01/28/19 09:43; Start 01/24/19 at 14:30 Pantoprazole Sodium (Protonix) 40 mg DAILYAC PO Last administered on 01/29/19 08:06; Start 01/24/19 at 14:30 Non-Formulary Medication (Ipratropium/ Albuterol Sulfate (Combivent Respimat Inhal)) 2 inh QID IH ; Start 01/24/19 at 17:00; Status UNV Non-Formulary Medication (Linaclotide (Linzess)) 145 mcg DAILY07 PO ; Start 01/25/19 at 07:00; Stop 01/26/19 at 07:38; Status DC Non-Formulary Medication (Rivaroxaban (Xarelto)) 20 mg DAILY PO ; Start 01/25/19 at 09:00; Stop 01/25/19 at 09:00; Status DC Spironolactone (Aldactone) 12.5 mg DAILY PO Last administered on 01/28/19 09:42; Start 01/24/19 at 14:30 Insulin Human Lispro (HumaLOG) 0-5 UNITS TIDWMEALS SQ Last administered on 01/26/19at 12:41; Start 01/24/19 at 17:00 Dextrose (Dextrose 50%-Water Syringe) 12.5 gm PRN Q15MIN PRN IV SEE COMMENTS; Start 01/24/19 at 13:30 Budesonide (Pulmicort) 0.5 mg RTBID NEB Last administered on 01/29/19 07:28; Start 01/24/19 at 20:00 Albuterol/ Ipratropium (Duoneb) 3 ml RTQID NEB Last administered on 01/29/19 07:28; Start 01/24/19 at 16:00 Vancomycin HCl (Vanco Per Pharmacy) 1 each PRN DAILY PRN MC SEE COMMENTS; Start 01/24/19 at 14:30; Stop 01/24/19 at 14:47; Status DC Linezolid (Zyvox) 600 mg Q12HR PO Last administered on 01/28/19 21:31; Start 01/24/19 at 15:00 Cefepime HCl (Maxipime) 2 gm Q12HR IVP Last administered on 01/28/19 21:32; Start 01/24/19 at 15:00 Metronidazole 100 ml @ 100 mls/hr Q8HRS IV Last administered on 01/29/19 06:03; Start 01/24/19 at 15:00 Nystatin (Nystop) 1 nawaf BID TP Last administered on 01/28/19at 21:00; Start 01/24/19 at 21:00 Lactobacillus Rhamnosus (Culturelle) 1 cap BID PO Last administered on 01/28/19 21:32; Start 01/25/19 at 21:00 Sodium Chloride 1,000 ml @ 100 mls/hr Q10H IV Last administered on 01/26/19at 08:46; Start 01/25/19 at 22:30; Stop 01/26/19 at 15:41; Status DC Sodium Chloride 1,000 ml @ 100 mls/hr Q10H IV ; Start 01/26/19 at 11:30; Stop 01/26/19 at 11:54; Status DC Ondansetron HCl (Zofran) 4 mg PRN Q6HRS PRN IV NAUSEA/VOMITING; Start 01/26/19 at 07:00; Stop 01/26/19 at 14:29; Status DC Fentanyl Citrate (Fentanyl 2ml Vial) 25 mcg PRN Q5MIN PRN IV MILD PAIN 1-3; Start 01/26/19 at 07:00; Stop 01/26/19 at 14:25; Status DC Fentanyl Citrate (Fentanyl 2ml Vial) 50 mcg PRN Q5MIN PRN IV MODERATE TO SEVERE PAIN; Start 01/26/19 at 07:00; Stop 01/26/19 at 14:26; Status DC Morphine Sulfate (Morphine Sulfate) 1 mg PRN Q10MIN PRN IV SEVERE PAIN 7-10; Start 01/26/19 at 07:00; Stop 01/26/19 at 14:29; Status DC Ringer's Solution 1,000 ml @ 30 mls/hr Q24H IV ; Start 01/26/19 at 07:00; Stop 01/26/19 at 14:27; Status DC Lidocaine HCl (Xylocaine-Mpf 1% 2ml Vial) 2 ml PRN 1X PRN ID PRIOR TO IV START; Start 01/26/19 at 07:00; Stop 01/27/19 at 06:59; Status Cancel Hydromorphone HCl (Dilaudid) 0.5 mg PRN Q10MIN PRN IV SEV PAIN, Second choice; Start 01/26/19 at 07:00; Stop 01/27/19 at 06:59; Status Cancel Prochlorperazine Edisylate (Compazine) 5 mg PACU PRN PRN IV NAUSEA, MRX1; Start 01/26/19 at 07:00; Stop 01/27/19 at 06:59; Status Cancel Morphine Sulfate (Morphine Sulfate) 1 mg PRN Q10MIN PRN IV SEVERE PAIN 7-10; Start 01/27/19 at 07:00; Stop 01/28/19 at 06:59; Status DC Ringer's Solution 1,000 ml @ 30 mls/hr Q24H IV ; Start 01/27/19 at 07:00; Stop 01/27/19 at 18:59; Status DC Hydromorphone HCl (Dilaudid) 0.5 mg PRN Q10MIN PRN IV SEV PAIN, Second choice; Start 01/27/19 at 07:00; Stop 01/27/19 at 21:00; Status DC Prochlorperazine Edisylate (Compazine) 5 mg PACU PRN PRN IV NAUSEA, MRX1; Start 01/27/19 at 07:00; Stop 01/27/19 at 21:00; Status DC Fentanyl Citrate (Fentanyl 2ml Vial) 25 mcg PRN Q5MIN PRN IV MILD PAIN 1-3; Start 01/26/19 at 14:30; Stop 01/26/19 at 14:30; Status DC Fentanyl Citrate (Fentanyl 2ml Vial) 50 mcg PRN Q5MIN PRN IV MODERATE TO SEVERE PAIN; Start 01/26/19 at 14:30; Stop 01/26/19 at 14:30; Status DC Sodium Chloride 1,000 ml @ 100 mls/hr Q10H IV Last administered on 01/26/19at 21:43; Start 01/26/19 at 19:30; Stop 01/27/19 at 05:29; Status DC Sodium Chloride 1,000 ml @ 100 mls/hr Q10H IV Last administered on 01/27/19at 17:18; Start 01/27/19 at 07:30; Stop 01/28/19 at 08:26; Status DC Iodixanol (Visipaque 320) 100 ml STK-MED ONCE .ROUTE ; Start 01/27/19 at 06:46; Stop 01/27/19 at 06:47; Status DC Lidocaine HCl (Lidocaine 1% 20ml Vial) 20 ml STK-MED ONCE .ROUTE ; Start 01/27/19 at 06:46; Stop 01/27/19 at 06:47; Status DC Heparin Sodium/ Sodium Chloride 0 ml @ As Directed STK-MED ONCE .ROUTE ; Start 01/27/19 at 06:46; Stop 01/27/19 at 06:47; Status DC Iodixanol (Visipaque 320) 100 ml STK-MED ONCE .ROUTE ; Start 01/27/19 at 06:51; Stop 01/27/19 at 06:52; Status DC Lidocaine HCl (Lidocaine 1% 20ml Vial) 20 ml STK-MED ONCE .ROUTE ; Start 01/27/19 at 06:51; Stop 01/27/19 at 06:52; Status DC Heparin Sodium/ Sodium Chloride 1,500 ml @ As Directed STK-MED ONCE .ROUTE ; Start 01/27/19 at 06:51; Stop 01/27/19 at 06:52; Status DC Midazolam HCl (Versed) 2 mg STK-MED ONCE .ROUTE ; Start 01/27/19 at 07:18; Stop 01/27/19 at 07:19; Status DC Ketamine HCl (Ketamine) 50 mg STK-MED ONCE .ROUTE ; Start 01/27/19 at 07:18; Stop 01/27/19 at 07:19; Status DC Propofol 100 ml @ As Directed STK-MED ONCE IV ; Start 01/27/19 at 06:19; Stop 01/27/19 at 07:19; Status DC Propofol 20 ml @ As Directed STK-MED ONCE IV ; Start 01/27/19 at 07:20; Stop 01/27/19 at 07:21; Status DC Fentanyl Citrate (Fentanyl 2ml Vial) 100 mcg STK-MED ONCE .ROUTE ; Start 01/27/19 at 08:00; Stop 01/27/19 at 08:02; Status DC Heparin Sodium (Porcine) (Heparin Sodium) 10,000 unit STK-MED ONCE .ROUTE ; Start 01/27/19 at 08:07; Stop 01/27/19 at 08:08; Status DC Heparin Sodium/ Sodium Chloride 500 ml @ As Directed STK-MED ONCE .ROUTE ; St art 01/27/19 at 08:15; Stop 01/27/19 at 08:16; Status DC Verapamil HCl (Verapamil) 5 mg STK-MED ONCE .ROUTE ; Start 01/27/19 at 08:23; Stop 01/27/19 at 08:24; Status DC Nitroglycerin (Nitroglycerin) 200 mcg STK-MED ONCE .ROUTE ; Start 01/27/19 at 08:23; Stop 01/27/19 at 08:24; Status DC Heparin Sodium (Porcine) (Heparin Sodium) 10,000 unit STK-MED ONCE .ROUTE ; Start 01/27/19 at 08:23; Stop 01/27/19 at 08:24; Status DC Ketamine HCl (Ketamine) 50 mg STK-MED ONCE .ROUTE ; Start 01/27/19 at 09:29; Stop 01/27/19 at 09:30; Status DC Propofol 20 ml @ As Directed STK-MED ONCE IV ; Start 01/27/19 at 09:29; Stop 01/27/19 at 09:30; Status DC Nitroglycerin (Nitroglycerin) 200 mcg 1X ONCE IART Last administered on 01/27/19at 09:41; Start 01/27/19 at 09:45; Stop 01/27/19 at 09:46; Status DC Verapamil HCl (Verapamil) 2.5 mg 1X ONCE IART Last administered on 01/27/19at 09:42; Start 01/27/19 at 09:45; Stop 01/27/19 at 09:46; Status DC Heparin Sodium (Porcine) (Heparin Sodium) 2,500 unit 1X ONCE IART Last administered on 01/27/19at 09:41; Start 01/27/19 at 09:45; Stop 01/27/19 at 09:46; Status DC Heparin Sodium/ Sodium Chloride (HEPARIN for ARTERIAL LINE FLUSH) 1,000 unit 1X ONCE IART Last administered on 01/27/19at 09:43; Start 01/27/19 at 09:45; Stop 01/27/19 at 09:46; Status DC Heparin Sodium/ Sodium Chloride (HEPARIN for ARTERIAL LINE FLUSH) 1,000 unit 1X ONCE IART Last administered on 01/27/19at 09:44; Start 01/27/19 at 09:45; Stop 01/27/19 at 09:46; Status DC Lidocaine HCl (Lidocaine 1% 20ml Vial) 20 ml 1X ONCE INJ Last administered on 01/27/19at 09:41; Start 01/27/19 at 09:45; Stop 01/27/19 at 09:46; Status DC Iodixanol (Visipaque 320) 61 ml 1X ONCE IART Last administered on 01/27/19at 09:40; Start 01/27/19 at 09:45; Stop 01/27/19 at 09:46; Status DC Clopidogrel Bisulfate (Plavix) 300 mg 1X ONCE PO Last administered on 01/27/19at 10:53; Start 01/27/19 at 09:45; Stop 01/27/19 at 09:46; Status DC Clopidogrel Bisulfate (Plavix) 75 mg DAILYWBKFT PO Last administered on 01/29/19at 08:06; Start 5/18/19 at 08:00 Clopidogrel Bisulfate (Plavix) 300 mg 1X ONCE PO ; Start 01/27/19 at 10:00; Stop 01/27/19 at 10:01; Status UNV Ephedrine Sulfate (ePHEDrine PF IN SALINE SYRINGE) 50 mg STK-MED ONCE IV ; Start 01/27/19 at 07:00; Stop 01/27/19 at 12:40; Status DC Phenylephrine HCl (PHENYLEPHRINE in 0.9% NACL PF) 1 mg STK-MED ONCE IV ; Start 01/27/19 at 07:00; Stop 01/27/19 at 12:40; Status DC Propofol (Diprivan) 400 mg STK-MED ONCE IV ; Start 01/27/19 at 07:00; Stop 01/27/19 at 12:40; Status DC Acetaminophen (Tylenol) 650 mg PRN Q6HRS PRN PO MILD PAIN / TEMP Last administered on 01/28/19at 16:09; Start 01/27/19 at 17:15 Acetaminophen/ Butalbital/ Caffeine (Fioricet) 1 tab PRN Q4HRS PRN PO MIGRAINE HEADACHE Last administered on 01/28/19at 10:49; Start 01/28/19 at 10:45 Active Scripts Active Xarelto (Rivaroxaban) 20 Mg Tablet 20 Mg PO DAILYWSUP 30 Days please hold on Wednesday and WednesdayNovember 12 and . Reported Fiorinal 50-325-40 Mg Capsule (Butalbital/Aspirin/Caffeine) 1 Each Capsule 1 Each PO PRN Q4HRS PRN Combivent Respimat Inhal (Ipratropium/Albuterol Sulfate) 4 Gm Aer.w.adap 2 Inh IH QID Metoprolol Succinate ( Xl ) (Metoprolol Succinate) 25 Mg Tab.er.24h 0.5 Tab PO DAILY Cetirizine Hcl 10 Mg Tablet 1 Tab PO HS Aspirin 81 Mg Tab.chew 1 Tab PO DAILY Linzess (Linaclotide) 145 Mcg Capsule 145 Mcg PO DAILY07 Acetaminophen 325 Mg/10.15 Ml Solution 325 Mg PO Q4HRS Lantus Solostar (Insulin Glargine,Hum.rec.anlog) 100 Unit/1 Ml Insuln.pen 14 Unit SQ QHS Humalog (Insulin Lispro) 100 Unit/1 Ml Insuln.pen 5 Unit SQ AT LUNCH/DINNER Symbicort 160-4.5 Mcg Inhaler (Budesonide/Formoterol Fumarate) 10.2 Gm Hfa.aer.ad 2 Puff IH BID Flomax (Tamsulosin Hcl) 0.4 Mg Cap.er.24h 1 Cap PO DAILY Spironolactone 25 Mg Tablet 0.5 Tab PO DAILY Simvastatin 10 Mg Tablet 1 Tab PO QHS Xarelto (Rivaroxaban) 20 Mg Tablet 20 Mg PO DAILY Nexium Capsule (Esomeprazole Magnesium) 40 Mg Capsule.dr 1 Cap PO DAILY Finasteride 5 Mg Tablet 1 Tab PO DAILY Lexapro (Escitalopram Oxalate) 20 Mg Tablet 1 Tab PO DAILY Vitamin D (Cholecalciferol (Vitamin D3)) 1,000 Unit Tablet 1,000 Unit PO DAILY Probiotic (Lactobacillus Combo No.11) 1 Each Cap.sprink 1 Each PO DAILY Humalog (Insulin Lispro) 100 Unit/1 Ml Cartridge 6 Unit SQ BIDACLD Vibramycin (Doxycycline Hyclate) 100 Mg Capsule 1 Cap PO BID Losartan Potassium (Losartan Potassium) 25 Mg Tablet 25 Mg PO DAILY Metoprolol Succinate ( Xl ) (Metoprolol Succinate) 25 Mg Tab.er.24h 1 Tab PO DAILY Spironolactone 25 Mg Tablet 1 Tab PO DAILY Probiotic (Lactobacillus Acidophilus) 1 Each Capsule 1 Each PO DAILY Fiorinal-Cod [id number] Cap (Codeine/Butalbital/Asa/Caffein) 1 Each Capsule 1 Each PO PRN Q4-6HRS PRN Simvastatin 10 Mg Tablet 1 Tab PO HS Torsemide 20 Mg Tablet 10 Mg PO DAILY Escitalopram Oxalate 20 Mg Tablet 1 Tab PO DAILY Proscar (Finasteride) 5 Mg Tablet 1 Tab PO DAILYWSUP Lantus (Insulin Glargine,Hum.rec.anlog) 100 Unit/1 Ml Vial 14 Unit SQ HS Humalog (Insulin Lispro) 100 Unit/1 Ml Insuln.pen 8 Unit SQ [id number] Vitamin D (Cholecalciferol (Vitamin D3)) 1,000 Unit Tablet 1,000 Unit PO BID Multivitamins (Multivitamin) 1 Each Tablet 1 Each PO DAILY Aspir 81 (Aspirin) 81 Mg Tablet.dr 81 Mg PO DAILY Combivent Respimat Inhal (Ipratropium/Albuterol Sulfate) 4 Gm Aer.w.adap 4 Gm IH BID Zanaflex (Tizanidine Hcl) 2 Mg Capsule 2 Mg PO HS Flomax (Tamsulosin Hcl) 0.4 Mg Cap.er.24h 0.4 Mg PO DAILYWSUP Vitals/I & O Vital Sign - Last 24 Hours 01/28/19 01/28/19 01/28/19 01/28/19 09:42 11:00 11:15 15:00 Temp 98.1 98.4 98.1 98.4 Pulse 83 83 89 Resp 18 16 B/P (MAP) 147/61 136/46 (76) 113/46 (68) Pulse Ox 99 93 O2 Delivery Room Air Nasal Cannula Room Air O2 Flow Rate 3.0 01/28/19 01/28/19 01/28/19 01/28/19 15:13 19:00 19:51 20:10 Temp 99.4 99.4 Pulse 86 Resp 16 B/P (MAP) 143/53 (83) Pulse Ox 91 94 O2 Delivery Nasal Cannula Room Air Room Air Nasal Cannula O2 Flow Rate 3.0 3.0 01/28/19 01/29/19 01/29/19 23:00 03:00 07:28 Temp 97.7 100.2 97.7 100.2 Pulse 67 98 Resp 16 16 B/P (MAP) 158/60 (92) 123/63 (83) Pulse Ox 90 90 97 O2 Delivery Room Air Room Air Nasal Cannula O2 Flow Rate 3.0 Intake and Output 01/28/19 01/28/19 01/29/19 15:00 23:00 07:00 Output Total 300 ml Balance -300 ml KARLA CERRATO MD January 29, 2019 08:26
--- NOTE | 2019-01-29 08:29 | RAD ---
EXAM: CHEST 1 VIEW History: Congestion COMPARISON: None available. TECHNIQUE: Single portable radiograph of the chest FINDINGS: Low lung volumes and technique accentuates heart size and pulmonary vascularity. Mild elevation of the right hemidiaphragm. Minimal prominent appearing bilateral interstitial lung markings. Mild bibasilar lung airspace opacities. IMPRESSION: 1. Mild congestive changes. 2. Mild bibasilar lung airspace opacity likely atelectasis or infiltrates. Electronically signed by: Willian Lopez MD (01/29/2019 8:27 AM) [facility]
[2019-01-29] MEDS: CITALOPRAM 20 MG TABLET. PO SCH (09:19)
[2019-01-29] MEDS: CHOLECALCIFEROL (VITAMIN D3) 1,000 UNIT TABLET PO SCH (09:19)
[2019-01-29] MEDS: CEFEPIME HCL IV Push 2 GM VIAL. IVP SCH ×2 (09:19→21:14)
[2019-01-29] MEDS: LACTOBACILLUS RHAMNOSUS GG 1 CAPSULE. PO SCH ×2 (09:20→21:05)
[2019-01-29] MEDS: ACETAMINOPHEN 325 MG TABLET. PO PRN (09:20)
[2019-01-29] MEDS: TAMSULOSIN 0.4 MG CAP.ER.24H. PO SCH (09:20)
[2019-01-29] MEDS: SPIRONOLACTONE 25 MG TABLET PO SCH (09:20)
[2019-01-29] MEDS: ASPIRIN CHEWABLE 81 MG TABLET. PO SCH (09:20)
[2019-01-29] MEDS: FINASTERIDE 5 MG TABLET. PO SCH (09:20)
[2019-01-29] MEDS: MULTIVITAMIN with MINERAL TABLET. PO SCH (09:20)
[2019-01-29] MEDS: LINEZOLID 600 MG TABLET PO SCH (09:20)
[2019-01-29] MEDS: METOPROLOL SUCC 24HR ER 25 MG TAB.ER.24H. PO SCH (09:21)
[2019-01-29] MEDS: NYSTATIN TOPICAL POWDER 15GM BOTTLE. TP SCH ×2 (09:22→21:09)
[2019-01-29 11:00] VITALS: BP 147/60
--- NOTE | 2019-01-29 12:47 | PDOC ---
Infectious Disease Note Subjective Subjective Not feeling too well today 100.2 temp this morning Walked with PT earlier Supplemental O2 ROS ROS per HPI Vital Sign Vital Signs Vital Signs Date Time Temp Pulse Resp B/P (MAP) Pulse Ox O2 Delivery O2 Flow Rate FiO2 01/29/19 11:22 97 Nasal Cannula 3.0 01/29/19 11:00 97.9 93 16 147/60 (89) 97.9 Physical Exam PHYSICAL EXAM GENERAL: Sitting in the chair, alert, NAD HEENT: Oral cavity, pharynx is clear. Dentures NECK: Supple LUNGS: Decreased in the bases. HEART: S1 and S2 with a 1-2/6 murmur. ABDOMEN: Obese, soft and nontender. No guarding or rebound. EXTREMITIES: Without clubbing. Chronic venous stasis changes BLE . Dry ulcer 1st and 4th left toes, no redness or drainage NEUROLOGICAL: Alert, answers questions appropriately SKIN: without rash PIV Labs Lab Laboratory Tests Test 01/28/19 17:22 01/28/19 20:58 01/29/19 05:35 01/29/19 07:58 Glucose (Fingerstick) 70 mg/dL (70-99) 142 mg/dL (70-99) 125 mg/dL (70-99) White Blood Count 8.7 x10^3/uL (4.0-11.0) Red Blood Count 2.45 x10^6/uL (4.30-5.70) Hemoglobin 7.5 g/dL (13.0-17.5) Hematocrit 22.8 % (39.0-53.0) Mean Corpuscular Volume 93 fL (79-100) Mean Corpuscular Hemoglobin 31 pg (25-35) Mean Corpuscular Hemoglobin Concent 33 g/dL (31-37) Red Cell Distribution Width 15.2 % (11.5-14.5) Platelet Count 199 x10^3/uL (140-400) Neutrophils (%) (Auto) 76 % (31-73) Lymphocytes (%) (Auto) 6 % (24-48) Monocytes (%) (Auto) 9 % (0-9) Eosinophils (%) (Auto) 10 % (0-3) Basophils (%) (Auto) 1 % (0-3) Neutrophils # (Auto) 6.5 x10^3uL (1.8-7.7) Lymphocytes # (Auto) 0.5 x10^3/uL (1.0-4.8) Monocytes # (Auto) 0.7 x10^3/uL (0.0-1.1) Eosinophils # (Auto) 0.8 x10^3/uL (0.0-0.7) Basophils # (Auto) 0.0 x10^3/uL (0.0-0.2) Sodium Level 147 mmol/L (136-145) Potassium Level 4.6 mmol/L (3.5-5.1) Chloride Level 113 mmol/L (98-107) Carbon Dioxide Level 24 mmol/L (21-32) Anion Gap 10 (6-14) Blood Urea Nitrogen 54 mg/dL (8-26) Creatinine 1.9 mg/dL (0.7-1.3) Estimated GFR (Cockcroft-Gault) 33.9 Glucose Level 120 mg/dL (70-99) Calcium Level 9.9 mg/dL (8.5-10.1) Phosphorus Level 3.2 mg/dL (2.6-4.7) Albumin 2.6 g/dL (3.4-5.0) Test 01/29/19 11:28 Glucose (Fingerstick) 171 mg/dL (70-99) Micro Microbiology 01/23/19 Blood Culture - Preliminary, Resulted NO GROWTH AFTER 5 DAYS Left foot ANAEROBIC RES 1 PENDING AEROBIC RES 1 Final Staphylococcus aureus Antibiotic RSLT#1 Ciprofloxacin S<=0.5 Clindamycin S<=0.25 Erythromycin S<=0.25 Gentamicin S<=0.5 Levofloxacin S =0.25 Linezolid S =2 Moxifloxacin S<=0.25 Oxacillin S =0.5 Quinupristin/Dalfopristin S<=0.25 Rifampin S<=0.5 Tetracycline S<=1 Objective Assessment Left great toe ? 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
[2019-01-29 15:00] VITALS: BP 133/41
[2019-01-29 19:51] VITALS: BP 128/55
[2019-01-29] MEDS: CETIRIZINE HCL 10 MG TABLET. PO SCH (21:05)
[2019-01-29] MEDS: SIMVASTATIN 10 MG TABLET PO SCH (21:05)
[2019-01-29] MEDS: INSULIN GLARGINE 300 UNITS/3 ML INSULN.PEN. SQ SCH (21:17)
[2019-01-29 23:20] VITALS: BP 129/49
[2019-01-30] VITALS (11 sets, daily range): BP systolic 104–158; BP diastolic 47–67
[2019-01-30 07:13] LABS: CALCIUM 9.9 mg/dL (8.5-10.1); CREATININE 1.8 mg/dL (0.7-1.3); POTASSIUM 4.4 mmol/L (3.5-5.1)
[2019-01-30 07:20] LABS: BASO % 1 % (0-3); EOS # 0.7 x10^3/uL (0.0-0.7); EOS % 11 % (0-3); LYMPH # 0.5 x10^3/uL (1.0-4.8); LYMPH % 7 % (24-48); MEAN CORPUSCULAR HEMOGLOBIN 32 pg (25-35); MEAN CORPUSCULAR HGB CONC 34 g/dL (31-37); MEAN CORPUSCULAR VOLUME 93 fL (79-100); MONO # 0.7 x10^3/uL (0.0-1.1); MONO % 11 % (0-9); NEUT # 4.6 x10^3uL (1.8-7.7); NEUT % 70 % (31-73); PLATELET COUNT 180 x10^3/uL (140-400); RED BLOOD COUNT 2.21 x10^6/uL (4.30-5.70); RED CELL DISTRIBUTION WIDTH 15.2 % (11.5-14.5); WHITE BLOOD COUNT 6.6 x10^3/uL (4.0-11.0)
[2019-01-30] MEDS: IPRATRPIUM/ALBUTEROL 0.5/2.5MG 3 ML NEBU. NEB SCH ×4 (07:22→19:31)
[2019-01-30] MEDS: BUDESONIDE 0.5 MG/2 ML NEBU. NEB SCH ×2 (07:22→19:31)
[2019-01-30] MEDS: PANTOPRAZOLE 40 MG TABLET.DR. PO SCH (07:33)
[2019-01-30 07:39] LABS: HEMATOCRIT 20.6 % (39.0-53.0)
[2019-01-30] MEDS: CLOPIDOGREL BISULFATE 75 MG TABLET PO SCH (08:00)
[2019-01-30] MEDS: INSULIN LISPRO 300 UNITS/3 ML INSULN.PEN. SQ SCH ×6 (08:00→17:00)
[2019-01-30] MEDS ORDERED: FUROSEMIDE 20 MG/2 ML VIAL. IVP ONE (08:15)
[2019-01-30] MEDS: ASPIRIN CHEWABLE 81 MG TABLET. PO SCH (09:00)
[2019-01-30] MEDS: NYSTATIN TOPICAL POWDER 15GM BOTTLE. TP SCH ×2 (09:00→21:45)
[2019-01-30] MEDS: CHOLECALCIFEROL (VITAMIN D3) 1,000 UNIT TABLET PO SCH (09:08)
[2019-01-30] MEDS: METOPROLOL SUCC 24HR ER 25 MG TAB.ER.24H. PO SCH (09:08)
[2019-01-30] MEDS: FINASTERIDE 5 MG TABLET. PO SCH (09:08)
[2019-01-30] MEDS: LACTOBACILLUS RHAMNOSUS GG 1 CAPSULE. PO SCH ×2 (09:08→21:27)
[2019-01-30] MEDS: MULTIVITAMIN with MINERAL TABLET. PO SCH (09:08)
[2019-01-30] MEDS: CITALOPRAM 20 MG TABLET. PO SCH (09:08)
[2019-01-30] MEDS: SPIRONOLACTONE 25 MG TABLET PO SCH (09:09)
[2019-01-30] MEDS: TAMSULOSIN 0.4 MG CAP.ER.24H. PO SCH (09:09)
[2019-01-30] MEDS: ACETAMINOPHEN 325 MG TABLET. PO PRN (09:12)
[2019-01-30] MEDS: CEFEPIME HCL IV Push 2 GM VIAL. IVP SCH ×2 (09:13→21:26)
--- NOTE | 2019-01-30 11:33 | PDOC ---
PROGRESS NOTES Chief Complaint Chief Complaint A/P: Left great toe cellulitis: treated with 6 weeks from [facility] of IV and finished in Oct Multiple toe ulcers - likely vascular, vasc consulted PAD LLE - s/p angioplasty 01/27 L post tibial artery Coronary artery disease, 2 stents prior - cont meds Afib - s/p DCCV on NOAC, changed from eliquis to xarelto recently Hypertension, controlled. History of osteomyelitis, left big toe - Xray does not confirm currently, however, not the best modality CLL - no meds for this Anemia of chronic disease - likely from CLL DM2 - basal bolus plus regimen in house Chronic systolic CHF - stable currently on meds Peripheral neuropathy - 2/2 DM, will monitor Aortic stenosis (s/p TAVR @ [facility] in 2013) COPD - will treat with nebs. Sees Dr. Ramírez outpatient [facility] with CPAP - cont in house Migraines - prn tylenol Depression - cont meds LYNDSEY on CKD - likely vasomotor from his infection Benign prostatic hyperplasia - cont meds Chronic stasis dermatitis - bilateral, stable FEN - ADA diet PPX - Heparin DNR/DNI Inpatient for left great toe cellulitis in a complicated patient, likely at least 2 midnights inpatient History of Present Illness History of Present Illness Mr Price is an 83yo M w/ PMHx CLL, PAD, DM2, chronic systolic CHF, peripheral neuropathy, AFIB (with DCCV prior, on NOAC), HTN, Hyperlipidemia, Aortic stenosis (s/p TAVR @ [facility] in 2013), Other (cardiomyopathy), COPD, [facility] with CPAP, migraines, Depression, Chronic renal insufficiency, Benign prostatic hyperplasia, chronic stasis dermatitis bilateral lower extremities who presents from his spl[facility] consultant for concerns of osteomyelitis of left great toe. Seen in [place] in August on 6 weeks IV antibiotics in SNF, then home where his has been caring for him. She reports patient had been doing good and then a few weeks ago he stubbed his left great toe and since has had increased redness and swelling along with worsening wound on his great toe. Patient also has 2 small scabbed wounds on his third and fourth toe on his left foot. He was seen previously by vascular surgery by Dr. Schumacher for arterial insufficiency, was planning further treatment outpatient for LLE PAD. In ED was given empiric vancomycin and admitted for further care. Seen by vascular surgery, ID, and nephrology. 01/27: LLE arterial runoff study - balloon angioplasty of the tibial peroneal trunk and posterior tibial artery there is in-line flow to the foot with large medial and lateral tarsal branches giving good flow to the toes feels better.pain in foot. Cr up to 1.8, did have Hb drop to 7.0. will give blood today. Wound culture shows GPC, looks like MSSA. SOB improved Plan: transfuse blood today. continue cefepime and flagyl labs in AM apprec ID and vasc sx Vitals Vitals Vital Signs Date Time Temp Pulse Resp B/P (MAP) Pulse Ox O2 Delivery O2 Flow Rate FiO2 01/30/19 11:11 Nasal Cannula 3.0 01/30/19 09:08 95 156/47 01/30/19 07:22 98 01/30/19 07:00 98.3 17 98.3 Physical Exam Physical Exam GENERAL: Sitting in the chair, alert, NAD HEENT: Oral cavity, pharynx is clear. Dentures NECK: Supple LUNGS: Decreased in the bases. HEART: S1 and S2 with a 1-2/6 murmur. ABDOMEN: Obese, soft and nontender. No guarding or rebound. EXTREMITIES: Without clubbing. Chronic venous stasis changes BLE . Dry ulcer 1st and 4th left toes, no redness or drainage NEUROLOGICAL: Alert, answers questions appropriately SKIN: without rash PIV General: Alert, Oriented X3, Cooperative, No acute distress Heart: Regular rate, Normal S1, Normal S2, No murmurs, Gallops Lungs: Wheezing Abdomen: Normal bowel sounds, Soft, No tenderness, No hepatosplenomegaly, No masses Extremities: No clubbing, No cyanosis, No edema, Normal pulses, No tenderness/swelling Skin: Other (Great toe red with 2 ulcer on tip and DIP, and 3rd and 4th toe ulcers) Labs LABS Laboratory Tests Test 01/29/19 17:12 01/29/19 20:32 01/30/19 05:40 01/30/19 07:46 Glucose (Fingerstick) 110 mg/dL (70-99) 100 mg/dL (70-99) 101 mg/dL (70-99) White Blood Count 6.6 x10^3/uL (4.0-11.0) Red Blood Count 2.21 x10^6/uL (4.30-5.70) Hemoglobin 7.0 g/dL (13.0-17.5) Hematocrit 20.6 % (39.0-53.0) Mean Corpuscular Volume 93 fL (79-100) Mean Corpuscular Hemoglobin 32 pg (25-35) Mean Corpuscular Hemoglobin Concent 34 g/dL (31-37) Red Cell Distribution Width 15.2 % (11.5-14.5) Platelet Count 180 x10^3/uL (140-400) Neutrophils (%) (Auto) 70 % (31-73) Lymphocytes (%) (Auto) 7 % (24-48) Monocytes (%) (Auto) 11 % (0-9) Eosinophils (%) (Auto) 11 % (0-3) Basophils (%) (Auto) 1 % (0-3) Neutrophils # (Auto) 4.6 x10^3uL (1.8-7.7) Lymphocytes # (Auto) 0.5 x10^3/uL (1.0-4.8) Monocytes # (Auto) 0.7 x10^3/uL (0.0-1.1) Eosinophils # (Auto) 0.7 x10^3/uL (0.0-0.7) Basophils # (Auto) 0.0 x10^3/uL (0.0-0.2) Sodium Level 147 mmol/L (136-145) Potassium Level 4.4 mmol/L (3.5-5.1) Chloride Level 114 mmol/L (98-107) Carbon Dioxide Level 25 mmol/L (21-32) Anion Gap 8 (6-14) Blood Urea Nitrogen 53 mg/dL (8-26) Creatinine 1.8 mg/dL (0.7-1.3) Estimated GFR (Cockcroft-Gault) 36.0 Glucose Level 110 mg/dL (70-99) Calcium Level 9.9 mg/dL (8.5-10.1) Assessment and Plan Assessmemt and Plan Problems Medical Problems: (1) Left foot infection Status: Acute (2) Wound cellulitis Status: Acute Comment Review of Relevant I have reviewed the following items earnest (where applicable) has been applied. Labs Laboratory Tests Test 01/28/19 15:30 01/28/19 17:22 01/28/19 20:58 01/29/19 05:35 Nasal Screen MRSA (PCR) Negative (Negative) Glucose (Fingerstick) 70 mg/dL (70-99) 142 mg/dL (70-99) White Blood Count 8.7 x10^3/uL (4.0-11.0) Red Blood Count 2.45 x10^6/uL (4.30-5.70) Hemoglobin 7.5 g/dL (13.0-17.5) Hematocrit 22.8 % (39.0-53.0) Mean Corpuscular Volume 93 fL (79-100) Mean Corpuscular Hemoglobin 31 pg (25-35) Mean Corpuscular Hemoglobin Concent 33 g/dL (31-37) Red Cell Distribution Width 15.2 % (11.5-14.5) Platelet Count 199 x10^3/uL (140-400) Neutrophils (%) (Auto) 76 % (31-73) Lymphocytes (%) (Auto) 6 % (24-48) Monocytes (%) (Auto) 9 % (0-9) Eosinophils (%) (Auto) 10 % (0-3) Basophils (%) (Auto) 1 % (0-3) Neutrophils # (Auto) 6.5 x10^3uL (1.8-7.7) Lymphocytes # (Auto) 0.5 x10^3/uL (1.0-4.8) Monocytes # (Auto) 0.7 x10^3/uL (0.0-1.1) Eosinophils # (Auto) 0.8 x10^3/uL (0.0-0.7) Basophils # (Auto) 0.0 x10^3/uL (0.0-0.2) Sodium Level 147 mmol/L (136-145) Potassium Level 4.6 mmol/L (3.5-5.1) Chloride Level 113 mmol/L (98-107) Carbon Dioxide Level 24 mmol/L (21-32) Anion Gap 10 (6-14) Blood Urea Nitrogen 54 mg/dL (8-26) Creatinine 1.9 mg/dL (0.7-1.3) Estimated GFR (Cockcroft-Gault) 33.9 Glucose Level 120 mg/dL (70-99) Calcium Level 9.9 mg/dL (8.5-10.1) Phosphorus Level 3.2 mg/dL (2.6-4.7) Albumin 2.6 g/dL (3.4-5.0) Test 01/29/19 07:58 01/29/19 11:28 01/29/19 17:12 01/29/19 20:32 Glucose (Fingerstick) 125 mg/dL (70-99) 171 mg/dL (70-99) 110 mg/dL (70-99) 100 mg/dL (70-99) Test 01/30/19 05:40 01/30/19 07:46 White Blood Count 6.6 x10^3/uL (4.0-11.0) Red Blood Count 2.21 x10^6/uL (4.30-5.70) Hemoglobin 7.0 g/dL (13.0-17.5) Hematocrit 20.6 % (39.0-53.0) Mean Corpuscular Volume 93 fL (79-100) Mean Corpuscular Hemoglobin 32 pg (25-35) Mean Corpuscular Hemoglobin Concent 34 g/dL (31-37) Red Cell Distribution Width 15.2 % (11.5-14.5) Platelet Count 180 x10^3/uL (140-400) Neutrophils (%) (Auto) 70 % (31-73) Lymphocytes (%) (Auto) 7 % (24-48) Monocytes (%) (Auto) 11 % (0-9) Eosinophils (%) (Auto) 11 % (0-3) Basophils (%) (Auto) 1 % (0-3) Neutrophils # (Auto) 4.6 x10^3uL (1.8-7.7) Lymphocytes # (Auto) 0.5 x10^3/uL (1.0-4.8) Monocytes # (Auto) 0.7 x10^3/uL (0.0-1.1) Eosinophils # (Auto) 0.7 x10^3/uL (0.0-0.7) Basophils # (Auto) 0.0 x10^3/uL (0.0-0.2) Sodium Level 147 mmol/L (136-145) Potassium Level 4.4 mmol/L (3.5-5.1) Chloride Level 114 mmol/L (98-107) Carbon Dioxide Level 25 mmol/L (21-32) Anion Gap 8 (6-14) Blood Urea Nitrogen 53 mg/dL (8-26) Creatinine 1.8 mg/dL (0.7-1.3) Estimated GFR (Cockcroft-Gault) 36.0 Glucose Level 110 mg/dL (70-99) Calcium Level 9.9 mg/dL (8.5-10.1) Glucose (Fingerstick) 101 mg/dL (70-99) Laboratory Tests Test 01/29/19 17:12 01/29/19 20:32 01/30/19 05:40 01/30/19 07:46 Glucose (Fingerstick) 110 mg/dL (70-99) 100 mg/dL (70-99) 101 mg/dL (70-99) White Blood Count 6.6 x10^3/uL (4.0-11.0) Red Blood Count 2.21 x10^6/uL (4.30-5.70) Hemoglobin 7.0 g/dL (13.0-17.5) Hematocrit 20.6 % (39.0-53.0) Mean Corpuscular Volume 93 fL (79-100) Mean Corpuscular Hemoglobin 32 pg (25-35) Mean Corpuscular Hemoglobin Concent 34 g/dL (31-37) Red Cell Distribution Width 15.2 % (11.5-14.5) Platelet Count 180 x10^3/uL (140-400) Neutrophils (%) (Auto) 70 % (31-73) Lymphocytes (%) (Auto) 7 % (24-48) Monocytes (%) (Auto) 11 % (0-9) Eosinophils (%) (Auto) 11 % (0-3) Basophils (%) (Auto) 1 % (0-3) Neutrophils # (Auto) 4.6 x10^3uL (1.8-7.7) Lymphocytes # (Auto) 0.5 x10^3/uL (1.0-4.8) Monocytes # (Auto) 0.7 x10^3/uL (0.0-1.1) Eosinophils # (Auto) 0.7 x10^3/uL (0.0-0.7) Basophils # (Auto) 0.0 x10^3/uL (0.0-0.2) Sodium Level 147 mmol/L (136-145) Potassium Level 4.4 mmol/L (3.5-5.1) Chloride Level 114 mmol/L (98-107) Carbon Dioxide Level 25 mmol/L (21-32) Anion Gap 8 (6-14) Blood Urea Nitrogen 53 mg/dL (8-26) Creatinine 1.8 mg/dL (0.7-1.3) Estimated GFR (Cockcroft-Gault) 36.0 Glucose Level 110 mg/dL (70-99) Calcium Level 9.9 mg/dL (8.5-10.1) Microbiology 01/23/19 Blood Culture - Final, Complete NO GROWTH AFTER 5 DAYS 01/25/19 Anaerobic/Aerobic Culture, Resulted Pending 01/25/19 Anaerobic Culture Result 1 (NEIL), Resulted Pending 01/25/19 Aerobic Culture - Final, Resulted 01/25/19 Aerobic Culture Result 1 (NEIL) - Final, Resulted 01/25/19 Antimicrobic Susceptibility - Final, Resulted 01/25/19 Gram Stain - Final, Resulted 01/25/19 Gram Stain Result 1 (NEIL) - Final, Resulted 01/25/19 Gram Stain Result 2 (NEIL) - Final, Resulted Medications Current Medications Vancomycin HCl (Vanco Per Pharmacy) 1 each 1X ONCE MC Last administered on 01/23/19at 23:33; Start 01/23/19 at 18:00; Stop 01/23/19 at 18:23; Status DC Vancomycin HCl 2 gm/Sodium Chloride 500 ml @ 250 mls/hr 1X ONCE IV Last administered on 01/23/19at 18:59; Start 01/23/19 at 19:00; Stop 01/23/19 at 20:59; Status DC Piperacillin Sod/ Tazobactam Sod 3.375 gm/Sodium Chloride 50 ml @ 100 mls/hr 1X ONCE IV ; Start 01/23/19 at 19:15; Stop 01/23/19 at 19:44; Status Cancel Ondansetron HCl (Zofran) 4 mg PRN Q8HRS PRN IV NAUSEA/VOMITING; Start 01/23/19 at 20:30; Stop 01/24/19 at 20:29; Status DC Fentanyl Citrate (Fentanyl 2ml Vial) 25 mcg PRN Q2HR PRN IV PAIN Last administered on 01/24/19at 09:15; Start 01/23/19 at 20:30; Stop 01/24/19 at 20:29; Status DC Acetaminophen (Tylenol) 650 mg PRN Q4HRS PRN PO FEVER; Start 01/23/19 at 20:30; Stop 01/24/19 at 20:29; Status DC Multivitamins (Thera M Plus) 1 tab DAILY PO Last administered on 01/30/19 09 :08; Start 01/24/19 at 11:00 Aspirin (Children'S Aspirin) 81 mg DAILY PO Last administered on 01/29/19 09:20; Start 01/24/19 at 14:30 Cetirizine HCl (ZyrTEC) 10 mg HS PO Last administered on 01/29/19 21:05; Start 01/24/19 at 21:00 Vitamin D (Vitamin D3) 1,000 unit DAILY PO Last administered on 01/30/19 09:08; Start 01/24/19 at 14:30 Finasteride (Proscar) 5 mg DAILY PO Last administered on 01/30/19 09:08; Start 01/24/19 at 14:30 Insulin Glargine (Lantus) 14 units QHS SQ Last administered on 01/29/19 21:17; Start 01/24/19 at 21:00 Insulin Human Lispro (HumaLOG) 5 units TIDWMEALS SQ Last administered on 01/30/19 09:21; Start 01/24/19 at 17:00 Metoprolol Succinate (Toprol Xl) 12.5 mg DAILY PO Last administered on 01/30/19 09:08; Start 01/24/19 at 14:30 Simvastatin (Zocor) 10 mg QHS PO Last administered on 01/29/19 21:05; Start 01/24/19 at 21:00 Tamsulosin HCl (Flomax) 0.4 mg DAILY PO Last administered on 01/30/19 09:09; Start 01/24/19 at 14:30 Non-Formulary Medication (Budesonide/ Formoterol Fumarate (Symbicort 160-4.5 Mcg Inhaler)) 2 puff BID IH ; Start 01/24/19 at 21:00; Status UNV Citalopram Hydrobromide (CeleXA) 40 mg DAILY PO Last administered on 5/20/19at 09:08; Start 01/24/19 at 14:30 Pantoprazole Sodium (Protonix) 40 mg DAILYAC PO Last administered on 01/30/19 07:33; Start 01/24/19 at 14:30 Non-Formulary Medication (Ipratropium/ Albuterol Sulfate (Combivent Respimat Inhal)) 2 inh QID IH ; Start 01/24/19 at 17:00; Status UNV Non-Formulary Medication (Linaclotide (Linzess)) 145 mcg DAILY07 PO ; Start 01/25/19 at 07:00; Stop 01/26/19 at 07:38; Status DC Non-Formulary Medication (Rivaroxaban (Xarelto)) 20 mg DAILY PO ; Start 01/25/19 at 09:00; Stop 01/25/19 at 09:00; Status DC Spironolactone (Aldactone) 12.5 mg DAILY PO Last administered on 01/30/19at 09:09; Start 01/24/19 at 14:30 Insulin Human Lispro (HumaLOG) 0-5 UNITS TIDWMEALS SQ Last administered on 01/26/19at 12:41; Start 01/24/19 at 17:00 Dextrose (Dextrose 50%-Water Syringe) 12.5 gm PRN Q15MIN PRN IV SEE COMMENTS; Start 01/24/19 at 13:30 Budesonide (Pulmicort) 0.5 mg RTBID NEB Last administered on 01/30/19at 07:22; Start 01/24/19 at 20:00 Albuterol/ Ipratropium (Duoneb) 3 ml RTQID NEB Last administered on 01/30/19at 11:10; Start 01/24/19 at 16:00 Vancomycin HCl (Vanco Per Pharmacy) 1 each PRN DAILY PRN MC SEE COMMENTS; Start 01/24/19 at 14:30; Stop 01/24/19 at 14:47; Status DC Linezolid (Zyvox) 600 mg Q12HR PO Last administered on 01/29/19at 09:20; Start 01/24/19 at 15:00; Stop 01/29/19 at 12:46; Status DC Cefepime HCl (Maxipime) 2 gm Q12HR IVP Last administered on 01/30/19at 09:13; Start 01/24/19 at 15:00 Metronidazole 100 ml @ 100 mls/hr Q8HRS IV Last administered on 01/30/19at 05:51; Start 01/24/19 at 15:00 Nystatin (Nystop) 1 nawaf BID TP Last administered on 01/30/19at 09:00; Start 01/24/19 at 21:00 Lactobacillus Rhamnosus (Culturelle) 1 cap BID PO Last administered on 01/30/19at 09:08; Start 01/25/19 at 21:00 Sodium Chloride 1,000 ml @ 100 mls/hr Q10H IV Last administered on 01/26/19at 08:46; Start 01/25/19 at 22:30; Stop 01/26/19 at 15:41; Status DC Sodium Chloride 1,000 ml @ 100 mls/hr Q10H IV ; Start 01/26/19 at 11:30; Stop 01/26/19 at 11:54; Status DC Ondansetron HCl (Zofran) 4 mg PRN Q6HRS PRN IV NAUSEA/VOMITING; Start 01/26/19 at 07:00; Stop 01/26/19 at 14:29; Status DC Fentanyl Citrate (Fentanyl 2ml Vial) 25 mcg PRN Q5MIN PRN IV MILD PAIN 1-3; Start 01/26/19 at 07:00; Stop 01/26/19 at 14:25; Status DC Fentanyl Citrate (Fentanyl 2ml Vial) 50 mcg PRN Q5MIN PRN IV MODERATE TO SEVERE PAIN; Start 01/26/19 at 07:00; Stop 01/26/19 at 14:26; Status DC Morphine Sulfate (Morphine Sulfate) 1 mg PRN Q10MIN PRN IV SEVERE PAIN 7-10; Start 01/26/19 at 07:00; Stop 01/26/19 at 14:29; Status DC Ringer's Solution 1,000 ml @ 30 mls/hr Q24H IV ; Start 01/26/19 at 07:00; Stop 01/26/19 at 14:27; Status DC Lidocaine HCl (Xylocaine-Mpf 1% 2ml Vial) 2 ml PRN 1X PRN ID PRIOR TO IV START; Start 01/26/19 at 07:00; Stop 01/27/19 at 06:59; Status Cancel Hydromorphone HCl (Dilaudid) 0.5 mg PRN Q10MIN PRN IV SEV PAIN, Second choice; Start 01/26/19 at 07:00; Stop 01/27/19 at 06:59; Status Cancel Prochlorperazine Edisylate (Compazine) 5 mg PACU PRN PRN IV NAUSEA, MRX1; Start 01/26/19 at 07:00; Stop 01/27/19 at 06:59; Status Cancel Morphine Sulfate (Morphine Sulfate) 1 mg PRN Q10MIN PRN IV SEVERE PAIN 7-10; Start 01/27/19 at 07:00; Stop 01/28/19 at 06:59; Status DC Ringer's Solution 1,000 ml @ 30 mls/hr Q24H IV ; Start 01/27/19 at 07:00; Stop 01/27/19 at 18:59; Status DC Hydromorphone HCl (Dilaudid) 0.5 mg PRN Q10MIN PRN IV SEV PAIN, Second choice; Start 01/27/19 at 07:00; Stop 01/27/19 at 21:00; Status DC Prochlorperazine Edisylate (Compazine) 5 mg PACU PRN PRN IV NAUSEA, MRX1; Start 01/27/19 at 07:00; Stop 01/27/19 at 21:00; Status DC Fentanyl Citrate (Fentanyl 2ml Vial) 25 mcg PRN Q5MIN PRN IV MILD PAIN 1-3; Start 01/26/19 at 14:30; Stop 01/26/19 at 14:30; Status DC Fentanyl Citrate (Fentanyl 2ml Vial) 50 mcg PRN Q5MIN PRN IV MODERATE TO SEVERE PAIN; Start 01/26/19 at 14:30; Stop 01/26/19 at 14:30; Status DC Sodium Chloride 1,000 ml @ 100 mls/hr Q10H IV Last administered on 01/26/19at 21:43; Start 01/26/19 at 19:30; Stop 01/27/19 at 05:29; Status DC Sodium Chloride 1,000 ml @ 100 mls/hr Q10H IV Last administered on 01/27/19at 17:18; Start 01/27/19 at 07:30; Stop 01/28/19 at 08:26; Status DC Iodixanol (Visipaque 320) 100 ml STK-MED ONCE .ROUTE ; Start 01/27/19 at 06:46; Stop 01/27/19 at 06:47; Status DC Lidocaine HCl (Lidocaine 1% 20ml Vial) 20 ml STK-MED ONCE .ROUTE ; Start 01/27/19 at 06:46; Stop 01/27/19 at 06:47; Status DC Heparin Sodium/ Sodium Chloride 0 ml @ As Directed STK-MED ONCE .ROUTE ; Start 01/27/19 at 06:46; Stop 01/27/19 at 06:47; Status DC Iodixanol (Visipaque 320) 100 ml STK-MED ONCE .ROUTE ; Start 01/27/19 at 06:51; Stop 01/27/19 at 06:52; Status DC Lidocaine HCl (Lidocaine 1% 20ml Vial) 20 ml STK-MED ONCE .ROUTE ; Start 01/27/19 at 06:51; Stop 01/27/19 at 06:52; Status DC Heparin Sodium/ Sodium Chloride 1,500 ml @ As Directed STK-MED ONCE .ROUTE ; Start 01/27/19 at 06:51; Stop 01/27/19 at 06:52; Status DC Midazolam HCl (Versed) 2 mg STK-MED ONCE .ROUTE ; Start 01/27/19 at 07:18; Stop 01/27/19 at 07:19; Status DC Ketamine HCl (Ketamine) 50 mg STK-MED ONCE .ROUTE ; Start 01/27/19 at 07:18; Stop 01/27/19 at 07:19; Status DC Propofol 100 ml @ As Directed STK-MED ONCE IV ; Start 01/27/19 at 06:19; Stop 01/27/19 at 07:19; Status DC Propofol 20 ml @ As Directed STK-MED ONCE IV ; Start 01/27/19 at 07:20; Stop 01/27/19 at 07:21; Status DC Fentanyl Citrate (Fentanyl 2ml Vial) 100 mcg STK-MED ONCE .ROUTE ; Start 01/27/19 at 08:00; Stop 01/27/19 at 08:02; Status DC Heparin Sodium (Porcine) (Heparin Sodium) 10,000 unit STK-MED ONCE .ROUTE ; Start 01/27/19 at 08:07; Stop 01/27/19 at 08:08; Status DC Heparin Sodium/ Sodium Chloride 500 ml @ As Directed STK-MED ONCE .ROUTE ; Start 01/27/19 at 08:15; Stop 01/27/19 at 08:16; Status DC Verapamil HCl (Verapamil) 5 mg STK-MED ONCE .ROUTE ; Start 01/27/19 at 08:23; Stop 01/27/19 at 08:24; Status DC Nitroglycerin (Nitroglycerin) 200 mcg STK-MED ONCE .ROUTE ; Start 01/27/19 at 08:23; Stop 01/27/19 at 08:24; Status DC Heparin Sodium (Porcine) (Heparin Sodium) 10,000 unit STK-MED ONCE .ROUTE ; Start 01/27/19 at 08:23; Stop 01/27/19 at 08:24; Status DC Ketamine HCl (Ketamine) 50 mg STK-MED ONCE .ROUTE ; Start 01/27/19 at 09:29; Stop 01/27/19 at 09:30; Status DC Propofol 20 ml @ As Directed STK-MED ONCE IV ; Start 01/27/19 at 09:29; Stop 01/27/19 at 09:30; Status DC Nitroglycerin (Nitroglycerin) 200 mcg 1X ONCE IART Last administered on 01/27/19at 09:41; Start 01/27/19 at 09:45; Stop 01/27/19 at 09:46; Status DC Verapamil HCl (Verapamil) 2.5 mg 1X ONCE IART Last administered on 01/27/19at 09:42; Start 01/27/19 at 09:45; Stop 01/27/19 at 09:46; Status DC Heparin Sodium (Porcine) (Heparin Sodium) 2,500 unit 1X ONCE IART Last administered on 01/27/19at 09:41; Start 01/27/19 at 09:45; Stop 01/27/19 at 09:46; Status DC Heparin Sodium/ Sodium Chloride (HEPARIN for ARTERIAL LINE FLUSH) 1,000 unit 1X ONCE IART Last administered on 01/27/19at 09:43; Start 01/27/19 at 09:45; Stop 01/27/19 at 09:46; Status DC Heparin Sodium/ Sodium Chloride (HEPARIN for ARTERIAL LINE FLUSH) 1,000 unit 1X ONCE IART Last administered on 01/27/19at 09:44; Start 01/27/19 at 09:45; Stop 01/27/19 at 09:46; Status DC Lidocaine HCl (Lidocaine 1% 20ml Vial) 20 ml 1X ONCE INJ Last administered on 01/27/19at 09:41; Start 01/27/19 at 09:45; Stop 01/27/19 at 09:46; Status DC Iodixanol (Visipaque 320) 61 ml 1X ONCE IART Last administered on 01/27/19at 09:40; Start 01/27/19 at 09:45; Stop 01/27/19 at 09:46; Status DC Clopidogrel Bisulfate (Plavix) 300 mg 1X ONCE PO Last administered on 01/27/19at 10:53; Start 01/27/19 at 09:45; Stop 01/27/19 at 09:46; Status DC Clopidogrel Bisulfate (Plavix) 75 mg DAILYWBKFT PO Last administered on 01/29/19at 08:06; Start 01/28/19 at 08:00 Clopidogrel Bisulfate (Plavix) 300 mg 1X ONCE PO ; Start 01/27/19 at 10:00; Stop 01/27/19 at 10:01; Status UNV Ephedrine Sulfate (ePHEDrine PF IN SALINE SYRINGE) 50 mg STK-MED ONCE IV ; Start 01/27/19 at 07:00; Stop 01/27/19 at 12:40; Status DC Phenylephrine HCl (PHENYLEPHRINE in 0.9% NACL PF) 1 mg STK-MED ONCE IV ; Start 01/27/19 at 07:00; Stop 01/27/19 at 12:40; Status DC Propofol (Diprivan) 400 mg STK-MED ONCE IV ; Start 01/27/19 at 07:00; Stop 01/27/19 at 12:40; Status DC Acetaminophen (Tylenol) 650 mg PRN Q6HRS PRN PO MILD PAIN / TEMP Last administered on 01/30/19at 09:12; Start 01/27/19 at 17:15 Acetaminophen/ Butalbital/ Caffeine (Fioricet) 1 tab PRN Q4HRS PRN PO MIGRAINE HEADACHE Last administered on 01/28/19at 10:49; Start 01/28/19 at 10:45 Furosemide (Lasix) 20 mg 1X ONCE IVP Last administered on 01/30/19at 09:07; Start 01/30/19 at 08:15; Stop 01/30/19 at 08:19; Status DC Active Scripts Active Xarelto (Rivaroxaban) 20 Mg Tablet 20 Mg PO DAILYWSUP 30 Days please hold on Wednesday and WednesdayNovember 12 and . Reported Fiorinal 50-325-40 Mg Capsule (Butalbital/Aspirin/Caffeine) 1 Each Capsule 1 Each PO PRN Q4HRS PRN Combivent Respimat Inhal (Ipratropium/Albuterol Sulfate) 4 Gm Aer.w.adap 2 Inh IH QID Metoprolol Succinate ( Xl ) (Metoprolol Succinate) 25 Mg Tab.er.24h 0.5 Tab PO DAILY Cetirizine Hcl 10 Mg Tablet 1 Tab PO HS Aspirin 81 Mg Tab.chew 1 Tab PO DAILY Linzess (Linaclotide) 145 Mcg Capsule 145 Mcg PO DAILY07 Acetaminophen 325 Mg/10.15 Ml Solution 325 Mg PO Q4HRS Lantus Solostar (Insulin Glargine,Hum.rec.anlog) 100 Unit/1 Ml Insuln.pen 14 Unit SQ QHS Humalog (Insulin Lispro) 100 Unit/1 Ml Insuln.pen 5 Unit SQ AT LUNCH/DINNER Symbicort 160-4.5 Mcg Inhaler (Budesonide/Formoterol Fumarate) 10.2 Gm Hfa.aer.ad 2 Puff IH BID Flomax (Tamsulosin Hcl) 0.4 Mg Cap.er.24h 1 Cap PO DAILY Spironolactone 25 Mg Tablet 0.5 Tab PO DAILY Simvastatin 10 Mg Tablet 1 Tab PO QHS Xarelto (Rivaroxaban) 20 Mg Tablet 20 Mg PO DAILY Nexium Capsule (Esomeprazole Magnesium) 40 Mg Capsule.dr 1 Cap PO DAILY Finasteride 5 Mg Tablet 1 Tab PO DAILY Lexapro (Escitalopram Oxalate) 20 Mg Tablet 1 Tab PO DAILY Vitamin D (Cholecalciferol (Vitamin D3)) 1,000 Unit Tablet 1,000 Unit PO DAILY Probiotic (Lactobacillus Combo No.11) 1 Each Cap.sprink 1 Each PO DAILY Humalog (Insulin Lispro) 100 Unit/1 Ml Cartridge 6 Unit SQ BIDACLD Vibramycin (Doxycycline Hyclate) 100 Mg Capsule 1 Cap PO BID Losartan Potassium (Losartan Potassium) 25 Mg Tablet 25 Mg PO DAILY Metoprolol Succinate ( Xl ) (Metoprolol Succinate) 25 Mg Tab.er.24h 1 Tab PO DAILY Spironolactone 25 Mg Tablet 1 Tab PO DAILY Probiotic (Lactobacillus Acidophilus) 1 Each Capsule 1 Each PO DAILY Fiorinal-Cod [id number] Cap (Codeine/Butalbital/Asa/Caffein) 1 Each Capsule 1 Each PO PRN Q4-6HRS PRN Simvastatin 10 Mg Tablet 1 Tab PO HS Torsemide 20 Mg Tablet 10 Mg PO DAILY Escitalopram Oxalate 20 Mg Tablet 1 Tab PO DAILY Proscar (Finasteride) 5 Mg Tablet 1 Tab PO DAILYWSUP Lantus (Insulin Glargine,Hum.rec.anlog) 100 Unit/1 Ml Vial 14 Unit SQ HS Humalog (Insulin Lispro) 100 Unit/1 Ml Insuln.pen 8 Unit SQ DAILYWBKFT Vitamin D (Cholecalciferol (Vitamin D3)) 1,000 Unit Tablet 1,000 Unit PO BID Multivitamins (Multivitamin) 1 Each Tablet 1 Each PO DAILY Aspir 81 (Aspirin) 81 Mg Tablet.dr 81 Mg PO DAILY Combivent Respimat Inhal (Ipratropium/Albuterol Sulfate) 4 Gm Aer.w.adap 4 Gm IH BID Zanaflex (Tizanidine Hcl) 2 Mg Capsule 2 Mg PO HS Flomax (Tamsulosin Hcl) 0.4 Mg Cap.er.24h 0.4 Mg PO DAILYWSUP Vitals/I & O Vital Sign - Last 24 Hours 01/29/19 01/29/19 01/29/19 01/29/19 15:00 15:44 19:30 19:31 Temp 98.1 98.1 Pulse 87 Resp 16 B/P (MAP) 133/41 (71) Pulse Ox 94 95 O2 Delivery Room Air Nasal Cannula Nasal Cannula Nasal Cannula O2 Flow Rate 3.0 3.0 3.0 01/29/19 01/29/19 01/29/19 01/30/19 19:45 19:51 23:20 03:40 Temp 98.0 98.4 98.7 98.0 98.4 98.7 Pulse 83 85 84 Resp 16 20 20 B/P (MAP) 128/55 (79) 129/49 (75) 131/57 (81) Pulse Ox 94 93 94 O2 Delivery Nasal Cannula Room Air BiPAP/CPAP Nasal Cannula O2 Flow Rate 3.0 2.0 5/20/01/30/19 01/30/19 01/30/19 07:00 07:22 09:08 11:11 Temp 98.3 98.3 Pulse 95 95 Resp 17 B/P (MAP) 156/47 (83) 156/47 Pulse Ox 96 98 O2 Delivery Nasal Cannula Nasal Cannula Nasal Cannula O2 Flow Rate 2.0 3.0 3.0 Intake and Output 01/29/19 01/29/19 01/30/19 14:59 22:59 06:59 Intake Total 200 ml 300 ml Output Total 300 ml Balance -100 ml 300 ml COLLEEN SALDANA MD January 30, 2019 11:33
--- NOTE | 2019-01-30 12:06 | PDOC ---
Infectious Disease Note Subjective Subjective feeling good ROS ROS no n/v/d/sob Vital Sign Vital Signs Vital Signs Date Time Temp Pulse Resp B/P (MAP) Pulse Ox O2 Delivery O2 Flow Rate FiO2 01/30/19 11:11 Nasal Cannula 3.0 01/30/19 09:08 95 156/47 01/30/19 07:22 98 01/30/19 07:00 98.3 17 98.3 Physical Exam PHYSICAL EXAM GENERAL: Sitting in the chair, alert, NAD HEENT: Oral cavity, pharynx is clear. Dentures NECK: Supple LUNGS: Decreased in the bases. HEART: S1 and S2 with a 1-2/6 murmur. ABDOMEN: Obese, soft and nontender. No guarding or rebound. EXTREMITIES: Without clubbing. Chronic venous stasis changes BLE . Dry ulcer 1st and 4th left toes, no redness or drainage NEUROLOGICAL: Alert, answers questions appropriately SKIN: without rash PIV Labs Lab Laboratory Tests Test 01/29/19 17:12 01/29/19 20:32 01/30/19 05:40 01/30/19 07:46 Glucose (Fingerstick) 110 mg/dL (70-99) 100 mg/dL (70-99) 101 mg/dL (70-99) White Blood Count 6.6 x10^3/uL (4.0-11.0) Red Blood Count 2.21 x10^6/uL (4.30-5.70) Hemoglobin 7.0 g/dL (13.0-17.5) Hematocrit 20.6 % (39.0-53.0) Mean Corpuscular Volume 93 fL (79-100) Mean Corpuscular Hemoglobin 32 pg (25-35) Mean Corpuscular Hemoglobin Concent 34 g/dL (31-37) Red Cell Distribution Width 15.2 % (11.5-14.5) Platelet Count 180 x10^3/uL (140-400) Neutrophils (%) (Auto) 70 % (31-73) Lymphocytes (%) (Auto) 7 % (24-48) Monocytes (%) (Auto) 11 % (0-9) Eosinophils (%) (Auto) 11 % (0-3) Basophils (%) (Auto) 1 % (0-3) Neutrophils # (Auto) 4.6 x10^3uL (1.8-7.7) Lymphocytes # (Auto) 0.5 x10^3/uL (1.0-4.8) Monocytes # (Auto) 0.7 x10^3/uL (0.0-1.1) Eosinophils # (Auto) 0.7 x10^3/uL (0.0-0.7) Basophils # (Auto) 0.0 x10^3/uL (0.0-0.2) Sodium Level 147 mmol/L (136-145) Potassium Level 4.4 mmol/L (3.5-5.1) Chloride Level 114 mmol/L (98-107) Carbon Dioxide Level 25 mmol/L (21-32) Anion Gap 8 (6-14) Blood Urea Nitrogen 53 mg/dL (8-26) Creatinine 1.8 mg/dL (0.7-1.3) Estimated GFR (Cockcroft-Gault) 36.0 Glucose Level 110 mg/dL (70-99) Calcium Level 9.9 mg/dL (8.5-10.1) Iron Level 36 ug/dL (65-175) Total Iron Binding Capacity 175 ug/dL (250-450) Iron Saturation 21 % (15-34) Vitamin B12 Level 914 pg/mL (247-911) Test 01/30/19 11:46 Glucose (Fingerstick) 128 mg/dL (70-99) Micro Microbiology 01/23/19 Blood Culture - Final, Complete NO GROWTH AFTER 5 DAYS 01/25/19 Anaerobic/Aerobic Culture, Resulted Pending 01/25/19 Anaerobic Culture Result 1 (NEIL), Resulted Pending 01/25/19 Aerobic Culture - Final, Resulted 01/25/19 Aerobic Culture Result 1 (NEIL) - Final, Resulted 01/25/19 Antimicrobic Susceptibility - Final, Resulted 01/25/19 Gram Stain - Final, Resulted 01/25/19 Gram Stain Result 1 (NEIL) - Final, Resulted 01/25/19 Gram Stain Result 2 (NEIL) - Final, Resulted Objective Assessment Left great toe ? 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
--- NOTE | 2019-01-30 12:16 | PDOC2 ---
GI CONSULT Reason For Consult: Suspected GI bleed HPI: HPI: 83 y/o male admitted w/ PVD and toe wounds, s/p angioplasty left posterior tibial artery on 01/27. H/o chronic anemia (baseline Hgb 9-10 range on review of labs back to 2012 - has been in 7-8 range before), CLL (follows w/ Dr. Kaplan @ [facility] - last treatment 1-2 years ago, next appointment is on Wednesday), CKD, heart valve replacement previously on Xarelto and ASA (but now Plavix and ASA which were both held today). Admitting Hgb was 9.2 w/ steady daily drift to 7 this morning w/ plans for transfusion. MCV 93, BUN 53 (improved), Cr 1.8. No reports of bleeding per staff, pt, or spouse. Denies hematemesis, hematochezia, and melena. Takes Nexium 40mg QD at home. Office note indicate was taking Carafate at one point - no longer takes this. H/o constipation controlled w/ Linzess PRN. Last stooled on 01/26. Took iron at one point as well - stopped due to adverse effects. Denies dysphagia, n/v, abd pain, and diarrhea. Has a good appetite. Has lost weight (>100 pounds) over time - says was advised by TIE LAYER at to take small bites so he uses toddler silverware. Colonoscopy 11/2001: internal hemorrhoids and normal random biopsies. EGD 12/2001: H. pylori negative gastritis. EGD 09/2006: H. pylori negative gastritis and normal random duodenal biopsies. Colonoscopy 09/2006 and 04/2014: grade 1 internal hemorrhoids. SBCE 10/2006: normal small bowel, stool in ileum - capsule did not pass. Follow- up SBFT was normal. EGD 04/2014: candidiasis in distal esophagus (confirmed on biopsy) and H. pylori negative erosive gastritis. EGD w/ Dr. Edmonds in 2014 (help w/ DAJA) which showed presence of old scar in stomach indicating previous PUD, no esophageal stricture. EGD w/ Dr. Gonzalez for chronic cough, h/o GERD and dysphagia in 02/2018 showed mild reflux changes in the larynx, normal esophagus, erosive gastritis w/ bile reflux. Esophagus was empirically dilated to 56Fr. There was failure of SAGASTUME pH capsule to attach to esophagus. Antrum biopsy showed mild focal chronic inflammation (negative for H. pylori). [place] 03/2018: no aspiration. S/p cholecystectomy. PMH: PMH: PAD, CAD, CKD, HTN, DM, HLD, GERD, CLL, COPD, GODWIN, depression, BPH, stasis dermatitis, hemorrhoids valve replacement, cholecystectomy, tonsillectomy, LLE angioplasty, RLE w/ "lindsey," CABG FH: Family History: No pertinent hx Social History: Smoke: No ALCOHOL: none Drugs: None ROS: GEN: Denies fevers, chills, sweats HEENT: Denies blurred vision, sore throat CV: Denies chest pain RESP: Denies shortness of air, cough GI: Per HPI : Denies hematuria, dysuria ENDO: D+weight loss NEURO: Denies confusion, dizziness MSK: Denies weakness, joint pain/swelling SKIN: Denies jaundice, pruritus Vitals: Vitals: Vital Signs Date Time Temp Pulse Resp B/P (MAP) Pulse Ox O2 Delivery O2 Flow Rate FiO2 01/30/19 11:11 Nasal Cannula 3.0 01/30/19 09:08 95 156/47 01/30/19 07:22 98 01/30/19 07:00 98.3 17 98.3 Labs: Labs: Laboratory Tests Test 01/29/19 17:12 01/29/19 20:32 01/30/19 05:40 01/30/19 07:46 Glucose (Fingerstick) 110 mg/dL (70-99) 100 mg/dL (70-99) 101 mg/dL (70-99) White Blood Count 6.6 x10^3/uL (4.0-11.0) Red Blood Count 2.21 x10^6/uL (4.30-5.70) Hemoglobin 7.0 g/dL (13.0-17.5) Hematocrit 20.6 % (39.0-53.0) Mean Corpuscular Volume 93 fL (79-100) Mean Corpuscular Hemoglobin 32 pg (25-35) Mean Corpuscular Hemoglobin Concent 34 g/dL (31-37) Red Cell Distribution Width 15.2 % (11.5-14.5) Platelet Count 180 x10^3/uL (140-400) Neutrophils (%) (Auto) 70 % (31-73) Lymphocytes (%) (Auto) 7 % (24-48) Monocytes (%) (Auto) 11 % (0-9) Eosinophils (%) (Auto) 11 % (0-3) Basophils (%) (Auto) 1 % (0-3) Neutrophils # (Auto) 4.6 x10^3uL (1.8-7.7) Lymphocytes # (Auto) 0.5 x10^3/uL (1.0-4.8) Monocytes # (Auto) 0.7 x10^3/uL (0.0-1.1) Eosinophils # (Auto) 0.7 x10^3/uL (0.0-0.7) Basophils # (Auto) 0.0 x10^3/uL (0.0-0.2) Sodium Level 147 mmol/L (136-145) Potassium Level 4.4 mmol/L (3.5-5.1) Chloride Level 114 mmol/L (98-107) Carbon Dioxide Level 25 mmol/L (21-32) Anion Gap 8 (6-14) Blood Urea Nitrogen 53 mg/dL (8-26) Creatinine 1.8 mg/dL (0.7-1.3) Estimated GFR (Cockcroft-Gault) 36.0 Glucose Level 110 mg/dL (70-99) Calcium Level 9.9 mg/dL (8.5-10.1) Iron Level 36 ug/dL (65-175) Total Iron Binding Capacity 175 ug/dL (250-450) Iron Saturation 21 % (15-34) Vitamin B12 Level 914 pg/mL (247-911) Test 01/30/19 11:46 Glucose (Fingerstick) 128 mg/dL (70-99) Allergies: Coded Allergies: venom-honey bee (Verified Allergy, Severe, Anaphylaxis, 01/27/19) Penicillins (Verified Allergy, Intermediate, RASH, 01/27/19) adhesive (Verified Allergy, Intermediate, Rash, 01/27/19) Medications: Current Medications Medications (Trade) Dose Ordered Sig/Robert Route PRN Reason Start Time Stop Time Status Last Admin Dose Admin Furosemide (Lasix) 20 mg 1X ONCE IVP 01/30/19 08:15 01/30/19 08:19 DC 01/30/19 09:07 Imaging: Imaging: Foot X-Ray 01/23 IMPRESSION: Degenerative changes are seen involving the left foot as discussed above. No acute osseous abnormality is seen. 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 Mild congestive changes. 2. Mild bibasilar lung airspace opacity likely atelectasis or infiltrates. PE: GEN: NAD HEENT: Atraumatic, PERRL LUNGS: frequent deep/wet coughing, NC 3L HEART: difficult - he continues talking throughout exam ABD: NABS, S/ND/NT EXTREMITY: left toe wound SKIN: chronic changes BLE NEURO/PSYCH: probably forgetful - provides most history A/P: A/P: PVD, left toe wound, s/p angioplasty left posterior tibial artery Chronic anemia - Hgb below baseline w/o obvious bleeding GERD - on PPI, last EGD <1 year ago CRC screen - UTD (2013) Chronic constipation - controlled w/ Linzess S/p cholecystectomy H/o CAD and valve replacement, CLL, CKD - was on ASA and Xarelto, has been on Plavix here Chronic cough, h/o dysphagia (currently asymptomatic), weight loss - reports TIE LAYER evwilbur @ , also sees pulmonology -- Plans for transfusion. Suspect anemia is multi-factorial and iron studies c/w ACD. Agree w/ PPI. Try Amitiza for h/o constipation - usually takes Linzess but this is not available here and doesn't think he'll do well with Miralax. No plans for 'scopes at this time. Will review recs for restarting Plavix w/ Dr Viridiana Gonzalez. TYLER DARDEN January 30, 2019 12:16
--- NOTE | 2019-01-30 12:24 | NUR ---
SW following for discharge planning. Discussed with RN, pt hg low today so is getting blood. PT/OT recommending SNU. LORENE met with pt and pt's at bedside to discuss discharge planning. Pt's reported he does not have any skilled days left and did not want SW to double check, she does not want home health but is agreeable to outpatient therapy if medicare pays for it. Pt's would like SW to check with [facility] in [place]. RN notified. SW will continue to follow.
--- NOTE | 2019-01-30 13:52 | PDOC ---
PROGRESS NOTES Subjective Subjective Patient seen and examined in room, at bedside. No complaints. Objective Objective Vital Signs Date Time Temp Pulse Resp B/P (MAP) Pulse Ox O2 Delivery O2 Flow Rate FiO2 01/30/19 11:11 Nasal Cannula 3.0 01/30/19 11:00 98.0 83 17 117/47 (70) 97 98.0 Intake and Output 01/30/19 07:00 Intake Total 500 ml Output Total 300 ml Balance 200 ml Intake Oral 500 ml Output Urine Total 300 ml # Voids 6 Physical Exam Physical Exam Awake and alert HRR Right femoral access site intact, no swelling or hematoma noted. Left 1st, 2nd, and 4th toe tips with dry eschar. Lower leg swelling and erythema improving. Doppler biphasic PT pulse. Foot warm. 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 osteomyelitis, no definitive diagnosis, he continues to improve. s/p #1 ultrasound-guided access right common femoral artery #2 ultrasound-guided access left posterior tibial artery #3 angioplasty left posterior tibial artery Recommend continued abx per ID, continue plavix 75mg daily if ok with GI, follow up with Dr. Graham with Ultrasound ABIs as scheduled. 02/10/2019 11:30. Comment Review of Relevant I have reviewed the following items earnest (where applicable) has been applied. Labs Laboratory Tests Test 01/28/19 15:30 01/28/19 17:22 01/28/19 20:58 01/29/19 05:35 Nasal Screen MRSA (PCR) Negative (Negative) Glucose (Fingerstick) 70 mg/dL (70-99) 142 mg/dL (70-99) White Blood Count 8.7 x10^3/uL (4.0-11.0) Red Blood Count 2.45 x10^6/uL (4.30-5.70) Hemoglobin 7.5 g/dL (13.0-17.5) Hematocrit 22.8 % (39.0-53.0) Mean Corpuscular Volume 93 fL (79-100) Mean Corpuscular Hemoglobin 31 pg (25-35) Mean Corpuscular Hemoglobin Concent 33 g/dL (31-37) Red Cell Distribution Width 15.2 % (11.5-14.5) Platelet Count 199 x10^3/uL (140-400) Neutrophils (%) (Auto) 76 % (31-73) Lymphocytes (%) (Auto) 6 % (24-48) Monocytes (%) (Auto) 9 % (0-9) Eosinophils (%) (Auto) 10 % (0-3) Basophils (%) (Auto) 1 % (0-3) Neutrophils # (Auto) 6.5 x10^3uL (1.8-7.7) Lymphocytes # (Auto) 0.5 x10^3/uL (1.0-4.8) Monocytes # (Auto) 0.7 x10^3/uL (0.0-1.1) Eosinophils # (Auto) 0.8 x10^3/uL (0.0-0.7) Basophils # (Auto) 0.0 x10^3/uL (0.0-0.2) Sodium Level 147 mmol/L (136-145) Potassium Level 4.6 mmol/L (3.5-5.1) Chloride Level 113 mmol/L (98-107) Carbon Dioxide Level 24 mmol/L (21-32) Anion Gap 10 (6-14) Blood Urea Nitrogen 54 mg/dL (8-26) Creatinine 1.9 mg/dL (0.7-1.3) Estimated GFR (Cockcroft-Gault) 33.9 Glucose Level 120 mg/dL (70-99) Calcium Level 9.9 mg/dL (8.5-10.1) Phosphorus Level 3.2 mg/dL (2.6-4.7) Albumin 2.6 g/dL (3.4-5.0) Test 01/29/19 07:58 01/29/19 11:28 01/29/19 17:12 01/29/19 20:32 Glucose (Fingerstick) 125 mg/dL (70-99) 171 mg/dL (70-99) 110 mg/dL (70-99) 100 mg/dL (70-99) Test 01/30/19 05:40 01/30/19 07:46 01/30/19 11:46 White Blood Count 6.6 x10^3/uL (4.0-11.0) Red Blood Count 2.21 x10^6/uL (4.30-5.70) Hemoglobin 7.0 g/dL (13.0-17.5) Hematocrit 20.6 % (39.0-53.0) Mean Corpuscular Volume 93 fL (79-100) Mean Corpuscular Hemoglobin 32 pg (25-35) Mean Corpuscular Hemoglobin Concent 34 g/dL (31-37) Red Cell Distribution Width 15.2 % (11.5-14.5) Platelet Count 180 x10^3/uL (140-400) Neutrophils (%) (Auto) 70 % (31-73) Lymphocytes (%) (Auto) 7 % (24-48) Monocytes (%) (Auto) 11 % (0-9) Eosinophils (%) (Auto) 11 % (0-3) Basophils (%) (Auto) 1 % (0-3) Neutrophils # (Auto) 4.6 x10^3uL (1.8-7.7) Lymphocytes # (Auto) 0.5 x10^3/uL (1.0-4.8) Monocytes # (Auto) 0.7 x10^3/uL (0.0-1.1) Eosinophils # (Auto) 0.7 x10^3/uL (0.0-0.7) Basophils # (Auto) 0.0 x10^3/uL (0.0-0.2) Sodium Level 147 mmol/L (136-145) Potassium Level 4.4 mmol/L (3.5-5.1) Chloride Level 114 mmol/L (98-107) Carbon Dioxide Level 25 mmol/L (21-32) Anion Gap 8 (6-14) Blood Urea Nitrogen 53 mg/dL (8-26) Creatinine 1.8 mg/dL (0.7-1.3) Estimated GFR (Cockcroft-Gault) 36.0 Glucose Level 110 mg/dL (70-99) Calcium Level 9.9 mg/dL (8.5-10.1) Iron Level 36 ug/dL (65-175) Total Iron Binding Capacity 175 ug/dL (250-450) Iron Saturation 21 % (15-34) Vitamin B12 Level 914 pg/mL (247-911) Glucose (Fingerstick) 101 mg/dL (70-99) 128 mg/dL (70-99) Laboratory Tests Test 01/29/19 17:12 01/29/19 20:32 01/30/19 05:40 01/30/19 07:46 Glucose (Fingerstick) 110 mg/dL (70-99) 100 mg/dL (70-99) 101 mg/dL (70-99) White Blood Count 6.6 x10^3/uL (4.0-11.0) Red Blood Count 2.21 x10^6/uL (4.30-5.70) Hemoglobin 7.0 g/dL (13.0-17.5) Hematocrit 20.6 % (39.0-53.0) Mean Corpuscular Volume 93 fL (79-100) Mean Corpuscular Hemoglobin 32 pg (25-35) Mean Corpuscular Hemoglobin Concent 34 g/dL (31-37) Red Cell Distribution Width 15.2 % (11.5-14.5) Platelet Count 180 x10^3/uL (140-400) Neutrophils (%) (Auto) 70 % (31-73) Lymphocytes (%) (Auto) 7 % (24-48) Monocytes (%) (Auto) 11 % (0-9) Eosinophils (%) (Auto) 11 % (0-3) Basophils (%) (Auto) 1 % (0-3) Neutrophils # (Auto) 4.6 x10^3uL (1.8-7.7) Lymphocytes # (Auto) 0.5 x10^3/uL (1.0-4.8) Monocytes # (Auto) 0.7 x10^3/uL (0.0-1.1) Eosinophils # (Auto) 0.7 x10^3/uL (0.0-0.7) Basophils # (Auto) 0.0 x10^3/uL (0.0-0.2) Sodium Level 147 mmol/L (136-145) Potassium Level 4.4 mmol/L (3.5-5.1) Chloride Level 114 mmol/L (98-107) Carbon Dioxide Level 25 mmol/L (21-32) Anion Gap 8 (6-14) Blood Urea Nitrogen 53 mg/dL (8-26) Creatinine 1.8 mg/dL (0.7-1.3) Estimated GFR (Cockcroft-Gault) 36.0 Glucose Level 110 mg/dL (70-99) Calcium Level 9.9 mg/dL (8.5-10.1) Iron Level 36 ug/dL (65-175) Total Iron Binding Capacity 175 ug/dL (250-450) Iron Saturation 21 % (15-34) Vitamin B12 Level 914 pg/mL (247-911) Test 01/30/19 11:46 Glucose (Fingerstick) 128 mg/dL (70-99) Microbiology 01/23/19 Blood Culture - Final, Complete NO GROWTH AFTER 5 DAYS 01/25/19 Anaerobic/Aerobic Culture, Resulted Pending 01/25/19 Anaerobic Culture Result 1 (NEIL), Resulted Pending 01/25/19 Aerobic Culture - Final, Resulted 01/25/19 Aerobic Culture Result 1 (NEIL) - Final, Resulted 01/25/19 Antimicrobic Susceptibility - Final, Resulted 01/25/19 Gram Stain - Final, Resulted 01/25/19 Gram Stain Result 1 (NEIL) - Final, Resulted 01/25/19 Gram Stain Result 2 (NEIL) - Final, Resulted Medications Current Medications Vancomycin HCl (Vanco Per Pharmacy) 1 each 1X ONCE MC Last administered on 01/11 11/29at 23:33; Start 01/23/19 at 18:00; Stop 01/23/19 at 18:23; Status DC Vancomycin HCl 2 gm/Sodium Chloride 500 ml @ 250 mls/hr 1X ONCE IV Last administered on 01/23/19at 18:59; Start 01/23/19 at 19:00; Stop 01/23/19 at 20:59; Status DC Piperacillin Sod/ Tazobactam Sod 3.375 gm/Sodium Chloride 50 ml @ 100 mls/hr 1X ONCE IV ; Start 01/23/19 at 19:15; Stop 01/23/19 at 19:44; Status Cancel Ondansetron HCl (Zofran) 4 mg PRN Q8HRS PRN IV NAUSEA/VOMITING; Start 01/23/19 at 20:30; Stop 01/24/19 at 20:29; Status DC Fentanyl Citrate (Fentanyl 2ml Vial) 25 mcg PRN Q2HR PRN IV PAIN Last administered on 01/24/19at 09:15; Start 01/23/19 at 20:30; Stop 01/24/19 at 20:29; Status DC Acetaminophen (Tylenol) 650 mg PRN Q4HRS PRN PO FEVER; Start 01/23/19 at 20:30; Stop 01/24/19 at 20:29; Status DC Multivitamins (Thera M Plus) 1 tab DAILY PO Last administered on 01/30/19 09:08; Start 01/24/19 at 11:00 Aspirin (Children'S Aspirin) 81 mg DAILY PO Last administered on 01/29/19 09:20; Start 01/24/19 at 14:30 Cetirizine HCl (ZyrTEC) 10 mg HS PO Last administered on 01/29/19 21:05; Start 01/24/19 at 21:00 Vitamin D (Vitamin D3) 1,000 unit DAILY PO Last administered on 01/30/19 09:08; Start 01/24/19 at 14:30 Finasteride (Proscar) 5 mg DAILY PO Last administered on 01/30/19 09:08; Start 01/24/19 at 14:30 Insulin Glargine (Lantus) 14 units QHS SQ Last administered on 01/29/19 21:17; Start 01/24/19 at 21:00 Insulin Human Lispro (HumaLOG) 5 units TIDWMEALS SQ Last administered on 01/30/19 12:31; Start 01/24/19 at 17:00 Metoprolol Succinate (Toprol Xl) 12.5 mg DAILY PO Last administered on 01/30/19 09:08; Start 01/24/19 at 14:30 Simvastatin (Zocor) 10 mg QHS PO Last administered on 01/29/19 21:05; Start 01/24/19 at 21:00 Tamsulosin HCl (Flomax) 0.4 mg DAILY PO Last administered on 01/30/19 09:09; Start 01/24/19 at 14:30 Non-Formulary Medication (Budesonide/ Formoterol Fumarate (Symbicort 160-4.5 Mcg Inhaler)) 2 puff BID IH ; Start 01/24/19 at 21:00; Status UNV Citalopram Hydrobromide (CeleXA) 40 mg DAILY PO Last administered on 01/30/19 09:08; Start 01/24/19 at 14:30 Pantoprazole Sodium (Protonix) 40 mg DAILYAC PO Last administered on 01/30/19at 07:33; Start 01/24/19 at 14:30 Non-Formulary Medication (Ipratropium/ Albuterol Sulfate (Combivent Respimat Inhal)) 2 inh QID IH ; Start 01/24/19 at 17:00; Status UNV Non-Formulary Medication (Linaclotide (Linzess)) 145 mcg DAILY07 PO ; Start 01/25/19 at 07:00; Stop 01/26/19 at 07:38; Status DC Non-Formulary Medication (Rivaroxaban (Xarelto)) 20 mg DAILY PO ; Start 01/25/19 at 09:00; Stop 01/25/19 at 09:00; Status DC Spironolactone (Aldactone) 12.5 mg DAILY PO Last administered on 01/30/19at 09:09; Start 01/24/19 at 14:30 Insulin Human Lispro (HumaLOG) 0-5 UNITS TIDWMEALS SQ Last administered on 01/26/19at 12:41; Start 01/24/19 at 17:00 Dextrose (Dextrose 50%-Water Syringe) 12.5 gm PRN Q15MIN PRN IV SEE COMMENTS; Start 01/24/19 at 13:30 Budesonide (Pulmicort) 0.5 mg RTBID NEB Last administered on 01/30/19at 07:22; Start 01/24/19 at 20:00 Albuterol/ Ipratropium (Duoneb) 3 ml RTQID NEB Last administered on 01/30/19at 11:10; Start 01/24/19 at 16:00 Vancomycin HCl (Vanco Per Pharmacy) 1 each PRN DAILY PRN MC SEE COMMENTS; Start 01/24/19 at 14:30; Stop 01/24/19 at 14:47; Status DC Linezolid (Zyvox) 600 mg Q12HR PO Last administered on 01/29/19at 09:20; Start 01/24/19 at 15:00; Stop 01/29/19 at 12:46; Status DC Cefepime HCl (Maxipime) 2 gm Q12HR IVP Last administered on 01/30/19at 09:13; Start 01/24/19 at 15:00 Metronidazole 100 ml @ 100 mls/hr Q8HRS IV Last administered on 01/30/19at 13:10; Start 01/24/19 at 15:00 Nystatin (Nystop) 1 nawaf BID TP Last administered on 01/30/19at 09:00; Start 01/24/19 at 21:00 Lactobacillus Rhamnosus (Culturelle) 1 cap BID PO Last administered on 01/30/19at 09:08; Start 01/25/19 at 21:00 Sodium Chloride 1,000 ml @ 100 mls/hr Q10H IV Last administered on 01/26/19at 08:46; Start 01/25/19 at 22:30; Stop 01/26/19 at 15:41; Status DC Sodium Chloride 1,000 ml @ 100 mls/hr Q10H IV ; Start 01/26/19 at 11:30; Stop 01/26/19 at 11:54; Status DC Ondansetron HCl (Zofran) 4 mg PRN Q6HRS PRN IV NAUSEA/VOMITING; Start 01/26/19 at 07:00; Stop 01/26/19 at 14:29; Status DC Fentanyl Citrate (Fentanyl 2ml Vial) 25 mcg PRN Q5MIN PRN IV MILD PAIN 1-3; Start 01/26/19 at 07:00; Stop 01/26/19 at 14:25; Status DC Fentanyl Citrate (Fentanyl 2ml Vial) 50 mcg PRN Q5MIN PRN IV MODERATE TO SEVERE PAIN; Start 01/26/19 at 07:00; Stop 01/26/19 at 14:26; Status DC Morphine Sulfate (Morphine Sulfate) 1 mg PRN Q10MIN PRN IV SEVERE PAIN 7-10; Start 01/26/19 at 07:00; Stop 01/26/19 at 14:29; Status DC Ringer's Solution 1,000 ml @ 30 mls/hr Q24H IV ; Start 01/26/19 at 07:00; Stop 01/26/19 at 14:27; Status DC Lidocaine HCl (Xylocaine-Mpf 1% 2ml Vial) 2 ml PRN 1X PRN ID PRIOR TO IV START; Start 01/26/19 at 07:00; Stop 01/27/19 at 06:59; Status Cancel Hydromorphone HCl (Dilaudid) 0.5 mg PRN Q10MIN PRN IV SEV PAIN, Second choice; Start 01/26/19 at 07:00; Stop 01/27/19 at 06:59; Status Cancel Prochlorperazine Edisylate (Compazine) 5 mg PACU PRN PRN IV NAUSEA, MRX1; Start 01/26/19 at 07:00; Stop 01/27/19 at 06:59; Status Cancel Morphine Sulfate (Morphine Sulfate) 1 mg PRN Q10MIN PRN IV SEVERE PAIN 7-10; Start 01/27/19 at 07:00; Stop 01/28/19 at 06:59; Status DC Ringer's Solution 1,000 ml @ 30 mls/hr Q24H IV ; Start 01/27/19 at 07:00; Stop 01/27/19 at 18:59; Status DC Hydromorphone HCl (Dilaudid) 0.5 mg PRN Q10MIN PRN IV SEV PAIN, Second choice; Start 01/27/19 at 07:00; Stop 01/27/19 at 21:00; Status DC Prochlorperazine Edisylate (Compazine) 5 mg PACU PRN PRN IV NAUSEA, MRX1; Start 01/27/19 at 07:00; Stop 01/27/19 at 21:00; Status DC Fentanyl Citrate (Fentanyl 2ml Vial) 25 mcg PRN Q5MIN PRN IV MILD PAIN 1-3; Start 01/26/19 at 14:30; Stop 01/26/19 at 14:30; Status DC Fentanyl Citrate (Fentanyl 2ml Vial) 50 mcg PRN Q5MIN PRN IV MODERATE TO SEVERE PAIN; Start 01/26/19 at 14:30; Stop 01/26/19 at 14:30; Status DC Sodium Chloride 1,000 ml @ 100 mls/hr Q10H IV Last administered on 01/26/19at 21:43; Start 01/26/19 at 19:30; Stop 01/27/19 at 05:29; Status DC Sodium Chloride 1,000 ml @ 100 mls/hr Q10H IV Last administered on 01/27/19at 17:18; Start 01/27/19 at 07:30; Stop 01/28/19 at 08:26; Status DC Iodixanol (Visipaque 320) 100 ml STK-MED ONCE .ROUTE ; Start 01/27/19 at 06:46; Stop 01/27/19 at 06:47; Status DC Lidocaine HCl (Lidocaine 1% 20ml Vial) 20 ml STK-MED ONCE .ROUTE ; Start 01/27/19 at 06:46; Stop 01/27/19 at 06:47; Status DC Heparin Sodium/ Sodium Chloride 0 ml @ As Directed STK-MED ONCE .ROUTE ; Start 01/27/19 at 06:46; Stop 01/27/19 at 06:47; Status DC Iodixanol (Visipaque 320) 100 ml STK-MED ONCE .ROUTE ; Start 01/27/19 at 06:51; Stop 01/27/19 at 06:52; Status DC Lidocaine HCl (Lidocaine 1% 20ml Vial) 20 ml STK-MED ONCE .ROUTE ; Start 01/27/19 at 06:51; Stop 01/27/19 at 06:52; Status DC Heparin Sodium/ Sodium Chloride 1,500 ml @ As Directed STK-MED ONCE .ROUTE ; Start 01/27/19 at 06:51; Stop 01/27/19 at 06:52; Status DC Midazolam HCl (Versed) 2 mg STK-MED ONCE .ROUTE ; Start 01/27/19 at 07:18; Stop 01/27/19 at 07:19; Status DC Ketamine HCl (Ketamine) 50 mg STK-MED ONCE .ROUTE ; Start 01/27/19 at 07:18; Stop 01/27/19 at 07:19; Status DC Propofol 100 ml @ As Directed STK-MED ONCE IV ; Start 01/27/19 at 06:19; Stop 01/27/19 at 07:19; Status DC Propofol 20 ml @ As Directed STK-MED ONCE IV ; Start 01/27/19 at 07:20; Stop 01/27/19 at 07:21; Status DC Fentanyl Citrate (Fentanyl 2ml Vial) 100 mcg STK-MED ONCE .ROUTE ; Start 01/27/19 at 08:00; Stop 01/27/19 at 08:02; Status DC Heparin Sodium (Porcine) (Heparin Sodium) 10,000 unit STK-MED ONCE .ROUTE ; Start 01/27/19 at 08:07; Stop 01/27/19 at 08:08; Status DC Heparin Sodium/ Sodium Chloride 500 ml @ As Directed STK-MED ONCE .ROUTE ; Start 01/27/19 at 08:15; Stop 01/27/19 at 08:16; Status DC Verapamil HCl (Verapamil) 5 mg STK-MED ONCE .ROUTE ; Start 01/27/19 at 08:23; Stop 01/27/19 at 08:24; Status DC Nitroglycerin (Nitroglycerin) 200 mcg STK-MED ONCE .ROUTE ; Start 01/27/19 at 08:23; Stop 01/27/19 at 08:24; Status DC Heparin Sodium (Porcine) (Heparin Sodium) 10,000 unit STK-MED ONCE .ROUTE ; Start 01/27/19 at 08:23; Stop 01/27/19 at 08:24; Status DC Ketamine HCl (Ketamine) 50 mg STK-MED ONCE .ROUTE ; Start 01/27/19 at 09:29; Stop 01/27/19 at 09:30; Status DC Propofol 20 ml @ As Directed STK-MED ONCE IV ; Start 01/27/19 at 09:29; Stop 01/27/19 at 09:30; Status DC Nitroglycerin (Nitroglycerin) 200 mcg 1X ONCE IART Last administered on 01/27/19at 09:41; Start 01/27/19 at 09:45; Stop 01/27/19 at 09:46; Status DC Verapamil HCl (Verapamil) 2.5 mg 1X ONCE IART Last administered on 01/27/19at 09:42; Start 01/27/19 at 09:45; Stop 01/27/19 at 09:46; Status DC Heparin Sodium (Porcine) (Heparin Sodium) 2,500 unit 1X ONCE IART Last adminis tered on 01/27/19at 09:41; Start 01/27/19 at 09:45; Stop 01/27/19 at 09:46; Status DC Heparin Sodium/ Sodium Chloride (HEPARIN for ARTERIAL LINE FLUSH) 1,000 unit 1X ONCE IART Last administered on 01/27/19at 09:43; Start 01/27/19 at 09:45; Stop 01/27/19 at 09:46; Status DC Heparin Sodium/ Sodium Chloride (HEPARIN for ARTERIAL LINE FLUSH) 1,000 unit 1X ONCE IART Last administered on 01/27/19at 09:44; Start 01/27/19 at 09:45; Stop 01/27/19 at 09:46; Status DC Lidocaine HCl (Lidocaine 1% 20ml Vial) 20 ml 1X ONCE INJ Last administered on 01/27/19at 09:41; Start 01/27/19 at 09:45; Stop 01/27/19 at 09:46; Status DC Iodixanol (Visipaque 320) 61 ml 1X ONCE IART Last administered on 01/27/19at 09:40; Start 01/27/19 at 09:45; Stop 01/27/19 at 09:46; Status DC Clopidogrel Bisulfate (Plavix) 300 mg 1X ONCE PO Last administered on 01/27/19at 10:53; Start 01/27/19 at 09:45; Stop 01/27/19 at 09:46; Status DC Clopidogrel Bisulfate (Plavix) 75 mg DAILYWBKFT PO Last administered on 01/29/19at 08:06; Start 01/28/19 at 08:00 Clopidogrel Bisulfate (Plavix) 300 mg 1X ONCE PO ; Start 01/27/19 at 10:00; Stop 01/27/19 at 10:01; Status UNV Ephedrine Sulfate (ePHEDrine PF IN SALINE SYRINGE) 50 mg STK-MED ONCE IV ; Start 01/27/19 at 07:00; Stop 01/27/19 at 12:40; Status DC Phenylephrine HCl (PHENYLEPHRINE in 0.9% NACL PF) 1 mg STK-MED ONCE IV ; Start 01/27/19 at 07:00; Stop 01/27/19 at 12:40; Status DC Propofol (Diprivan) 400 mg STK-MED ONCE IV ; Start 01/27/19 at 07:00; Stop 01/27/19 at 12:40; Status DC Acetaminophen (Tylenol) 650 mg PRN Q6HRS PRN PO MILD PAIN / TEMP Last administered on 01/30/19at 09:12; Start 01/27/19 at 17:15 Acetaminophen/ Butalbital/ Caffeine (Fioricet) 1 tab PRN Q4HRS PRN PO MIGRAINE HEADACHE Last administered on 01/28/19at 10:49; Start 01/28/19 at 10:45 Furosemide (Lasix) 20 mg 1X ONCE IVP Last administered on 01/30/19at 09:07; Start 01/30/19 at 08:15; Stop 01/30/19 at 08:19; Status DC Active Scripts Active Xarelto (Rivaroxaban) 20 Mg Tablet 20 Mg PO DAILYWSUP 30 Days please hold on Wednesday and WednesdayNovember 12 and . Reported Fiorinal 50-325-40 Mg Capsule (Butalbital/Aspirin/Caffeine) 1 Each Capsule 1 Each PO PRN Q4HRS PRN Combivent Respimat Inhal (Ipratropium/Albuterol Sulfate) 4 Gm Aer.w.adap 2 Inh IH QID Metoprolol Succinate ( Xl ) (Metoprolol Succinate) 25 Mg Tab.er.24h 0.5 Tab PO DAILY Cetirizine Hcl 10 Mg Tablet 1 Tab PO HS Aspirin 81 Mg Tab.chew 1 Tab PO DAILY Linzess (Linaclotide) 145 Mcg Capsule 145 Mcg PO DAILY07 Acetaminophen 325 Mg/10.15 Ml Solution 325 Mg PO Q4HRS Lantus Solostar (Insulin Glargine,Hum.rec.anlog) 100 Unit/1 Ml Insuln.pen 14 Unit SQ QHS Humalog (Insulin Lispro) 100 Unit/1 Ml Insuln.pen 5 Unit SQ AT LUNCH/DINNER Symbicort 160-4.5 Mcg Inhaler (Budesonide/Formoterol Fumarate) 10.2 Gm Hfa.aer.ad 2 Puff IH BID Flomax (Tamsulosin Hcl) 0.4 Mg Cap.er.24h 1 Cap PO DAILY Spironolactone 25 Mg Tablet 0.5 Tab PO DAILY Simvastatin 10 Mg Tablet 1 Tab PO QHS Xarelto (Rivaroxaban) 20 Mg Tablet 20 Mg PO DAILY Nexium Capsule (Esomeprazole Magnesium) 40 Mg Capsule.dr 1 Cap PO DAILY Finasteride 5 Mg Tablet 1 Tab PO DAILY Lexapro (Escitalopram Oxalate) 20 Mg Tablet 1 Tab PO DAILY Vitamin D (Cholecalciferol (Vitamin D3)) 1,000 Unit Tablet 1,000 Unit PO DAILY Probiotic (Lactobacillus Combo No.11) 1 Each Cap.sprink 1 Each PO DAILY Humalog (Insulin Lispro) 100 Unit/1 Ml Cartridge 6 Unit SQ BIDACLD Vibramycin (Doxycycline Hyclate) 100 Mg Capsule 1 Cap PO BID Losartan Potassium (Losartan Potassium) 25 Mg Tablet 25 Mg PO DAILY Metoprolol Succinate ( Xl ) (Metoprolol Succinate) 25 Mg Tab.er.24h 1 Tab PO DAILY Spironolactone 25 Mg Tablet 1 Tab PO DAILY Probiotic (Lactobacillus Acidophilus) 1 Each Capsule 1 Each PO DAILY Fiorinal-Cod 90-91-402-40 Cap (Codeine/Butalbital/Asa/Caffein) 1 Each Capsule 1 Each PO PRN Q4-6HRS PRN Simvastatin 10 Mg Tablet 1 Tab PO HS Torsemide 20 Mg Tablet 10 Mg PO DAILY Escitalopram Oxalate 20 Mg Tablet 1 Tab PO DAILY Proscar (Finasteride) 5 Mg Tablet 1 Tab PO DAILYWSUP Lantus (Insulin Glargine,Hum.rec.anlog) 100 Unit/1 Ml Vial 14 Unit SQ HS Humalog (Insulin Lispro) 100 Unit/1 Ml Insuln.pen 8 Unit SQ DAILYWBKFT Vitamin D (Cholecalciferol (Vitamin D3)) 1,000 Unit Tablet 1,000 Unit PO BID Multivitamins (Multivitamin) 1 Each Tablet 1 Each PO DAILY Aspir 81 (Aspirin) 81 Mg Tablet.dr 81 Mg PO DAILY Combivent Respimat Inhal (Ipratropium/Albuterol Sulfate) 4 Gm Aer.w.adap 4 Gm IH BID Zanaflex (Tizanidine Hcl) 2 Mg Capsule 2 Mg PO HS Flomax (Tamsulosin Hcl) 0.4 Mg Cap.er.24h 0.4 Mg PO DAILYWSUP Vitals/I & O Vital Sign - Last 24 Hours 01/29/19 01/29/19 01/29/19 01/29/19 15:00 15:44 19:30 19:31 Temp 98.1 98.1 Pulse 87 Resp 16 B/P (MAP) 133/41 (71) Pulse Ox 94 95 O2 Delivery Room Air Nasal Cannula Nasal Cannula Nasal Cannula O2 Flow Rate 3.0 3.0 3.0 01/29/19 01/29/19 01/29/19 01/30/19 19:45 19:51 23:20 03:40 Temp 98.0 98.4 98.7 98.0 98.4 98.7 Pulse 83 85 84 Resp 16 20 20 B/P (MAP) 128/55 (79) 129/49 (75) 131/57 (81) Pulse Ox 94 93 94 O2 Delivery Nasal Cannula Room Air BiPAP/CPAP Nasal Cannula O2 Flow Rate 3.0 2.0 01/30/19 01/30/19 01/30/19 01/30/19 07:00 07:22 09:08 11:00 Temp 98.3 98.0 98.3 98.0 Pulse 95 95 83 Resp 17 17 B/P (MAP) 156/47 (83) 156/47 117/47 (70) Pulse Ox 96 98 97 O2 Delivery Nasal Cannula Nasal Cannula Nasal Cannula O2 Flow Rate 2.0 3.0 2.0 01/30/19 11:11 O2 Delivery Nasal Cannula O2 Flow Rate 3.0 Intake and Output 01/29/19 01/29/19 01/30/19 15:00 23:00 07:00 Intake Total 200 ml 300 ml Output Total 300 ml Balance -100 ml 300 ml ALEKSANDAR PEREZ APRN January 30, 2019 13:52
[2019-01-30] MEDS ORDERED: POLYETHYLENE GLYCOL 3350 17 GM PACKET. PO PRN (15:00)
--- NOTE | 2019-01-30 15:00 | NUR ---
Wound Care: patient seen per f/u of Wound care consult. See wound assessment. patients left great and 4th toe have a dry eschar area, the area was painted with Betadine at this time. patient assessed from head to toe and no other wounds noted at this time. FIORELLA Atkinson informed of POC. at bedside. wound care will continue to f/u.
--- NOTE | 2019-01-30 15:43 | NUR ---
Pt's wants outpatient therapy at [facility] in [place] ([phone]). They take pt's insurance and reported there should be no out of pocket cost if pt has met their deductible. SW to follow up tomorrow and fax therapy order. RN notified.
[2019-01-30] MEDS: LUBIPROSTONE 8 MCG CAPSULE PO SCH (17:17)
[2019-01-30] MEDS: SIMVASTATIN 10 MG TABLET PO SCH (21:28)
[2019-01-30] MEDS: CETIRIZINE HCL 10 MG TABLET. PO SCH (21:30)
[2019-01-30] MEDS: INSULIN GLARGINE 300 UNITS/3 ML INSULN.PEN. SQ SCH (21:52)
[2019-01-30 23:22] LABS: FECAL OB PT NEGATIVE (NEG)
[2019-01-31 03:00] VITALS: BP 146/65
[2019-01-31] MEDS: PANTOPRAZOLE 40 MG TABLET.DR. PO SCH (06:16)
[2019-01-31 07:00] VITALS: BP 131/64
[2019-01-31] MEDS: BUDESONIDE 0.5 MG/2 ML NEBU. NEB SCH ×2 (07:37→20:06)
[2019-01-31] MEDS: IPRATRPIUM/ALBUTEROL 0.5/2.5MG 3 ML NEBU. NEB SCH ×4 (07:37→20:06)
[2019-01-31] MEDS: INSULIN LISPRO 300 UNITS/3 ML INSULN.PEN. SQ SCH ×6 (08:00→17:00)
[2019-01-31] MEDS: NYSTATIN TOPICAL POWDER 15GM BOTTLE. TP SCH ×2 (09:00→20:47)
[2019-01-31 09:13] LABS: HEMATOCRIT 25.1 % (39.0-53.0); HEMOGLOBIN 8.5 g/dL (13.0-17.5); RED BLOOD COUNT 2.72 x10^6/uL (4.30-5.70); WHITE BLOOD COUNT 8.9 x10^3/uL (4.0-11.0)
[2019-01-31 09:32] LABS: CALCIUM 10.1 mg/dL (8.5-10.1); CREATININE 1.7 mg/dL (0.7-1.3); GFR 38.5; POTASSIUM 4.5 mmol/L (3.5-5.1)
[2019-01-31] MEDS: CITALOPRAM 20 MG TABLET. PO SCH (09:38)
[2019-01-31] MEDS: CLOPIDOGREL BISULFATE 75 MG TABLET PO SCH (09:39)
[2019-01-31] MEDS: TAMSULOSIN 0.4 MG CAP.ER.24H. PO SCH (09:39)
[2019-01-31] MEDS: METOPROLOL SUCC 24HR ER 25 MG TAB.ER.24H. PO SCH (09:41)
[2019-01-31] MEDS: SPIRONOLACTONE 25 MG TABLET PO SCH (09:41)
[2019-01-31] MEDS: LACTOBACILLUS RHAMNOSUS GG 1 CAPSULE. PO SCH ×2 (09:42→20:45)
[2019-01-31] MEDS: CHOLECALCIFEROL (VITAMIN D3) 1,000 UNIT TABLET PO SCH (09:42)
[2019-01-31] MEDS: LUBIPROSTONE 8 MCG CAPSULE PO SCH ×2 (09:42→19:36)
[2019-01-31] MEDS: ASPIRIN CHEWABLE 81 MG TABLET. PO SCH (09:43)
[2019-01-31] MEDS: FINASTERIDE 5 MG TABLET. PO SCH (09:43)
[2019-01-31] MEDS: MULTIVITAMIN with MINERAL TABLET. PO SCH (09:44)
[2019-01-31] MEDS: CEFEPIME HCL IV Push 2 GM VIAL. IVP SCH (09:50)
--- NOTE | 2019-01-31 09:56 | PDOC ---
Subjective: Subjective: Says he ate all his breakfast and feels good. Objective: Objective: RN received report that he had a stool, no mention of bleeding. Vital Signs: Vital Signs Date Time Temp Pulse Resp B/P (MAP) Pulse Ox O2 Delivery O2 Flow Rate FiO2 01/31/19 07:38 96 Nasal Cannula 3.0 01/31/19 07:00 97.9 86 18 131/64 (86) 97.9 Labs: Laboratory Tests Test 01/30/19 11:46 01/30/19 16:56 01/30/19 20:35 01/30/19 22:30 Glucose (Fingerstick) 128 mg/dL 81 mg/dL 165 mg/dL Stool Occult Blood Negative Test 01/31/19 07:54 01/31/19 08:53 Glucose (Fingerstick) 102 mg/dL White Blood Count 8.9 x10^3/uL Red Blood Count 2.72 x10^6/uL Hemoglobin 8.5 g/dL Hematocrit 25.1 % Mean Corpuscular Volume 92 fL Mean Corpuscular Hemoglobin 31 pg Mean Corpuscular Hemoglobin Concent 34 g/dL Red Cell Distribution Width 16.0 % Platelet Count 185 x10^3/uL Sodium Level 144 mmol/L Potassium Level 4.5 mmol/L Chloride Level 110 mmol/L Carbon Dioxide Level 24 mmol/L Anion Gap 10 Blood Urea Nitrogen 53 mg/dL Creatinine 1.7 mg/dL Estimated GFR (Cockcroft-Gault) 38.5 Glucose Level 135 mg/dL Calcium Level 10.1 mg/dL PE: GEN: NAD - watching a movie LUNGS: NC 3L HEART: RRR ABD: S/ND/NT NEURO/PSYCH: A & O 3 A/P: PVD, left toe wound (staph), s/p angioplasty left posterior tibial artery Chronic anemia GERD, constipation - many 'scopes in the past CLL, CKD -- Hgb improved, no bleeding, fecal occult negative. Okay to resume Plavix and monitor labs. Continue PPI and constipation meds. TYLER DARDEN January 31, 2019 09:56
--- NOTE | 2019-01-31 10:27 | PDOC ---
Infectious Disease Note Subjective Subjective feeling good ROS ROS no n/v/d/sob Vital Sign Vital Signs Vital Signs Date Time Temp Pulse Resp B/P (MAP) Pulse Ox O2 Delivery O2 Flow Rate FiO2 01/31/19 09:41 86 131/64 01/31/19 07:38 96 Nasal Cannula 3.0 01/31/19 07:00 97.9 18 97.9 Physical Exam PHYSICAL EXAM GENERAL: Sitting in the chair, alert, NAD HEENT: Oral cavity, pharynx is clear. Dentures NECK: Supple LUNGS: Decreased in the bases. HEART: S1 and S2 with a 1-2/6 murmur. ABDOMEN: Obese, soft and nontender. No guarding or rebound. EXTREMITIES: Without clubbing. Chronic venous stasis changes BLE . Dry ulcer 1st and 4th left toes, no redness or drainage NEUROLOGICAL: Alert, answers questions appropriately SKIN: without rash PIV Labs Lab Laboratory Tests Test 01/30/19 11:46 01/30/19 16:56 01/30/19 20:35 01/30/19 22:30 Glucose (Fingerstick) 128 mg/dL (70-99) 81 mg/dL (70-99) 165 mg/dL (70-99) Stool Occult Blood Negative (NEG) Test 01/31/19 07:54 01/31/19 08:53 Glucose (Fingerstick) 102 mg/dL (70-99) White Blood Count 8.9 x10^3/uL (4.0-11.0) Red Blood Count 2.72 x10^6/uL (4.30-5.70) Hemoglobin 8.5 g/dL (13.0-17.5) Hematocrit 25.1 % (39.0-53.0) Mean Corpuscular Volume 92 fL (79-100) Mean Corpuscular Hemoglobin 31 pg (25-35) Mean Corpuscular Hemoglobin Concent 34 g/dL (31-37) Red Cell Distribution Width 16.0 % (11.5-14.5) Platelet Count 185 x10^3/uL (140-400) Sodium Level 144 mmol/L (136-145) Potassium Level 4.5 mmol/L (3.5-5.1) Chloride Level 110 mmol/L (98-107) Carbon Dioxide Level 24 mmol/L (21-32) Anion Gap 10 (6-14) Blood Urea Nitrogen 53 mg/dL (8-26) Creatinine 1.7 mg/dL (0.7-1.3) Estimated GFR (Cockcroft-Gault) 38.5 Glucose Level 135 mg/dL (70-99) Calcium Level 10.1 mg/dL (8.5-10.1) Micro Microbiology 01/23/19 Blood Culture - Final, Complete NO GROWTH AFTER 5 DAYS 01/25/19 Anaerobic/Aerobic Culture, Resulted Pending 01/25/19 Anaerobic Culture Result 1 (NEIL), Resulted Pending 01/25/19 Aerobic Culture - Final, Resulted 01/25/19 Aerobic Culture Result 1 (NEIL) - Final, Resulted 01/25/19 Antimicrobic Susceptibility - Final, Resulted 01/25/19 Gram Stain - Final, Resulted 01/25/19 Gram Stain Result 1 (NEIL) - Final, Resulted 01/25/19 Gram Stain Result 2 (NEIL) - Final, Resulted Objective Assessment Left great toe ? Osteomyelitis - treated with 6 weeks from [facility] of IV and finished in Oct, looks good, does have wounds on th and 2 nd toe, appears superficial Left great toe wound with purulence - MSSA so far PCN allergy - tolerated Cephalosporins PAD s/p angioplasty /17 L post tibial artery LYNDSEY Left 4 th toe dry ulcer Eosinophilia Plan Plan of Care Cont Cefepime and Flagyl,,, change to po vantin f/u anaerobic cultures Monitor temp Labs in am Local wound care D/w CRISTIAN BEAVERS MD January 31, 2019 10:27
[2019-01-31 11:00] VITALS: BP 138/61
--- NOTE | 2019-01-31 13:09 | PDOC ---
PROGRESS NOTES Chief Complaint Chief Complaint A/P: Left great toe cellulitis: treated with 6 weeks from [facility] of IV and finished in Oct Multiple toe ulcers - likely vascular, vasc consulted PAD LLE - s/p angioplasty 01/27 L post tibial artery Coronary artery disease, 2 stents prior - cont meds Afib - s/p DCCV on NOAC, changed from eliquis to xarelto recently Hypertension, controlled. History of osteomyelitis, left big toe - Xray does not confirm currently, however, not the best modality CLL - no meds for this Anemia of chronic disease - likely from CLL DM2 - basal bolus plus regimen in house Chronic systolic CHF - stable currently on meds Peripheral neuropathy - 2/2 DM, will monitor Aortic stenosis (s/p TAVR @ [facility] in 2013) COPD - will treat with nebs. Sees Dr. Ramírez outpatient [facility] with CPAP - cont in house Migraines - prn tylenol Depression - cont meds LYNDSEY on CKD - likely vasomotor from his infection Benign prostatic hyperplasia - cont meds Chronic stasis dermatitis - bilateral, stable Anemia: 2 units of blood given FEN - ADA diet PPX - Heparin DNR/DNI Inpatient for left great toe cellulitis in a complicated patient, likely at least 2 midnights inpatient History of Present Illness History of Present Illness Mr Price is an 83yo M w/ PMHx CLL, PAD, DM2, chronic systolic CHF, peripheral neuropathy, AFIB (with DCCV prior, on NOAC), HTN, Hyperlipidemia, Aortic stenosis (s/p TAVR @ [facility] in 2013), Other (cardiomyopathy), COPD, [facility] with CPAP, migraines, Depression, Chronic renal insufficiency, Benign prostatic hyperplasia, chronic stasis dermatitis bilateral lower extremities who presents from his city director for concerns of osteomyelitis of left great toe. Seen in [place] in August on 6 weeks IV antibiotics in SNF, then home where his has been caring for him. She reports patient had been doing good and then a few weeks ago he stubbed his left great toe and since has had increased redness and swelling along with worsening wound on his great toe. Patient also has 2 small scabbed wounds on his third and fourth toe on his left foot. He was seen previously by vascular surgery by Dr. Schumacher for arterial insufficiency, was planning further treatment outpatient for LLE PAD. In ED was given empiric vancomycin and admitted for further care. Seen by vascular surgery, ID, and nephrology. 01/27: LLE arterial runoff study - balloon angioplasty of the tibial peroneal trunk and posterior tibial artery there is in-line flow to the foot with large medial and lateral tarsal branches giving good flow to the toes sob improved Plan: transfused 2 units yesterday. hb today 8.5 continue cefepime and flagyl--changed to omnicef per ID apprec ID and vasc sx dc planning Vitals Vitals Vital Signs Date Time Temp Pulse Resp B/P (MAP) Pulse Ox O2 Delivery O2 Flow Rate FiO2 01/31/19 11:42 Nasal Cannula 3.0 01/31/19 09:41 86 131/64 01/31/19 07:38 96 01/31/19 07:00 97.9 18 97.9 Physical Exam Physical Exam GENERAL: Sitting in the chair, alert, NAD HEENT: Oral cavity, pharynx is clear. Dentures NECK: Supple LUNGS: Decreased in the bases. HEART: S1 and S2 with a 1-2/6 murmur. ABDOMEN: Obese, soft and nontender. No guarding or rebound. EXTREMITIES: Without clubbing. Chronic venous stasis changes BLE . Dry ulcer 1st and 4th left toes, no redness or drainage NEUROLOGICAL: Alert, answers questions appropriately SKIN: without rash PIV General: Alert, Oriented X3, Cooperative, No acute distress Heart: Regular rate, Normal S1, Normal S2, No murmurs, Gallops Lungs: Wheezing Abdomen: Normal bowel sounds, Soft, No tenderness, No hepatosplenomegaly, No masses Extremities: No clubbing, No cyanosis, No edema, Normal pulses, No tenderness/swelling Skin: Other (Great toe red with 2 ulcer on tip and DIP, and 3rd and 4th toe ulcers) Labs LABS Laboratory Tests Test 01/30/19 16:56 01/30/19 20:35 01/30/19 22:30 01/31/19 07:54 Glucose (Fingerstick) 81 mg/dL (70-99) 165 mg/dL (70-99) 102 mg/dL (70-99) Stool Occult Blood Negative (NEG) Test 01/31/19 08:53 01/31/19 11:37 White Blood Count 8.9 x10^3/uL (4.0-11.0) Red Blood Count 2.72 x10^6/uL (4.30-5.70) Hemoglobin 8.5 g/dL (13.0-17.5) Hematocrit 25.1 % (39.0-53.0) Mean Corpuscular Volume 92 fL (79-100) Mean Corpuscular Hemoglobin 31 pg (25-35) Mean Corpuscular Hemoglobin Concent 34 g/dL (31-37) Red Cell Distribution Width 16.0 % (11.5-14.5) Platelet Count 185 x10^3/uL (140-400) Sodium Level 144 mmol/L (136-145) Potassium Level 4.5 mmol/L (3.5-5.1) Chloride Level 110 mmol/L (98-107) Carbon Dioxide Level 24 mmol/L (21-32) Anion Gap 10 (6-14) Blood Urea Nitrogen 53 mg/dL (8-26) Creatinine 1.7 mg/dL (0.7-1.3) Estimated GFR (Cockcroft-Gault) 38.5 Glucose Level 135 mg/dL (70-99) Calcium Level 10.1 mg/dL (8.5-10.1) Glucose (Fingerstick) 138 mg/dL (70-99) Assessment and Plan Assessmemt and Plan Problems Medical Problems: (1) Left foot infection Status: Acute (2) Wound cellulitis Status: Acute Comment Review of Relevant I have reviewed the following items earnest (where applicable) has been applied. Labs Laboratory Tests Test 01/29/19 17:12 01/29/19 20:32 01/30/19 05:40 01/30/19 07:46 Glucose (Fingerstick) 110 mg/dL (70-99) 100 mg/dL (70-99) 101 mg/dL (70-99) White Blood Count 6.6 x10^3/uL (4.0-11.0) Red Blood Count 2.21 x10^6/uL (4.30-5.70) Hemoglobin 7.0 g/dL (13.0-17.5) Hematocrit 20.6 % (39.0-53.0) Mean Corpuscular Volume 93 fL (79-100) Mean Corpuscular Hemoglobin 32 pg (25-35) Mean Corpuscular Hemoglobin Concent 34 g/dL (31-37) Red Cell Distribution Width 15.2 % (11.5-14.5) Platelet Count 180 x10^3/uL (140-400) Neutrophils (%) (Auto) 70 % (31-73) Lymphocytes (%) (Auto) 7 % (24-48) Monocytes (%) (Auto) 11 % (0-9) Eosinophils (%) (Auto) 11 % (0-3) Basophils (%) (Auto) 1 % (0-3) Neutrophils # (Auto) 4.6 x10^3uL (1.8-7.7) Lymphocytes # (Auto) 0.5 x10^3/uL (1.0-4.8) Monocytes # (Auto) 0.7 x10^3/uL (0.0-1.1) Eosinophils # (Auto) 0.7 x10^3/uL (0.0-0.7) Basophils # (Auto) 0.0 x10^3/uL (0.0-0.2) Sodium Level 147 mmol/L (136-145) Potassium Level 4.4 mmol/L (3.5-5.1) Chloride Level 114 mmol/L (98-107) Carbon Dioxide Level 25 mmol/L (21-32) Anion Gap 8 (6-14) Blood Urea Nitrogen 53 mg/dL (8-26) Creatinine 1.8 mg/dL (0.7-1.3) Estimated GFR (Cockcroft-Gault) 36.0 Glucose Level 110 mg/dL (70-99) Calcium Level 9.9 mg/dL (8.5-10.1) Iron Level 36 ug/dL (65-175) Total Iron Binding Capacity 175 ug/dL (250-450) Iron Saturation 21 % (15-34) Vitamin B12 Level 914 pg/mL (247-911) Test 01/30/19 11:46 01/30/19 16:56 01/30/19 20:35 01/30/19 22:30 Glucose (Fingerstick) 128 mg/dL (70-99) 81 mg/dL (70-99) 165 mg/dL (70-99) Stool Occult Blood Negative (NEG) Test 01/31/19 07:54 01/31/19 08:53 01/31/19 11:37 Glucose (Fingerstick) 102 mg/dL (70-99) 138 mg/dL (70-99) White Blood Count 8.9 x10^3/uL (4.0-11.0) Red Blood Count 2.72 x10^6/uL (4.30-5.70) Hemoglobin 8.5 g/dL (13.0-17.5) Hematocrit 25.1 % (39.0-53.0) Mean Corpuscular Volume 92 fL (79-100) Mean Corpuscular Hemoglobin 31 pg (25-35) Mean Corpuscular Hemoglobin Concent 34 g/dL (31-37) Red Cell Distribution Width 16.0 % (11.5-14.5) Platelet Count 185 x10^3/uL (140-400) Sodium Level 144 mmol/L (136-145) Potassium Level 4.5 mmol/L (3.5-5.1) Chloride Level 110 mmol/L (98-107) Carbon Dioxide Level 24 mmol/L (21-32) Anion Gap 10 (6-14) Blood Urea Nitrogen 53 mg/dL (8-26) Creatinine 1.7 mg/dL (0.7-1.3) Estimated GFR (Cockcroft-Gault) 38.5 Glucose Level 135 mg/dL (70-99) Calcium Level 10.1 mg/dL (8.5-10.1) Laboratory Tests Test 01/30/19 16:56 01/30/19 20:35 01/30/19 22:30 01/31/19 07:54 Glucose (Fingerstick) 81 mg/dL (70-99) 165 mg/dL (70-99) 102 mg/dL (70-99) Stool Occult Blood Negative (NEG) Test 01/31/19 08:53 01/31/19 11:37 White Blood Count 8.9 x10^3/uL (4.0-11.0) Red Blood Count 2.72 x10^6/uL (4.30-5.70) Hemoglobin 8.5 g/dL (13.0-17.5) Hematocrit 25.1 % (39.0-53.0) Mean Corpuscular Volume 92 fL (79-100) Mean Corpuscular Hemoglobin 31 pg (25-35) Mean Corpuscular Hemoglobin Concent 34 g/dL (31-37) Red Cell Distribution Width 16.0 % (11.5-14.5) Platelet Count 185 x10^3/uL (140-400) Sodium Level 144 mmol/L (136-145) Potassium Level 4.5 mmol/L (3.5-5.1) Chloride Level 110 mmol/L (98-107) Carbon Dioxide Level 24 mmol/L (21-32) Anion Gap 10 (6-14) Blood Urea Nitrogen 53 mg/dL (8-26) Creatinine 1.7 mg/dL (0.7-1.3) Estimated GFR (Cockcroft-Gault) 38.5 Glucose Level 135 mg/dL (70-99) Calcium Level 10.1 mg/dL (8.5-10.1) Glucose (Fingerstick) 138 mg/dL (70-99) Microbiology 01/23/19 Blood Culture - Final, Complete NO GROWTH AFTER 5 DAYS 01/25/19 Anaerobic/Aerobic Culture - Final, Complete 01/25/19 Anaerobic Culture Result 1 (NEIL) - Final, Complete 01/25/19 Aerobic Culture - Final, Complete 01/25/19 Aerobic Culture Result 1 (NEIL) - Final, Complete 01/25/19 Antimicrobic Susceptibility - Final, Complete 01/25/19 Gram Stain - Final, Complete 01/25/19 Gram Stain Result 1 (NEIL) - Final, Complete 01/25/19 Gram Stain Result 2 (NEIL) - Final, Complete Medications Current Medications Vancomycin HCl (Vanco Per Pharmacy) 1 each 1X ONCE MC Last administered on 01/23/19at 23:33; Start 01/23/19 at 18:00; Stop 01/23/19 at 18:23; Status DC Vancomycin HCl 2 gm/Sodium Chloride 500 ml @ 250 mls/hr 1X ONCE IV Last administered on 01/23/19at 18:59; Start 01/23/19 at 19:00; Stop 01/23/19 at 20:59; Status DC Piperacillin Sod/ Tazobactam Sod 3.375 gm/Sodium Chloride 50 ml @ 100 mls/hr 1X ONCE IV ; Start 01/23/19 at 19:15; Stop 01/23/19 at 19:44; Status Cancel Ondansetron HCl (Zofran) 4 mg PRN Q8HRS PRN IV NAUSEA/VOMITING; Start 01/23/19 at 20:30; Stop 01/24/19 at 20:29; Status DC Fentanyl Citrate (Fentanyl 2ml Vial) 25 mcg PRN Q2HR PRN IV PAIN Last administered on 01/24/19 09:15; Start 01/23/19 at 20:30; Stop 01/24/19 at 20:29; Status DC Acetaminophen (Tylenol) 650 mg PRN Q4HRS PRN PO FEVER; Start 01/23/19 at 20:30; Stop 01/24/19 at 20:29; Status DC Multivitamins (Thera M Plus) 1 tab DAILY PO Last administered on 01/31/19 09:44; Start 01/24/19 at 11:00 Aspirin (Children'S Aspirin) 81 mg DAILY PO Last administered on 01/31/19 09:43; Start 01/24/19 at 14:30 Cetirizine HCl (ZyrTEC) 10 mg HS PO Last administered on 01/30/19 21:30; Start 01/24/19 at 21:00 Vitamin D (Vitamin D3) 1,000 unit DAILY PO Last administered on 01/31/19 09:42; Start 01/24/19 at 14:30 Finasteride (Proscar) 5 mg DAILY PO Last administered on 01/31/19 09:43; Start 01/24/19 at 14:30 Insulin Glargine (Lantus) 14 units QHS SQ Last administered on 01/30/19 21:52; Start 01/24/19 at 21:00 Insulin Human Lispro (HumaLOG) 5 units TIDWMEALS SQ Last administered on 01/31/19 10:04; Start 01/24/19 at 17:00 Metoprolol Succinate (Toprol Xl) 12.5 mg DAILY PO Last administered on 01/31/19 09:41; Start 01/24/19 at 14:30 Simvastatin (Zocor) 10 mg QHS PO Last administered on 01/30/19 21:28; Start 01/24/19 at 21:00 Tamsulosin HCl (Flomax) 0.4 mg DAILY PO Last administered on 01/31/19 09:39; Start 01/24/19 at 14:30 Non-Formulary Medication (Budesonide/ Formoterol Fumarate (Symbicort 160-4.5 Mcg Inhaler)) 2 puff BID IH ; Start 01/24/19 at 21:00; Status UNV Citalopram Hydrobromide (CeleXA) 40 mg DAILY PO Last administered on 01/31/19at 09:38; Start 01/24/19 at 14:30 Pantoprazole Sodium (Protonix) 40 mg DAILYAC PO Last administered on 01/31/19at 06:16; Start 01/24/19 at 14:30 Non-Formulary Medication (Ipratropium/ Albuterol Sulfate (Combivent Respimat Inhal)) 2 inh QID IH ; Start 01/24/19 at 17:00; Status UNV Non-Formulary Medication (Linaclotide (Linzess)) 145 mcg DAILY07 PO ; Start 01/25/19 at 07:00; Stop 01/26/19 at 07:38; Status DC Non-Formulary Medication (Rivaroxaban (Xarelto)) 20 mg DAILY PO ; Start 01/25/19 at 09:00; Stop 01/25/19 at 09:00; Status DC Spironolactone (Aldactone) 12.5 mg DAILY PO Last administered on 01/31/19at 09:41; Start 01/24/19 at 14:30 Insulin Human Lispro (HumaLOG) 0-5 UNITS TIDWMEALS SQ Last administered on 01/26/19at 12:41; Start 01/24/19 at 17:00 Dextrose (Dextrose 50%-Water Syringe) 12.5 gm PRN Q15MIN PRN IV SEE COMMENTS; Start 01/24/19 at 13:30 Budesonide (Pulmicort) 0.5 mg RTBID NEB Last administered on 01/31/19at 07:37; Start 01/24/19 at 20:00 Albuterol/ Ipratropium (Duoneb) 3 ml RTQID NEB Last administered on 01/31/19at 11:41; Start 01/24/19 at 16:00 Vancomycin HCl (Vanco Per Pharmacy) 1 each PRN DAILY PRN MC SEE COMMENTS; Start 01/24/19 at 14:30; Stop 01/24/19 at 14:47; Status DC Linezolid (Zyvox) 600 mg Q12HR PO Last administered on 01/29/19at 09:20; Start 01/24/19 at 15:00; Stop 01/29/19 at 12:46; Status DC Cefepime HCl (Maxipime) 2 gm Q12HR IVP Last administered on 01/31/19at 09:50; Start 01/24/19 at 15:00; Stop 01/31/19 at 10:28; Status DC Metronidazole 100 ml @ 100 mls/hr Q8HRS IV Last administered on 01/31/19at 05:33; Start 01/24/19 at 15:00; Stop 01/31/19 at 10:28; Status DC Nystatin (Nystop) 1 nawaf BID TP Last administered on 01/31/19at 09:00; Start 01/24/19 at 21:00 Lactobacillus Rhamnosus (Culturelle) 1 cap BID PO Last administered on 01/31/19at 09:42; Start 01/25/19 at 21:00 Sodium Chloride 1,000 ml @ 100 mls/hr Q10H IV Last administered on 01/26/19at 08:46; Start 01/25/19 at 22:30; Stop 01/26/19 at 15:41; Status DC Sodium Chloride 1,000 ml @ 100 mls/hr Q10H IV ; Start 01/26/19 at 11:30; Stop 01/26/19 at 11:54; Status DC Ondansetron HCl (Zofran) 4 mg PRN Q6HRS PRN IV NAUSEA/VOMITING; Start 01/26/19 at 07:00; Stop 01/26/19 at 14:29; Status DC Fentanyl Citrate (Fentanyl 2ml Vial) 25 mcg PRN Q5MIN PRN IV MILD PAIN 1-3; Start 01/26/19 at 07:00; Stop 01/26/19 at 14:25; Status DC Fentanyl Citrate (Fentanyl 2ml Vial) 50 mcg PRN Q5MIN PRN IV MODERATE TO SEVERE PAIN; Start 01/26/19 at 07:00; Stop 01/26/19 at 14:26; Status DC Morphine Sulfate (Morphine Sulfate) 1 mg PRN Q10MIN PRN IV SEVERE PAIN 7-10; Start 01/26/19 at 07:00; Stop 01/26/19 at 14:29; Status DC Ringer's Solution 1,000 ml @ 30 mls/hr Q24H IV ; Start 01/26/19 at 07:00; Stop 01/26/19 at 14:27; Status DC Lidocaine HCl (Xylocaine-Mpf 1% 2ml Vial) 2 ml PRN 1X PRN ID PRIOR TO IV START; Start 01/26/19 at 07:00; Stop 01/27/19 at 06:59; Status Cancel Hydromorphone HCl (Dilaudid) 0.5 mg PRN Q10MIN PRN IV SEV PAIN, Second choice; Start 01/26/19 at 07:00; Stop 01/27/19 at 06:59; Status Cancel Prochlorperazine Edisylate (Compazine) 5 mg PACU PRN PRN IV NAUSEA, MRX1; Start 01/26/19 at 07:00; Stop 01/27/19 at 06:59; Status Cancel Morphine Sulfate (Morphine Sulfate) 1 mg PRN Q10MIN PRN IV SEVERE PAIN 7-10; Start 01/27/19 at 07:00; Stop 01/28/19 at 06:59; Status DC Ringer's Solution 1,000 ml @ 30 mls/hr Q24H IV ; Start 01/27/19 at 07:00; Stop 01/27/19 at 18:59; Status DC Hydromorphone HCl (Dilaudid) 0.5 mg PRN Q10MIN PRN IV SEV PAIN, Second choice; Start 01/27/19 at 07:00; Stop 01/27/19 at 21:00; Status DC Prochlorperazine Edisylate (Compazine) 5 mg PACU PRN PRN IV NAUSEA, MRX1; Start 01/27/19 at 07:00; Stop 01/27/19 at 21:00; Status DC Fentanyl Citrate (Fentanyl 2ml Vial) 25 mcg PRN Q5MIN PRN IV MILD PAIN 1-3; Start 01/26/19 at 14:30; Stop 01/26/19 at 14:30; Status DC Fentanyl Citrate (Fentanyl 2ml Vial) 50 mcg PRN Q5MIN PRN IV MODERATE TO SEVERE PAIN; Start 01/26/19 at 14:30; Stop 01/26/19 at 14:30; Status DC Sodium Chloride 1,000 ml @ 100 mls/hr Q10H IV Last administered on 01/26/19at 21:43; Start 01/26/19 at 19:30; Stop 01/27/19 at 05:29; Status DC Sodium Chloride 1,000 ml @ 100 mls/hr Q10H IV Last administered on 01/27/19at 17:18; Start 01/27/19 at 07:30; Stop 01/28/19 at 08:26; Status DC Iodixanol (Visipaque 320) 100 ml STK-MED ONCE .ROUTE ; Start 01/27/19 at 06:46; Stop 01/27/19 at 06:47; Status DC Lidocaine HCl (Lidocaine 1% 20ml Vial) 20 ml STK-MED ONCE .ROUTE ; Start at 06:46; Stop 01/27/19 at 06:47; Status DC Heparin Sodium/ Sodium Chloride 0 ml @ As Directed STK-MED ONCE .ROUTE ; Start 01/27/19 at 06:46; Stop 01/27/19 at 06:47; Status DC Iodixanol (Visipaque 320) 100 ml STK-MED ONCE .ROUTE ; Start 01/27/19 at 06:51; Stop 01/27/19 at 06:52; Status DC Lidocaine HCl (Lidocaine 1% 20ml Vial) 20 ml STK-MED ONCE .ROUTE ; Start 01/27/19 at 06:51; Stop 01/27/19 at 06:52; Status DC Heparin Sodium/ Sodium Chloride 1,500 ml @ As Directed STK-MED ONCE .ROUTE ; Start 01/27/19 at 06:51; Stop 01/27/19 at 06:52; Status DC Midazolam HCl (Versed) 2 mg STK-MED ONCE .ROUTE ; Start 01/27/19 at 07:18; Stop 01/27/19 at 07:19; Status DC Ketamine HCl (Ketamine) 50 mg STK-MED ONCE .ROUTE ; Start 01/27/19 at 07:18; Stop 01/27/19 at 07:19; Status DC Propofol 100 ml @ As Directed STK-MED ONCE IV ; Start 01/27/19 at 06:19; Stop 01/27/19 at 07:19; Status DC Propofol 20 ml @ As Directed STK-MED ONCE IV ; Start 01/27/19 at 07:20; Stop 01/27/19 at 07:21; Status DC Fentanyl Citrate (Fentanyl 2ml Vial) 100 mcg STK-MED ONCE .ROUTE ; Start 01/27/19 at 08:00; Stop 01/27/19 at 08:02; Status DC Heparin Sodium (Porcine) (Heparin Sodium) 10,000 unit STK-MED ONCE .ROUTE ; Start 01/27/19 at 08:07; Stop 01/27/19 at 08:08; Status DC Heparin Sodium/ Sodium Chloride 500 ml @ As Directed STK-MED ONCE .ROUTE ; Start 01/27/19 at 08:15; Stop 01/27/19 at 08:16; Status DC Verapamil HCl (Verapamil) 5 mg STK-MED ONCE .ROUTE ; Start 01/27/19 at 08:23; Stop 01/27/19 at 08:24; Status DC Nitroglycerin (Nitroglycerin) 200 mcg STK-MED ONCE .ROUTE ; Start 01/27/19 at 08:23; Stop 01/27/19 at 08:24; Status DC Heparin Sodium (Porcine) (Heparin Sodium) 10,000 unit STK-MED ONCE .ROUTE ; Start 01/27/19 at 08:23; Stop 01/27/19 at 08:24; Status DC Ketamine HCl (Ketamine) 50 mg STK-MED ONCE .ROUTE ; Start 01/27/19 at 09:29; Stop 01/27/19 at 09:30; Status DC Propofol 20 ml @ As Directed STK-MED ONCE IV ; Start 01/27/19 at 09:29; Stop 01/27/19 at 09:30; Status DC Nitroglycerin (Nitroglycerin) 200 mcg 1X ONCE IART Last administered on 01/27/19at 09:41; Start 01/27/19 at 09:45; Stop 01/27/19 at 09:46; Status DC Verapamil HCl (Verapamil) 2.5 mg 1X ONCE IART Last administered on 01/27/19at 09:42; Start 01/27/19 at 09:45; Stop 01/27/19 at 09:46; Status DC Heparin Sodium (Porcine) (Heparin Sodium) 2,500 unit 1X ONCE IART Last administered on 01/27/19at 09:41; Start 01/27/19 at 09:45; Stop 01/27/19 at 0 9:46; Status DC Heparin Sodium/ Sodium Chloride (HEPARIN for ARTERIAL LINE FLUSH) 1,000 unit 1X ONCE IART Last administered on 01/27/19at 09:43; Start 01/27/19 at 09:45; Stop 01/27/19 at 09:46; Status DC Heparin Sodium/ Sodium Chloride (HEPARIN for ARTERIAL LINE FLUSH) 1,000 unit 1X ONCE IART Last administered on 01/27/19at 09:44; Start 01/27/19 at 09:45; Stop 01/27/19 at 09:46; Status DC Lidocaine HCl (Lidocaine 1% 20ml Vial) 20 ml 1X ONCE INJ Last administered on 01/27/19at 09:41; Start 01/27/19 at 09:45; Stop 01/27/19 at 09:46; Status DC Iodixanol (Visipaque 320) 61 ml 1X ONCE IART Last administered on 01/27/19at 09:40; Start 01/27/19 at 09:45; Stop 01/27/19 at 09:46; Status DC Clopidogrel Bisulfate (Plavix) 300 mg 1X ONCE PO Last administered on 01/27/19at 10:53; Start 01/27/19 at 09:45; Stop 01/27/19 at 09:46; Status DC Clopidogrel Bisulfate (Plavix) 75 mg DAILYWBKFT PO Last administered on 01/31/19at 09:39; Start 01/28/19 at 08:00 Clopidogrel Bisulfate (Plavix) 300 mg 1X ONCE PO ; Start 01/27/19 at 10:00; Stop 01/27/19 at 10:01; Status UNV Ephedrine Sulfate (ePHEDrine PF IN SALINE SYRINGE) 50 mg STK-MED ONCE IV ; S tart 01/27/19 at 07:00; Stop 01/27/19 at 12:40; Status DC Phenylephrine HCl (PHENYLEPHRINE in 0.9% NACL PF) 1 mg STK-MED ONCE IV ; Start 01/27/19 at 07:00; Stop 01/27/19 at 12:40; Status DC Propofol (Diprivan) 400 mg STK-MED ONCE IV ; Start 01/27/19 at 07:00; Stop 01/27/19 at 12:40; Status DC Acetaminophen (Tylenol) 650 mg PRN Q6HRS PRN PO MILD PAIN / TEMP Last administered on 01/30/19at 09:12; Start 01/27/19 at 17:15 Acetaminophen/ Butalbital/ Caffeine (Fioricet) 1 tab PRN Q4HRS PRN PO MIGRAINE HEADACHE Last administered on 01/28/19at 10:49; Start 01/28/19 at 10:45 Furosemide (Lasix) 20 mg 1X ONCE IVP Last administered on 01/30/19at 09:07; Start 01/30/19 at 08:15; Stop 01/30/19 at 08:19; Status DC Lubiprostone (Amitiza) 8 mcg BIDWMEALS PO Last administered on 01/31/19at 09:42; Start 01/30/19 at 17:00 Polyethylene Glycol (miraLAX PACKET) 17 gm PRN DAILY PRN PO CONSTIPATION; Sta rt 01/30/19 at 15:00 Cefdinir (Omnicef) 300 mg BID PO ; Start 01/31/19 at 21:00 Active Scripts Active Xarelto (Rivaroxaban) 20 Mg Tablet 20 Mg PO DAILYWSUP 30 Days please hold on Wednesday and WednesdayNovember 12 and . Reported Fiorinal 50-325-40 Mg Capsule (Butalbital/Aspirin/Caffeine) 1 Each Capsule 1 Each PO PRN Q4HRS PRN Combivent Respimat Inhal (Ipratropium/Albuterol Sulfate) 4 Gm Aer.w.adap 2 Inh IH QID Metoprolol Succinate ( Xl ) (Metoprolol Succinate) 25 Mg Tab.er.24h 0.5 Tab PO DAILY Cetirizine Hcl 10 Mg Tablet 1 Tab PO HS Aspirin 81 Mg Tab.chew 1 Tab PO DAILY Linzess (Linaclotide) 145 Mcg Capsule 145 Mcg PO DAILY07 Acetaminophen 325 Mg/10.15 Ml Solution 325 Mg PO Q4HRS Lantus Solostar (Insulin Glargine,Hum.rec.anlog) 100 Unit/1 Ml Insuln.pen 14 Unit SQ QHS Humalog (Insulin Lispro) 100 Unit/1 Ml Insuln.pen 5 Unit SQ AT LUNCH/DINNER Symbicort 160-4.5 Mcg Inhaler (Budesonide/Formoterol Fumarate) 10.2 Gm Hfa.aer.ad 2 Puff IH BID Flomax (Tamsulosin Hcl) 0.4 Mg Cap.er.24h 1 Cap PO DAILY Spironolactone 25 Mg Tablet 0.5 Tab PO DAILY Simvastatin 10 Mg Tablet 1 Tab PO QHS Xarelto (Rivaroxaban) 20 Mg Tablet 20 Mg PO DAILY Nexium Capsule (Esomeprazole Magnesium) 40 Mg Capsule.dr 1 Cap PO DAILY Finasteride 5 Mg Tablet 1 Tab PO DAILY Lexapro (Escitalopram Oxalate) 20 Mg Tablet 1 Tab PO DAILY Vitamin D (Cholecalciferol (Vitamin D3)) 1,000 Unit Tablet 1,000 Unit PO DAILY Probiotic (Lactobacillus Combo No.11) 1 Each Cap.sprink 1 Each PO DAILY Humalog (Insulin Lispro) 100 Unit/1 Ml Cartridge 6 Unit SQ BIDACLD Vibramycin (Doxycycline Hyclate) 100 Mg Capsule 1 Cap PO BID Losartan Potassium (Losartan Potassium) 25 Mg Tablet 25 Mg PO DAILY Metoprolol Succinate ( Xl ) (Metoprolol Succinate) 25 Mg Tab.er.24h 1 Tab PO DAILY Spironolactone 25 Mg Tablet 1 Tab PO DAILY Probiotic (Lactobacillus Acidophilus) 1 Each Capsule 1 Each PO DAILY Fiorinal-Cod 81-27-600-40 Cap (Codeine/Butalbital/Asa/Caffein) 1 Each Capsule 1 Each PO PRN Q4-6HRS PRN Simvastatin 10 Mg Tablet 1 Tab PO HS Torsemide 20 Mg Tablet 10 Mg PO DAILY Escitalopram Oxalate 20 Mg Tablet 1 Tab PO DAILY Proscar (Finasteride) 5 Mg Tablet 1 Tab PO DAILYWSUP Lantus (Insulin Glargine,Hum.rec.anlog) 100 Unit/1 Ml Vial 14 Unit SQ HS Humalog (Insulin Lispro) 100 Unit/1 Ml Insuln.pen 8 Unit SQ DAILYWBKFT Vitamin D (Cholecalciferol (Vitamin D3)) 1,000 Unit Tablet 1,000 Unit PO BID Multivitamins (Multivitamin) 1 Each Tablet 1 Each PO DAILY Aspir 81 (Aspirin) 81 Mg Tablet.dr 81 Mg PO DAILY Combivent Respimat Inhal (Ipratropium/Albuterol Sulfate) 4 Gm Aer.w.adap 4 Gm IH BID Zanaflex (Tizanidine Hcl) 2 Mg Capsule 2 Mg PO HS Flomax (Tamsulosin Hcl) 0.4 Mg Cap.er.24h 0.4 Mg PO DAILYWSUP Vitals/I & O Vital Sign - Last 24 Hours 01/30/19 01/30/19 01/30/19 01/30/19 15:19 15:20 15:20 15:33 Temp 98.5 97.8 97.8 98.5 97.8 97.8 Pulse 77 70 76 Resp 18 18 B/P (MAP) 104/47 105/47 (66) 105/47 Pulse Ox 94 O2 Delivery Nasal Cannula Nasal Cannula O2 Flow Rate 3.0 3.0 01/30/19 01/30/19 01/30/19 01/30/19 16:33 17:33 18:30 19:00 Temp 98.4 98.6 98.6 98.3 98.4 98.6 98.6 98.3 Pulse 75 81 86 74 Resp 18 18 B/P (MAP) 110/50 116/56 118/54 139/67 (91) Pulse Ox 95 O2 Delivery Nasal Cannula O2 Flow Rate 2.0 01/30/19 01/30/19 01/30/19 01/31/19 19:33 20:00 23:00 03:00 Temp 98.7 99.2 98.7 99.2 Pulse 95 82 Resp 18 B/P (MAP) 158/66 (96) 146/65 (92) Pulse Ox 96 93 94 O2 Delivery Nasal Cannula Nasal Cannula Nasal Cannula Nasal Cannula O2 Flow Rate 3.0 3.0 2.0 2.0 01/31/19 01/31/19 01/31/19 01/31/19 07:00 07:38 09:41 11:42 Temp 97.9 97.9 Pulse 86 86 Resp 18 B/P (MAP) 131/64 (86) 131/64 Pulse Ox 96 96 O2 Delivery Room Air Nasal Cannula Nasal Cannula O2 Flow Rate 3.0 3.0 Intake and Output 01/30/19 01/30/19 01/31/19 15:00 23:00 07:00 Intake Total 525 ml 110 ml Output Total 560 ml Balance 525 ml -450 ml COLLEEN SALDANA MD January 31, 2019 13:09
--- NOTE | 2019-01-31 14:13 | NUR ---
SW following for discharge planning. Discussed with RN, pt not discharge home today. Pt's wanting PT/OT at [facility]. SW to fax referral when received. SW will continue to follow.
[2019-01-31 15:00] VITALS: BP 123/54
[2019-01-31 19:30] VITALS: BP 134/55
[2019-01-31] MEDS: SIMVASTATIN 10 MG TABLET PO SCH (20:45)
[2019-01-31] MEDS: CEFDINIR 300 MG CAPSULE PO SCH (20:45)
[2019-01-31] MEDS: CETIRIZINE HCL 10 MG TABLET. PO SCH (20:45)
[2019-01-31] MEDS: INSULIN GLARGINE 300 UNITS/3 ML INSULN.PEN. SQ SCH (21:21)
[2019-01-31 23:19] VITALS: BP 132/60
[2019-02-01 03:39] VITALS: BP 137/61
--- NOTE | 2019-02-01 05:37 | PDOC ---
Infectious Disease Note Subjective Subjective feeling good ROS ROS no n/v/d/ Vital Sign Vital Signs Vital Signs Date Time Temp Pulse Resp B/P (MAP) Pulse Ox O2 Delivery O2 Flow Rate FiO2 02/01/19 03:39 97.9 56 20 137/61 (86) 96 BiPAP/CPAP 97.9 01/31/19 20:07 3.0 Physical Exam PHYSICAL EXAM GENERAL: Sitting in the chair, alert, NAD HEENT: Oral cavity, pharynx is clear. Dentures NECK: Supple LUNGS: Decreased in the bases. HEART: S1 and S2 with a 1-2/6 murmur. ABDOMEN: Obese, soft and nontender. No guarding or rebound. EXTREMITIES: Without clubbing. Chronic venous stasis changes BLE . Dry ulcer 1st and 4th left toes, no redness or drainage NEUROLOGICAL: Alert, answers questions appropriately SKIN: without rash PIV Labs Lab Laboratory Tests Test 01/31/19 07:54 01/31/19 08:53 01/31/19 11:37 01/31/19 17:00 Glucose (Fingerstick) 102 mg/dL (70-99) 138 mg/dL (70-99) 66 mg/dL (70-99) White Blood Count 8.9 x10^3/uL (4.0-11.0) Red Blood Count 2.72 x10^6/uL (4.30-5.70) Hemoglobin 8.5 g/dL (13.0-17.5) Hematocrit 25.1 % (39.0-53.0) Mean Corpuscular Volume 92 fL (79-100) Mean Corpuscular Hemoglobin 31 pg (25-35) Mean Corpuscular Hemoglobin Concent 34 g/dL (31-37) Red Cell Distribution Width 16.0 % (11.5-14.5) Platelet Count 185 x10^3/uL (140-400) Sodium Level 144 mmol/L (136-145) Potassium Level 4.5 mmol/L (3.5-5.1) Chloride Level 110 mmol/L (98-107) Carbon Dioxide Level 24 mmol/L (21-32) Anion Gap 10 (6-14) Blood Urea Nitrogen 53 mg/dL (8-26) Creatinine 1.7 mg/dL (0.7-1.3) Estimated GFR (Cockcroft-Gault) 38.5 Glucose Level 135 mg/dL (70-99) Calcium Level 10.1 mg/dL (8.5-10.1) Test 01/31/19 17:33 01/31/19 20:57 Glucose (Fingerstick) 96 mg/dL (70-99) 125 mg/dL (70-99) Micro Microbiology 01/23/19 Blood Culture - Final, Complete NO GROWTH AFTER 5 DAYS 01/25/19 Anaerobic/Aerobic Culture, Resulted Pending 01/25/19 Anaerobic Culture Result 1 (NEIL), Resulted Pending 01/25/19 Aerobic Culture - Final, Resulted 01/25/19 Aerobic Culture Result 1 (NEIL) - Final, Resulted 01/25/19 Antimicrobic Susceptibility - Final, Resulted 01/25/19 Gram Stain - Final, Resulted 01/25/19 Gram Stain Result 1 (NEIL) - Final, Resulted 01/25/19 Gram Stain Result 2 (NEIL) - Final, Resulted Objective Assessment Left great toe ? Osteomyelitis - treated with 6 weeks from [facility] of IV and finished in Oct, looks good, does have wounds on th and 2 nd toe, appears superficial Left great toe wound with purulence - MSSA so far PCN allergy - tolerated Cephalosporins PAD s/p angioplasty 01/27 L post tibial artery LYNDSEY Left 4 th toe dry ulcer Eosinophilia Plan Plan of Care juliet sosa Monitor temp Labs in am Local wound care D/w CRISTIAN BEAVERS MD February 01, 2019 05:37
[2019-02-01] MEDS: PANTOPRAZOLE 40 MG TABLET.DR. PO SCH (05:48)
[2019-02-01 07:00] VITALS: BP_SYST 137; BP_SYST 142; BP_DIAS 58; BP_DIAS 61
[2019-02-01] MEDS: IPRATRPIUM/ALBUTEROL 0.5/2.5MG 3 ML NEBU. NEB SCH ×2 (07:43→11:39)
[2019-02-01] MEDS: BUDESONIDE 0.5 MG/2 ML NEBU. NEB SCH (07:43)
[2019-02-01] MEDS: INSULIN LISPRO 300 UNITS/3 ML INSULN.PEN. SQ SCH ×4 (08:00→13:20)
[2019-02-01] MEDS: CEFDINIR 300 MG CAPSULE PO SCH (08:39)
[2019-02-01] MEDS: MULTIVITAMIN with MINERAL TABLET. PO SCH (08:40)
[2019-02-01] MEDS: CLOPIDOGREL BISULFATE 75 MG TABLET PO SCH (08:40)
[2019-02-01] MEDS: LACTOBACILLUS RHAMNOSUS GG 1 CAPSULE. PO SCH (08:41)
[2019-02-01] MEDS: FINASTERIDE 5 MG TABLET. PO SCH (08:41)
[2019-02-01] MEDS: CITALOPRAM 20 MG TABLET. PO SCH (08:42)
[2019-02-01] MEDS: SPIRONOLACTONE 25 MG TABLET PO SCH (08:42)
[2019-02-01] MEDS: LUBIPROSTONE 8 MCG CAPSULE PO SCH (08:43)
[2019-02-01] MEDS: TAMSULOSIN 0.4 MG CAP.ER.24H. PO SCH (08:43)
[2019-02-01] MEDS: METOPROLOL SUCC 24HR ER 25 MG TAB.ER.24H. PO SCH (08:44)
[2019-02-01] MEDS: CHOLECALCIFEROL (VITAMIN D3) 1,000 UNIT TABLET PO SCH (08:45)
[2019-02-01] MEDS: ASPIRIN CHEWABLE 81 MG TABLET. PO SCH (08:45)
[2019-02-01] MEDS: NYSTATIN TOPICAL POWDER 15GM BOTTLE. TP SCH (09:00)
[2019-02-01] MEDS ORDERED: CLOP75TA PO (09:41)
[2019-02-01 11:00] VITALS: BP 116/53
--- NOTE | 2019-02-01 11:27 | PDOC3 ---
Discharge Summary Visit Information Date of Admission: January 23, 2019 Date of Discharge: February 01, 2019 Final Diagnosis Problems Medical Problems: (1) Left foot infection Status: Acute (2) Wound cellulitis Status: Acute Brief Hospital Course Allergies Allergies Coded Allergies Type Severity Reaction Last Updated Verified venom-honey bee Allergy Severe Anaphylaxis 01/27/19 Yes Penicillins Allergy Intermediate RASH 01/27/19 Yes adhesive Allergy Intermediate Rash 01/27/19 Yes Vital Signs Vital Signs Date Time Temp Pulse Resp B/P (MAP) Pulse Ox O2 Delivery O2 Flow Rate FiO2 02/01/19 08:44 60 142/58 02/01/19 07:49 Nasal Cannula 3.0 02/01/19 07:00 97.9 96 97.9 02/01/19 07:00 18 Lab Results Laboratory Tests Test 01/30/19 11:46 01/30/19 16:56 01/30/19 20:35 01/30/19 22:30 Glucose (Fingerstick) 128 mg/dL (70-99) 81 mg/dL (70-99) 165 mg/dL (70-99) Stool Occult Blood Negative (NEG) Test 01/31/19 07:54 01/31/19 08:53 01/31/19 11:37 01/31/19 17:00 Glucose (Fingerstick) 102 mg/dL (70-99) 138 mg/dL (70-99) 66 mg/dL (70-99) White Blood Count 8.9 x10^3/uL (4.0-11.0) Red Blood Count 2.72 x10^6/uL (4.30-5.70) Hemoglobin 8.5 g/dL (13.0-17.5) Hematocrit 25.1 % (39.0-53.0) Mean Corpuscular Volume 92 fL (79-100) Mean Corpuscular Hemoglobin 31 pg (25-35) Mean Corpuscular Hemoglobin Concent 34 g/dL (31-37) Red Cell Distribution Width 16.0 % (11.5-14.5) Platelet Count 185 x10^3/uL (140-400) Sodium Level 144 mmol/L (136-145) Potassium Level 4.5 mmol/L (3.5-5.1) Chloride Level 110 mmol/L (98-107) Carbon Dioxide Level 24 mmol/L (21-32) Anion Gap 10 (6-14) Blood Urea Nitrogen 53 mg/dL (8-26) Creatinine 1.7 mg/dL (0.7-1.3) Estimated GFR (Cockcroft-Gault) 38.5 Glucose Level 135 mg/dL (70-99) Calcium Level 10.1 mg/dL (8.5-10.1) Test 01/31/19 17:33 01/31/19 20:57 02/01/19 07:45 Glucose (Fingerstick) 96 mg/dL (70-99) 125 mg/dL (70-99) 117 mg/dL (70-99) Laboratory Tests Test 01/31/19 11:37 01/31/19 17:00 01/31/19 17:33 01/31/19 20:57 Glucose (Fingerstick) 138 mg/dL (70-99) 66 mg/dL (70-99) 96 mg/dL (70-99) 125 mg/dL (70-99) Test 02/01/19 07:45 Glucose (Fingerstick) 117 mg/dL (70-99) Brief Hospital Course Mr Price is an 83yo M w/ PMHx CLL, PAD, DM2, chronic systolic CHF, peripheral neuropathy, AFIB (with DCCV prior, on NOAC), HTN, Hyperlipidemia, Aortic stenosis (s/p TAVR @ [facility] in 2013), Other (cardiomyopathy), COPD, GODWIN with CPAP, migraines, Depression, Chronic renal insufficiency, Benign prostatic hyperplasia, chronic stasis dermatitis bilateral lower extremities who presents from his [facility] for concerns of osteomyelitis of left great toe.Seen in [place] in August on 6 weeks IV antibiotics in SNF, then home where his has been caring for him. She reports patient had been doing good and then a few weeks ago he stubbed his left great toe and since has had increased redness and swelling along with worsening wound on his great toe. Patient also has 2 small scabbed wounds on his third and fourth toe on his left foot.He was seen previously by vascular surgery by Dr. Schumacher for arterial insufficiency, was planning further treatment outpatient for LLE PAD.In ED was given empiric v ancomycin and admitted for further care. Seen by vascular surgery, ID, and nephrology. on 01/27: LLE arterial runoff study - balloon angioplasty of the tibial peroneal trunk and posterior tibial artery there is in-line flow to the foot with large medial and lateral tarsal branches giving good flow to the toes. ID saw patient and patient was on cefipime and flagyl but will be changed to omnicef at time of discharge. patient with CAD and two stents prior on ASA and plavix. also with Afib - s/p DCCV on NOAC, changed from eliquis to xarelto recently. xarelto held here as Hb dropped to 7.0 and patient transfused two units of blood. discharge Hb 8.5. no reported bleeding. GI consulted and no scopes performed. stool negative for occult blood. will plan to hold xarelto to lower bleeding risk since on ASA and plavix for CAD and PVD. noted hx of Left great toe cellulitis: treated with 6 weeks from [facility] of IV and finished in Oct. patient has hx of CLL, followed by oncology. appt next week. patient has hx of of CHF and was stable here on diuretic therapy. all labs stable at time of discharge. will go home with and has good support system at home. Discharge Information Condition at Discharge: Stable Follow Up: Weeks (has follow up with onc next week) Disposition/Orders: D/C to Home Scheduled Aspirin (Aspir 81) 81 Mg Tablet.dr, 81 MG PO DAILY, (Reported) Entered as Reported by: KATHRYN GONZALEZ on 01/04/141317 Budesonide/Formoterol Fumarate (Symbicort 160-4.5 Mcg Inhaler) 10.2 Gm Hfa.aer.ad, 2 PUFF IH BID for asthma, #10.6 Ref 3 (Reported) Entered as Reported by: PADDY DAUGHERTY on 01/24/19423 Last Action: Converted on 01/24/191327 by KARLA CERRATO MD Cetirizine Hcl (Cetirizine Hcl) 10 Mg Tablet, 1 TAB PO HS for allergies, #30 Ref 5 (Reported) Entered as Reported by: PADDY DAUGHERTY on 01/24/19423 Last Action: Continued on 01/24/191327 by KARLA CERRATO MD Cholecalciferol (Vitamin D3) (Vitamin D) 1,000 Unit Tablet, 1,000 UNIT PO BID, (Reported) Entered as Reported by: KATHRYN GONZALEZ on 4/24/14 1318 Cholecalciferol (Vitamin D3) (Vitamin D) 1,000 Unit Tablet, 1,000 UNIT PO DAILY for osteoporosis, (Reported) Entered as Reported by: PADDY DAUGHERTY on 01/24/19423 Last Action: Continued on 01/24/191327 by KARLA CERRATO MD Clopidogrel Bisulfate (Clopidogrel) 75 Mg Tablet, 75 MG PO DAILYWBKFT for pvd for 30 Days, #30 Prescribed by: COLLEEN SALDANA MD on 02/01/19 0941 Doxycycline Hyclate (Vibramycin) 100 Mg Capsule, 1 CAP PO BID for osteomylitis, #14 (Reported) Entered as Reported by: OLGA TAM on 11/09/18 1518 Escitalopram Oxalate (Lexapro) 20 Mg Tablet, 1 TAB PO DAILY for depression/anxiety, #90 Ref 3 (Reported) Entered as Reported by: PADDY DAUGHERTY on 01/24/19423 Last Action: Converted on 01/24/191327 by KARLA CERRATO MD Esomeprazole Magnesium (Nexium Capsule) 40 Mg Capsule.dr, 1 CAP PO DAILY for GERD, #30 Ref 5 (Reported) Entered as Reported by: PADDY DAUGHERTY on 01/24/19423 Last Action: Converted on 01/24/191327 by KARLA CERRATO MD Finasteride (Finasteride) 5 Mg Tablet, 1 TAB PO DAILY for enlarged prostate, #30 Ref 11 (Reported) Entered as Reported by: PADDY DAUGHERTY on 01/24/19423 Last Action: Continued on 01/24/191327 by KARLA CERRATO MD Insulin Glargine,Hum.rec.anlog (Lantus Solostar) 100 Unit/1 Ml Insuln.pen, 14 UNIT SQ QHS for antidiabetic, #15 Ref 3 (Reported) Entered as Reported by: PADDY DAUGHERTY on 01/24/19423 Last Action: Continued on 01/24/191327 by KARLA CERRATO MD Insulin Lispro (Humalog) 100 Unit/1 Ml Insuln.pen, 5 UNIT SQ at lunch/dinner for antidiabetic, (Reported) Entered as Reported by: PADDY DAUGHERTY on 01/24/19423 Last Action: Continued on 01/24/191327 by KARLA CERRATO MD Ipratropium/Albuterol Sulfate (Combivent Respimat Inhal) 4 Gm Aer.w.adap, 4 GM IH BID, (Reported) Entered as Reported by: KATHRNY GONZALEZ on 01/04/141317 Ipratropium/Albuterol Sulfate (Combivent Respimat Inhal) 4 Gm Aer.w.adap, 2 INH IH QID for asthma, (Reported) Entered as Reported by: PADDY DAUGHERTY on 01/24/19423 Last Action: Converted on 01/24/191327 by KARLA CERRATO MD Lactobacillus Acidophilus (Probiotic) 1 Each Capsule, 1 EACH PO DAILY, (Reported) Entered as Reported by: RHODA WOLFE on 10/29/161952 Lactobacillus Combo No.11 (Probiotic) 1 Each Cap.sprink, 1 EACH PO DAILY for improve bowel function, (Reported) Entered as Reported by: PADDY DAUGHERTY on 01/24/19423 Last Action: Reviewed on 01/24/19424 by PADDY DAUGHERTY Linaclotide (Linzess) 145 Mcg Capsule, 145 MCG PO DAILY07 for IRRITABLE BOWEL, (Reported) Entered as Reported by: PADDY DAUGHERTY on 01/24/19423 Last Action: Converted on 01/24/191327 by KARLA CERRATO MD Losartan Potassium (Losartan Potassium ) 25 Mg Tablet, 25 MG PO DAILY for HYPERTENSION, (Reported) Entered as Reported by: RICHMOND BURR on 11/09/18 0726 Metoprolol Succinate (Metoprolol Succinate ( Xl )) 25 Mg Tab.er.24h, 0.5 TAB PO DAILY for hypertension, #30 Ref 5 (Reported) Entered as Reported by: PADDY DAUGHERTY on 01/24/19423 Last Action: Continued on 01/24/191327 by KARLA CERRATO MD Multivitamin (Multivitamins) 1 Each Tablet, 1 EACH PO DAILY, (Reported) Entered as Reported by: KATHRYN GONZALEZ on 01/04/141317 Rivaroxaban (Xarelto) 20 Mg Tablet, 20 MG PO DAILY for prevent heart attack/stroke, (Reported) Entered as Reported by: PADDY DAUGHERTY on 01/24/19423 Last Action: Converted on 01/24/191327 by KARLA CERRATO MD Simvastatin (Simvastatin) 10 Mg Tablet, 1 TAB PO HS for HLD, #90 Ref 3 (Reported) Entered as Reported by: RHODA WOLFE on 10/29/161952 Simvastatin (Simvastatin) 10 Mg Tablet, 1 TAB PO QHS for high cholesterol, #30 Ref 5 (Reported) Entered as Reported by: PADDY DAUGHERTY on 01/24/19423 Last Action: Continued on 01/24/191327 by KARLA CERRATO MD Spironolactone (Spironolactone) 25 Mg Tablet, 0.5 TAB PO DAILY for hypertension, #90 Ref 1 (Reported) Entered as Reported by: PADDY DAUGHERTY on 01/24/19423 Last Action: Converted on 01/24/191327 by KARLA CERRATO MD Tamsulosin Hcl (Flomax) 0.4 Mg Cap.er.24h, 0.4 MG PO DAILYWSUP for BPH, (Reported) Entered as Reported by: KATHRYN GONZALEZ on 01/04/141317 Tizanidine Hcl (Zanaflex) 2 Mg Capsule, 2 MG PO HS, (Reported) Entered as Reported by: KATHRYN GONZALEZ on 01/04/141317 Torsemide (Torsemide) 20 Mg Tablet, 10 MG PO DAILY, (Reported) Entered as Reported by: RHODA WOLFE on 10/29/161952 Discontinued Medications Acetaminophen (Acetaminophen) 325 Mg/10.15 Ml Solution, 325 MG PO Q4HRS for pain, (Reported) Entered as Reported by: PADDY DAUGHERTY on 01/24/19423 Last Action: Reviewed on 01/24/19424 by PADDY DAUGHERTY Aspirin (Aspirin) 81 Mg Tab.chew, 1 TAB PO DAILY for preventative for heart attack, #30 Ref 3 (Reported) Entered as Reported by: PADDY DAUGHERTY on 01/24/19423 Last Action: Continued on 01/24/191327 by KARLA CERRATO MD Butalbital/Aspirin/Caffeine (Fiorinal 50-325-40 Mg Capsule) 1 Each Capsule, 1 EACH PO PRN Q4HRS PRN for HEADACHE, (Reported) Entered as Reported by: PADDY DAUGHERTY on 01/24/19 0424 Last Action: Reviewed on 01/28/19 1042 by MARIA TORRES Codeine/Butalbital/Asa/Caffein (Fiorinal-Cod 39-50-382-40 Cap) 1 Each Capsule, 1 EACH PO PRN Q4-6HRS PRN for PAIN, (Reported) Entered as Reported by: RHODA WOLFE on 10/29/161952 Escitalopram Oxalate (Escitalopram Oxalate) 20 Mg Tablet, 1 TAB PO DAILY, #30 Ref 5 (Reported) Entered as Reported by: RHODA WOLFE on 10/29/161952 Finasteride (Proscar) 5 Mg Tablet, 1 TAB PO DAILYWSUP for BPH, #90 Ref 1 (Reported) Entered as Reported by: RONDA BRAUN on 01/22/16 0021 Insulin Glargine,Hum.rec.anlog (Lantus) 100 Unit/1 Ml Vial, 14 UNIT SQ HS for DM, (Reported) Entered as Reported by: KATHRYN GONZALEZ on 01/04/14 1318 Insulin Lispro (Humalog) 100 Unit/1 Ml Insuln.pen, 8 UNIT SQ DAILYWBKFT, (Reported) Entered as Reported by: KATHRYN GONZALEZ on 01/04/14 1318 Insulin Lispro (Humalog) 100 Unit/1 Ml Cartridge, 6 UNIT SQ BIDACLD for DM, (Reported) Entered as Reported by: OLGA TAM on 11/09/18 1519 Metoprolol Succinate (Metoprolol Succinate ( Xl )) 25 Mg Tab.er.24h, 1 TAB PO DAILY for heart med, #30 Ref 5 (Reported) Entered as Reported by: RICHMOND BURR on 11/09/18 0726 Rivaroxaban (Xarelto) 20 Mg Tablet, 20 MG PO DAILYWSUP for AFIB for 30 Days, #30 please hold on Wednesday and WednesdayNovember 12 and . Prescribed by: GWEN KERR MD on 11/10/18 1245 Spironolactone (Spironolactone) 25 Mg Tablet, 1 TAB PO DAILY for diuretic, #90 Ref 1 (Reported) Entered as Reported by: RICHMOND BURR on 11/09/18 0726 Tamsulosin Hcl (Flomax) 0.4 Mg Cap.er.24h, 1 CAP PO DAILY for enlarged prostate, #30 Ref 11 (Reported) Entered as Reported by: PADDY DAUGHERTY on 01/24/194 Last Action: Continued on 01/24/19 1328 by MD LES ENCINAS MANEESH MD February 01, 2019 11:27
--- NOTE | 2019-02-01 14:52 | NUR ---
LORENE following for discharge planning. Discussed with RN, LORENE met with pt's to advise pt has 20 SNF days covered at 100%. Pt's still does not want pt to go to SNU. Pt's only wants PT at [facility], as believes pt can do OT himself. LORENE faxed script to [facility] (ph: [phone], fax: [phone]). No further SW needs. RN notified.
--- NOTE | 2019-02-01 16:49 | NUR ---
Pt was discharged to home at 1530 in stable condition with all personal belongings after reviewing all pertinent information including education, medications, follow up and at home care. Pt was escorted by staff and family and driven home by his .
== END 2019-02-01 15:30 | disposition home or self-care (01) | DRG 252 ==
LOC: ER 16:19 → MERGE 19:29 → 4 NORTH 19:29
PROVIDERS: ADMIT Internal Medicine; ATTEND Internal Medicine
PROC: 5A09357 Assistance with Respiratory Ventilation, Less than 24 Consecutive Hours, Continuous Positive Airway Pressure (ICD-10-PCS; 2019-01-26)
PROC: 047S3ZZ Dilation of Left Posterior Tibial Artery, Percutaneous Approach (ICD-10-PCS; 2019-01-27)
PROC: B41G1ZZ Fluoroscopy of Left Lower Extremity Arteries using Low Osmolar Contrast (ICD-10-PCS; 2019-01-27)
PROC: B41F1ZZ Fluoroscopy of Right Lower Extremity Arteries using Low Osmolar Contrast (ICD-10-PCS; 2019-01-27)
PROC: 047U3ZZ Dilation of Left Peroneal Artery, Percutaneous Approach (ICD-10-PCS; principal; 2019-01-27 07:30)
PROC: 30233N1 Transfusion of Nonautologous Red Blood Cells into Peripheral Vein, Percutaneous Approach (ICD-10-PCS; 2019-01-30)
PROC: 5A09357 Assistance with Respiratory Ventilation, Less than 24 Consecutive Hours, Continuous Positive Airway Pressure (ICD-10-PCS; 2019-01-31)
DX: E11.51 Type 2 diabetes mellitus with diabetic peripheral angiopathy without gangrene (principal); N17.0 Acute kidney failure with tubular necrosis; C91.10 Chronic lymphocytic leukemia of B-cell type not having achieved remission; I50.22 Chronic systolic (congestive) heart failure; I13.0 Hypertensive heart and chronic kidney disease with heart failure and stage 1 through stage 4 chronic kidney disease, or unspecified chronic kidney disease; I42.8 Other cardiomyopathies; L03.032 Cellulitis of left toe; N18.9 Chronic kidney disease, unspecified; E11.42 Type 2 diabetes mellitus with diabetic polyneuropathy; J44.9 Chronic obstructive pulmonary disease, unspecified; I87.2 Venous insufficiency (chronic) (peripheral); I48.91 Unspecified atrial fibrillation; I35.0 Nonrheumatic aortic (valve) stenosis; N18.3 Chronic kidney disease, stage 3 (moderate); G47.33 Obstructive sleep apnea (adult) (pediatric); G43.909 Migraine, unspecified, not intractable, without status migrainosus; F32.9 Major depressive disorder, single episode, unspecified; E78.5 Hyperlipidemia, unspecified; D63.8 Anemia in other chronic diseases classified elsewhere; Z66 Do not resuscitate; L97.529 Non-pressure chronic ulcer of other part of left foot with unspecified severity; D72.1 Eosinophilia; N40.0 Benign prostatic hyperplasia without lower urinary tract symptoms; I25.10 Atherosclerotic heart disease of native coronary artery without angina pectoris; I77.1 Stricture of artery; K21.9 Gastro-esophageal reflux disease without esophagitis; Z79.01 Long term (current) use of anticoagulants; Z79.02 Long term (current) use of antithrombotics/antiplatelets; Z86.19 Personal history of other infectious and parasitic diseases; Z87.11 Personal history of peptic ulcer disease; Z95.2 Presence of prosthetic heart valve; Z82.49 Family history of ischemic heart disease and other diseases of the circulatory system; Z88.0 Allergy status to penicillin; Z87.891 Personal history of nicotine dependence; Z90.49 Acquired absence of other specified parts of digestive tract; Z95.1 Presence of aortocoronary bypass graft; Z88.8 Allergy status to other drugs, medicaments and biological substances; Z91.041 Radiographic dye allergy status
CPT/HCPCS: 37224; 37228; 99285; G0269; 36415; 71045; 73630; 76937; 80048; 80053; 80069; 81001; 82274; 82607; 82962; 83540; 83550; 83605; 85007; 85025; 85027; 85610; 86850; 86900; 86901; 86920; 87040; 87071; 87075; 87186; 87641; 94640; 94660; 94760; 96365; A7015; C1760; C1769; C1885; C1892; C1894; G0238; J0171; J0692; J1644; J1815; J1940; J2250; J2370; J2704; J3010; J3370; J3490; J7030; J7040; J7620; J7626; P9040; Q9967; 97110; 97116; 97535; C1771